=== PATIENT | male | born 1940 | race Caucasian/White ===

== ENCOUNTER 2019-09-03 09:42 | Inpatient (IN) | payer OTHER ==
[2019-09-03] MEDS ORDERED: VANCOMYCIN 1,500 MG in DEXTROSE 5%-WATER - 250 ML IVPB ONE (10:48)
[2019-09-03] MEDS ORDERED: PIPERACILLIN/TAZOB 4.5 GM 4.5 GM in DEXTROSE 5%-WATER 100 ML IVPB ONE (10:48)
[2019-09-03] MEDS ORDERED: PIPERACILLIN/TAZOB 4.5 GM 4.5 GM/100 ML BAG IVPB ONE (11:40)
[2019-09-03 11:42] LABS: BASO % 0.4 % (0-2.0); EOS % 3.7 % (0-4.5); HEMATOCRIT 22.4 % (35.4-49); HEMOGLOBIN 7.6 GM/dL (11.7-16.9); LYMPH % 12.2 % (8-40); MEAN CELL VOLUME 88.1 fl (80-96); MEAN PLT VOLUME 7.4 fl (7.5-11.1); MONO % 9.9 % (3.8-10.2); NEUT % 73.8 % (42.8-82.8); PLATELET COUNT 231 K/MM3 (134-434); RBC 2.54 M/mm3 (4.00-5.60); RDW 15.7 % (11.9-15.9); WHITE BLOOD COUNT 6.3 K/mm3 (4.0-10.0)
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
[2019-09-03 11:57] LABS: INR 1.18 (0.83-1.09); PROTHROMBIN TIME (PATIENT) 13.9 SEC (9.7-13.0)
[2019-09-03 12:06] LABS: ALBUMIN 2.8 g/dl (3.4-5.0); BILIRUBIN,TOTAL 0.4 mg/dL (0.2-1); BLOOD UREA NITROGEN 103.8 mg/dL (7-18); CALCIUM 7.9 mg/dL (8.5-10.1); CREATININE 3.3 mg/dL (0.55-1.3); POTASSIUM 4.4 mmol/L (3.5-5.1); TOT PROT 6.1 g/dl (6.4-8.2)
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
[2019-09-03] MEDS ORDERED: PIPERACILLIN/TAZOB 2.25 GM 2.25 GM/50 ML BAG IVPB ONE (18:43)
[2019-09-03] MEDS: PIPERACILLIN/TAZOB 2.25 GM 2.25 GM in DEXTROSE 5%-WATER - 50 ML IVPB SCH (18:50)
[2019-09-04 00:59] VITALS: BMI 34.2
[2019-09-04] MEDS ORDERED: DEXTROSE 5%-WATER - 50 ML IVPB ONE ×3 (01:13→17:00)
[2019-09-04] MEDS ORDERED: PIPERACILLIN/TAZOBACTAM 2.25 GM VIAL IVPB ONE ×3 (01:13→17:00)
[2019-09-04] MEDS: PIPERACILLIN/TAZOB 2.25 GM 2.25 GM in DEXTROSE 5%-WATER - 50 ML IVPB SCH ×3 (01:33→17:12)
[2019-09-04] MEDS ORDERED: SODIUM CHLORIDE 0.45% 1,000 ML IV SCH (04:45)
[2019-09-04] MEDS: INSULIN SLIDING SCALE (NOVOLOG) 1 VIAL SQ SCH ×4 (06:25→21:37)
[2019-09-04] MEDS ORDERED: INSULIN (NOVOLOG) ASPART 100 UNITS/ML 10ML VIAL ONE ×2 (07:58→14:47)
[2019-09-04 09:14] LABS: EOS % 3.9 % (0-4.5); HEMATOCRIT 26.2 % (35.4-49); HEMOGLOBIN 8.9 GM/dL (11.7-16.9); LYMPH % 7.9 % (8-40); MCH 29.9 pg (25.7-33.7); MCHC 34.1 g/dl (32.0-35.9); MEAN CELL VOLUME 87.8 fl (80-96); MEAN PLT VOLUME 7.3 fl (7.5-11.1); MONO % 10.2 % (3.8-10.2); PLATELET COUNT 231 K/MM3 (134-434); RBC 2.98 M/mm3 (4.00-5.60); RDW 15.6 % (11.9-15.9)
[2019-09-04] MEDS ORDERED: amLODIPine BESYLATE 10 MG TABLET (FP) PO SCH (10:00)
[2019-09-04] MEDS ORDERED: LIRAGLUTIDE 0.6 MG/0.1 ML PEN.INJCTR SQ SCH ×2 (10:00→13:56)
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
[2019-09-04] MEDS: TORSEMIDE 20 MG TABLET (FP) PO SCH (10:23)
[2019-09-04] MEDS: LOSARTAN POTASSIUM 50 MG TABLET (FP) PO SCH (10:23)
[2019-09-04] MEDS: ISOSORBIDE MONONITRATE 30 MG TAB.SR.24H (FP) PO SCH (10:23)
[2019-09-04] MEDS: ASPIRIN 81 MG CHEWABLE TABLETS PO SCH (10:23)
[2019-09-04] MEDS: CLOPIDOGREL BISULFATE 75 MG TABLET (FP) PO SCH (10:23)
[2019-09-04] MEDS: HEPARIN NA (PORCINE) 5,000 UNITS/ML 1ML VIAL SQ SCH ×2 (10:24→21:38)
[2019-09-04] MEDS: CARVEDILOL 25 MG TABLET (FP) PO SCH ×2 (10:24→21:38)
[2019-09-04] MEDS ORDERED: PT OWN MED DRAWER 7, Y5N ONE (10:27)
[2019-09-04 11:15] LABS: ALBUMIN 2.8 g/dl (3.4-5.0); BILIRUBIN,TOTAL 0.8 mg/dL (0.2-1); BLOOD UREA NITROGEN 94.6 mg/dL (7-18); CALCIUM 8.2 mg/dL (8.5-10.1); CREATININE 3.2 mg/dL (0.55-1.3); POTASSIUM 4.3 mmol/L (3.5-5.1); TOT PROT 6.2 g/dl (6.4-8.2)
--- NOTE | 2019-09-04 11:18 | HP ---
Admitting History and Physical - Advance Directives Advance Directives: Yes: Health Care Proxy - Smoking History Smoking history: Former smoker Have you smoked in the past 12 months: No - Alcohol/Substance Use Hx Alcohol Use: No Home Medications - Allergies Allergies/Adverse Reactions: Allergies Allergy/AdvReac Type Severity Reaction Status Date / Time No Known Allergies Allergy Verified 09/03/19 09:51 - Home Medications Home Medications: Ambulatory Orders Amlodipine Besylate [Norvasc -] 1 tab PO DAILY 08/26/19 Aspirin [ASA -] 1 tab PO DAILY 08/26/19 Carvedilol 1 tab PO BID 08/26/19 Cholecalciferol (Vitamin D3) [Vitamin D3] 1 cap PO DAILY 08/26/19 Clopidogrel Bisulfate [Plavix] 1 tab PO DAILY 08/26/19 Insulin Glargine,Hum.rec.anlog [Lantus] 25 units SQ DAILY 08/26/19 Insulin Lispro [Humalog] 5 units SQ HS 08/26/19 Isosorbide Mononitrate [Isosorbide Mononitrate ER] 90 mg PO DAILY 08/26/19 Liraglutide [Victoza -] 1.2 mg SQ DAILY 08/26/19 Losartan Potassium [Cozaar] 50 mg PO DAILY 08/26/19 Rosuvastatin [Crestor -] 1 tab PO HS 08/26/19 Torsemide 2 tab PO DAILY 08/26/19 Physical Examination Vital Signs: Vital Signs Temperature 98.1 F 09/04/19 05:55 Pulse Rate 65 09/04/19 05:55 Respiratory Rate 20 09/04/19 05:55 Blood Pressure 154/72 09/04/19 05:55 O2 Sat by Pulse Oximetry (%) 99 09/04/19 00:45 Labs: CBC, BMP 09/04/19 08:45 09/04/19 08:45
--- NOTE | 2019-09-04 12:20 | EKG ---
Test Reason : Blood Pressure : / mmHG Vent. Rate : 074 BPM Atrial Rate : 074 BPM P-R Int : 224 ms QRS Dur : 160 ms QT Int : 450 ms P-R-T Axes : 000 -67 104 degrees QTc Int : 499 ms AV dual-paced rhythm with prolonged AV conduction ABNORMAL ECG NO PREVIOUS ECGS AVAILABLE Confirmed by SHERMAN GRAFF, SONA ([id number]) on 09/04/2019 12:20:27 PM Referred By: Confirmed By:SONA WHITAKER MD
--- NOTE | 2019-09-04 14:05 | PN ---
Progress Note, Physician History of Present Illness: stable no new issues for bone scan today - Current Medication List Current Medications: Active Medications Amlodipine Besylate (Norvasc -) 10 mg PO DAILY [facility] Last Admin: 09/04/19 10:24 Dose: 10 mg Aspirin (Asa -) 81 mg PO DAILY [facility] Last Admin: 09/04/19 10:23 Dose: 81 mg Carvedilol (Coreg -) 25 mg PO BID [facility] Last Admin: 09/04/19 10:24 Dose: 25 mg Clopidogrel Bisulfate (Plavix -) 75 mg PO DAILY [facility] Last Admin: 09/04/19 10:23 Dose: 75 mg Heparin Sodium (Porcine) (Heparin -) 5,000 unit SQ BID [facility] Last Admin: 09/04/19 10:24 Dose: 5,000 unit Piperacillin Sod/Tazobactam (Sod 2.25 gm/ Dextrose) 50 mls @ 100 mls/hr IVPB Q8H-IV [facility]; Protocol Last Admin: 09/04/19 10:30 Dose: 100 mls/hr Sodium Chloride (1/2 Normal Saline) 1,000 mls @ 75 mls/hr IV ASDIR [facility] Last Admin: 09/04/19 06:40 Dose: 75 mls/hr Insulin Aspart (Novolog Vial Sliding Scale -) 1 vial SQ ACHS [facility]; Protocol Last Admin: 09/04/19 06:25 Dose: Not Given Insulin Aspart (Novolog Vial) 5 units SQ DAILY@1730 [facility] Isosorbide Mononitrate (Imdur -) 90 mg PO DAILY [facility] Last Admin: 09/04/19 10:23 Dose: 90 mg Liraglutide (Victoza -) 1.2 mg SQ DAILY@0600 [facility] Losartan Potassium (Cozaar -) 50 mg PO DAILY [facility] Last Admin: 09/04/19 10:23 Dose: 50 mg Torsemide (Demadex -) 40 mg PO DAILY [facility] Last Admin: 09/04/19 10:23 Dose: 40 mg - Objective Vital Signs: Vital Signs Temperature 98.1 F 09/04/19 05:55 Pulse Rate 65 09/04/19 05:55 Respiratory Rate 20 09/04/19 05:55 Blood Pressure 154/72 09/04/19 05:55 O2 Sat by Pulse Oximetry (%) 99 09/04/19 00:45 Constitutional: Yes: No Distress, Calm Cardiovascular: Yes: S1, S2 Respiratory: Yes: Regular, CTA Bilaterally Gastrointestinal: Yes: Normal Bowel Sounds, Soft Musculoskeletal: Yes: WNL Extremities: Yes: Other Integumentary: Yes: Other Wound/Incision: Yes: Clean/Dry Neurological: Yes: Alert, Oriented Psychiatric: Yes: Alert, Oriented Labs: CBC, BMP 09/04/19 08:45 09/04/19 08:45 INR, PTT INR 1.18 (0.83-1.09) H 09/03/19 11:20 Assessment/Plan continue current mgmt await for bone scan abx wound care final decision will be taken after all results
[2019-09-04] MEDS: INSULIN (NOVOLOG) ASPART 100 UNITS/ML 10ML VIAL SQ SCH (17:13)
--- NOTE | 2019-09-04 18:24 | CONSULT ---
Consult Consult Specialty:: Nephrology Reason for Consultation:: CKD - History of Present Illness Chief Complaint: sent in for admisson for non healing left lower ext wound History of Present Illness: Pt is an 79 year old male with pmhx of CHF, PPM, HTN, DM, CKD, CAD, and DFU who was sent in to the hospital for a non healing left lower ext ulcer. I was called to evaluate him for elevated creatinine. He was diagnoses with CKD at the time he was diagnoses with CHF. He says that his creatinine has been in the mid 2 range. The rise in jogger operator was attributed to diuretics. He denies shortness of breath at rest. He compains of lower ext edema. He denies fevers or chills. He denies nsaid use. - History Source History Provided By: Patient, Medical Record - Past Medical History Cardio/Vascular: Yes: CHF, HTN Renal/: Yes: Renal Inusuff - Past Surgical History Past Surgical History: Yes: Permanent Pacemaker - Alcohol/Substance Use Hx Alcohol Use: No - Smoking History Smoking history: Former smoker Have you smoked in the past 12 months: No Home Medications - Allergies Allergies/Adverse Reactions: Allergies Allergy/AdvReac Type Severity Reaction Status Date / Time No Known Allergies Allergy Verified 09/03/19 09:51 - Home Medications Home Medications: Ambulatory Orders Amlodipine Besylate [Norvasc -] 1 tab PO DAILY 08/26/19 Aspirin [ASA -] 1 tab PO DAILY 08/26/19 Carvedilol 1 tab PO BID 08/26/19 Cholecalciferol (Vitamin D3) [Vitamin D3] 1 cap PO DAILY 08/26/19 Clopidogrel Bisulfate [Plavix] 1 tab PO DAILY 08/26/19 Insulin Glargine,Hum.rec.anlog [Lantus] 25 units SQ DAILY 08/26/19 Insulin Lispro [Humalog] 5 units SQ HS 08/26/19 Isosorbide Mononitrate [Isosorbide Mononitrate ER] 90 mg PO DAILY 08/26/19 Liraglutide [Victoza -] 1.2 mg SQ DAILY 08/26/19 Losartan Potassium [Cozaar] 50 mg PO DAILY 08/26/19 Rosuvastatin [Crestor -] 1 tab PO HS 08/26/19 Torsemide 2 tab PO DAILY 08/26/19 Family Medical History Family History: Denies Review of Systems - Review of Systems Constitutional: reports: No Symptoms Eyes: reports: No Symptoms HENT: reports: No Symptoms Neck: reports: No Symptoms Cardiovascular: reports: Edema Respiratory: reports: SOB on Exertion Gastrointestinal: reports: No Symptoms Genitourinary: reports: No Symptoms Musculoskeletal: reports: No Symptoms Integumentary: reports: Wound Neurological: reports: No Symptoms Endocrine: reports: No Symptoms Psychiatric: reports: No Symptoms Physical Exam Vital Signs: Vital Signs Temperature 98.1 F 09/04/19 05:55 Pulse Rate 65 09/04/19 05:55 Respiratory Rate 20 09/04/19 09:00 Blood Pressure 154/72 09/04/19 05:55 O2 Sat by Pulse Oximetry (%) 99 09/04/19 09:00 Constitutional: Yes: Calm Eyes: Yes: Conjunctiva Clear HENT: Yes: Atraumatic Neck: Yes: Supple Cardiovascular: Yes: S1, S2 Respiratory: Yes: CTA Bilaterally Gastrointestinal: Yes: Soft Renal/: Yes: WNL Musculoskeletal: Yes: WNL Edema: Yes Edema: LLE: 2+, RLE: 2+ Integumentary: Yes: Venous Stasis Changes Neurological: Yes: Oriented Psychiatric: Yes: Oriented Labs: CBC, BMP 09/04/19 08:45 09/04/19 08:45 Imaging - Results Chest X-ray: Report Reviewed Problem List - Problems (1) CKD (chronic kidney disease) Code(s): N18.9 - CHRONIC KIDNEY DISEASE, UNSPECIFIED (2) CHF (congestive heart failure) Code(s): I50.9 - HEART FAILURE, UNSPECIFIED (3) Anemia Code(s): D64.9 - ANEMIA, UNSPECIFIED Qualifiers: Anemia type: unspecified type Qualified Code(s): D64.9 - Anemia, unspecified (4) Diabetic foot ulcers Code(s): E11.621 - TYPE 2 DIABETES MELLITUS WITH FOOT ULCER; L97.509 - NON- PRESSURE CHRONIC ULCER OTH PRT UNSP FOOT W UNSP SEVERITY Qualifiers: Diabetic foot ulcer location: midfoot Diabetes mellitus type: type 2 Laterality: left Non-pressure ulcer stage: with fat layer exposed Qualified Code(s): E11.621 - Type 2 diabetes mellitus with foot ulcer; L97.422 - Non- pressure chronic ulcer of left heel and midfoot with fat layer exposed Assessment/Plan Current Medications Generic Name Dose Route Start Last Admin Trade Name José Miguel PRN Reason Stop Dose Admin Amlodipine Besylate 10 mg 09/04/19 10:00 09/04/19 10:24 Norvasc - PO 10 mg DAILY [facility] Administration Aspirin 81 mg 09/04/19 10:00 09/04/19 10:23 Asa - PO 81 mg DAILY [facility] Administration Carvedilol 25 mg 09/04/19 10:00 09/04/19 10:24 Coreg - PO 25 mg BID [facility]Y Administration Clopidogrel Bisulfate 75 mg 09/04/19 10:00 09/04/19 10:23 Plavix - PO 75 mg DAILY [facility] Administration Heparin Sodium (Porcine) 5,000 unit 09/04/19 10:00 09/04/19 10:24 Heparin - SQ 5,000 unit BID [facility] Administration Piperacillin Sod/Tazobactam 50 mls @ 100 mls/hr 09/03/19 18:00 09/04/19 17:12 Sod 2.25 gm/ Dextrose IVPB 100 mls/hr Q8H-IV [facility] Administration Protocol Sodium Chloride 1,000 mls @ 75 mls/hr 09/04/19 04:45 09/04/19 06:40 1/2 Normal Saline IV 75 mls/hr ASDIR [facility]Y Administration Insulin Aspart 1 vial 09/04/19 07:00 09/04/19 17:13 Novolog Vial Sliding Scale - SQ Not Given ACHS [facility] Protocol Insulin Aspart 5 units 09/04/19 17:30 09/04/19 17:13 Novolog Vial SQ 5 units DAILY@1730 [facility] Administration Isosorbide Mononitrate 90 mg 09/04/19 10:00 09/04/19 10:23 Imdur - PO 90 mg DAILY [facility] Administration Liraglutide 1.2 mg 09/05/19 06:00 Victoza - SQ DAILY@0600 [facility] Losartan Potassium 50 mg 09/04/19 10:00 09/04/19 10:23 Cozaar - PO 50 mg DAILY [facility] Administration Torsemide 40 mg 09/04/19 10:00 09/04/19 10:23 Demadex - PO 40 mg DAILY [facility] Administration Impression 1. CKD 2. YENI 3. CHF 4. DM 5. DFU 6. HTN Plan - d/c fluids - cont torsemide - decrease amlodipine to 5 mg and titrate off if possible - repeat labs in am - check ua - check renal ultrasound - will place orders and follow Thank you
[2019-09-04] MEDS ORDERED: amLODIPine BESYLATE 5 MG TABLET (FP) PO SCH (18:26)
[2019-09-04] MEDS ORDERED: INSULIN LISPRO 5 UNIT SQ SCH (22:00)
[2019-09-04] MEDS ORDERED: ROSUVASTATIN CA 40 MG TABLET PO SCH (22:00)
[2019-09-04] MEDS ORDERED: INSULIN (NOVOLOG) ASPART 100 UNITS/ML 10ML VIAL SQ SCH (22:00)
--- NOTE | 2019-09-04 23:52 | PN ---
Progress Note, Physician - Current Medication List Current Medications: Active Medications Amlodipine Besylate (Norvasc -) 5 mg PO DAILY [facility] Aspirin (Asa -) 81 mg PO DAILY [facility] Last Admin: 09/04/19 10:23 Dose: 81 mg Carvedilol (Coreg -) 25 mg PO BID [facility] Last Admin: 09/04/19 21:38 Dose: 25 mg Clopidogrel Bisulfate (Plavix -) 75 mg PO DAILY [facility] Last Admin: 09/04/19 10:23 Dose: 75 mg Heparin Sodium (Porcine) (Heparin -) 5,000 unit SQ BID [facility] Last Admin: 09/04/19 21:38 Dose: 5,000 unit Piperacillin Sod/Tazobactam (Sod 2.25 gm/ Dextrose) 50 mls @ 100 mls/hr IVPB Q8H-IV [facility]; Protocol Last Admin: 09/04/19 17:12 Dose: 100 mls/hr Insulin Aspart (Novolog Vial Sliding Scale -) 1 vial SQ ACHS [facility]; Protocol Last Admin: 09/04/19 21:37 Dose: Not Given Insulin Aspart (Novolog Vial) 5 units SQ DAILY@1730 [facility] Last Admin: 09/04/19 17:13 Dose: 5 units Isosorbide Mononitrate (Imdur -) 90 mg PO DAILY [facility] Last Admin: 09/04/19 10:23 Dose: 90 mg Liraglutide (Victoza -) 1.2 mg SQ DAILY@0600 [facility] Losartan Potassium (Cozaar -) 50 mg PO DAILY [facility] Last Admin: 09/04/19 10:23 Dose: 50 mg Torsemide (Demadex -) 40 mg PO DAILY [facility] Last Admin: 09/04/19 10:23 Dose: 40 mg - Objective Vital Signs: Vital Signs Temperature 98.1 F 09/04/19 18:27 Pulse Rate 60 09/04/19 18:27 Respiratory Rate 20 09/04/19 21:00 Blood Pressure 124/55 L 09/04/19 18:27 O2 Sat by Pulse Oximetry (%) 100 09/04/19 21:00 Labs: CBC, BMP 09/04/19 08:45 09/04/19 08:45 INR, PTT INR 1.18 (0.83-1.09) H 09/03/19 11:20
[2019-09-05] MEDS ORDERED: PIPERACILLIN/TAZOBACTAM 2.25 GM VIAL IVPB ONE ×3 (00:45→17:30)
[2019-09-05] MEDS ORDERED: DEXTROSE 5%-WATER - 50 ML IVPB ONE ×3 (00:46→17:31)
[2019-09-05] MEDS: PIPERACILLIN/TAZOB 2.25 GM 2.25 GM in DEXTROSE 5%-WATER - 50 ML IVPB SCH ×3 (01:22→17:35)
[2019-09-05] MEDS ORDERED: LIRAGLUTIDE 0.6 MG/0.1 ML PEN.INJCTR SQ SCH (06:00)
[2019-09-05] MEDS ORDERED: PT OWN MED DRAWER 7, Y5N ONE (06:22)
[2019-09-05] MEDS: INSULIN SLIDING SCALE (NOVOLOG) 1 VIAL SQ SCH ×2 (06:33→21:54)
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
[2019-09-05] MEDS: ISOSORBIDE MONONITRATE 30 MG TAB.SR.24H (FP) PO SCH (10:03)
[2019-09-05] MEDS: TORSEMIDE 20 MG TABLET (FP) PO SCH (10:03)
[2019-09-05] MEDS: LOSARTAN POTASSIUM 50 MG TABLET (FP) PO SCH (10:04)
[2019-09-05] MEDS: CARVEDILOL 25 MG TABLET (FP) PO SCH ×2 (10:04→21:53)
[2019-09-05] MEDS: HEPARIN NA (PORCINE) 5,000 UNITS/ML 1ML VIAL SQ SCH ×2 (10:04→21:53)
[2019-09-05] MEDS: ASPIRIN 81 MG CHEWABLE TABLETS PO SCH (10:04)
[2019-09-05] MEDS: CLOPIDOGREL BISULFATE 75 MG TABLET (FP) PO SCH (10:04)
[2019-09-05 10:15] LABS: ALBUMIN 2.6 g/dl (3.4-5.0); BILIRUBIN,TOTAL 1.4 mg/dL (0.2-1); BLOOD UREA NITROGEN 96.9 mg/dL (7-18); CALCIUM 8.1 mg/dL (8.5-10.1); CREATININE 3.4 mg/dL (0.55-1.3); POTASSIUM 4.1 mmol/L (3.5-5.1)
[2019-09-05 11:06] LABS: EPI CELLS 0.7 /HPF (0-5/HPF); HYALINE CASTS 5 /lpf (0-8); URINE APPEARANCE CLEAR; URINE BACTERIA 0.7 /hpf (NEGATIVE); URINE BILIRUBIN NEGATIVE (NEGATIVE); URINE COLOR YELLOW; URINE GLUCOSE (UA) NEGATIVE (NEGATIVE); URINE KETONE NEGATIVE (NEGATIVE); URINE LEUK ESTERASE NEGATIVE (NEGATIVE); URINE NITRITE NEGATIVE (NEGATIVE); URINE PROTEIN 1+ (NEGATIVE); URINE RBC 4 /hpf (0-4); URINE UROBILINOGEN 0.2 mg/dL (0.2-1.0); URINE WBC 1 /hpf (0-5)
--- NOTE | 2019-09-05 12:45 | PN ---
Progress Note, Physician History of Present Illness: stable no new issues awaiting reports of imaging studies - Current Medication List Current Medications: Active Medications Amlodipine Besylate (Norvasc -) 5 mg PO DAILY [facility] Last Admin: 09/05/19 10:04 Dose: 5 mg Aspirin (Asa -) 81 mg PO DAILY [facility] Last Admin: 09/05/19 10:04 Dose: 81 mg Carvedilol (Coreg -) 25 mg PO BID [facility] Last Admin: 09/05/19 10:04 Dose: 25 mg Clopidogrel Bisulfate (Plavix -) 75 mg PO DAILY [facility] Last Admin: 09/05/19 10:04 Dose: 75 mg Heparin Sodium (Porcine) (Heparin -) 5,000 unit SQ BID [facility] Last Admin: 09/05/19 10:04 Dose: 5,000 unit Piperacillin Sod/Tazobactam (Sod 2.25 gm/ Dextrose) 50 mls @ 100 mls/hr IVPB Q8H-IV [facility]; Protocol Last Admin: 09/05/19 10:04 Dose: 100 mls/hr Insulin Aspart (Novolog Vial Sliding Scale -) 1 vial SQ ACHS [facility]; Protocol Last Admin: 09/05/19 06:33 Dose: Not Given Insulin Aspart (Novolog Vial) 5 units SQ DAILY@1730 [facility] Last Admin: 09/04/19 17:13 Dose: 5 units Isosorbide Mononitrate (Imdur -) 90 mg PO DAILY [facility] Last Admin: 09/05/19 10:03 Dose: 90 mg Liraglutide (Victoza -) 1.2 mg SQ DAILY@0600 [facility] Last Admin: 09/05/19 06:26 Dose: 1.2 mg Losartan Potassium (Cozaar -) 50 mg PO DAILY [facility] Last Admin: 09/05/19 10:04 Dose: 50 mg Torsemide (Demadex -) 40 mg PO DAILY [facility] Last Admin: 09/05/19 10:03 Dose: 40 mg - Objective Vital Signs: Vital Signs Temperature 98.7 F 09/05/19 06:00 Pulse Rate 78 09/05/19 06:00 Respiratory Rate 20 09/05/19 06:00 Blood Pressure 131/66 09/05/19 06:00 O2 Sat by Pulse Oximetry (%) 100 09/04/19 21:00 Constitutional: Yes: No Distress, Calm Cardiovascular: Yes: S1, S2 Respiratory: Yes: Regular, CTA Bilaterally Gastrointestinal: Yes: Normal Bowel Sounds, Soft Musculoskeletal: Yes: WNL Extremities: Yes: Other Wound/Incision: Yes: Clean/Dry Neurological: Yes: Alert, Oriented Psychiatric: Yes: Alert, Oriented Labs: CBC, BMP 09/04/19 08:45 09/05/19 08:55 INR, PTT INR 1.18 (0.83-1.09) H 09/03/19 11:20 Assessment/Plan continue current mgmt await for bone scan results abx wound care final decision will be taken after all results
--- NOTE | 2019-09-05 16:46 | PN ---
Progress Note, Physician History of Present Illness: Pt seen and examined at bedside. He is awake and alert. He denies shortness of breath. He denies fevers or chills. - Current Medication List Current Medications: Active Medications Amlodipine Besylate (Norvasc -) 5 mg PO DAILY [facility] Last Admin: 09/05/19 10:04 Dose: 5 mg Aspirin (Asa -) 81 mg PO DAILY [facility] Last Admin: 09/05/19 10:04 Dose: 81 mg Carvedilol (Coreg -) 25 mg PO BID [facility] Last Admin: 09/05/19 10:04 Dose: 25 mg Clopidogrel Bisulfate (Plavix -) 75 mg PO DAILY [facility] Last Admin: 09/05/19 10:04 Dose: 75 mg Heparin Sodium (Porcine) (Heparin -) 5,000 unit SQ BID [facility] Last Admin: 09/05/19 10:04 Dose: 5,000 unit Piperacillin Sod/Tazobactam (Sod 2.25 gm/ Dextrose) 50 mls @ 100 mls/hr IVPB Q8H-IV [facility]; Protocol Last Admin: 09/05/19 10:04 Dose: 100 mls/hr Insulin Aspart (Novolog Vial Sliding Scale -) 1 vial SQ ACHS [facility]; Protocol Last Admin: 09/05/19 06:33 Dose: Not Given Insulin Aspart (Novolog Vial) 5 units SQ DAILY@1730 [facility] Last Admin: 09/04/19 17:13 Dose: 5 units Isosorbide Mononitrate (Imdur -) 90 mg PO DAILY [facility] Last Admin: 09/05/19 10:03 Dose: 90 mg Liraglutide (Victoza -) 1.2 mg SQ DAILY@0600 [facility] Last Admin: 09/05/19 06:26 Dose: 1.2 mg Losartan Potassium (Cozaar -) 50 mg PO DAILY [facility] Last Admin: 09/05/19 10:04 Dose: 50 mg Torsemide (Demadex -) 40 mg PO DAILY [facility] Last Admin: 09/05/19 10:03 Dose: 40 mg - Objective Vital Signs: Vital Signs Temperature 98.9 F 09/05/19 10:00 Pulse Rate 60 09/05/19 10:00 Respiratory Rate 20 09/05/19 10:00 Blood Pressure 145/65 09/05/19 10:00 O2 Sat by Pulse Oximetry (%) 96 09/05/19 09:00 Constitutional: Yes: Calm Eyes: Yes: Conjunctiva Clear HENT: Yes: Atraumatic Cardiovascular: Yes: S1, S2 Respiratory: Yes: CTA Bilaterally Gastrointestinal: Yes: Soft, Abdomen, Obese Genitourinary: Yes: WNL Musculoskeletal: Yes: WNL Edema: Yes Edema: LLE: 2+, RLE: 2+ Wound/Incision: Yes: Draining Neurological: Yes: Oriented Psychiatric: Yes: Oriented Labs: CBC, BMP 09/04/19 08:45 09/05/19 08:55 INR, PTT INR 1.18 (0.83-1.09) H 09/03/19 11:20 Problem List - Problems (1) CKD (chronic kidney disease) Code(s): N18.9 - CHRONIC KIDNEY DISEASE, UNSPECIFIED (2) CHF (congestive heart failure) Code(s): I50.9 - HEART FAILURE, UNSPECIFIED (3) Anemia Code(s): D64.9 - ANEMIA, UNSPECIFIED Qualifiers: Anemia type: unspecified type Qualified Code(s): D64.9 - Anemia, unspecified (4) Diabetic foot ulcers Code(s): E11.621 - TYPE 2 DIABETES MELLITUS WITH FOOT ULCER; L97.509 - NON- PRESSURE CHRONIC ULCER OTH PRT UNSP FOOT W UNSP SEVERITY Qualifiers: Diabetic foot ulcer location: midfoot Diabetes mellitus type: type 2 Laterality: left Non-pressure ulcer stage: with fat layer exposed Qualified Code(s): E11.621 - Type 2 diabetes mellitus with foot ulcer; L97.422 - Non- pressure chronic ulcer of left heel and midfoot with fat layer exposed Assessment/Plan Current Medications Generic Name Dose Route Start Last Admin Trade Name Juan Carlosq PRN Reason Stop Dose Admin Amlodipine Besylate 5 mg 09/04/19 18:26 09/05/19 10:04 Norvasc - PO 5 mg DAILY [facility] Administration Aspirin 81 mg 09/04/19 10:00 09/05/19 10:04 Asa - PO 81 mg DAILY [facility] Administration Carvedilol 25 mg 09/04/19 10:00 09/05/19 10:04 Coreg - PO 25 mg BID [facility] Administration Clopidogrel Bisulfate 75 mg 09/04/19 10:00 09/05/19 10:04 Plavix - PO 75 mg DAILY [facility] Administration Heparin Sodium (Porcine) 5,000 unit 09/04/19 10:00 09/05/19 10:04 Heparin - SQ 5,000 unit BID [facility] Administration Piperacillin Sod/Tazobactam 50 mls @ 100 mls/hr 09/03/19 18:00 09/05/19 10:04 Sod 2.25 gm/ Dextrose IVPB 100 mls/hr Q8H-IV [facility] Administration Protocol Insulin Aspart 1 vial 09/04/19 07:00 09/05/19 06:33 Novolog Vial Sliding Scale - SQ Not Given ACHS [facility] Protocol Insulin Aspart 5 units 09/04/19 17:30 09/04/19 17:13 Novolog Vial SQ 5 units DAILY@1730 [facility] Administration Isosorbide Mononitrate 90 mg 09/04/19 10:00 09/05/19 10:03 Imdur - PO 90 mg DAILY [facility] Administration Liraglutide 1.2 mg 09/05/19 06:00 09/05/19 06:26 Victoza - SQ 1.2 mg DAILY@0600 [facility] Administration Losartan Potassium 50 mg 09/04/19 10:00 09/05/19 10:04 Cozaar - PO 50 mg DAILY [facility] Administration Torsemide 40 mg 09/04/19 10:00 09/05/19 10:03 Demadex - PO 40 mg DAILY [facility] Administration Impression 1. CKD 2. YENI 3. CHF 4. DM 5. DFU 6. HTN Plan - renal function is worsening - will hold arb - can increase amlodipine back to 10 mg - cont torsemide as he has edema - ua reviewed - renal ultrasound reviewed - start sodium bicarb Thank you
[2019-09-05] MEDS: INSULIN (NOVOLOG) ASPART 100 UNITS/ML 10ML VIAL SQ SCH (17:39)
--- NOTE | 2019-09-05 20:19 | PN ---
Progress Note, Physician - Current Medication List Current Medications: Active Medications Amlodipine Besylate (Norvasc -) 10 mg PO DAILY [facility] Aspirin (Asa -) 81 mg PO DAILY [facility] Last Admin: 09/05/19 10:04 Dose: 81 mg Carvedilol (Coreg -) 25 mg PO BID [facility] Last Admin: 09/05/19 10:04 Dose: 25 mg Clopidogrel Bisulfate (Plavix -) 75 mg PO DAILY [facility] Last Admin: 09/05/19 10:04 Dose: 75 mg Heparin Sodium (Porcine) (Heparin -) 5,000 unit SQ BID [facility] Last Admin: 09/05/19 10:04 Dose: 5,000 unit Piperacillin Sod/Tazobactam (Sod 2.25 gm/ Dextrose) 50 mls @ 100 mls/hr IVPB Q8H-IV [facility]; Protocol Last Admin: 09/05/19 17:35 Dose: 100 mls/hr Insulin Aspart (Novolog Vial Sliding Scale -) 1 vial SQ ACHS [facility]; Protocol Last Admin: 09/05/19 06:33 Dose: Not Given Insulin Aspart (Novolog Vial) 5 units SQ DAILY@1730 [facility] Last Admin: 09/05/19 17:39 Dose: 5 units Isosorbide Mononitrate (Imdur -) 90 mg PO DAILY [facility] Last Admin: 09/05/19 10:03 Dose: 90 mg Sodium Bicarbonate (Sodium Bicarbonate -) 650 mg PO BID [facility] Torsemide (Demadex -) 40 mg PO DAILY [facility] Last Admin: 09/05/19 10:03 Dose: 40 mg - Objective Vital Signs: Vital Signs Temperature 98.9 F 09/05/19 10:00 Pulse Rate 60 09/05/19 10:00 Respiratory Rate 20 09/05/19 10:00 Blood Pressure 145/65 09/05/19 10:00 O2 Sat by Pulse Oximetry (%) 96 09/05/19 09:00 Labs: CBC, BMP 09/04/19 08:45 09/05/19 08:55 INR, PTT INR 1.18 (0.83-1.09) H 09/03/19 11:20
[2019-09-05] MEDS: SODIUM BICARBONATE 650 MG TABLET PO SCH (21:53)
[2019-09-06] MEDS ORDERED: PIPERACILLIN/TAZOBACTAM 2.25 GM VIAL IVPB ONE ×3 (02:43→16:23)
[2019-09-06] MEDS ORDERED: DEXTROSE 5%-WATER - 50 ML IVPB ONE ×3 (02:44→16:23)
[2019-09-06] MEDS: PIPERACILLIN/TAZOB 2.25 GM 2.25 GM in DEXTROSE 5%-WATER - 50 ML IVPB SCH ×3 (02:55→17:00)
[2019-09-06] MEDS: INSULIN SLIDING SCALE (NOVOLOG) 1 VIAL SQ SCH ×4 (06:35→21:33)
[2019-09-06] MEDS: SODIUM BICARBONATE 650 MG TABLET PO SCH ×2 (09:36→21:33)
[2019-09-06] MEDS: CARVEDILOL 25 MG TABLET (FP) PO SCH ×2 (09:36→21:33)
[2019-09-06] MEDS: ASPIRIN 81 MG CHEWABLE TABLETS PO SCH (09:36)
[2019-09-06] MEDS: CLOPIDOGREL BISULFATE 75 MG TABLET (FP) PO SCH (09:36)
[2019-09-06] MEDS: ISOSORBIDE MONONITRATE 30 MG TAB.SR.24H (FP) PO SCH (09:36)
[2019-09-06] MEDS: amLODIPine BESYLATE 10 MG TABLET (FP) PO SCH (09:36)
[2019-09-06] MEDS: TORSEMIDE 20 MG TABLET (FP) PO SCH (09:37)
[2019-09-06] MEDS: HEPARIN NA (PORCINE) 5,000 UNITS/ML 1ML VIAL SQ SCH ×2 (09:37→21:33)
[2019-09-06 11:37] LABS: ALBUMIN 2.5 g/dl (3.4-5.0); BILIRUBIN,TOTAL 0.7 mg/dL (0.2-1); BLOOD UREA NITROGEN 98.3 mg/dL (7-18); CALCIUM 8.1 mg/dL (8.5-10.1); CREATININE 3.5 mg/dL (0.55-1.3); POTASSIUM 4.2 mmol/L (3.5-5.1)
[2019-09-06 13:18] LABS: BASO % 1.1 % (0-2.0); EOS % 4.6 % (0-4.5); HEMATOCRIT 25.8 % (35.4-49); HEMOGLOBIN 8.4 GM/dL (11.7-16.9); LYMPH % 11.5 % (8-40); MCH 29.5 pg (25.7-33.7); MCHC 32.8 g/dl (32.0-35.9); MEAN PLT VOLUME 7.6 fl (7.5-11.1); MONO % 9.2 % (3.8-10.2); NEUT % 73.6 % (42.8-82.8); PLATELET COUNT 210 K/MM3 (134-434); RBC 2.86 M/mm3 (4.00-5.60); RDW 15.7 % (11.9-15.9); WHITE BLOOD COUNT 6.6 K/mm3 (4.0-10.0)
--- NOTE | 2019-09-06 14:02 | PN ---
Progress Note, Physician Chief Complaint: 79 y/o male unpleasant in bed due to weight bearing status. Seen with left foot charcot ulceration and is s/p singh to the 1st and 2nd digit. Denies any acute events. Denies f/c/n/v/sob. - Current Medication List Current Medications: Active Medications Amlodipine Besylate (Norvasc -) 10 mg PO DAILY [facility] Last Admin: 09/06/19 09:36 Dose: 10 mg Aspirin (Asa -) 81 mg PO DAILY [facility] Last Admin: 09/06/19 09:36 Dose: 81 mg Carvedilol (Coreg -) 25 mg PO BID [facility] Last Admin: 09/06/19 09:36 Dose: 25 mg Clopidogrel Bisulfate (Plavix -) 75 mg PO DAILY [facility] Last Admin: 09/06/19 09:36 Dose: 75 mg Heparin Sodium (Porcine) (Heparin -) 5,000 unit SQ BID [facility] Last Admin: 09/06/19 09:37 Dose: 5,000 unit Piperacillin Sod/Tazobactam (Sod 2.25 gm/ Dextrose) 50 mls @ 100 mls/hr IVPB Q8H-IV [facility]; Protocol Last Admin: 09/06/19 09:37 Dose: 100 mls/hr Insulin Aspart (Novolog Vial Sliding Scale -) 1 vial SQ ACHS [facility]; Protocol Last Admin: 09/06/19 11:35 Dose: 2 units Insulin Aspart (Novolog Vial) 5 units SQ DAILY@1730 [facility] Last Admin: 09/05/19 17:39 Dose: 5 units Isosorbide Mononitrate (Imdur -) 90 mg PO DAILY [facility] Last Admin: 09/06/19 09:36 Dose: 90 mg Sodium Bicarbonate (Sodium Bicarbonate -) 650 mg PO BID [facility] Last Admin: 09/06/19 09:36 Dose: 650 mg Torsemide (Demadex -) 40 mg PO DAILY [facility] Last Admin: 09/06/19 09:37 Dose: 40 mg - Objective Vital Signs: Vital Signs Temperature 98.6 F 09/06/19 09:00 Pulse Rate 61 09/06/19 09:00 Respiratory Rate 18 09/06/19 09:00 Blood Pressure 137/58 L 09/06/19 09:00 O2 Sat by Pulse Oximetry (%) 98 09/06/19 09:40 Musculoskeletal: Yes: Other (Left foot plantar ulceration underlying roughly cuboid bone, no bone exposed, gross charcto deformity, 1st and 2nd digit with overlying macerated tissue, no bone exposed, no erythema noted, serous drainage. ) Labs: CBC, BMP 09/06/19 12:56 09/06/19 10:05 INR, PTT INR 1.18 (0.83-1.09) H 09/03/19 11:20 Assessment/Plan 79 y/o male with charcot possible osteo of the left foot and is s/p singh to left 1st and 2nd digit. Evaluated and reviewed with the patient Bone scan reviewed; possible osteo of the left foot Can plan on doing bone biopsy sunday on the bone As well as gives time for digits to finish demarcation and will be able to know if toes will survive or if will need amputated Will f/u sunday for pre op discussion with patient Daily dressing with betadine DSD to digits and to charcot ulceration.
[2019-09-06] MEDS: INSULIN (NOVOLOG) ASPART 100 UNITS/ML 10ML VIAL SQ SCH (16:58)
--- NOTE | 2019-09-06 20:44 | PN ---
Progress Note (short form) - Note Progress Note: chf stacy arb on hold Current Medications Amlodipine Besylate (Norvasc -) 10 mg PO DAILY [facility] Last Admin: 09/06/19 09:36 Dose: 10 mg Aspirin (Asa -) 81 mg PO DAILY [facility] Last Admin: 09/06/19 09:36 Dose: 81 mg Carvedilol (Coreg -) 25 mg PO BID [facility] Last Admin: 09/06/19 09:36 Dose: 25 mg Clopidogrel Bisulfate (Plavix -) 75 mg PO DAILY [facility] Last Admin: 09/06/19 09:36 Dose: 75 mg Heparin Sodium (Porcine) (Heparin -) 5,000 unit SQ BID [facility] Last Admin: 09/06/19 09:37 Dose: 5,000 unit Piperacillin Sod/Tazobactam (Sod 2.25 gm/ Dextrose) 50 mls @ 100 mls/hr IVPB Q8H-IV [facility]; Protocol Last Admin: 09/06/19 17:00 Dose: 100 mls/hr Insulin Aspart (Novolog Vial Sliding Scale -) 1 vial SQ ACHS [facility]; Protocol Last Admin: 09/06/19 16:58 Dose: 2 units Insulin Aspart (Novolog Vial) 5 units SQ DAILY@1730 [facility] Last Admin: 09/06/19 16:58 Dose: 5 units Isosorbide Mononitrate (Imdur -) 90 mg PO DAILY [facility] Last Admin: 09/06/19 09:36 Dose: 90 mg Sodium Bicarbonate (Sodium Bicarbonate -) 650 mg PO BID [facility] Last Admin: 09/06/19 09:36 Dose: 650 mg Torsemide (Demadex -) 40 mg PO DAILY [facility] Last Admin: 09/06/19 09:37 Dose: 40 mg Last Vital Signs Temp Pulse Resp BP Pulse Ox 98.6 F 61 18 137/58 L 98 09/06/19 09:00 09/06/19 09:00 09/06/19 09:00 09/06/19 09:00 09/06/19 09:40 CBC, BMP 09/06/19 12:56 09/06/19 10:05
--- NOTE | 2019-09-06 20:59 | PN ---
Progress Note, Physician History of Present Illness: Pt is alert, without distress. LLE erythema/edema persists. Afebrile, tolerating antibiotics. - Current Medication List Current Medications: Active Medications Amlodipine Besylate (Norvasc -) 10 mg PO DAILY [facility] Last Admin: 09/06/19 09:36 Dose: 10 mg Aspirin (Asa -) 81 mg PO DAILY [facility] Last Admin: 09/06/19 09:36 Dose: 81 mg Carvedilol (Coreg -) 25 mg PO BID [facility] Last Admin: 09/06/19 09:36 Dose: 25 mg Clopidogrel Bisulfate (Plavix -) 75 mg PO DAILY [facility] Last Admin: 09/06/19 09:36 Dose: 75 mg Heparin Sodium (Porcine) (Heparin -) 5,000 unit SQ BID [facility] Last Admin: 09/06/19 09:37 Dose: 5,000 unit Piperacillin Sod/Tazobactam (Sod 2.25 gm/ Dextrose) 50 mls @ 100 mls/hr IVPB Q8H-IV [facility]; Protocol Last Admin: 09/06/19 17:00 Dose: 100 mls/hr Insulin Aspart (Novolog Vial Sliding Scale -) 1 vial SQ ACHS [facility]; Protocol Last Admin: 09/06/19 16:58 Dose: 2 units Insulin Aspart (Novolog Vial) 5 units SQ DAILY@1730 [facility] Last Admin: 09/06/19 16:58 Dose: 5 units Isosorbide Mononitrate (Imdur -) 90 mg PO DAILY [facility] Last Admin: 09/06/19 09:36 Dose: 90 mg Sodium Bicarbonate (Sodium Bicarbonate -) 650 mg PO BID [facility] Last Admin: 09/06/19 09:36 Dose: 650 mg Torsemide (Demadex -) 40 mg PO DAILY [facility] Last Admin: 09/06/19 09:37 Dose: 40 mg - Objective Vital Signs: Vital Signs Temperature 98.6 F 09/06/19 09:00 Pulse Rate 61 09/06/19 09:00 Respiratory Rate 18 09/06/19 09:00 Blood Pressure 137/58 L 09/06/19 09:00 O2 Sat by Pulse Oximetry (%) 98 09/06/19 09:40 Constitutional: Yes: No Distress, Calm Eyes: Yes: Conjunctiva Clear Cardiovascular: Yes: Regular Rate and Rhythm Respiratory: Yes: Regular Gastrointestinal: Yes: Normal Bowel Sounds, Soft Extremities: Yes: Erythema (LLE edema, Lt foot dressing intact) Neurological: Yes: Alert, Oriented Labs: CBC, BMP 09/06/19 12:56 09/06/19 10:05 INR, PTT INR 1.18 (0.83-1.09) H 09/03/19 11:20 Microbiology 09/03/19 11:35 Wound Gram Stain - Final 09/03/19 11:35 Wound Wound Culture - Final Pseudomonas Aeruginosa Enterococcus Faecalis Diphtheroid/Corynebacterium 09/03/19 11:00 Blood - Peripheral Venous Blood Culture - Preliminary NO GROWTH OBTAINED AFTER 72 HOURS, INCUBATION TO CONTINUE FOR 2 DAYS. 09/03/19 10:30 Blood - Peripheral Venous Blood Culture - Preliminary NO GROWTH OBTAINED AFTER 72 HOURS, INCUBATION TO CONTINUE FOR 2 DAYS. Problem List - Problems (1) Anemia Code(s): D64.9 - ANEMIA, UNSPECIFIED Qualifiers: Anemia type: unspecified type Qualified Code(s): D64.9 - Anemia, unspecified (2) CHF (congestive heart failure) Code(s): I50.9 - HEART FAILURE, UNSPECIFIED (3) CKD (chronic kidney disease) Code(s): N18.9 - CHRONIC KIDNEY DISEASE, UNSPECIFIED (4) Diabetic foot ulcers Code(s): E11.621 - TYPE 2 DIABETES MELLITUS WITH FOOT ULCER; L97.509 - NON- PRESSURE CHRONIC ULCER OTH PRT UNSP FOOT W UNSP SEVERITY Qualifiers: Diabetic foot ulcer location: midfoot Diabetes mellitus type: type 2 Laterality: left Non-pressure ulcer stage: with fat layer exposed Qualified Code(s): E11.621 - Type 2 diabetes mellitus with foot ulcer; L97.422 - 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
--- NOTE | 2019-09-06 23:04 | PN ---
Progress Note, Physician History of Present Illness: No new complaints - Current Medication List Current Medications: Active Medications Amlodipine Besylate (Norvasc -) 10 mg PO DAILY [facility] Last Admin: 09/06/19 09:36 Dose: 10 mg Aspirin (Asa -) 81 mg PO DAILY [facility] Last Admin: 09/06/19 09:36 Dose: 81 mg Carvedilol (Coreg -) 25 mg PO BID [facility] Last Admin: 09/06/19 21:33 Dose: 25 mg Clopidogrel Bisulfate (Plavix -) 75 mg PO DAILY [facility] Last Admin: 09/06/19 09:36 Dose: 75 mg Heparin Sodium (Porcine) (Heparin -) 5,000 unit SQ BID [facility] Last Admin: 09/06/19 21:33 Dose: 5,000 unit Piperacillin Sod/Tazobactam (Sod 2.25 gm/ Dextrose) 50 mls @ 100 mls/hr IVPB Q8H-IV [facility]; Protocol Last Admin: 09/06/19 17:00 Dose: 100 mls/hr Insulin Aspart (Novolog Vial Sliding Scale -) 1 vial SQ ACHS [facility]; Protocol Last Admin: 09/06/19 21:33 Dose: Not Given Insulin Aspart (Novolog Vial) 5 units SQ DAILY@1730 [facility] Last Admin: 09/06/19 16:58 Dose: 5 units Isosorbide Mononitrate (Imdur -) 90 mg PO DAILY [facility] Last Admin: 09/06/19 09:36 Dose: 90 mg Sodium Bicarbonate (Sodium Bicarbonate -) 650 mg PO BID [facility] Last Admin: 09/06/19 21:33 Dose: 650 mg Torsemide (Demadex -) 40 mg PO DAILY [facility] Last Admin: 09/06/19 09:37 Dose: 40 mg - Objective Vital Signs: Vital Signs Temperature 97.8 F 09/06/19 21:36 Pulse Rate 61 09/06/19 21:36 Respiratory Rate 18 09/06/19 21:36 Blood Pressure 139/59 L 09/06/19 21:36 O2 Sat by Pulse Oximetry (%) 98 09/06/19 09:40 Neck: Yes: WNL, Supple Cardiovascular: Yes: WNL, Regular Rate and Rhythm Respiratory: Yes: WNL, Regular, CTA Bilaterally Gastrointestinal: Yes: WNL, Normal Bowel Sounds, Soft, Abdomen, Obese Extremities: Yes: Other ((+) chronic venous stasis Lt foot in dressing w/ some drainage) Edema: LLE: 1+, RLE: 1+ Labs: CBC, BMP 09/06/19 12:56 09/06/19 10:05 INR, PTT INR 1.18 (0.83-1.09) H 09/03/19 11:20 Problem List - Problems (1) Diabetic foot ulcers Assessment/Plan: Cont IV antibxs Wound culture (+) for pseudomonas/enterococcus/diph/corneynebacterium Possible osteo on bone scan Pt for bone bx on 09/09/19 As per ID/Podiatry Code(s): E11.621 - TYPE 2 DIABETES MELLITUS WITH FOOT ULCER; L97.509 - NON- PRESSURE CHRONIC ULCER OTH PRT UNSP FOOT W UNSP SEVERITY Qualifiers: Diabetic foot ulcer location: midfoot Diabetes mellitus type: type 2 Laterality: left Non-pressure ulcer stage: with fat layer exposed Qualified Code(s): E11.621 - Type 2 diabetes mellitus with foot ulcer; L97.422 - Non- pressure chronic ulcer of left heel and midfoot with fat layer exposed (2) Diabetes Assessment/Plan: Cont sliding scale Code(s): E11.9 - TYPE 2 DIABETES MELLITUS WITHOUT COMPLICATIONS (3) CHF (congestive heart failure) Assessment/Plan: Cont demadex Code(s): I50.9 - HEART FAILURE, UNSPECIFIED (4) CKD (chronic kidney disease) Assessment/Plan: As per renal Monitor bun/creatinine Code(s): N18.9 - CHRONIC KIDNEY DISEASE, UNSPECIFIED (5) Anemia Assessment/Plan: Due to chronic renal dz Monitor H/H Code(s): D64.9 - ANEMIA, UNSPECIFIED Qualifiers: Anemia type: unspecified type Qualified Code(s): D64.9 - Anemia, unspecified (6) HTN (hypertension) Assessment/Plan: Cont Coreg/asa Code(s): I10 - ESSENTIAL (PRIMARY) HYPERTENSION (7) CAD (coronary artery disease) Assessment/Plan: Cont plavix Code(s): I25.10 - ATHSCL HEART DISEASE OF [place] CORONARY ARTERY W/O ANG PCTRS (8) 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
[2019-09-07] MEDS ORDERED: PIPERACILLIN/TAZOBACTAM 2.25 GM VIAL IVPB ONE ×3 (01:32→16:56)
[2019-09-07] MEDS ORDERED: DEXTROSE 5%-WATER - 50 ML IVPB ONE ×3 (01:32→16:56)
[2019-09-07] MEDS: PIPERACILLIN/TAZOB 2.25 GM 2.25 GM in DEXTROSE 5%-WATER - 50 ML IVPB SCH ×3 (01:45→17:32)
[2019-09-07] MEDS: SODIUM BICARBONATE 650 MG TABLET PO SCH ×2 (10:15→21:46)
[2019-09-07] MEDS: TORSEMIDE 20 MG TABLET (FP) PO SCH (10:15)
[2019-09-07] MEDS: ISOSORBIDE MONONITRATE 30 MG TAB.SR.24H (FP) PO SCH (10:15)
[2019-09-07] MEDS: amLODIPine BESYLATE 10 MG TABLET (FP) PO SCH (10:16)
[2019-09-07] MEDS: CARVEDILOL 25 MG TABLET (FP) PO SCH ×2 (10:16→21:46)
[2019-09-07] MEDS: CLOPIDOGREL BISULFATE 75 MG TABLET (FP) PO SCH (10:16)
[2019-09-07] MEDS: ASPIRIN 81 MG CHEWABLE TABLETS PO SCH (10:16)
[2019-09-07] MEDS: HEPARIN NA (PORCINE) 5,000 UNITS/ML 1ML VIAL SQ SCH ×2 (10:16→21:46)
[2019-09-07] MEDS: INSULIN SLIDING SCALE (NOVOLOG) 1 VIAL SQ SCH ×3 (11:27→21:48)
--- NOTE | 2019-09-07 15:52 | PN ---
Progress Note, Physician History of Present Illness: No new events. Pt remains afebrile, alert, without distress. Has some LE pain. - Current Medication List Current Medications: Active Medications Amlodipine Besylate (Norvasc -) 10 mg PO DAILY [facility] Last Admin: 09/07/19 10:16 Dose: 10 mg Aspirin (Asa -) 81 mg PO DAILY [facility] Last Admin: 09/07/19 10:16 Dose: 81 mg Carvedilol (Coreg -) 25 mg PO BID [facility] Last Admin: 09/07/19 10:16 Dose: 25 mg Clopidogrel Bisulfate (Plavix -) 75 mg PO DAILY [facility] Last Admin: 09/07/19 10:16 Dose: 75 mg Heparin Sodium (Porcine) (Heparin -) 5,000 unit SQ BID [facility] Last Admin: 09/07/19 10:16 Dose: 5,000 unit Piperacillin Sod/Tazobactam (Sod 2.25 gm/ Dextrose) 50 mls @ 100 mls/hr IVPB Q8H-IV [facility]; Protocol Last Admin: 09/07/19 10:16 Dose: 100 mls/hr Insulin Aspart (Novolog Vial Sliding Scale -) 1 vial SQ ACHS [facility]; Protocol Last Admin: 09/07/19 11:27 Dose: Not Given Insulin Aspart (Novolog Vial) 5 units SQ DAILY@1730 [facility] Last Admin: 09/06/19 16:58 Dose: 5 units Isosorbide Mononitrate (Imdur -) 90 mg PO DAILY [facility] Last Admin: 09/07/19 10:15 Dose: 90 mg Sodium Bicarbonate (Sodium Bicarbonate -) 650 mg PO BID [facility] Last Admin: 09/07/19 10:15 Dose: 650 mg Torsemide (Demadex -) 40 mg PO DAILY [facility] Last Admin: 09/07/19 10:15 Dose: 40 mg - Objective Vital Signs: Vital Signs Temperature 97.8 F 09/07/19 14:49 Pulse Rate 61 09/07/19 14:49 Respiratory Rate 18 09/07/19 10:00 Blood Pressure 120/56 L 09/07/19 14:49 O2 Sat by Pulse Oximetry (%) 98 09/07/19 09:00 Constitutional: Yes: No Distress, Calm Cardiovascular: Yes: Regular Rate and Rhythm Respiratory: Yes: Regular Gastrointestinal: Yes: Normal Bowel Sounds, Soft Wound/Incision: Yes: Other (LLE mild edema/ dressing intact) Neurological: Yes: Alert, Oriented Labs: CBC, BMP 09/06/19 12:56 09/06/19 10:05 INR, PTT INR 1.18 (0.83-1.09) H 09/03/19 11:20 Microbiology 09/03/19 11:00 Blood - Peripheral Venous Blood Culture - Preliminary NO GROWTH OBTAINED AFTER 96 HOURS, INCUBATION TO CONTINUE FOR 1 DAYS. 09/03/19 10:30 Blood - Peripheral Venous Blood Culture - Preliminary NO GROWTH OBTAINED AFTER 96 HOURS, INCUBATION TO CONTINUE FOR 1 DAYS. 09/03/19 11:35 Wound Gram Stain - Final 09/03/19 11:35 Wound Wound Culture - Final Pseudomonas Aeruginosa Enterococcus Faecalis Diphtheroid/Corynebacterium Problem List - Problems (1) Anemia Code(s): D64.9 - ANEMIA, UNSPECIFIED Qualifiers: Anemia type: unspecified type Qualified Code(s): D64.9 - Anemia, unspecified (2) CHF (congestive heart failure) Code(s): I50.9 - HEART FAILURE, UNSPECIFIED (3) CKD (chronic kidney disease) Code(s): N18.9 - CHRONIC KIDNEY DISEASE, UNSPECIFIED (4) Diabetic foot ulcers Code(s): E11.621 - TYPE 2 DIABETES MELLITUS WITH FOOT ULCER; L97.509 - NON- PRESSURE CHRONIC ULCER OTH PRT UNSP FOOT W UNSP SEVERITY Qualifiers: Diabetic foot ulcer location: midfoot Diabetes mellitus type: type 2 Laterality: left Non-pressure ulcer stage: with fat layer exposed Qualified Code(s): E11.621 - Type 2 diabetes mellitus with foot ulcer; L97.422 - Non- pressure chronic ulcer of left heel and midfoot with fat layer exposed Assessment/Plan Nonhealing Lt foot ulcer/wound infection r/o OM s/p excisional debridement / outpt antibiotics CKD CHF CAD s/p PPM DM Charcot foot -- Bone scan inconclusive for OM -- wound culture results reviewed -- continue Zosyn IV -- continue wound care
[2019-09-07] MEDS: INSULIN (NOVOLOG) ASPART 100 UNITS/ML 10ML VIAL SQ SCH (17:30)
--- NOTE | 2019-09-07 17:40 | PN ---
Progress Note (short form) - Note Progress Note: chf yeni arb on hold Current Medications Amlodipine Besylate (Norvasc -) 10 mg PO DAILY [facility] Last Admin: 09/07/19 10:16 Dose: 10 mg Aspirin (Asa -) 81 mg PO DAILY [facility] Last Admin: 09/07/19 10:16 Dose: 81 mg Carvedilol (Coreg -) 25 mg PO BID [facility] Last Admin: 09/07/19 10:16 Dose: 25 mg Clopidogrel Bisulfate (Plavix -) 75 mg PO DAILY [facility] Last Admin: 09/07/19 10:16 Dose: 75 mg Heparin Sodium (Porcine) (Heparin -) 5,000 unit SQ BID [facility] Last Admin: 09/07/19 10:16 Dose: 5,000 unit Piperacillin Sod/Tazobactam (Sod 2.25 gm/ Dextrose) 50 mls @ 100 mls/hr IVPB Q8H-IV [facility]; Protocol Last Admin: 09/07/19 17:32 Dose: 100 mls/hr Insulin Aspart (Novolog Vial Sliding Scale -) 1 vial SQ ACHS [facility]; Protocol Last Admin: 09/07/19 17:31 Dose: 2 units Insulin Aspart (Novolog Vial) 5 units SQ DAILY@1730 [facility] Last Admin: 09/07/19 17:30 Dose: 5 units Isosorbide Mononitrate (Imdur -) 90 mg PO DAILY [facility] Last Admin: 09/07/19 10:15 Dose: 90 mg Sodium Bicarbonate (Sodium Bicarbonate -) 650 mg PO BID [facility] Last Admin: 09/07/19 10:15 Dose: 650 mg Torsemide (Demadex -) 40 mg PO DAILY [facility] Last Admin: 09/07/19 10:15 Dose: 40 mg Last Vital Signs Temp Pulse Resp BP Pulse Ox 97.8 F 61 18 120/56 L 98 09/07/19 14:49 09/07/19 14:49 09/07/19 10:00 09/07/19 14:49 09/07/19 09:00 alert in nad Lugs clear Heart reg Abd soft CBC, BMP 09/06/19 12:56 09/06/19 10:05 IMP Nonhealing Lt foot ulcer/wound infection r/o OM s/p excisional debridement / outpt antibiotics CKD s/p YENI CHF CAD s/p PPM DM Charcot foot fluctuatig azotemia may be related to fluid status CO2 remains low- denies diarrhea, hydro on son Plan- f/u labs in am
--- NOTE | 2019-09-07 23:11 | PN ---
Progress Note, Physician History of Present Illness: No new complaints - Current Medication List Current Medications: Active Medications Amlodipine Besylate (Norvasc -) 10 mg PO DAILY [facility] Last Admin: 09/07/19 10:16 Dose: 10 mg Aspirin (Asa -) 81 mg PO DAILY [facility] Last Admin: 09/07/19 10:16 Dose: 81 mg Carvedilol (Coreg -) 25 mg PO BID [facility] Last Admin: 09/07/19 21:46 Dose: 25 mg Clopidogrel Bisulfate (Plavix -) 75 mg PO DAILY [facility] Last Admin: 09/07/19 10:16 Dose: 75 mg Heparin Sodium (Porcine) (Heparin -) 5,000 unit SQ BID [facility] Last Admin: 09/07/19 21:46 Dose: 5,000 unit Piperacillin Sod/Tazobactam (Sod 2.25 gm/ Dextrose) 50 mls @ 100 mls/hr IVPB Q8H-IV [facility]; Protocol Last Admin: 09/07/19 17:32 Dose: 100 mls/hr Insulin Aspart (Novolog Vial Sliding Scale -) 1 vial SQ ACHS [facility]; Protocol Last Admin: 09/07/19 21:48 Dose: 2 units Insulin Aspart (Novolog Vial) 5 units SQ DAILY@1730 [facility] Last Admin: 09/07/19 17:30 Dose: 5 units Isosorbide Mononitrate (Imdur -) 90 mg PO DAILY [facility] Last Admin: 09/07/19 10:15 Dose: 90 mg Sodium Bicarbonate (Sodium Bicarbonate -) 650 mg PO BID [facility] Last Admin: 09/07/19 21:46 Dose: 650 mg Torsemide (Demadex -) 40 mg PO DAILY [facility] Last Admin: 09/07/19 10:15 Dose: 40 mg - Objective Vital Signs: Vital Signs Temperature 98.9 F 09/07/19 20:54 Pulse Rate 60 09/07/19 20:54 Respiratory Rate 18 09/07/19 20:54 Blood Pressure 142/60 09/07/19 20:54 O2 Sat by Pulse Oximetry (%) 98 09/07/19 09:00 Neck: Yes: WNL, Supple Cardiovascular: Yes: WNL, Regular Rate and Rhythm Respiratory: Yes: WNL, Regular, CTA Bilaterally Gastrointestinal: Yes: WNL, Normal Bowel Sounds, Soft, Abdomen, Obese Extremities: Yes: Other (Lt foot in dressing wc is drainage) Edema: LLE: 1+, RLE: 1+ Labs: CBC, BMP 09/06/19 12:56 09/06/19 10:05 INR, PTT INR 1.18 (0.83-1.09) H 09/03/19 11:20 Problem List - Problems (1) Diabetic foot ulcers Assessment/Plan: Cont IV antibxs Wound culture (+) for pseudomonas/enterococcus/diph/corneynebacterium Possible osteo on bone scan Pt for bone bx on 09/09/19 As per ID/Podiatry Code(s): E11.621 - TYPE 2 DIABETES MELLITUS WITH FOOT ULCER; L97.509 - NON- PRESSURE CHRONIC ULCER OTH PRT UNSP FOOT W UNSP SEVERITY Qualifiers: Diabetic foot ulcer location: midfoot Diabetes mellitus type: type 2 Laterality: left Non-pressure ulcer stage: with fat layer exposed Qualified Code(s): E11.621 - Type 2 diabetes mellitus with foot ulcer; L97.422 - Non- pressure chronic ulcer of left heel and midfoot with fat layer exposed (2) Diabetes Assessment/Plan: Cont sliding scale Code(s): E11.9 - TYPE 2 DIABETES MELLITUS WITHOUT COMPLICATIONS (3) CHF (congestive heart failure) Assessment/Plan: Cont demadex Code(s): I50.9 - HEART FAILURE, UNSPECIFIED (4) CKD (chronic kidney disease) Assessment/Plan: As per renal Monitor bun/creatinine Code(s): N18.9 - CHRONIC KIDNEY DISEASE, UNSPECIFIED (5) Anemia Assessment/Plan: Due to chronic renal dz Monitor H/H Code(s): D64.9 - ANEMIA, UNSPECIFIED Qualifiers: Anemia type: unspecified type Qualified Code(s): D64.9 - Anemia, unspecified (6) HTN (hypertension) Assessment/Plan: Cont Coreg/asa Code(s): I10 - ESSENTIAL (PRIMARY) HYPERTENSION (7) CAD (coronary artery disease) Assessment/Plan: Cont plavix Code(s): I25.10 - ATHSCL HEART DISEASE OF [place] CORONARY ARTERY W/O ANG PCTRS (8) 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
[2019-09-08] MEDS ORDERED: PIPERACILLIN/TAZOBACTAM 2.25 GM VIAL IVPB ONE ×2 (00:41→10:44)
[2019-09-08] MEDS ORDERED: DEXTROSE 5%-WATER - 50 ML IVPB ONE ×2 (00:41→10:44)
[2019-09-08] MEDS: PIPERACILLIN/TAZOB 2.25 GM 2.25 GM in DEXTROSE 5%-WATER - 50 ML IVPB SCH ×2 (01:02→10:54)
[2019-09-08] MEDS: INSULIN SLIDING SCALE (NOVOLOG) 1 VIAL SQ SCH ×5 (06:18→21:15)
[2019-09-08 08:56] LABS: ALBUMIN 2.6 g/dl (3.4-5.0); BILIRUBIN,TOTAL 0.6 mg/dL (0.2-1); BLOOD UREA NITROGEN 85.6 mg/dL (7-18); CALCIUM 8.1 mg/dL (8.5-10.1); CREATININE 3.2 mg/dL (0.55-1.3); POTASSIUM 3.9 mmol/L (3.5-5.1)
[2019-09-08] MEDS: TORSEMIDE 20 MG TABLET (FP) PO SCH (09:56)
[2019-09-08] MEDS: amLODIPine BESYLATE 10 MG TABLET (FP) PO SCH (09:56)
[2019-09-08] MEDS: ISOSORBIDE MONONITRATE 30 MG TAB.SR.24H (FP) PO SCH (09:56)
[2019-09-08] MEDS: CARVEDILOL 25 MG TABLET (FP) PO SCH ×2 (09:56→21:13)
[2019-09-08] MEDS: HEPARIN NA (PORCINE) 5,000 UNITS/ML 1ML VIAL SQ SCH ×2 (09:56→21:13)
[2019-09-08] MEDS: ASPIRIN 81 MG CHEWABLE TABLETS PO SCH (09:56)
[2019-09-08] MEDS: CLOPIDOGREL BISULFATE 75 MG TABLET (FP) PO SCH (09:56)
[2019-09-08] MEDS: SODIUM BICARBONATE 650 MG TABLET PO SCH ×2 (09:56→21:13)
--- NOTE | 2019-09-08 11:11 | PN ---
Progress Note, Physician History of Present Illness: stable no new issues imaging studies inconclusive - Current Medication List Current Medications: Active Medications Amlodipine Besylate (Norvasc -) 10 mg PO DAILY [facility] Last Admin: 09/08/19 09:56 Dose: 10 mg Aspirin (Asa -) 81 mg PO DAILY [facility] Last Admin: 09/08/19 09:56 Dose: 81 mg Carvedilol (Coreg -) 25 mg PO BID [facility] Last Admin: 09/08/19 09:56 Dose: 25 mg Clopidogrel Bisulfate (Plavix -) 75 mg PO DAILY [facility] Last Admin: 09/08/19 09:56 Dose: 75 mg Heparin Sodium (Porcine) (Heparin -) 5,000 unit SQ BID [facility] Last Admin: 09/08/19 09:56 Dose: 5,000 unit Piperacillin Sod/Tazobactam (Sod 2.25 gm/ Dextrose) 50 mls @ 100 mls/hr IVPB Q8H-IV [facility]; Protocol Last Admin: 09/08/19 10:54 Dose: 100 mls/hr Insulin Aspart (Novolog Vial Sliding Scale -) 1 vial SQ ACHS [facility]; Protocol Last Admin: 09/08/19 06:18 Dose: Not Given Insulin Aspart (Novolog Vial) 5 units SQ DAILY@1730 [facility] Last Admin: 09/07/19 17:30 Dose: 5 units Isosorbide Mononitrate (Imdur -) 90 mg PO DAILY [facility] Last Admin: 09/08/19 09:56 Dose: 90 mg Sodium Bicarbonate (Sodium Bicarbonate -) 650 mg PO BID [facility] Last Admin: 09/08/19 09:56 Dose: 650 mg Torsemide (Demadex -) 40 mg PO DAILY [facility] Last Admin: 09/08/19 09:56 Dose: 40 mg - Objective Vital Signs: Vital Signs Temperature 98.9 F 09/08/19 08:44 Pulse Rate 64 09/08/19 08:44 Respiratory Rate 18 09/08/19 08:44 Blood Pressure 144/68 09/08/19 08:44 O2 Sat by Pulse Oximetry (%) 98 09/07/19 21:00 Constitutional: Yes: No Distress, Calm Cardiovascular: Yes: S1, S2 Respiratory: Yes: Regular, CTA Bilaterally Gastrointestinal: Yes: Normal Bowel Sounds, Soft Musculoskeletal: Yes: WNL Extremities: Yes: Other Wound/Incision: Yes: Dressing Dry and Intact Neurological: Yes: Alert, Oriented Psychiatric: Yes: Alert, Oriented Labs: CBC, BMP 09/06/19 12:56 09/08/19 07:50 INR, PTT INR 1.18 (0.83-1.09) H 09/03/19 11:20 Assessment/Plan Problem List - Problems (1) Anemia Code(s): D64.9 - ANEMIA, UNSPECIFIED Qualifiers: Anemia type: unspecified type Qualified Code(s): D64.9 - Anemia, unspecified (2) CHF (congestive heart failure) Code(s): I50.9 - HEART FAILURE, UNSPECIFIED (3) CKD (chronic kidney disease) Code(s): N18.9 - CHRONIC KIDNEY DISEASE, UNSPECIFIED (4) Diabetic foot ulcers Code(s): E11.621 - TYPE 2 DIABETES MELLITUS WITH FOOT ULCER; L97.509 - NON- PRESSURE CHRONIC ULCER OTH PRT UNSP FOOT W UNSP SEVERITY Qualifiers: Diabetic foot ulcer location: midfoot Diabetes mellitus type: type 2 Laterality: left Non-pressure ulcer stage: with fat layer exposed Qualified Code(s): E11.621 - Type 2 diabetes mellitus with foot ulcer; L97.422 - Non- pressure chronic ulcer of left heel and midfoot with fat layer exposed Assessment/Plan Nonhealing Lt foot ulcer/wound infection r/o OM s/p excisional debridement / outpt antibiotics CKD CHF CAD s/p PPM DM Charcot foot plan will stop abx for now patient needs bone biopsy d/w podiatry
[2019-09-08] MEDS ORDERED: amLODIPine BESYLATE 5 MG TABLET (FP) PO SCH (15:16)
--- NOTE | 2019-09-08 15:16 | PN ---
Progress Note, Physician History of Present Illness: Pt seen and examined at bedside. He is awake and alert. He is awake and alert. He denies shortness of breath. - Current Medication List Current Medications: Active Medications Amlodipine Besylate (Norvasc -) 10 mg PO DAILY [facility] Last Admin: 09/08/19 09:56 Dose: 10 mg Aspirin (Asa -) 81 mg PO DAILY [facility] Last Admin: 09/08/19 09:56 Dose: 81 mg Carvedilol (Coreg -) 25 mg PO BID [facility] Last Admin: 09/08/19 09:56 Dose: 25 mg Clopidogrel Bisulfate (Plavix -) 75 mg PO DAILY [facility] Last Admin: 09/08/19 09:56 Dose: 75 mg Heparin Sodium (Porcine) (Heparin -) 5,000 unit SQ BID [facility] Last Admin: 09/08/19 09:56 Dose: 5,000 unit Insulin Aspart (Novolog Vial Sliding Scale -) 1 vial SQ [facility]; Protocol Last Admin: 09/08/19 11:00 Dose: Not Given Insulin Aspart (Novolog Vial) 5 units SQ DAILY@1730 [facility] Last Admin: 09/07/19 17:30 Dose: 5 units Isosorbide Mononitrate (Imdur -) 90 mg PO DAILY [facility] Last Admin: 09/08/19 09:56 Dose: 90 mg Sodium Bicarbonate (Sodium Bicarbonate -) 650 mg PO BID [facility] Last Admin: 09/08/19 09:56 Dose: 650 mg Torsemide (Demadex -) 40 mg PO DAILY [facility] Last Admin: 09/08/19 09:56 Dose: 40 mg - Objective Vital Signs: Vital Signs Temperature 97.9 F 09/08/19 14:34 Pulse Rate 60 09/08/19 14:34 Respiratory Rate 18 09/08/19 14:34 Blood Pressure 132/59 L 09/08/19 14:34 O2 Sat by Pulse Oximetry (%) 98 09/08/19 09:00 Constitutional: Yes: Calm Eyes: Yes: Conjunctiva Clear HENT: Yes: Atraumatic Neck: Yes: Supple Cardiovascular: Yes: S1, S2 Respiratory: Yes: CTA Bilaterally Gastrointestinal: Yes: Soft, Abdomen, Obese Genitourinary: Yes: WNL Edema: Yes Edema: LLE: 2+, RLE: 2+ Neurological: Yes: Oriented Psychiatric: Yes: Oriented Labs: CBC, BMP 09/06/19 12:56 10/14/19 07:50 INR, PTT INR 1.18 (0.83-1.09) H 09/03/19 11:20 Problem List - Problems (1) CKD (chronic kidney disease) Code(s): N18.9 - CHRONIC KIDNEY DISEASE, UNSPECIFIED (2) CHF (congestive heart failure) Code(s): I50.9 - HEART FAILURE, UNSPECIFIED (3) Anemia Code(s): D64.9 - ANEMIA, UNSPECIFIED Qualifiers: Anemia type: unspecified type Qualified Code(s): D64.9 - Anemia, unspecified (4) Diabetic foot ulcers Code(s): E11.621 - TYPE 2 DIABETES MELLITUS WITH FOOT ULCER; L97.509 - NON- PRESSURE CHRONIC ULCER OTH PRT UNSP FOOT W UNSP SEVERITY Qualifiers: Diabetic foot ulcer location: midfoot Diabetes mellitus type: type 2 Laterality: left Non-pressure ulcer stage: with fat layer exposed Qualified Code(s): E11.621 - Type 2 diabetes mellitus with foot ulcer; L97.422 - Non- pressure chronic ulcer of left heel and midfoot with fat layer exposed Assessment/Plan Current Medications Generic Name Dose Route Start Last Admin Trade Name Freq PRN Reason Stop Dose Admin Amlodipine Besylate 10 mg 09/06/19 10:00 09/08/19 09:56 Norvasc - PO 10 mg DAILY [facility] Administration Aspirin 81 mg 09/04/19 10:00 09/08/19 09:56 Asa - PO 81 mg DAILY [facility] Administration Carvedilol 25 mg 09/04/19 10:00 09/08/19 09:56 Coreg - PO 25 mg BID [facility] Administration Clopidogrel Bisulfate 75 mg 09/04/19 10:00 09/08/19 09:56 Plavix - PO 75 mg DAILY [facility] Administration Heparin Sodium (Porcine) 5,000 unit 09/04/19 10:00 09/08/19 09:56 Heparin - SQ 5,000 unit BID [facility] Administration Insulin Aspart 1 vial 09/04/19 07:00 09/08/19 11:00 Novolog Vial Sliding Scale - SQ Not Given ACHS [facility] Protocol Insulin Aspart 5 units 09/04/19 17:30 09/07/19 17:30 Novolog Vial SQ 5 units DAILY@1730 [facility] Administration Isosorbide Mononitrate 90 mg 09/04/19 10:00 09/08/19 09:56 Imdur - PO 90 mg DAILY [facility] Administration Sodium Bicarbonate 650 mg 09/05/19 22:00 09/08/19 09:56 Sodium Bicarbonate - PO 650 mg BID [facility] Administration Torsemide 40 mg 09/04/19 10:00 09/08/19 09:56 Demadex - PO 40 mg DAILY [facility] Administration Impression 1. CKD 2. YENI 3. CHF 4. DM 5. DFU 6. 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
--- NOTE | 2019-09-08 15:21 | PN ---
Progress Note (short form) - Note Progress Note: Podiatry F/U: Seen/evaluated at bedside NAD. Pain controlled, denies F/V/N/C/SOB/CP. Afebrile. SPEC bone scan performed. DOUGIE: L foot: pedal pulses palpable, TG wnl. There is a plantar midfoot diabetic Charcot ulcer mixed fibrogranular base, hyperkeratotic borders, no bone exposed , no purulence, no fluctuance, no streaking cellulitis, no signs of acute infection. Chronic lymphedema with stasis changes LLE. NO ischemic changes. There are burn diabetic ulcers hallux and second digit with underlying granular base, skin slough present, no gangrenous changes. ESR: 77 Wound Cx: mixed orgs TP Bone scan: cannot rule out osteomyelitis of cuboid and fifth metatarsal base Imp: 79 year old diabetic male with left foot diabetic Charcot ulcer 1. Continue local care 2. Minimal WB L foot 3. Discussed treatment options at length with patient. Plan for OR debridement with bone biopsy left foot to evaluate for osteomyelitis. He understands he will likely need IV abx skilled nursing. Will f/u OR Cultures/path postoperatively 4. NPO midnight 5. Will follow David Astudillo DPM
[2019-09-08] MEDS ORDERED: INSULIN (NOVOLOG) ASPART 100 UNITS/ML 10ML VIAL ONE (16:56)
[2019-09-08] MEDS: INSULIN (NOVOLOG) ASPART 100 UNITS/ML 10ML VIAL SQ SCH (16:57)
--- NOTE | 2019-09-08 23:06 | PN ---
Progress Note, Physician History of Present Illness: No new complaints - Current Medication List Current Medications: Active Medications Amlodipine Besylate (Norvasc -) 5 mg PO DAILY [facility] Aspirin (Asa -) 81 mg PO DAILY [facility] Last Admin: 09/08/19 09:56 Dose: 81 mg Carvedilol (Coreg -) 25 mg PO BID [facility] Last Admin: 09/08/19 21:13 Dose: 25 mg Clopidogrel Bisulfate (Plavix -) 75 mg PO DAILY [facility] Last Admin: 09/08/19 09:56 Dose: 75 mg Heparin Sodium (Porcine) (Heparin -) 5,000 unit SQ BID [facility] Last Admin: 09/08/19 21:13 Dose: 5,000 unit Insulin Aspart (Novolog Vial Sliding Scale -) 1 vial SQ ACHS [facility]; Protocol Last Admin: 09/08/19 21:15 Dose: Not Given Insulin Aspart (Novolog Vial) 5 units SQ DAILY@1730 [facility] Last Admin: 09/08/19 16:57 Dose: 5 units Isosorbide Mononitrate (Imdur -) 90 mg PO DAILY [facility] Last Admin: 09/08/19 09:56 Dose: 90 mg Sodium Bicarbonate (Sodium Bicarbonate -) 650 mg PO BID [facility] Last Admin: 09/08/19 21:13 Dose: 650 mg Torsemide (Demadex -) 40 mg PO DAILY [facility] Last Admin: 09/08/19 09:56 Dose: 40 mg - Objective Vital Signs: Vital Signs Temperature 97.9 F 09/08/19 14:34 Pulse Rate 60 09/08/19 14:34 Respiratory Rate 18 09/08/19 14:34 Blood Pressure 132/59 L 09/08/19 14:34 O2 Sat by Pulse Oximetry (%) 98 09/08/19 09:00 Neck: Yes: WNL, Supple Cardiovascular: Yes: WNL, Regular Rate and Rhythm Respiratory: Yes: WNL, Regular, CTA Bilaterally Gastrointestinal: Yes: WNL, Normal Bowel Sounds, Soft Extremities: Yes: Other (LT foot in dressing) Labs: CBC, BMP 09/06/19 12:56 09/08/19 07:50 INR, PTT INR 1.18 (0.83-1.09) H 09/03/19 11:20 Problem List - Problems (1) Diabetic foot ulcers Assessment/Plan: Cont IV antibxs Wound culture (+) for pseudomonas/enterococcus/diph/corneynebacterium Possible osteo on bone scan Pt for bone bx/debridement on 09/09/19 to r/o osteo May need [facility] IV antibxs As per ID/Podiatry Code(s): E11.621 - TYPE 2 DIABETES MELLITUS WITH FOOT ULCER; L97.509 - NON- PRESSURE CHRONIC ULCER OTH PRT UNSP FOOT W UNSP SEVERITY Qualifiers: Diabetic foot ulcer location: midfoot Diabetes mellitus type: type 2 Laterality: left Non-pressure ulcer stage: with fat layer exposed Qualified Code(s): E11.621 - Type 2 diabetes mellitus with foot ulcer; L97.422 - Non- pressure chronic ulcer of left heel and midfoot with fat layer exposed (2) Diabetes Assessment/Plan: Cont sliding scale Code(s): E11.9 - TYPE 2 DIABETES MELLITUS WITHOUT COMPLICATIONS (3) CHF (congestive heart failure) Assessment/Plan: Cont demadex Code(s): I50.9 - HEART FAILURE, UNSPECIFIED (4) CKD (chronic kidney disease) Assessment/Plan: As per renal Monitor bun/creatinine Code(s): N18.9 - CHRONIC KIDNEY DISEASE, UNSPECIFIED (5) Anemia Assessment/Plan: Due to chronic renal dz Monitor H/H Code(s): D64.9 - ANEMIA, UNSPECIFIED Qualifiers: Anemia type: unspecified type Qualified Code(s): D64.9 - Anemia, unspecified (6) HTN (hypertension) Assessment/Plan: Cont Coreg/asa Code(s): I10 - ESSENTIAL (PRIMARY) HYPERTENSION (7) CAD (coronary artery disease) Assessment/Plan: Cont plavix Code(s): I25.10 - ATHSCL HEART DISEASE OF [place] CORONARY ARTERY W/O ANG PCTRS (8) 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
[2019-09-09 07:58] LABS: BASO % 1.4 % (0-2.0); EOS % 4.5 % (0-4.5); HEMATOCRIT 25.6 % (35.4-49); HEMOGLOBIN 8.5 GM/dL (11.7-16.9); MCH 29.7 pg (25.7-33.7); MCHC 33.2 g/dl (32.0-35.9); MEAN CELL VOLUME 89.6 fl (80-96); MEAN PLT VOLUME 7.6 fl (7.5-11.1); MONO % 9.8 % (3.8-10.2); NEUT % 69.3 % (42.8-82.8); PLATELET COUNT 190 K/MM3 (134-434); RBC 2.85 M/mm3 (4.00-5.60); RDW 15.5 % (11.9-15.9); WHITE BLOOD COUNT 5.5 K/mm3 (4.0-10.0)
[2019-09-09 08:22] LABS: ALBUMIN 2.6 g/dl (3.4-5.0); BILIRUBIN,TOTAL 0.7 mg/dL (0.2-1); BLOOD UREA NITROGEN 83.5 mg/dL (7-18); CALCIUM 8.2 mg/dL (8.5-10.1); CREATININE 2.9 mg/dL (0.55-1.3); POTASSIUM 3.7 mmol/L (3.5-5.1)
[2019-09-09] MEDS: TORSEMIDE 20 MG TABLET (FP) PO SCH (10:42)
[2019-09-09] MEDS: ASPIRIN 81 MG CHEWABLE TABLETS PO SCH (10:42)
[2019-09-09] MEDS: ISOSORBIDE MONONITRATE 30 MG TAB.SR.24H (FP) PO SCH (10:43)
[2019-09-09] MEDS: CLOPIDOGREL BISULFATE 75 MG TABLET (FP) PO SCH (10:43)
[2019-09-09] MEDS: SODIUM BICARBONATE 650 MG TABLET PO SCH ×2 (10:43→22:40)
[2019-09-09] MEDS: CARVEDILOL 25 MG TABLET (FP) PO SCH ×2 (10:43→22:39)
[2019-09-09] MEDS: HEPARIN NA (PORCINE) 5,000 UNITS/ML 1ML VIAL SQ SCH ×2 (10:43→22:39)
--- NOTE | 2019-09-09 12:04 | PN ---
Progress Note, Physician History of Present Illness: stable no new issues plan for bone biopsy - Current Medication List Current Medications: Active Medications Aspirin (Asa -) 81 mg PO DAILY [facility] Last Admin: 09/09/19 10:42 Dose: 81 mg Carvedilol (Coreg -) 25 mg PO BID [facility] Last Admin: 09/09/19 10:43 Dose: 25 mg Clopidogrel Bisulfate (Plavix -) 75 mg PO DAILY [facility] Last Admin: 09/09/19 10:43 Dose: 75 mg Heparin Sodium (Porcine) (Heparin -) 5,000 unit SQ BID [facility] Last Admin: 09/09/19 10:43 Dose: 5,000 unit Insulin Aspart (Novolog Vial Sliding Scale -) 1 vial SQ [facility]; Protocol Last Admin: 09/08/19 21:15 Dose: Not Given Insulin Aspart (Novolog Vial) 5 units SQ DAILY@1730 [facility] Last Admin: 09/08/19 16:57 Dose: 5 units Isosorbide Mononitrate (Imdur -) 90 mg PO DAILY [facility] Last Admin: 09/09/19 10:43 Dose: 90 mg Sodium Bicarbonate (Sodium Bicarbonate -) 650 mg PO BID [facility] Last Admin: 09/09/19 10:43 Dose: 650 mg Torsemide (Demadex -) 40 mg PO DAILY [facility] Last Admin: 09/09/19 10:42 Dose: 40 mg - Objective Vital Signs: Vital Signs Temperature 97.7 F 09/09/19 10:04 Pulse Rate 60 09/09/19 10:04 Respiratory Rate 16 09/09/19 10:04 Blood Pressure 146/75 09/09/19 10:04 O2 Sat by Pulse Oximetry (%) 98 09/08/19 21:00 Constitutional: Yes: No Distress, Calm Cardiovascular: Yes: S1, S2 Respiratory: Yes: Regular, CTA Bilaterally Gastrointestinal: Yes: Normal Bowel Sounds, Soft Musculoskeletal: Yes: WNL Extremities: Yes: Other Wound/Incision: Yes: Dressing Dry and Intact Neurological: Yes: Alert, Oriented Psychiatric: Yes: Alert, Oriented Labs: CBC, BMP 09/09/19 07:20 09/09/19 07:20 INR, PTT INR 1.18 (0.83-1.09) H 09/03/19 11:20 Assessment/Plan Problem List - Problems (1) Anemia Code(s): D64.9 - ANEMIA, UNSPECIFIED Qualifiers: Anemia type: unspecified type Qualified Code(s): D64.9 - Anemia, unspecified (2) CHF (congestive heart failure) Code(s): I50.9 - HEART FAILURE, UNSPECIFIED (3) CKD (chronic kidney disease) Code(s): N18.9 - CHRONIC KIDNEY DISEASE, UNSPECIFIED (4) Diabetic foot ulcers Code(s): E11.621 - TYPE 2 DIABETES MELLITUS WITH FOOT ULCER; L97.509 - NON- PRESSURE CHRONIC ULCER OTH PRT UNSP FOOT W UNSP SEVERITY Qualifiers: Diabetic foot ulcer location: midfoot Diabetes mellitus type: type 2 Laterality: left Non-pressure ulcer stage: with fat layer exposed Qualified Code(s): E11.621 - Type 2 diabetes mellitus with foot ulcer; L97.422 - Non- pressure chronic ulcer of left heel and midfoot with fat layer exposed Assessment/Plan Nonhealing Lt foot ulcer/wound infection r/o OM s/p excisional debridement / outpt antibiotics CKD CHF CAD s/p PPM DM Charcot foot plan bone biopsy rest as per the team
[2019-09-09] MEDS ORDERED: MIDAZOLAM HCL 2 MG/2 ML SINGLE DOSE VIAL ONE (12:36)
[2019-09-09] MEDS ORDERED: LIDOCAINE HCL 1%, 10 MG/ML (20ML VIAL) ONE (12:37)
[2019-09-09] MEDS ORDERED: LIDOCAINE HCL 1%, 10 MG/ML (20ML VIAL) NR ONE ×2 (12:42)
--- NOTE | 2019-09-09 13:32 | OP ---
Operative Note - Note: Operative Date: 09/09/19 Pre-Operative Diagnosis: left foot diabetic Charcot ulcer Operation: left foot debridement of diabetic ulcer with bone biopsy Findings: see operative note Post-Operative Diagnosis: Same as Pre-op Surgeon: Elia Astudillo Anesthesiologist/WET PRIMER POWDER BLENDER: Juanita Chaney MD Anesthesia: Local, MAC Specimens Removed: bone left foot Estimated Blood Loss (mls): 20 Instrument used (Debridements only): #15 blade scalpel and forceps Operative Report Dictated: Yes
[2019-09-09] MEDS ORDERED: oxyCODONE HCL 5 MG TABLET PO PRN (13:39)
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
--- NOTE | 2019-09-09 15:27 | PN ---
Progress Note, Physician History of Present Illness: Pt seen and examined at bedside. He is awake and alert. He denies shortness of breath. He had the bone biopsy today. - Current Medication List Current Medications: Active Medications Aspirin (Asa -) 81 mg PO DAILY [facility] Carvedilol (Coreg -) 25 mg PO BID [facility] Clopidogrel Bisulfate (Plavix -) 75 mg PO DAILY [facility] Heparin Sodium (Porcine) (Heparin -) 5,000 unit SQ BID [facility] Insulin Aspart (Novolog Vial) 5 units SQ DAILY@1730 [facility] Insulin Aspart (Novolog Vial Sliding Scale -) 1 vial SQ ACHS [facility]; Protocol Isosorbide Mononitrate 30 mg/ (Isosorbide Mononitrate 60 mg) 90 mg PO 1000 [facility] Oxycodone HCl (Roxicodone -) 5 mg PO Q4H PRN PRN Reason: PAIN LEVEL 1-5 Sodium Bicarbonate (Sodium Bicarbonate -) 650 mg PO BID [facility] Torsemide (Demadex -) 40 mg PO DAILY [facility] - Objective Vital Signs: Vital Signs Temperature 98 F 09/09/19 14:49 Pulse Rate 63 09/09/19 14:49 Respiratory Rate 18 09/09/19 14:49 Blood Pressure 129/56 L 09/09/19 14:49 O2 Sat by Pulse Oximetry (%) 97 09/09/19 14:49 Constitutional: Yes: Calm Eyes: Yes: Conjunctiva Clear HENT: Yes: Atraumatic Neck: Yes: Supple Cardiovascular: Yes: S1, S2 Respiratory: Yes: CTA Bilaterally Gastrointestinal: Yes: Soft, Abdomen, Obese Genitourinary: Yes: WNL Extremities: Yes: WNL Edema: Yes (improving) Edema: LLE: 1+, RLE: 1+ Neurological: Yes: Oriented Psychiatric: Yes: Oriented Labs: CBC, BMP 09/09/19 07:20 09/09/19 07:20 INR, PTT INR 1.18 (0.83-1.09) H 09/03/19 11:20 Problem List - Problems (1) CKD (chronic kidney disease) Code(s): N18.9 - CHRONIC KIDNEY DISEASE, UNSPECIFIED (2) CHF (congestive heart failure) Code(s): I50.9 - HEART FAILURE, UNSPECIFIED (3) Anemia Code(s): D64.9 - ANEMIA, UNSPECIFIED Qualifiers: Anemia type: unspecified type Qualified Code(s): D64.9 - Anemia, unspecified (4) Diabetic foot ulcers Code(s): E11.621 - TYPE 2 DIABETES MELLITUS WITH FOOT ULCER; L97.509 - NON- PRESSURE CHRONIC ULCER OTH PRT UNSP FOOT W UNSP SEVERITY Qualifiers: Diabetic foot ulcer location: midfoot Diabetes mellitus type: type 2 Laterality: left Non-pressure ulcer stage: with fat layer exposed Qualified Code(s): E11.621 - Type 2 diabetes mellitus with foot ulcer; L97.422 - Non- pressure chronic ulcer of left heel and midfoot with fat layer exposed Assessment/Plan Current Medications Generic Name Dose Route Start Last Admin Trade Name Freq PRN Reason Stop Dose Admin Aspirin 81 mg 09/10/19 10:00 Asa - PO DAILY [facility] Carvedilol 25 mg 09/09/19 22:00 Coreg - PO BID [facility] Clopidogrel Bisulfate 75 mg 09/10/19 10:00 Plavix - PO DAILY [facility] Heparin Sodium (Porcine) 5,000 unit 09/09/19 22:00 Heparin - SQ BID [facility] Insulin Aspart 5 units 09/09/19 17:30 Novolog Vial SQ DAILY@1730 [facility] Insulin Aspart 1 vial 09/09/19 16:30 Novolog Vial Sliding Scale - SQ ACHS [facility] Protocol Isosorbide Mononitrate 30 mg/ 90 mg 09/10/19 10:00 Isosorbide Mononitrate 60 mg PO 1000 [facility] Oxycodone HCl 5 mg 09/09/19 13:39 Roxicodone - PO Q4H PRN PAIN LEVEL 1-5 Sodium Bicarbonate 650 mg 09/09/19 22:00 Sodium Bicarbonate - PO BID [facility] Torsemide 40 mg 09/10/19 10:00 Demadex - PO DAILY [facility] Impression 1. CKD 2. YENI 3. CHF 4. DM 5. DFU 6. HTN Plan - renal function is improving - arb on hold - cont po bicarb - monitor off of norvasc - d/c fluids Thank you
[2019-09-09] MEDS: INSULIN SLIDING SCALE (NOVOLOG) 1 VIAL SQ SCH ×2 (17:01→22:37)
[2019-09-09] MEDS: INSULIN (NOVOLOG) ASPART 100 UNITS/ML 10ML VIAL SQ SCH (17:05)
--- NOTE | 2019-09-09 20:31 | PN ---
Progress Note, Physician - Current Medication List Current Medications: Active Medications Aspirin (Asa -) 81 mg PO DAILY [facility] Carvedilol (Coreg -) 25 mg PO BID [facility] Clopidogrel Bisulfate (Plavix -) 75 mg PO DAILY [facility] Heparin Sodium (Porcine) (Heparin -) 5,000 unit SQ BID [facility] Insulin Aspart (Novolog Vial) 5 units SQ DAILY@1730 [facility] Last Admin: 09/09/19 17:05 Dose: 5 units Insulin Aspart (Novolog Vial Sliding Scale -) 1 vial SQ ACHS [facility]; Protocol Last Admin: 09/09/19 17:01 Dose: Not Given Isosorbide Mononitrate 30 mg/ (Isosorbide Mononitrate 60 mg) 90 mg PO 1000 [facility] Oxycodone HCl (Roxicodone -) 5 mg PO Q4H PRN PRN Reason: PAIN LEVEL 1-5 Sodium Bicarbonate (Sodium Bicarbonate -) 650 mg PO BID [facility] Torsemide (Demadex -) 40 mg PO DAILY [facility] - Objective Vital Signs: Vital Signs Temperature 97.7 F 09/09/19 20:01 Pulse Rate 65 09/09/19 20:01 Respiratory Rate 16 09/09/19 20:01 Blood Pressure 142/61 09/09/19 20:01 O2 Sat by Pulse Oximetry (%) 97 09/09/19 14:49 Labs: CBC, BMP 09/09/19 07:20 09/09/19 07:20 INR, PTT INR 1.18 (0.83-1.09) H 09/03/19 11:20 Problem List - Problems (1) Diabetic foot ulcers Code(s): E11.621 - TYPE 2 DIABETES MELLITUS WITH FOOT ULCER; L97.509 - NON- PRESSURE CHRONIC ULCER OTH PRT UNSP FOOT W UNSP SEVERITY Qualifiers: Diabetic foot ulcer location: midfoot Diabetes mellitus type: type 2 Laterality: left Non-pressure ulcer stage: with fat layer exposed Qualified Code(s): E11.621 - Type 2 diabetes mellitus with foot ulcer; L97.422 - Non- pressure chronic ulcer of left heel and midfoot with fat layer exposed (2) Diabetes Code(s): E11.9 - TYPE 2 DIABETES MELLITUS WITHOUT COMPLICATIONS (3) CHF (congestive heart failure) Code(s): I50.9 - HEART FAILURE, UNSPECIFIED (4) CKD (chronic kidney disease) Code(s): N18.9 - CHRONIC KIDNEY DISEASE, UNSPECIFIED (5) Anemia Code(s): D64.9 - ANEMIA, UNSPECIFIED Qualifiers: Anemia type: unspecified type Qualified Code(s): D64.9 - Anemia, unspecified (6) HTN (hypertension) Code(s): I10 - ESSENTIAL (PRIMARY) HYPERTENSION (7) CAD (coronary artery disease) Code(s): I25.10 - ATHSCL HEART DISEASE OF [place] CORONARY ARTERY W/O ANG PCTRS (8) 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
[2019-09-09] MEDS ORDERED: INSULIN (NOVOLOG) ASPART 100 UNITS/ML 10ML VIAL ONE (22:34)
[2019-09-10] MEDS: INSULIN SLIDING SCALE (NOVOLOG) 1 VIAL SQ SCH ×4 (07:21→21:50)
[2019-09-10 07:57] LABS: BASO % 0.8 % (0-2.0); EOS % 4.8 % (0-4.5); HEMOGLOBIN 8.5 GM/dL (11.7-16.9); LYMPH % 13.9 % (8-40); MCHC 33.9 g/dl (32.0-35.9); MEAN CELL VOLUME 88.6 fl (80-96); MEAN PLT VOLUME 7.7 fl (7.5-11.1); MONO % 10.2 % (3.8-10.2); NEUT % 70.3 % (42.8-82.8); PLATELET COUNT 196 K/MM3 (134-434); RBC 2.83 M/mm3 (4.00-5.60); RDW 15.1 % (11.9-15.9); WHITE BLOOD COUNT 5.3 K/mm3 (4.0-10.0)
[2019-09-10 08:18] LABS: ALBUMIN 2.6 g/dl (3.4-5.0); BILIRUBIN,TOTAL 0.6 mg/dL (0.2-1); BLOOD UREA NITROGEN 71.5 mg/dL (7-18); CALCIUM 8.4 mg/dL (8.5-10.1); CREATININE 2.5 mg/dL (0.55-1.3); POTASSIUM 3.8 mmol/L (3.5-5.1); TOT PROT 6.1 g/dl (6.4-8.2)
[2019-09-10] MEDS ORDERED: ISOSORBIDE MONONITRATE 60 MG TAB.SR.24H (FP) PO ONE (09:40)
[2019-09-10] MEDS ORDERED: ISOSORBIDE MONONITRATE 30 MG TAB.SR.24H (FP) PO ONE (09:40)
[2019-09-10] MEDS: TORSEMIDE 20 MG TABLET (FP) PO SCH (09:45)
[2019-09-10] MEDS: CARVEDILOL 25 MG TABLET (FP) PO SCH ×2 (09:45→21:54)
[2019-09-10] MEDS: ISOSORBIDE MONONITRATE 30 MG, ISOSORBIDE MONONITRATE 60 MG PO SCH (09:46)
[2019-09-10] MEDS: CLOPIDOGREL BISULFATE 75 MG TABLET (FP) PO SCH (09:46)
[2019-09-10] MEDS: ASPIRIN 81 MG CHEWABLE TABLETS PO SCH (09:46)
[2019-09-10] MEDS: HEPARIN NA (PORCINE) 5,000 UNITS/ML 1ML VIAL SQ SCH ×2 (09:46→21:55)
[2019-09-10] MEDS: SODIUM BICARBONATE 650 MG TABLET PO SCH ×2 (09:46→21:51)
[2019-09-10] MEDS ORDERED: ISOSORBIDE MONONITRATE 30 MG TAB.SR.24H (FP) PO SCH (10:00)
[2019-09-10] MEDS ORDERED: PT OWN MED DRAWER 7, Y5N ONE (10:23)
--- NOTE | 2019-09-10 12:33 | PN ---
Progress Note, Physician History of Present Illness: stable no new issues - Current Medication List Current Medications: Active Medications Aspirin (Asa -) 81 mg PO DAILY [facility] Last Admin: 09/10/19 09:46 Dose: 81 mg Carvedilol (Coreg -) 25 mg PO BID [facility] Last Admin: 09/10/19 09:45 Dose: 25 mg Clopidogrel Bisulfate (Plavix -) 75 mg PO DAILY [facility] Last Admin: 09/10/19 09:46 Dose: 75 mg Heparin Sodium (Porcine) (Heparin -) 5,000 unit SQ BID [facility] Last Admin: 09/10/19 09:46 Dose: 5,000 unit Insulin Aspart (Novolog Vial) 5 units SQ DAILY@1730 [facility] Last Admin: 09/09/19 17:05 Dose: 5 units Insulin Aspart (Novolog Vial Sliding Scale -) 1 vial SQ ACHS [facility]; Protocol Last Admin: 09/10/19 07:21 Dose: Not Given Isosorbide Mononitrate 30 mg/ (Isosorbide Mononitrate 60 mg) 90 mg PO 1000 [facility] Last Admin: 09/10/19 09:46 Dose: 90 mg Oxycodone HCl (Roxicodone -) 5 mg PO Q4H PRN PRN Reason: PAIN LEVEL 1-5 Sodium Bicarbonate (Sodium Bicarbonate -) 650 mg PO BID [facility] Last Admin: 09/10/19 09:46 Dose: 650 mg Torsemide (Demadex -) 40 mg PO DAILY [facility] Last Admin: 09/10/19 09:45 Dose: 40 mg - Objective Vital Signs: Vital Signs Temperature 97.8 F 09/10/19 08:15 Pulse Rate 60 09/10/19 08:15 Respiratory Rate 20 09/10/19 08:15 Blood Pressure 147/65 09/10/19 08:15 O2 Sat by Pulse Oximetry (%) 97 09/09/19 14:49 Constitutional: Yes: No Distress, Calm Cardiovascular: Yes: S1, S2 Respiratory: Yes: Regular, CTA Bilaterally Gastrointestinal: Yes: Normal Bowel Sounds, Soft Musculoskeletal: Yes: WNL Extremities: Yes: Other Wound/Incision: Yes: Dressing Dry and Intact Neurological: Yes: Alert, Oriented Psychiatric: Yes: Alert, Oriented Labs: CBC, BMP 09/10/19 06:50 09/10/19 06:50 INR, PTT INR 1.18 (0.83-1.09) H 09/03/19 11:20 Assessment/Plan Problem List - Problems (1) Anemia Code(s): D64.9 - ANEMIA, UNSPECIFIED Qualifiers: Anemia type: unspecified type Qualified Code(s): D64.9 - Anemia, unspecified (2) CHF (congestive heart failure) Code(s): I50.9 - HEART FAILURE, UNSPECIFIED (3) CKD (chronic kidney disease) Code(s): N18.9 - CHRONIC KIDNEY DISEASE, UNSPECIFIED (4) Diabetic foot ulcers Code(s): E11.621 - TYPE 2 DIABETES MELLITUS WITH FOOT ULCER; L97.509 - NON- PRESSURE CHRONIC ULCER OTH PRT UNSP FOOT W UNSP SEVERITY Qualifiers: Diabetic foot ulcer location: midfoot Diabetes mellitus type: type 2 Laterality: left Non-pressure ulcer stage: with fat layer exposed Qualified Code(s): E11.621 - Type 2 diabetes mellitus with foot ulcer; L97.422 - Non- pressure chronic ulcer of left heel and midfoot with fat layer exposed Assessment/Plan Nonhealing Lt foot ulcer/wound infection r/o OM s/p excisional debridement / outpt antibiotics CKD CHF CAD s/p PPM DM Charcot foot plan bone biopsy done rest as per the team will start patient on abx await for all results
--- NOTE | 2019-09-10 13:24 | PN ---
Progress Note, Physician History of Present Illness: Pt seen and examined at bedside. He is awake and alert. He denies shortness of breath. - Current Medication List Current Medications: Active Medications Aspirin (Asa -) 81 mg PO DAILY [facility] Last Admin: 09/10/19 09:46 Dose: 81 mg Carvedilol (Coreg -) 25 mg PO BID [facility] Last Admin: 09/10/19 09:45 Dose: 25 mg Clopidogrel Bisulfate (Plavix -) 75 mg PO DAILY [facility] Last Admin: 09/10/19 09:46 Dose: 75 mg Heparin Sodium (Porcine) (Heparin -) 5,000 unit SQ BID [facility] Last Admin: 09/10/19 09:46 Dose: 5,000 unit Piperacillin Sod/Tazobactam (Sod 2.25 gm/ Dextrose) 50 mls @ 100 mls/hr IVPB Q8H-IV [facility]; Protocol Insulin Aspart (Novolog Vial) 5 units SQ DAILY@1730 [facility] Last Admin: 09/09/19 17:05 Dose: 5 units Insulin Aspart (Novolog Vial Sliding Scale -) 1 vial SQ ACHS [facility]; Protocol Last Admin: 09/10/19 12:36 Dose: Not Given Isosorbide Mononitrate 30 mg/ (Isosorbide Mononitrate 60 mg) 90 mg PO 1000 [facility] Last Admin: 09/10/19 09:46 Dose: 90 mg Oxycodone HCl (Roxicodone -) 5 mg PO Q4H PRN PRN Reason: PAIN LEVEL 1-5 Sodium Bicarbonate (Sodium Bicarbonate -) 650 mg PO BID [facility] Last Admin: 09/10/19 09:46 Dose: 650 mg Torsemide (Demadex -) 40 mg PO DAILY [facility] Last Admin: 09/10/19 09:45 Dose: 40 mg - Objective Vital Signs: Vital Signs Temperature 97.8 F 09/10/19 08:15 Pulse Rate 60 09/10/19 08:15 Respiratory Rate 20 09/10/19 09:00 Blood Pressure 147/65 09/10/19 08:15 O2 Sat by Pulse Oximetry (%) 98 09/10/19 09:00 Constitutional: Yes: Calm Eyes: Yes: Conjunctiva Clear HENT: Yes: Atraumatic Cardiovascular: Yes: S1, S2 Respiratory: Yes: CTA Bilaterally Gastrointestinal: Yes: Soft, Abdomen, Obese Genitourinary: Yes: WNL Musculoskeletal: Yes: WNL Edema: Yes Edema: LLE: 1+, RLE: 1+ Integumentary: Yes: Venous Stasis Changes Neurological: Yes: Oriented Psychiatric: Yes: Oriented Labs: CBC, BMP 09/10/19 06:50 09/10/19 06:50 INR, PTT INR 1.18 (0.83-1.09) H 09/03/19 11:20 Problem List - Problems (1) CKD (chronic kidney disease) Code(s): N18.9 - CHRONIC KIDNEY DISEASE, UNSPECIFIED (2) CHF (congestive heart failure) Code(s): I50.9 - HEART FAILURE, UNSPECIFIED (3) Anemia Code(s): D64.9 - ANEMIA, UNSPECIFIED Qualifiers: Anemia type: unspecified type Qualified Code(s): D64.9 - Anemia, unspecified (4) Diabetic foot ulcers Code(s): E11.621 - TYPE 2 DIABETES MELLITUS WITH FOOT ULCER; L97.509 - NON- PRESSURE CHRONIC ULCER OTH PRT UNSP FOOT W UNSP SEVERITY Qualifiers: Diabetic foot ulcer location: midfoot Diabetes mellitus type: type 2 Laterality: left Non-pressure ulcer stage: with fat layer exposed Qualified Code(s): E11.621 - Type 2 diabetes mellitus with foot ulcer; L97.422 - Non- pressure chronic ulcer of left heel and midfoot with fat layer exposed Assessment/Plan Current Medications Generic Name Dose Route Start Last Admin Trade Name Freq PRN Reason Stop Dose Admin Aspirin 81 mg 09/10/19 10:00 09/10/19 09:46 Asa - PO 81 mg DAILY [facility] Administration Carvedilol 25 mg 09/09/19 22:00 09/10/19 09:45 Coreg - PO 25 mg BID [facility] Administration Clopidogrel Bisulfate 75 mg 09/10/19 10:00 09/10/19 09:46 Plavix - PO 75 mg DAILY [facility] Administration Heparin Sodium (Porcine) 5,000 unit 09/09/19 22:00 09/10/19 09:46 Heparin - SQ 5,000 unit BID [facility] Administration Piperacillin Sod/Tazobactam 50 mls @ 100 mls/hr 09/10/19 12:45 Sod 2.25 gm/ Dextrose IVPB Q8H-IV [facility] Protocol Insulin Aspart 5 units 09/09/19 17:30 09/09/19 17:05 Novolog Vial SQ 5 units DAILY@1730 [facility] Administration Insulin Aspart 1 vial 09/09/19 16:30 09/10/19 12:36 Novolog Vial Sliding Scale - SQ Not Given ACHS [facility] Protocol Isosorbide Mononitrate 30 mg/ 90 mg 09/10/19 10:00 09/10/19 09:46 Isosorbide Mononitrate 60 mg PO 90 mg 1000 [facility] Administration Oxycodone HCl 5 mg 09/09/19 13:39 Roxicodone - PO Q4H PRN PAIN LEVEL 1-5 Sodium Bicarbonate 650 mg 09/09/19 22:00 09/10/19 09:46 Sodium Bicarbonate - PO 650 mg BID [facility] Administration Torsemide 40 mg 09/10/19 10:00 09/10/19 09:45 Demadex - PO 40 mg DAILY [facility] Administration Impression 1. CKD 2. YENI 3. CHF 4. DM 5. DFU 6. HTN Plan - restart losartan at 25 mg and monitor renal function - cont torsemide - pt stable off of norvasc - would not restart victoza - cont po bicarb Thank you
[2019-09-10] MEDS ORDERED: PIPERACILLIN/TAZOBACTAM 2.25 GM VIAL IVPB ONE ×2 (13:48→16:49)
[2019-09-10] MEDS ORDERED: DEXTROSE 5%-WATER - 50 ML IVPB ONE ×2 (13:48→16:49)
[2019-09-10] MEDS: PIPERACILLIN/TAZOB 2.25 GM 2.25 GM in DEXTROSE 5%-WATER - 50 ML IVPB SCH ×2 (14:28→17:11)
[2019-09-10] MEDS: LOSARTAN POTASSIUM 25 MG TABLET PO SCH (14:34)
--- NOTE | 2019-09-10 16:07 | PN ---
Progress Note (short form) - Note Progress Note: Podiatry F/U: Seen/evaluated at bedside NAD s/p left bone biopsy. Denies any complaints. Feeling well. DOUGIE: L foot: pedal pulses palpable, TG wnl. There is a plantar midfoot diabetic Charcot ulcer mixed fibrogranular base, hyperkeratotic borders,incision site medial to that with sutures intact and no dehiscence, no erythema, gross edema, digits looking much healthier with superficial necrosis noted to be starting. bone culture: pending Imp: 79 year old diabetic male with left foot diabetic Charcot ulcer Evaluated and reviewed doing well, surgically stable from pod standpoint will just need follow up next week in wound care pending cultures for possible PICC if needed. will follow Can change dressing with wet to dry while admitted daily.
[2019-09-10] MEDS: INSULIN (NOVOLOG) ASPART 100 UNITS/ML 10ML VIAL SQ SCH (16:33)
--- NOTE | 2019-09-10 17:36 | PATH ---
Surgical Pathology Report Patient Name: [place] [facility]. Rec. #: [id number] /Age/Gender: 1940 (Age: 79) / M Account: [id number] Location: [address] [place] [address]/[facility] Taken: 09/09/2019 Received: 09/10/2019 Reported: 09/10/2019 Physicians: TATIANA Bagley DPM Specimen(s) Received LEFT FOOT BONE BIOPSY Clinical History Left diabetic foot ulcer Final Diagnosis BONE, FOOT, LEFT, BIOPSY: BONE WITH FATTY MARROW. NO ACUTE OSTEOMYELITIS IDENTIFIED. Electronically Signed Claudette Goodwin M.D. Gross Description Received in formalin labeled "left foot bone biopsy" are 2 fragments of bony soft tissue measuring 0.7 x 0.3 and 0.8 x 0.3 cm. Entire specimen is submitted after decalcification in one cassette. MLSZ/09/09/2019 sanml/09/09/2019
--- NOTE | 2019-09-11 00:27 | PN ---
Progress Note, Physician History of Present Illness: Pt seen and examined 09/10/19 however note is being entered now - Current Medication List Current Medications: Active Medications Aspirin (Asa -) 81 mg PO DAILY [facility] Last Admin: 09/10/19 09:46 Dose: 81 mg Carvedilol (Coreg -) 25 mg PO BID [facility] Last Admin: 09/10/19 21:54 Dose: 25 mg Clopidogrel Bisulfate (Plavix -) 75 mg PO DAILY [facility] Last Admin: 09/10/19 09:46 Dose: 75 mg Heparin Sodium (Porcine) (Heparin -) 5,000 unit SQ BID [facility] Last Admin: 09/10/19 21:55 Dose: 5,000 unit Piperacillin Sod/Tazobactam (Sod 2.25 gm/ Dextrose) 50 mls @ 100 mls/hr IVPB Q8H-IV [facility]; Protocol Last Admin: 09/10/19 17:11 Dose: 100 mls/hr Insulin Aspart (Novolog Vial) 5 units SQ DAILY@1730 [facility] Last Admin: 09/10/19 16:33 Dose: 5 units Insulin Aspart (Novolog Vial Sliding Scale -) 1 vial SQ ACHS [facility]; Protocol Last Admin: 09/10/19 21:50 Dose: Not Given Isosorbide Mononitrate 30 mg/ (Isosorbide Mononitrate 60 mg) 90 mg PO 1000 [facility] Last Admin: 09/10/19 09:46 Dose: 90 mg Losartan Potassium (Cozaar -) 25 mg PO DAILY [facility] Last Admin: 09/10/19 14:34 Dose: 25 mg Sodium Bicarbonate (Sodium Bicarbonate -) 650 mg PO BID [facility] Last Admin: 09/10/19 21:51 Dose: 650 mg Torsemide (Demadex -) 40 mg PO DAILY [facility] Last Admin: 09/10/19 09:45 Dose: 40 mg - Objective Vital Signs: Vital Signs Temperature 98.6 F 09/10/19 23:50 Pulse Rate 61 09/10/19 23:50 Respiratory Rate 20 09/10/19 23:50 Blood Pressure 122/62 09/10/19 23:50 O2 Sat by Pulse Oximetry (%) 98 09/10/19 09:00 Neck: Yes: WNL, Supple Cardiovascular: Yes: WNL, Regular Rate and Rhythm Respiratory: Yes: WNL, Regular, CTA Bilaterally Gastrointestinal: Yes: WNL, Normal Bowel Sounds, Soft Extremities: Yes: Other (Lt foot in dressing) Labs: CBC, BMP 09/10/19 06:50 09/10/19 06:50 INR, PTT INR 1.18 (0.83-1.09) H 09/03/19 11:20 Problem List - Problems (1) Diabetic foot ulcers Assessment/Plan: Cont IV antibxs Wound culture (+) for pseudomonas/enterococcus/diph/corneynebacterium Possible osteo on bone scan S/P debridement and bine bx 09/09/19 to r/o osteo May need buttermaker IV antibxs Await culture results Code(s): E11.621 - TYPE 2 DIABETES MELLITUS WITH FOOT ULCER; L97.509 - NON- PRESSURE CHRONIC ULCER OTH PRT UNSP FOOT W UNSP SEVERITY Qualifiers: Diabetic foot ulcer location: midfoot Diabetes mellitus type: type 2 Laterality: left Non-pressure ulcer stage: with fat layer exposed Qualified Code(s): E11.621 - Type 2 diabetes mellitus with foot ulcer; L97.422 - Non- pressure chronic ulcer of left heel and midfoot with fat layer exposed (2) Diabetes Assessment/Plan: Cont sliding scale Code(s): E11.9 - TYPE 2 DIABETES MELLITUS WITHOUT COMPLICATIONS (3) CHF (congestive heart failure) Assessment/Plan: Cont demadex Code(s): I50.9 - HEART FAILURE, UNSPECIFIED (4) CKD (chronic kidney disease) Assessment/Plan: As per renal Monitor bun/creatinine Code(s): N18.9 - CHRONIC KIDNEY DISEASE, UNSPECIFIED (5) Anemia Assessment/Plan: Due to chronic renal dz Monitor H/H Code(s): D64.9 - ANEMIA, UNSPECIFIED Qualifiers: Anemia type: unspecified type Qualified Code(s): D64.9 - Anemia, unspecified (6) HTN (hypertension) Assessment/Plan: Cont Coreg/asa Code(s): I10 - ESSENTIAL (PRIMARY) HYPERTENSION (7) CAD (coronary artery disease) Assessment/Plan: Cont plavix Code(s): I25.10 - ATHSCL HEART DISEASE OF LIME CORONARY ARTERY W/O ANG PCTRS (8) 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
[2019-09-11] MEDS ORDERED: PIPERACILLIN/TAZOBACTAM 2.25 GM VIAL IVPB ONE ×3 (03:04→17:21)
[2019-09-11] MEDS ORDERED: DEXTROSE 5%-WATER - 50 ML IVPB ONE ×3 (03:05→17:21)
[2019-09-11] MEDS: PIPERACILLIN/TAZOB 2.25 GM 2.25 GM in DEXTROSE 5%-WATER - 50 ML IVPB SCH ×3 (03:12→17:24)
[2019-09-11] MEDS: INSULIN SLIDING SCALE (NOVOLOG) 1 VIAL SQ SCH ×4 (06:31→21:53)
[2019-09-11 08:34] LABS: BASO % 1.2 % (0-2.0); EOS % 4.8 % (0-4.5); HEMATOCRIT 24.9 % (35.4-49); HEMOGLOBIN 8.4 GM/dL (11.7-16.9); MCH 30.4 pg (25.7-33.7); MCHC 33.9 g/dl (32.0-35.9); MEAN CELL VOLUME 89.6 fl (80-96); MEAN PLT VOLUME 7.8 fl (7.5-11.1); MONO % 11.4 % (3.8-10.2); NEUT % 65.6 % (42.8-82.8); PLATELET COUNT 196 K/MM3 (134-434); RBC 2.78 M/mm3 (4.00-5.60); RDW 14.8 % (11.9-15.9); WHITE BLOOD COUNT 5.8 K/mm3 (4.0-10.0)
[2019-09-11 09:01] LABS: ALBUMIN 2.6 g/dl (3.4-5.0); BILIRUBIN,TOTAL 0.6 mg/dL (0.2-1); BLOOD UREA NITROGEN 69.5 mg/dL (7-18); CREATININE 2.5 mg/dL (0.55-1.3); POTASSIUM 3.9 mmol/L (3.5-5.1); TOT PROT 5.9 g/dl (6.4-8.2)
[2019-09-11] MEDS ORDERED: ISOSORBIDE MONONITRATE 60 MG TAB.SR.24H (FP) PO ONE (09:45)
[2019-09-11] MEDS ORDERED: ISOSORBIDE MONONITRATE 30 MG TAB.SR.24H (FP) PO ONE (09:45)
[2019-09-11] MEDS: TORSEMIDE 20 MG TABLET (FP) PO SCH (09:56)
[2019-09-11] MEDS: SODIUM BICARBONATE 650 MG TABLET PO SCH ×2 (09:56→21:54)
[2019-09-11] MEDS: ISOSORBIDE MONONITRATE 30 MG, ISOSORBIDE MONONITRATE 60 MG PO SCH (09:56)
[2019-09-11] MEDS: CLOPIDOGREL BISULFATE 75 MG TABLET (FP) PO SCH (09:56)
[2019-09-11] MEDS: ASPIRIN 81 MG CHEWABLE TABLETS PO SCH (09:56)
[2019-09-11] MEDS: CARVEDILOL 25 MG TABLET (FP) PO SCH ×2 (09:56→21:54)
[2019-09-11] MEDS: LOSARTAN POTASSIUM 25 MG TABLET PO SCH (09:57)
[2019-09-11] MEDS: HEPARIN NA (PORCINE) 5,000 UNITS/ML 1ML VIAL SQ SCH ×2 (09:57→21:54)
--- NOTE | 2019-09-11 13:05 | PN ---
Progress Note, Physician History of Present Illness: stable no new issues - Current Medication List Current Medications: Active Medications Aspirin (Asa -) 81 mg PO DAILY [facility] Last Admin: 09/11/19 09:56 Dose: 81 mg Carvedilol (Coreg -) 25 mg PO BID [facility] Last Admin: 09/11/19 09:56 Dose: 25 mg Clopidogrel Bisulfate (Plavix -) 75 mg PO DAILY [facility] Last Admin: 09/11/19 09:56 Dose: 75 mg Heparin Sodium (Porcine) (Heparin -) 5,000 unit SQ BID [facility] Last Admin: 09/11/19 09:57 Dose: 5,000 unit Piperacillin Sod/Tazobactam (Sod 2.25 gm/ Dextrose) 50 mls @ 100 mls/hr IVPB Q8H-IV [facility]; Protocol Last Admin: 09/11/19 09:57 Dose: 100 mls/hr Insulin Aspart (Novolog Vial) 5 units SQ DAILY@1730 [facility] Last Admin: 09/10/19 16:33 Dose: 5 units Insulin Aspart (Novolog Vial Sliding Scale -) 1 vial SQ ACHS [facility]; Protocol Last Admin: 09/11/19 12:34 Dose: Not Given Isosorbide Mononitrate 30 mg/ (Isosorbide Mononitrate 60 mg) 90 mg PO 1000 [facility] Last Admin: 09/11/19 09:56 Dose: 90 mg Losartan Potassium (Cozaar -) 25 mg PO DAILY [facility] Last Admin: 09/11/19 09:57 Dose: 25 mg Sodium Bicarbonate (Sodium Bicarbonate -) 650 mg PO BID [facility] Last Admin: 09/11/19 09:56 Dose: 650 mg Torsemide (Demadex -) 40 mg PO DAILY [facility] Last Admin: 09/11/19 09:56 Dose: 40 mg - Objective Vital Signs: Vital Signs Temperature 98.7 F 09/11/19 09:52 Pulse Rate 61 09/11/19 09:52 Respiratory Rate 20 09/11/19 09:52 Blood Pressure 153/68 09/11/19 09:52 O2 Sat by Pulse Oximetry (%) 100 09/11/19 09:00 Constitutional: Yes: No Distress, Calm Cardiovascular: Yes: S1, S2 Respiratory: Yes: Regular, CTA Bilaterally Gastrointestinal: Yes: Normal Bowel Sounds, Soft Musculoskeletal: Yes: WNL Extremities: Yes: WNL Neurological: Yes: Alert, Oriented Psychiatric: Yes: Alert, Oriented Labs: CBC, BMP 09/11/19 07:38 09/11/19 07:38 INR, PTT INR 1.18 (0.83-1.09) H 09/03/19 11:20 Assessment/Plan Problem List - Problems (1) Anemia Code(s): D64.9 - ANEMIA, UNSPECIFIED Qualifiers: Anemia type: unspecified type Qualified Code(s): D64.9 - Anemia, unspecified (2) CHF (congestive heart failure) Code(s): I50.9 - HEART FAILURE, UNSPECIFIED (3) CKD (chronic kidney disease) Code(s): N18.9 - CHRONIC KIDNEY DISEASE, UNSPECIFIED (4) Diabetic foot ulcers Code(s): E11.621 - TYPE 2 DIABETES MELLITUS WITH FOOT ULCER; L97.509 - NON- PRESSURE CHRONIC ULCER OTH PRT UNSP FOOT W UNSP SEVERITY Qualifiers: Diabetic foot ulcer location: midfoot Diabetes mellitus type: type 2 Laterality: left Non-pressure ulcer stage: with fat layer exposed Qualified Code(s): E11.621 - Type 2 diabetes mellitus with foot ulcer; L97.422 - Non- pressure chronic ulcer of left heel and midfoot with fat layer exposed Assessment/Plan Nonhealing Lt foot ulcer/wound infection r/o OM s/p excisional debridement / outpt antibiotics CKD CHF CAD s/p PPM DM Charcot foot plan continue abx await for finalization rest as per the team wound care
--- NOTE | 2019-09-11 14:15 | PN ---
Progress Note, Physician History of Present Illness: Pt seen and examined at bedside. He is awake and alert. He denies shortness of breath. - Current Medication List Current Medications: Active Medications Aspirin (Asa -) 81 mg PO DAILY [facility] Last Admin: 09/11/19 09:56 Dose: 81 mg Carvedilol (Coreg -) 25 mg PO BID [facility] Last Admin: 09/11/19 09:56 Dose: 25 mg Clopidogrel Bisulfate (Plavix -) 75 mg PO DAILY [facility] Last Admin: 09/11/19 09:56 Dose: 75 mg Heparin Sodium (Porcine) (Heparin -) 5,000 unit SQ BID [facility] Last Admin: 09/11/19 09:57 Dose: 5,000 unit Piperacillin Sod/Tazobactam (Sod 2.25 gm/ Dextrose) 50 mls @ 100 mls/hr IVPB Q8H-IV [facility]; Protocol Last Admin: 09/11/19 09:57 Dose: 100 mls/hr Insulin Aspart (Novolog Vial) 5 units SQ DAILY@1730 [facility] Last Admin: 09/10/19 16:33 Dose: 5 units Insulin Aspart (Novolog Vial Sliding Scale -) 1 vial SQ ACHS [facility]; Protocol Last Admin: 09/11/19 12:34 Dose: Not Given Isosorbide Mononitrate 30 mg/ (Isosorbide Mononitrate 60 mg) 90 mg PO 1000 [facility] Last Admin: 09/11/19 09:56 Dose: 90 mg Losartan Potassium (Cozaar -) 25 mg PO DAILY [facility] Last Admin: 09/11/19 09:57 Dose: 25 mg Sodium Bicarbonate (Sodium Bicarbonate -) 650 mg PO BID [facility] Last Admin: 09/11/19 09:56 Dose: 650 mg Torsemide (Demadex -) 40 mg PO DAILY [facility] Last Admin: 09/11/19 09:56 Dose: 40 mg - Objective Vital Signs: Vital Signs Temperature 98.7 F 09/11/19 09:52 Pulse Rate 61 09/11/19 09:52 Respiratory Rate 20 09/11/19 09:52 Blood Pressure 153/68 09/11/19 09:52 O2 Sat by Pulse Oximetry (%) 100 09/11/19 09:00 Constitutional: Yes: Calm Eyes: Yes: Conjunctiva Clear HENT: Yes: Atraumatic Neck: Yes: Supple Cardiovascular: Yes: S1, S2 Respiratory: Yes: CTA Bilaterally Gastrointestinal: Yes: Soft, Abdomen, Obese Genitourinary: Yes: WNL Edema: Yes Edema: LLE: 1+, RLE: 1+ Integumentary: Yes: Venous Stasis Changes Neurological: Yes: Oriented Psychiatric: Yes: Oriented Labs: CBC, BMP 09/11/19 07:38 09/11/19 07:38 INR, PTT INR 1.18 (0.83-1.09) H 09/03/19 11:20 Problem List - Problems (1) CKD (chronic kidney disease) Code(s): N18.9 - CHRONIC KIDNEY DISEASE, UNSPECIFIED (2) CHF (congestive heart failure) Code(s): I50.9 - HEART FAILURE, UNSPECIFIED (3) Anemia Code(s): D64.9 - ANEMIA, UNSPECIFIED Qualifiers: Anemia type: unspecified type Qualified Code(s): D64.9 - Anemia, unspecified (4) Diabetic foot ulcers Code(s): E11.621 - TYPE 2 DIABETES MELLITUS WITH FOOT ULCER; L97.509 - NON- PRESSURE CHRONIC ULCER OTH PRT UNSP FOOT W UNSP SEVERITY Qualifiers: Diabetic foot ulcer location: midfoot Diabetes mellitus type: type 2 Laterality: left Non-pressure ulcer stage: with fat layer exposed Qualified Code(s): E11.621 - Type 2 diabetes mellitus with foot ulcer; L97.422 - Non- pressure chronic ulcer of left heel and midfoot with fat layer exposed Assessment/Plan Current Medications Generic Name Dose Route Start Last Admin Trade Name Freq PRN Reason Stop Dose Admin Aspirin 81 mg 09/10/19 10:00 09/11/19 09:56 Asa - PO 81 mg DAILY [facility] Administration Carvedilol 25 mg 09/09/19 22:00 09/11/19 09:56 Coreg - PO 25 mg BID [facility] Administration Clopidogrel Bisulfate 75 mg 09/10/19 10:00 09/11/19 09:56 Plavix - PO 75 mg DAILY [facility] Administration Heparin Sodium (Porcine) 5,000 unit 09/09/19 22:00 09/11/19 09:57 Heparin - SQ 5,000 unit BID [facility] Administration Piperacillin Sod/Tazobactam 50 mls @ 100 mls/hr 09/10/19 12:45 09/11/19 09:57 Sod 2.25 gm/ Dextrose IVPB 100 mls/hr Q8H-IV [facility] Administration Protocol Insulin Aspart 5 units 09/09/19 17:30 09/10/19 16:33 Novolog Vial SQ 5 units DAILY@1730 [facility] Administration Insulin Aspart 1 vial 09/09/19 16:30 09/11/19 12:34 Novolog Vial Sliding Scale - SQ Not Given ACHS [facility] Protocol Isosorbide Mononitrate 30 mg/ 90 mg 09/10/19 10:00 09/11/19 09:56 Isosorbide Mononitrate 60 mg PO 90 mg 1000 [facility] Administration Losartan Potassium 25 mg 09/10/19 13:45 09/11/19 09:57 Cozaar - PO 25 mg DAILY [facility] Administration Sodium Bicarbonate 650 mg 09/09/19 22:00 09/11/19 09:56 Sodium Bicarbonate - PO 650 mg BID [facility] Administration Torsemide 40 mg 09/10/19 10:00 09/11/19 09:56 Demadex - PO 40 mg DAILY [facility] Administration Impression 1. CKD 2. YENI 3. CHF 4. DM 5. DFU 6. HTN Plan - can increase losartan to 50 mg - monitor renal function - cont torsemide - would not restart victoza - cont po bicarb Thank you
[2019-09-11] MEDS: LOSARTAN POTASSIUM 50 MG TABLET (FP) PO SCH (15:45)
[2019-09-11] MEDS: INSULIN (NOVOLOG) ASPART 100 UNITS/ML 10ML VIAL SQ SCH (17:17)
--- NOTE | 2019-09-11 22:07 | PN ---
Progress Note, Physician History of Present Illness: No new complaints - Current Medication List Current Medications: Active Medications Aspirin (Asa -) 81 mg PO DAILY [facility] Last Admin: 09/11/19 09:56 Dose: 81 mg Carvedilol (Coreg -) 25 mg PO BID [facility] Last Admin: 09/11/19 21:54 Dose: 25 mg Clopidogrel Bisulfate (Plavix -) 75 mg PO DAILY [facility] Last Admin: 09/11/19 09:56 Dose: 75 mg Heparin Sodium (Porcine) (Heparin -) 5,000 unit SQ BID [facility] Last Admin: 09/11/19 21:54 Dose: 5,000 unit Piperacillin Sod/Tazobactam (Sod 2.25 gm/ Dextrose) 50 mls @ 100 mls/hr IVPB Q8H-IV [facility]; Protocol Last Admin: 09/11/19 17:24 Dose: 100 mls/hr Insulin Aspart (Novolog Vial) 5 units SQ DAILY@1730 [facility] Last Admin: 09/11/19 17:17 Dose: 5 units Insulin Aspart (Novolog Vial Sliding Scale -) 1 vial SQ ACHS [facility]; Protocol Last Admin: 09/11/19 21:53 Dose: Not Given Isosorbide Mononitrate 30 mg/ (Isosorbide Mononitrate 60 mg) 90 mg PO 1000 [facility] Last Admin: 09/11/19 09:56 Dose: 90 mg Losartan Potassium (Cozaar -) 50 mg PO DAILY [facility] Last Admin: 09/11/19 15:45 Dose: 50 mg Sodium Bicarbonate (Sodium Bicarbonate -) 650 mg PO BID [facility] Last Admin: 09/11/19 21:54 Dose: 650 mg Torsemide (Demadex -) 40 mg PO DAILY [facility] Last Admin: 09/11/19 09:56 Dose: 40 mg - Objective Vital Signs: Vital Signs Temperature 98.3 F 09/11/19 19:53 Pulse Rate 60 09/11/19 19:53 Respiratory Rate 20 09/11/19 19:53 Blood Pressure 136/58 L 09/11/19 19:53 O2 Sat by Pulse Oximetry (%) 100 09/11/19 09:00 Neck: Yes: WNL, Supple Cardiovascular: Yes: WNL, Regular Rate and Rhythm Respiratory: Yes: WNL, Regular, CTA Bilaterally Gastrointestinal: Yes: WNL, Normal Bowel Sounds, Soft Extremities: Yes: Other (Lt foot w/ dressing) Labs: CBC, BMP 09/11/19 07:38 09/11/19 07:38 INR, PTT INR 1.18 (0.83-1.09) H 09/03/19 11:20 Problem List - Problems (1) Diabetic foot ulcers Assessment/Plan: Cont IV antibxs Wound culture (+) for pseudomonas/enterococcus/diph/corneynebacterium Possible osteo on bone scan S/P debridement and bone bx 09/09/19 to r/o osteo May need medical terminologist IV antibxs Await fine culture results Code(s): E11.621 - TYPE 2 DIABETES MELLITUS WITH FOOT ULCER; L97.509 - NON- PRESSURE CHRONIC ULCER OTH PRT UNSP FOOT W UNSP SEVERITY Qualifiers: Diabetic foot ulcer location: midfoot Diabetes mellitus type: type 2 Laterality: left Non-pressure ulcer stage: with fat layer exposed Qualified Code(s): E11.621 - Type 2 diabetes mellitus with foot ulcer; L97.422 - Non- pressure chronic ulcer of left heel and midfoot with fat layer exposed (2) Diabetes Assessment/Plan: Cont sliding scale Code(s): E11.9 - TYPE 2 DIABETES MELLITUS WITHOUT COMPLICATIONS (3) CHF (congestive heart failure) Assessment/Plan: Cont demadex Code(s): I50.9 - HEART FAILURE, UNSPECIFIED (4) CKD (chronic kidney disease) Assessment/Plan: As per renal Monitor bun/creatinine Code(s): N18.9 - CHRONIC KIDNEY DISEASE, UNSPECIFIED (5) Anemia Assessment/Plan: Due to chronic renal dz Monitor H/H Code(s): D64.9 - ANEMIA, UNSPECIFIED Qualifiers: Anemia type: unspecified type Qualified Code(s): D64.9 - Anemia, unspecified (6) HTN (hypertension) Assessment/Plan: Cont Coreg/asa Code(s): I10 - ESSENTIAL (PRIMARY) HYPERTENSION (7) CAD (coronary artery disease) Assessment/Plan: Cont plavix Code(s): I25.10 - ATHSCL HEART DISEASE OF [place] CORONARY ARTERY W/O ANG PCTRS (8) 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
[2019-09-12] MEDS ORDERED: PIPERACILLIN/TAZOBACTAM 2.25 GM VIAL IVPB ONE ×3 (01:46→17:17)
[2019-09-12] MEDS ORDERED: DEXTROSE 5%-WATER - 50 ML IVPB ONE ×3 (01:47→17:17)
[2019-09-12] MEDS: PIPERACILLIN/TAZOB 2.25 GM 2.25 GM in DEXTROSE 5%-WATER - 50 ML IVPB SCH ×3 (01:50→17:27)
[2019-09-12] MEDS: INSULIN SLIDING SCALE (NOVOLOG) 1 VIAL SQ SCH ×4 (06:13→22:41)
[2019-09-12 09:19] LABS: ALBUMIN 2.6 g/dl (3.4-5.0); BILIRUBIN,TOTAL 0.6 mg/dL (0.2-1); BLOOD UREA NITROGEN 68.3 mg/dL (7-18); CALCIUM 8.3 mg/dL (8.5-10.1); CREATININE 2.7 mg/dL (0.55-1.3); POTASSIUM 3.8 mmol/L (3.5-5.1)
[2019-09-12] MEDS ORDERED: ISOSORBIDE MONONITRATE 60 MG TAB.SR.24H (FP) PO ONE (09:26)
[2019-09-12] MEDS ORDERED: ISOSORBIDE MONONITRATE 30 MG TAB.SR.24H (FP) PO ONE (09:27)
[2019-09-12] MEDS: ASPIRIN 81 MG CHEWABLE TABLETS PO SCH (09:32)
[2019-09-12] MEDS: CARVEDILOL 25 MG TABLET (FP) PO SCH ×2 (09:32→22:40)
[2019-09-12] MEDS: ISOSORBIDE MONONITRATE 30 MG, ISOSORBIDE MONONITRATE 60 MG PO SCH (09:32)
[2019-09-12] MEDS: LOSARTAN POTASSIUM 50 MG TABLET (FP) PO SCH (09:32)
[2019-09-12] MEDS: SODIUM BICARBONATE 650 MG TABLET PO SCH ×2 (09:32→22:41)
[2019-09-12] MEDS: CLOPIDOGREL BISULFATE 75 MG TABLET (FP) PO SCH (09:32)
[2019-09-12] MEDS: HEPARIN NA (PORCINE) 5,000 UNITS/ML 1ML VIAL SQ SCH ×2 (09:33→22:40)
[2019-09-12] MEDS: TORSEMIDE 20 MG TABLET (FP) PO SCH (09:33)
--- NOTE | 2019-09-12 12:01 | PN ---
Progress Note (short form) - Note Progress Note: Podiatry F/U: Seen/evaluated at bedside NAD s/p left bone biopsy. Denies any complaints. Feeling well. DOUGIE: L foot: pedal pulses palpable, TG wnl. There is a plantar midfoot diabetic Charcot ulcer mixed fibrogranular base, hyperkeratotic borders,incision site medial to that with sutures intact and no dehiscence,no acute changes bone culture: no growth in bone Imp: 79 year old diabetic male with left foot diabetic Charcot ulcer Evaluated and reviewed doing well, surgically stable from pod standpoint for d/c can continue dressing changes at home; has home care and nurses where he livse minimal wb to the foot f/u with Dr. Astudillo in wound care next sunday Abx Per ID.
--- NOTE | 2019-09-12 13:00 | PN ---
Progress Note, Physician History of Present Illness: patient doing well no new issues - Current Medication List Current Medications: Active Medications Aspirin (Asa -) 81 mg PO DAILY [facility] Last Admin: 09/12/19 09:32 Dose: 81 mg Carvedilol (Coreg -) 25 mg PO BID [facility] Last Admin: 09/12/19 09:32 Dose: 25 mg Clopidogrel Bisulfate (Plavix -) 75 mg PO DAILY [facility] Last Admin: 09/12/19 09:32 Dose: 75 mg Heparin Sodium (Porcine) (Heparin -) 5,000 unit SQ BID [facility] Last Admin: 09/12/19 09:33 Dose: 5,000 unit Piperacillin Sod/Tazobactam (Sod 2.25 gm/ Dextrose) 50 mls @ 100 mls/hr IVPB Q8H-IV [facility]; Protocol Last Admin: 09/12/19 09:32 Dose: 100 mls/hr Insulin Aspart (Novolog Vial) 5 units SQ DAILY@1730 [facility] Last Admin: 09/11/19 17:17 Dose: 5 units Insulin Aspart (Novolog Vial Sliding Scale -) 1 vial SQ ACHS [facility]; Protocol Last Admin: 09/12/19 11:41 Dose: 2 units Isosorbide Mononitrate 30 mg/ (Isosorbide Mononitrate 60 mg) 90 mg PO 1000 [facility] Last Admin: 09/12/19 09:32 Dose: 90 mg Losartan Potassium (Cozaar -) 50 mg PO DAILY [facility] Last Admin: 09/12/19 09:32 Dose: 50 mg Sodium Bicarbonate (Sodium Bicarbonate -) 650 mg PO BID [facility] Last Admin: 09/12/19 09:32 Dose: 650 mg Torsemide (Demadex -) 40 mg PO DAILY [facility] Last Admin: 09/12/19 09:33 Dose: 40 mg - Objective Vital Signs: Vital Signs Temperature 98.1 F 09/12/19 09:45 Pulse Rate 61 09/12/19 09:45 Respiratory Rate 20 09/12/19 09:45 Blood Pressure 148/67 09/12/19 09:45 O2 Sat by Pulse Oximetry (%) 99 09/12/19 09:00 Constitutional: Yes: No Distress, Calm Respiratory: Yes: Regular, CTA Bilaterally Gastrointestinal: Yes: Normal Bowel Sounds, Soft Musculoskeletal: Yes: WNL Extremities: Yes: Other Wound/Incision: Yes: Dressing Dry and Intact Neurological: Yes: Alert, Oriented Psychiatric: Yes: Alert, Oriented Labs: CBC, BMP 09/11/19 07:38 09/12/19 07:10 INR, PTT INR 1.18 (0.83-1.09) H 09/03/19 11:20 Assessment/Plan Problem List - Problems (1) Anemia Code(s): D64.9 - ANEMIA, UNSPECIFIED Qualifiers: Anemia type: unspecified type Qualified Code(s): D64.9 - Anemia, unspecified (2) CHF (congestive heart failure) Code(s): I50.9 - HEART FAILURE, UNSPECIFIED (3) CKD (chronic kidney disease) Code(s): N18.9 - CHRONIC KIDNEY DISEASE, UNSPECIFIED (4) Diabetic foot ulcers Code(s): E11.621 - TYPE 2 DIABETES MELLITUS WITH FOOT ULCER; L97.509 - NON- PRESSURE CHRONIC ULCER OTH PRT UNSP FOOT W UNSP SEVERITY Qualifiers: Diabetic foot ulcer location: midfoot Diabetes mellitus type: type 2 Laterality: left Non-pressure ulcer stage: with fat layer exposed Qualified Code(s): E11.621 - Type 2 diabetes mellitus with foot ulcer; L97.422 - Non- pressure chronic ulcer of left heel and midfoot with fat layer exposed Assessment/Plan Nonhealing Lt foot ulcer/wound infection r/o OM s/p excisional debridement / outpt antibiotics CKD CHF CAD s/p PPM DM Charcot foot plan continue abx patient will need a total of another week of iv abx rest as per the team
--- NOTE | 2019-09-12 16:03 | PN ---
Progress Note, Physician History of Present Illness: Pt seen and examined at bedside. He is awake and alert. He denies shortness of breath. - Current Medication List Current Medications: Active Medications Aspirin (Asa -) 81 mg PO DAILY [facility] Last Admin: 09/12/19 09:32 Dose: 81 mg Carvedilol (Coreg -) 25 mg PO BID [facility] Last Admin: 09/12/19 09:32 Dose: 25 mg Clopidogrel Bisulfate (Plavix -) 75 mg PO DAILY [facility] Last Admin: 09/12/19 09:32 Dose: 75 mg Heparin Sodium (Porcine) (Heparin -) 5,000 unit SQ BID [facility] Last Admin: 09/12/19 09:33 Dose: 5,000 unit Piperacillin Sod/Tazobactam (Sod 2.25 gm/ Dextrose) 50 mls @ 100 mls/hr IVPB Q8H-IV [facility]; Protocol Last Admin: 09/12/19 09:32 Dose: 100 mls/hr Insulin Aspart (Novolog Vial) 5 units SQ DAILY@1730 [facility] Last Admin: 09/11/19 17:17 Dose: 5 units Insulin Aspart (Novolog Vial Sliding Scale -) 1 vial SQ ACHS [facility]; Protocol Last Admin: 09/12/19 11:41 Dose: 2 units Isosorbide Mononitrate 30 mg/ (Isosorbide Mononitrate 60 mg) 90 mg PO 1000 [facility] Last Admin: 09/12/19 09:32 Dose: 90 mg Losartan Potassium (Cozaar -) 50 mg PO DAILY [facility] Last Admin: 09/12/19 09:32 Dose: 50 mg Sodium Bicarbonate (Sodium Bicarbonate -) 650 mg PO BID [facility] Last Admin: 09/12/19 09:32 Dose: 650 mg Torsemide (Demadex -) 40 mg PO DAILY [facility] Last Admin: 09/12/19 09:33 Dose: 40 mg - Objective Vital Signs: Vital Signs Temperature 98.1 F 09/12/19 09:45 Pulse Rate 61 09/12/19 09:45 Respiratory Rate 20 09/12/19 09:45 Blood Pressure 148/67 09/12/19 09:45 O2 Sat by Pulse Oximetry (%) 99 09/12/19 09:00 Constitutional: Yes: Calm Eyes: Yes: Conjunctiva Clear HENT: Yes: Atraumatic Neck: Yes: Supple Cardiovascular: Yes: S1, S2 Respiratory: Yes: CTA Bilaterally Gastrointestinal: Yes: Soft, Abdomen, Obese Musculoskeletal: Yes: WNL Extremities: Yes: WNL Edema: Yes Edema: LLE: Trace, RLE: Trace Integumentary: Yes: Venous Stasis Changes Neurological: Yes: Oriented Psychiatric: Yes: Oriented Labs: CBC, BMP 09/11/19 07:38 09/12/19 07:10 INR, PTT INR 1.18 (0.83-1.09) H 09/03/19 11:20 Problem List - Problems (1) CKD (chronic kidney disease) Code(s): N18.9 - CHRONIC KIDNEY DISEASE, UNSPECIFIED (2) CHF (congestive heart failure) Code(s): I50.9 - HEART FAILURE, UNSPECIFIED (3) Anemia Code(s): D64.9 - ANEMIA, UNSPECIFIED Qualifiers: Anemia type: unspecified type Qualified Code(s): D64.9 - Anemia, unspecified (4) Diabetic foot ulcers Code(s): E11.621 - TYPE 2 DIABETES MELLITUS WITH FOOT ULCER; L97.509 - NON- PRESSURE CHRONIC ULCER OTH PRT UNSP FOOT W UNSP SEVERITY Qualifiers: Diabetic foot ulcer location: midfoot Diabetes mellitus type: type 2 Laterality: left Non-pressure ulcer stage: with fat layer exposed Qualified Code(s): E11.621 - Type 2 diabetes mellitus with foot ulcer; L97.422 - Non- pressure chronic ulcer of left heel and midfoot with fat layer exposed Assessment/Plan Current Medications Generic Name Dose Route Start Last Admin Trade Name Freq PRN Reason Stop Dose Admin Aspirin 81 mg 09/10/19 10:00 09/12/19 09:32 Asa - PO 81 mg DAILY [facility] Administration Carvedilol 25 mg 09/09/19 22:00 09/12/19 09:32 Coreg - PO 25 mg BID [facility] Administration Clopidogrel Bisulfate 75 mg 09/10/19 10:00 09/12/19 09:32 Plavix - PO 75 mg DAILY [facility] Administration Heparin Sodium (Porcine) 5,000 unit 09/09/19 22:00 09/12/19 09:33 Heparin - SQ 5,000 unit BID [facility] Administration Piperacillin Sod/Tazobactam 50 mls @ 100 mls/hr 09/10/19 12:45 09/12/19 09:32 Sod 2.25 gm/ Dextrose IVPB 100 mls/hr Q8H-IV [facility] Administration Protocol Insulin Aspart 5 units 09/09/19 17:30 09/11/19 17:17 Novolog Vial SQ 5 units DAILY@1730 [facility] Administration Insulin Aspart 1 vial 09/09/19 16:30 09/12/19 11:41 Novolog Vial Sliding Scale - SQ 2 units ACHS [facility] Administration Protocol Isosorbide Mononitrate 30 mg/ 90 mg 09/10/19 10:00 09/12/19 09:32 Isosorbide Mononitrate 60 mg PO 90 mg 1000 [facility] Administration Losartan Potassium 50 mg 09/11/19 14:45 09/12/19 09:32 Cozaar - PO 50 mg DAILY [facility] Administration Sodium Bicarbonate 650 mg 09/09/19 22:00 09/12/19 09:32 Sodium Bicarbonate - PO 650 mg BID [facility] Administration Torsemide 40 mg 09/10/19 10:00 09/12/19 09:33 Demadex - PO 40 mg DAILY [facility] Administration Impression 1. CKD 2. YENI 3. CHF 4. DM 5. DFU 6. HTN Plan - cont losartan - cont torsemide - cont po bicarb - will see pt in office - wound not restart amlodipine or victoza Thank you
[2019-09-12] MEDS: INSULIN (NOVOLOG) ASPART 100 UNITS/ML 10ML VIAL SQ SCH (16:39)
[2019-09-12] MEDS ORDERED: PT OWN MED DRAWER 7, Y5N ONE (17:20)
--- NOTE | 2019-09-12 23:11 | PN ---
Progress Note, Physician History of Present Illness: No new complaints - Current Medication List Current Medications: Active Medications Aspirin (Asa -) 81 mg PO DAILY [facility] Last Admin: 09/12/19 09:32 Dose: 81 mg Carvedilol (Coreg -) 25 mg PO BID [facility] Last Admin: 09/12/19 22:40 Dose: 25 mg Clopidogrel Bisulfate (Plavix -) 75 mg PO DAILY [facility] Last Admin: 09/12/19 09:32 Dose: 75 mg Heparin Sodium (Porcine) (Heparin -) 5,000 unit SQ BID [facility] Last Admin: 09/12/19 22:40 Dose: 5,000 unit Piperacillin Sod/Tazobactam (Sod 2.25 gm/ Dextrose) 50 mls @ 100 mls/hr IVPB Q8H-IV [facility]; Protocol Last Admin: 09/12/19 17:27 Dose: 100 mls/hr Insulin Aspart (Novolog Vial) 5 units SQ DAILY@1730 [facility] Last Admin: 09/12/19 16:39 Dose: 5 units Insulin Aspart (Novolog Vial Sliding Scale -) 1 vial SQ ACHS [facility]; Protocol Last Admin: 09/12/19 22:41 Dose: Not Given Isosorbide Mononitrate 30 mg/ (Isosorbide Mononitrate 60 mg) 90 mg PO 1000 [facility] Last Admin: 09/12/19 09:32 Dose: 90 mg Losartan Potassium (Cozaar -) 50 mg PO DAILY [facility] Last Admin: 09/12/19 09:32 Dose: 50 mg Sodium Bicarbonate (Sodium Bicarbonate -) 650 mg PO BID [facility] Last Admin: 09/12/19 22:41 Dose: 650 mg Torsemide (Demadex -) 40 mg PO DAILY [facility] Last Admin: 09/12/19 09:33 Dose: 40 mg - Objective Vital Signs: Vital Signs Temperature 98.2 F 09/12/19 21:05 Pulse Rate 61 09/12/19 21:05 Respiratory Rate 20 09/12/19 21:05 Blood Pressure 136/56 L 09/12/19 21:05 O2 Sat by Pulse Oximetry (%) 99 09/12/19 09:00 Neck: Yes: WNL, Supple Cardiovascular: Yes: WNL, Regular Rate and Rhythm Respiratory: Yes: WNL, Regular, CTA Bilaterally Gastrointestinal: Yes: WNL, Normal Bowel Sounds, Soft Extremities: Yes: Other (Lt foot in dressing wc is dry) Labs: CBC, BMP 09/11/19 07:38 09/12/19 07:10 INR, PTT INR 1.18 (0.83-1.09) H 09/03/19 11:20 Problem List - Problems (1) Diabetic foot ulcers Assessment/Plan: Cont IV antibxs Wound culture (+) for pseudomonas/enterococcus/diph/corneynebacterium Possible osteo on bone scan S/P debridement and bone bx 09/09/19 to r/o osteo May need chcf IV antibxs Await final culture results Code(s): E11.621 - TYPE 2 DIABETES MELLITUS WITH FOOT ULCER; L97.509 - NON- PRESSURE CHRONIC ULCER OTH PRT UNSP FOOT W UNSP SEVERITY Qualifiers: Diabetic foot ulcer location: midfoot Diabetes mellitus type: type 2 Laterality: left Non-pressure ulcer stage: with fat layer exposed Qualified Code(s): E11.621 - Type 2 diabetes mellitus with foot ulcer; L97.422 - Non- pressure chronic ulcer of left heel and midfoot with fat layer exposed (2) Diabetes Assessment/Plan: Cont sliding scale Code(s): E11.9 - TYPE 2 DIABETES MELLITUS WITHOUT COMPLICATIONS (3) CHF (congestive heart failure) Assessment/Plan: Cont demadex Code(s): I50.9 - HEART FAILURE, UNSPECIFIED (4) CKD (chronic kidney disease) Assessment/Plan: As per renal Monitor bun/creatinine Code(s): N18.9 - CHRONIC KIDNEY DISEASE, UNSPECIFIED (5) Anemia Assessment/Plan: Due to chronic renal dz Monitor H/H Code(s): D64.9 - ANEMIA, UNSPECIFIED Qualifiers: Anemia type: unspecified type Qualified Code(s): D64.9 - Anemia, unspecified (6) HTN (hypertension) Assessment/Plan: Cont Coreg/asa Code(s): I10 - ESSENTIAL (PRIMARY) HYPERTENSION (7) CAD (coronary artery disease) Assessment/Plan: Cont plavix Code(s): I25.10 - ATHSCL HEART DISEASE OF [place] CORONARY ARTERY W/O ANG PCTRS (8) 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
[2019-09-13] MEDS ORDERED: DEXTROSE 5%-WATER - 50 ML IVPB ONE ×3 (01:34→15:55)
[2019-09-13] MEDS ORDERED: PIPERACILLIN/TAZOBACTAM 2.25 GM VIAL IVPB ONE ×3 (01:34→15:55)
[2019-09-13] MEDS: PIPERACILLIN/TAZOB 2.25 GM 2.25 GM in DEXTROSE 5%-WATER - 50 ML IVPB SCH ×3 (01:41→17:02)
[2019-09-13] MEDS: INSULIN SLIDING SCALE (NOVOLOG) 1 VIAL SQ SCH ×4 (06:13→22:19)
[2019-09-13] MEDS ORDERED: ISOSORBIDE MONONITRATE 30 MG TAB.SR.24H (FP) PO ONE (10:05)
[2019-09-13] MEDS ORDERED: ISOSORBIDE MONONITRATE 60 MG TAB.SR.24H (FP) PO ONE (10:05)
[2019-09-13] MEDS: CARVEDILOL 25 MG TABLET (FP) PO SCH ×2 (10:08→22:17)
[2019-09-13] MEDS: SODIUM BICARBONATE 650 MG TABLET PO SCH ×2 (10:08→22:19)
[2019-09-13] MEDS: ISOSORBIDE MONONITRATE 30 MG, ISOSORBIDE MONONITRATE 60 MG PO SCH (10:08)
[2019-09-13] MEDS: TORSEMIDE 20 MG TABLET (FP) PO SCH (10:08)
[2019-09-13] MEDS: CLOPIDOGREL BISULFATE 75 MG TABLET (FP) PO SCH (10:08)
[2019-09-13] MEDS: LOSARTAN POTASSIUM 50 MG TABLET (FP) PO SCH (10:09)
[2019-09-13] MEDS: HEPARIN NA (PORCINE) 5,000 UNITS/ML 1ML VIAL SQ SCH ×2 (10:09→22:17)
[2019-09-13] MEDS: ASPIRIN 81 MG CHEWABLE TABLETS PO SCH (10:09)
--- NOTE | 2019-09-13 10:37 | PN ---
Progress Note, Physician History of Present Illness: patient doing well no new issues - Current Medication List Current Medications: Active Medications Aspirin (Asa -) 81 mg PO DAILY [facility] Last Admin: 09/13/19 10:09 Dose: 81 mg Carvedilol (Coreg -) 25 mg PO BID [facility] Last Admin: 09/13/19 10:08 Dose: 25 mg Clopidogrel Bisulfate (Plavix -) 75 mg PO DAILY [facility] Last Admin: 09/13/19 10:08 Dose: 75 mg Heparin Sodium (Porcine) (Heparin -) 5,000 unit SQ BID [facility] Last Admin: 09/13/19 10:09 Dose: 5,000 unit Piperacillin Sod/Tazobactam (Sod 2.25 gm/ Dextrose) 50 mls @ 100 mls/hr IVPB Q8H-IV [facility]; Protocol Last Admin: 09/13/19 10:09 Dose: 100 mls/hr Insulin Aspart (Novolog Vial) 5 units SQ DAILY@1730 [facility] Last Admin: 09/12/19 16:39 Dose: 5 units Insulin Aspart (Novolog Vial Sliding Scale -) 1 vial SQ ACHS [facility]; Protocol Last Admin: 09/13/19 06:13 Dose: Not Given Isosorbide Mononitrate 30 mg/ (Isosorbide Mononitrate 60 mg) 90 mg PO 1000 [facility] Last Admin: 09/13/19 10:08 Dose: 90 mg Losartan Potassium (Cozaar -) 50 mg PO DAILY [facility] Last Admin: 09/13/19 10:09 Dose: 50 mg Sodium Bicarbonate (Sodium Bicarbonate -) 650 mg PO BID [facility] Last Admin: 09/13/19 10:08 Dose: 650 mg Torsemide (Demadex -) 40 mg PO DAILY [facility] Last Admin: 09/13/19 10:08 Dose: 40 mg - Objective Vital Signs: Vital Signs Temperature 97.7 F 09/13/19 07:56 Pulse Rate 61 09/13/19 07:56 Respiratory Rate 15 09/13/19 07:56 Blood Pressure 153/69 09/13/19 07:56 O2 Sat by Pulse Oximetry (%) 98 09/13/19 08:00 Constitutional: Yes: No Distress, Calm Cardiovascular: Yes: S1, S2 Respiratory: Yes: Regular, CTA Bilaterally Gastrointestinal: Yes: Normal Bowel Sounds, Soft Musculoskeletal: Yes: WNL Extremities: Yes: Other Neurological: Yes: Alert, Oriented Psychiatric: Yes: Alert, Oriented Labs: CBC, BMP 09/11/19 07:38 09/12/19 07:10 INR, PTT INR 1.18 (0.83-1.09) H 09/03/19 11:20 Assessment/Plan Problem List - Problems (1) Anemia Code(s): D64.9 - ANEMIA, UNSPECIFIED Qualifiers: Anemia type: unspecified type Qualified Code(s): D64.9 - Anemia, unspecified (2) CHF (congestive heart failure) Code(s): I50.9 - HEART FAILURE, UNSPECIFIED (3) CKD (chronic kidney disease) Code(s): N18.9 - CHRONIC KIDNEY DISEASE, UNSPECIFIED (4) Diabetic foot ulcers Code(s): E11.621 - TYPE 2 DIABETES MELLITUS WITH FOOT ULCER; L97.509 - NON- PRESSURE CHRONIC ULCER OTH PRT UNSP FOOT W UNSP SEVERITY Qualifiers: Diabetic foot ulcer location: midfoot Diabetes mellitus type: type 2 Laterality: left Non-pressure ulcer stage: with fat layer exposed Qualified Code(s): E11.621 - Type 2 diabetes mellitus with foot ulcer; L97.422 - Non- pressure chronic ulcer of left heel and midfoot with fat layer exposed Assessment/Plan Nonhealing Lt foot ulcer/wound infection r/o OM s/p excisional debridement / outpt antibiotics CKD CHF CAD s/p PPM DM Charcot foot plan continue abx patient will need a total of another week of iv abx rest as per the team
[2019-09-13] MEDS ORDERED: INSULIN (NOVOLOG) ASPART 100 UNITS/ML 10ML VIAL ONE ×2 (11:29→21:50)
[2019-09-13] MEDS: INSULIN (NOVOLOG) ASPART 100 UNITS/ML 10ML VIAL SQ SCH (17:00)
--- NOTE | 2019-09-13 22:25 | PN ---
Progress Note, Physician History of Present Illness: No new complaints - Current Medication List Current Medications: Active Medications Aspirin (Asa -) 81 mg PO DAILY [facility] Last Admin: 09/13/19 10:09 Dose: 81 mg Carvedilol (Coreg -) 25 mg PO BID [facility] Last Admin: 09/13/19 22:17 Dose: 25 mg Clopidogrel Bisulfate (Plavix -) 75 mg PO DAILY [facility] Last Admin: 09/13/19 10:08 Dose: 75 mg Heparin Sodium (Porcine) (Heparin -) 5,000 unit SQ BID [facility] Last Admin: 09/13/19 22:17 Dose: 5,000 unit Piperacillin Sod/Tazobactam (Sod 2.25 gm/ Dextrose) 50 mls @ 100 mls/hr IVPB Q8H-IV [facility]; Protocol Last Admin: 09/13/19 17:02 Dose: 100 mls/hr Insulin Aspart (Novolog Vial) 5 units SQ DAILY@1730 [facility] Last Admin: 09/13/19 17:00 Dose: 5 units Insulin Aspart (Novolog Vial Sliding Scale -) 1 vial SQ ACHS [facility]; Protocol Last Admin: 09/13/19 22:19 Dose: 2 units Isosorbide Mononitrate 30 mg/ (Isosorbide Mononitrate 60 mg) 90 mg PO 1000 [facility] Last Admin: 09/13/19 10:08 Dose: 90 mg Losartan Potassium (Cozaar -) 50 mg PO DAILY [facility] Last Admin: 09/13/19 10:09 Dose: 50 mg Sodium Bicarbonate (Sodium Bicarbonate -) 650 mg PO BID [facility] Last Admin: 09/13/19 22:19 Dose: 650 mg Torsemide (Demadex -) 40 mg PO DAILY [facility] Last Admin: 09/13/19 10:08 Dose: 40 mg - Objective Vital Signs: Vital Signs Temperature 97.3 F L 09/13/19 15:22 Pulse Rate 62 09/13/19 15:22 Respiratory Rate 18 09/13/19 15:22 Blood Pressure 138/73 09/13/19 15:22 O2 Sat by Pulse Oximetry (%) 98 09/13/19 08:00 Neck: Yes: WNL, Supple Cardiovascular: Yes: WNL, Regular Rate and Rhythm Respiratory: Yes: WNL, Regular, CTA Bilaterally Gastrointestinal: Yes: WNL, Normal Bowel Sounds, Soft Extremities: Yes: Other (Lt foot in dressing) Labs: CBC, BMP 09/11/19 07:38 09/12/19 07:10 INR, PTT INR 1.18 (0.83-1.09) H 09/03/19 11:20 Problem List - Problems (1) Diabetic foot ulcers Assessment/Plan: Cont IV antibxs Wound culture (+) for pseudomonas/enterococcus/diph/corneynebacterium Possible osteo on bone scan S/P debridement and bone bx 09/09/19 to r/o osteo May need tank terminal gauger IV antibxs Await final culture results Code(s): E11.621 - TYPE 2 DIABETES MELLITUS WITH FOOT ULCER; L97.509 - NON- PRESSURE CHRONIC ULCER OTH PRT UNSP FOOT W UNSP SEVERITY Qualifiers: Diabetic foot ulcer location: midfoot Diabetes mellitus type: type 2 Laterality: left Non-pressure ulcer stage: with fat layer exposed Qualified Code(s): E11.621 - Type 2 diabetes mellitus with foot ulcer; L97.422 - Non- pressure chronic ulcer of left heel and midfoot with fat layer exposed (2) Diabetes Assessment/Plan: Cont sliding scale Code(s): E11.9 - TYPE 2 DIABETES MELLITUS WITHOUT COMPLICATIONS (3) CHF (congestive heart failure) Assessment/Plan: Cont demadex Code(s): I50.9 - HEART FAILURE, UNSPECIFIED (4) CKD (chronic kidney disease) Assessment/Plan: As per renal Monitor bun/creatinine Code(s): N18.9 - CHRONIC KIDNEY DISEASE, UNSPECIFIED (5) Anemia Assessment/Plan: Due to chronic renal dz Monitor H/H Code(s): D64.9 - ANEMIA, UNSPECIFIED Qualifiers: Anemia type: unspecified type Qualified Code(s): D64.9 - Anemia, unspecified (6) HTN (hypertension) Assessment/Plan: Cont Coreg/asa Code(s): I10 - ESSENTIAL (PRIMARY) HYPERTENSION (7) CAD (coronary artery disease) Assessment/Plan: Cont plavix Code(s): I25.10 - ATHSCL HEART DISEASE OF [place] CORONARY ARTERY W/O ANG PCTRS (8) 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
[2019-09-14] MEDS ORDERED: PIPERACILLIN/TAZOBACTAM 2.25 GM VIAL IVPB ONE ×3 (02:05→17:02)
[2019-09-14] MEDS ORDERED: DEXTROSE 5%-WATER - 50 ML IVPB ONE ×3 (02:05→17:02)
[2019-09-14] MEDS: PIPERACILLIN/TAZOB 2.25 GM 2.25 GM in DEXTROSE 5%-WATER - 50 ML IVPB SCH ×3 (02:10→17:03)
[2019-09-14] MEDS: INSULIN SLIDING SCALE (NOVOLOG) 1 VIAL SQ SCH ×4 (06:29→22:20)
[2019-09-14] MEDS ORDERED: ISOSORBIDE MONONITRATE 60 MG TAB.SR.24H (FP) PO ONE (09:24)
[2019-09-14] MEDS ORDERED: ISOSORBIDE MONONITRATE 30 MG TAB.SR.24H (FP) PO ONE (09:25)
[2019-09-14] MEDS: ISOSORBIDE MONONITRATE 30 MG, ISOSORBIDE MONONITRATE 60 MG PO SCH (09:31)
[2019-09-14] MEDS: SODIUM BICARBONATE 650 MG TABLET PO SCH ×2 (09:32→22:11)
[2019-09-14] MEDS: CARVEDILOL 25 MG TABLET (FP) PO SCH ×2 (09:32→22:11)
[2019-09-14] MEDS: TORSEMIDE 20 MG TABLET (FP) PO SCH (09:32)
[2019-09-14] MEDS: HEPARIN NA (PORCINE) 5,000 UNITS/ML 1ML VIAL SQ SCH ×2 (09:32→22:11)
[2019-09-14] MEDS: LOSARTAN POTASSIUM 50 MG TABLET (FP) PO SCH (09:32)
[2019-09-14] MEDS: CLOPIDOGREL BISULFATE 75 MG TABLET (FP) PO SCH (09:32)
[2019-09-14] MEDS: ASPIRIN 81 MG CHEWABLE TABLETS PO SCH (09:32)
--- NOTE | 2019-09-14 10:39 | PN ---
Progress Note, Physician History of Present Illness: patient stable no new issues - Current Medication List Current Medications: Active Medications Aspirin (Asa -) 81 mg PO DAILY [facility] Last Admin: 09/14/19 09:32 Dose: 81 mg Carvedilol (Coreg -) 25 mg PO BID [facility] Last Admin: 09/14/19 09:32 Dose: 25 mg Clopidogrel Bisulfate (Plavix -) 75 mg PO DAILY [facility] Last Admin: 09/14/19 09:32 Dose: 75 mg Heparin Sodium (Porcine) (Heparin -) 5,000 unit SQ BID [facility] Last Admin: 09/14/19 09:32 Dose: 5,000 unit Piperacillin Sod/Tazobactam (Sod 2.25 gm/ Dextrose) 50 mls @ 100 mls/hr IVPB Q8H-IV [facility]; Protocol Last Admin: 09/14/19 09:31 Dose: 100 mls/hr Insulin Aspart (Novolog Vial) 5 units SQ DAILY@1730 [facility] Last Admin: 09/13/19 17:00 Dose: 5 units Insulin Aspart (Novolog Vial Sliding Scale -) 1 vial SQ ACHS [facility]; Protocol Last Admin: 09/14/19 06:29 Dose: Not Given Isosorbide Mononitrate 30 mg/ (Isosorbide Mononitrate 60 mg) 90 mg PO 1000 [facility] Last Admin: 09/14/19 09:31 Dose: 90 mg Losartan Potassium (Cozaar -) 50 mg PO DAILY [facility] Last Admin: 09/14/19 09:32 Dose: 50 mg Sodium Bicarbonate (Sodium Bicarbonate -) 650 mg PO BID [facility] Last Admin: 09/14/19 09:32 Dose: 650 mg Torsemide (Demadex -) 40 mg PO DAILY [facility] Last Admin: 09/14/19 09:32 Dose: 40 mg - Objective Vital Signs: Vital Signs Temperature 97.4 F L 09/14/19 08:17 Pulse Rate 62 09/14/19 08:17 Respiratory Rate 18 09/14/19 08:17 Blood Pressure 150/74 09/14/19 08:17 O2 Sat by Pulse Oximetry (%) 97 09/13/19 21:00 Constitutional: Yes: No Distress, Calm Cardiovascular: Yes: S1, S2 Respiratory: Yes: Regular, CTA Bilaterally Gastrointestinal: Yes: Normal Bowel Sounds, Soft Musculoskeletal: Yes: WNL Extremities: Yes: Other Neurological: Yes: Alert, Oriented Psychiatric: Yes: Alert, Oriented Labs: CBC, BMP 09/11/19 07:38 09/12/19 07:10 INR, PTT INR 1.18 (0.83-1.09) H 09/03/19 11:20 Assessment/Plan Problem List - Problems (1) Anemia Code(s): D64.9 - ANEMIA, UNSPECIFIED Qualifiers: Anemia type: unspecified type Qualified Code(s): D64.9 - Anemia, unspecified (2) CHF (congestive heart failure) Code(s): I50.9 - HEART FAILURE, UNSPECIFIED (3) CKD (chronic kidney disease) Code(s): N18.9 - CHRONIC KIDNEY DISEASE, UNSPECIFIED (4) Diabetic foot ulcers Code(s): E11.621 - TYPE 2 DIABETES MELLITUS WITH FOOT ULCER; L97.509 - NON- PRESSURE CHRONIC ULCER OTH PRT UNSP FOOT W UNSP SEVERITY Qualifiers: Diabetic foot ulcer location: midfoot Diabetes mellitus type: type 2 Laterality: left Non-pressure ulcer stage: with fat layer exposed Qualified Code(s): E11.621 - Type 2 diabetes mellitus with foot ulcer; L97.422 - Non- pressure chronic ulcer of left heel and midfoot with fat layer exposed Assessment/Plan Nonhealing Lt foot ulcer/wound infection r/o OM s/p excisional debridement / outpt antibiotics CKD CHF CAD s/p PPM DM Charcot foot plan continue abx wound care
[2019-09-14] MEDS ORDERED: INSULIN (NOVOLOG) ASPART 100 UNITS/ML 10ML VIAL ONE ×2 (11:44→21:55)
[2019-09-14] MEDS: INSULIN (NOVOLOG) ASPART 100 UNITS/ML 10ML VIAL SQ SCH (17:00)
--- NOTE | 2019-09-14 21:47 | PN ---
Progress Note, Physician History of Present Illness: No new complaints - Current Medication List Current Medications: Active Medications Aspirin (Asa -) 81 mg PO DAILY [facility] Last Admin: 09/14/19 09:32 Dose: 81 mg Carvedilol (Coreg -) 25 mg PO BID [facility] Last Admin: 09/14/19 09:32 Dose: 25 mg Clopidogrel Bisulfate (Plavix -) 75 mg PO DAILY [facility] Last Admin: 09/14/19 09:32 Dose: 75 mg Heparin Sodium (Porcine) (Heparin -) 5,000 unit SQ BID [facility] Last Admin: 09/14/19 09:32 Dose: 5,000 unit Piperacillin Sod/Tazobactam (Sod 2.25 gm/ Dextrose) 50 mls @ 100 mls/hr IVPB Q8H-IV [facility]; Protocol Last Admin: 09/14/19 17:03 Dose: 100 mls/hr Insulin Aspart (Novolog Vial) 5 units SQ DAILY@1730 [facility] Last Admin: 09/14/19 17:00 Dose: 5 units Insulin Aspart (Novolog Vial Sliding Scale -) 1 vial SQ ACHS [facility]; Protocol Last Admin: 09/14/19 17:00 Dose: 2 units Isosorbide Mononitrate 30 mg/ (Isosorbide Mononitrate 60 mg) 90 mg PO 1000 [facility] Last Admin: 09/14/19 09:31 Dose: 90 mg Losartan Potassium (Cozaar -) 50 mg PO DAILY [facility] Last Admin: 09/14/19 09:32 Dose: 50 mg Sodium Bicarbonate (Sodium Bicarbonate -) 650 mg PO BID [facility] Last Admin: 09/14/19 09:32 Dose: 650 mg Torsemide (Demadex -) 40 mg PO DAILY [facility] Last Admin: 09/14/19 09:32 Dose: 40 mg - Objective Vital Signs: Vital Signs Temperature 98.2 F 09/14/19 15:09 Pulse Rate 60 09/14/19 15:09 Respiratory Rate 18 09/14/19 15:09 Blood Pressure 141/58 L 09/14/19 15:09 O2 Sat by Pulse Oximetry (%) 97 09/14/19 09:00 Neck: Yes: WNL, Supple Cardiovascular: Yes: WNL, Regular Rate and Rhythm Respiratory: Yes: WNL, Regular, CTA Bilaterally Gastrointestinal: Yes: WNL, Normal Bowel Sounds, Soft Extremities: Yes: Other (Lt foot in dressing) Labs: CBC, BMP 09/11/19 07:38 09/12/19 07:10 INR, PTT INR 1.18 (0.83-1.09) H 09/03/19 11:20 Problem List - Problems (1) Diabetic foot ulcers Assessment/Plan: Cont IV antibxs Wound culture (+) for pseudomonas/enterococcus/diph/corneynebacterium Possible osteo on bone scan S/P debridement and bone bx 09/09/19 to r/o osteo Will speak to ID bc pt may only need another 2-3 days of IV antibxs Code(s): E11.621 - TYPE 2 DIABETES MELLITUS WITH FOOT ULCER; L97.509 - NON- PRESSURE CHRONIC ULCER OTH PRT UNSP FOOT W UNSP SEVERITY Qualifiers: Diabetic foot ulcer location: midfoot Diabetes mellitus type: type 2 Laterality: left Non-pressure ulcer stage: with fat layer exposed Qualified Code(s): E11.621 - Type 2 diabetes mellitus with foot ulcer; L97.422 - Non- pressure chronic ulcer of left heel and midfoot with fat layer exposed (2) Diabetes Assessment/Plan: Cont sliding scale Code(s): E11.9 - TYPE 2 DIABETES MELLITUS WITHOUT COMPLICATIONS (3) CHF (congestive heart failure) Assessment/Plan: Cont demadex Code(s): I50.9 - HEART FAILURE, UNSPECIFIED (4) CKD (chronic kidney disease) Assessment/Plan: As per renal Monitor bun/creatinine Code(s): N18.9 - CHRONIC KIDNEY DISEASE, UNSPECIFIED (5) Anemia Assessment/Plan: Due to chronic renal dz Monitor H/H Code(s): D64.9 - ANEMIA, UNSPECIFIED Qualifiers: Anemia type: unspecified type Qualified Code(s): D64.9 - Anemia, unspecified (6) HTN (hypertension) Assessment/Plan: Cont Coreg/asa Code(s): I10 - ESSENTIAL (PRIMARY) HYPERTENSION (7) CAD (coronary artery disease) Assessment/Plan: Cont plavix Code(s): I25.10 - ATHSCL HEART DISEASE OF [place] CORONARY ARTERY W/O ANG PCTRS (8) 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
[2019-09-15] MEDS ORDERED: PIPERACILLIN/TAZOBACTAM 2.25 GM VIAL IVPB ONE ×3 (02:00→18:06)
[2019-09-15] MEDS ORDERED: DEXTROSE 5%-WATER - 50 ML IVPB ONE ×3 (02:01→18:06)
[2019-09-15] MEDS: PIPERACILLIN/TAZOB 2.25 GM 2.25 GM in DEXTROSE 5%-WATER - 50 ML IVPB SCH ×3 (02:02→18:36)
[2019-09-15] MEDS: INSULIN SLIDING SCALE (NOVOLOG) 1 VIAL SQ SCH ×4 (07:04→21:02)
[2019-09-15 08:47] LABS: BASO % 1.3 % (0-2.0); EOS % 6.1 % (0-4.5); HEMATOCRIT 25.4 % (35.4-49); HEMOGLOBIN 8.7 GM/dL (11.7-16.9); LYMPH % 18.1 % (8-40); MCH 30.4 pg (25.7-33.7); MCHC 34.1 g/dl (32.0-35.9); MEAN CELL VOLUME 89.1 fl (80-96); MONO % 10.8 % (3.8-10.2); NEUT % 63.7 % (42.8-82.8); PLATELET COUNT 212 K/MM3 (134-434); RBC 2.85 M/mm3 (4.00-5.60); RDW 15.2 % (11.9-15.9); WHITE BLOOD COUNT 5.2 K/mm3 (4.0-10.0)
[2019-09-15 08:49] LABS: ALBUMIN 2.6 g/dl (3.4-5.0); BILIRUBIN,TOTAL 0.5 mg/dL (0.2-1); BLOOD UREA NITROGEN 62.9 mg/dL (7-18); CREATININE 2.8 mg/dL (0.55-1.3); POTASSIUM 4.2 mmol/L (3.5-5.1)
--- NOTE | 2019-09-15 09:57 | PN ---
Progress Note, Physician History of Present Illness: stable no new issues - Current Medication List Current Medications: Active Medications Aspirin (Asa -) 81 mg PO DAILY [facility] Last Admin: 09/14/19 09:32 Dose: 81 mg Carvedilol (Coreg -) 25 mg PO BID [facility] Last Admin: 09/14/19 22:11 Dose: 25 mg Clopidogrel Bisulfate (Plavix -) 75 mg PO DAILY [facility] Last Admin: 09/14/19 09:32 Dose: 75 mg Heparin Sodium (Porcine) (Heparin -) 5,000 unit SQ BID [facility] Last Admin: 09/14/19 22:11 Dose: 5,000 unit Piperacillin Sod/Tazobactam (Sod 2.25 gm/ Dextrose) 50 mls @ 100 mls/hr IVPB Q8H-IV [facility]; Protocol Last Admin: 09/15/19 02:02 Dose: 100 mls/hr Insulin Aspart (Novolog Vial) 5 units SQ DAILY@1730 [facility] Last Admin: 09/14/19 17:00 Dose: 5 units Insulin Aspart (Novolog Vial Sliding Scale -) 1 vial SQ ACHS [facility]; Protocol Last Admin: 09/15/19 07:04 Dose: Not Given Isosorbide Mononitrate 30 mg/ (Isosorbide Mononitrate 60 mg) 90 mg PO 1000 [facility] Last Admin: 09/14/19 09:31 Dose: 90 mg Losartan Potassium (Cozaar -) 50 mg PO DAILY [facility] Last Admin: 09/14/19 09:32 Dose: 50 mg Sodium Bicarbonate (Sodium Bicarbonate -) 650 mg PO BID [facility] Last Admin: 09/14/19 22:11 Dose: 650 mg Torsemide (Demadex -) 40 mg PO DAILY [facility] Last Admin: 09/14/19 09:32 Dose: 40 mg - Objective Vital Signs: Vital Signs Temperature 98.9 F 09/14/19 22:00 Pulse Rate 60 09/14/19 22:00 Respiratory Rate 17 09/14/19 22:00 Blood Pressure 134/59 L 09/14/19 22:00 O2 Sat by Pulse Oximetry (%) 99 09/14/19 21:00 Constitutional: Yes: No Distress, Calm Cardiovascular: Yes: S1, S2 Respiratory: Yes: Regular, CTA Bilaterally Gastrointestinal: Yes: Normal Bowel Sounds, Soft Musculoskeletal: Yes: WNL Extremities: Yes: WNL Neurological: Yes: Alert, Oriented Psychiatric: Yes: Alert, Oriented Labs: CBC, BMP 09/15/19 07:20 09/15/19 07:20 INR, PTT INR 1.18 (0.83-1.09) H 09/03/19 11:20 Assessment/Plan Problem List - Problems (1) Anemia Code(s): D64.9 - ANEMIA, UNSPECIFIED Qualifiers: Anemia type: unspecified type Qualified Code(s): D64.9 - Anemia, unspecified (2) CHF (congestive heart failure) Code(s): I50.9 - HEART FAILURE, UNSPECIFIED (3) CKD (chronic kidney disease) Code(s): N18.9 - CHRONIC KIDNEY DISEASE, UNSPECIFIED (4) Diabetic foot ulcers Code(s): E11.621 - TYPE 2 DIABETES MELLITUS WITH FOOT ULCER; L97.509 - NON- PRESSURE CHRONIC ULCER OTH PRT UNSP FOOT W UNSP SEVERITY Qualifiers: Diabetic foot ulcer location: midfoot Diabetes mellitus type: type 2 Laterality: left Non-pressure ulcer stage: with fat layer exposed Qualified Code(s): E11.621 - Type 2 diabetes mellitus with foot ulcer; L97.422 - Non- pressure chronic ulcer of left heel and midfoot with fat layer exposed Assessment/Plan Nonhealing Lt foot ulcer/wound infection r/o OM s/p excisional debridement / outpt antibiotics CKD CHF CAD s/p PPM DM Charcot foot plan continue abx wound care last day of abx is sunday
--- NOTE | 2019-09-15 10:17 | PN ---
Progress Note (short form) - Note Progress Note: Podiatry F/U: Seen/evaluated at bedside NAD. Denies F/V/N/C/SOB/CP. AFebrile. S/p L foot debridement of ulcer with bone biopsy. DOUGIE: L foot: pedal pulses palpable, TG wnl, CFT brisk to toes. Healing burn diabetic ulcers hallux and second digit, fibrogranular bases, no probing, no purulence, no fluctuance, no streaking cellulitis, no signs of infection. Plantarly, plantar midfoot diabetic Charcot ulcer mixed fibrogranular base, hyperkeratotic edges, decrease in depth, no probing to bone, no purulence, no fluctuance, no streaking cellulitis, no signs of active infection. No ischemic changes. Sutures well coapted, no dehiscence noted. OR Cx: no growth OR path: negative for acute osteomyelitis Imp: 79 year old diabetic male s/p L foot debridement of ulcer with bone biopsy 1. IV abx per iD 2. Will not require terminal clerk IV abx 3. Continue local care 4. NonWB L foot 5. Patient will f/u with me 09/23/19 in wound healing center upon discharge. David Astudillo DPM
[2019-09-15] MEDS ORDERED: ISOSORBIDE MONONITRATE 60 MG TAB.SR.24H (FP) PO ONE (10:24)
[2019-09-15] MEDS ORDERED: ISOSORBIDE MONONITRATE 30 MG TAB.SR.24H (FP) PO ONE (10:24)
[2019-09-15] MEDS: ISOSORBIDE MONONITRATE 30 MG, ISOSORBIDE MONONITRATE 60 MG PO SCH (10:41)
[2019-09-15] MEDS: LOSARTAN POTASSIUM 50 MG TABLET (FP) PO SCH (10:41)
[2019-09-15] MEDS: TORSEMIDE 20 MG TABLET (FP) PO SCH (10:42)
[2019-09-15] MEDS: CARVEDILOL 25 MG TABLET (FP) PO SCH ×2 (10:42→21:03)
[2019-09-15] MEDS: SODIUM BICARBONATE 650 MG TABLET PO SCH ×2 (10:42→21:03)
[2019-09-15] MEDS: HEPARIN NA (PORCINE) 5,000 UNITS/ML 1ML VIAL SQ SCH ×2 (10:42→21:03)
[2019-09-15] MEDS: ASPIRIN 81 MG CHEWABLE TABLETS PO SCH (10:42)
[2019-09-15] MEDS: CLOPIDOGREL BISULFATE 75 MG TABLET (FP) PO SCH (10:42)
[2019-09-15] MEDS ORDERED: INSULIN (NOVOLOG) ASPART 100 UNITS/ML 10ML VIAL ONE (10:58)
--- NOTE | 2019-09-15 11:29 | PN ---
Progress Note, Physician History of Present Illness: Pt seen and examined at bedside. He is awake and alert. He denies shortness of breath. - Current Medication List Current Medications: Active Medications Aspirin (Asa -) 81 mg PO DAILY [facility] Last Admin: 09/15/19 10:42 Dose: 81 mg Carvedilol (Coreg -) 25 mg PO BID [facility] Last Admin: 09/15/19 10:42 Dose: 25 mg Clopidogrel Bisulfate (Plavix -) 75 mg PO DAILY [facility] Last Admin: 09/15/19 10:42 Dose: 75 mg Heparin Sodium (Porcine) (Heparin -) 5,000 unit SQ BID [facility] Last Admin: 09/15/19 10:42 Dose: 5,000 unit Piperacillin Sod/Tazobactam (Sod 2.25 gm/ Dextrose) 50 mls @ 100 mls/hr IVPB Q8H-IV [facility]; Protocol Last Admin: 09/15/19 10:42 Dose: 100 mls/hr Insulin Aspart (Novolog Vial) 5 units SQ DAILY@1730 [facility] Last Admin: 09/14/19 17:00 Dose: 5 units Insulin Aspart (Novolog Vial Sliding Scale -) 1 vial SQ ACHS [facility]; Protocol Last Admin: 09/15/19 07:04 Dose: Not Given Isosorbide Mononitrate 30 mg/ (Isosorbide Mononitrate 60 mg) 90 mg PO 1000 [facility] Last Admin: 09/15/19 10:41 Dose: 90 mg Losartan Potassium (Cozaar -) 50 mg PO DAILY [facility] Last Admin: 09/15/19 10:41 Dose: 50 mg Sodium Bicarbonate (Sodium Bicarbonate -) 650 mg PO BID [facility] Last Admin: 09/15/19 10:42 Dose: 650 mg Torsemide (Demadex -) 40 mg PO DAILY [facility] Last Admin: 09/15/19 10:42 Dose: 40 mg - Objective Vital Signs: Vital Signs Temperature 98.9 F 09/14/19 22:00 Pulse Rate 60 09/14/19 22:00 Respiratory Rate 17 09/14/19 22:00 Blood Pressure 134/59 L 09/14/19 22:00 O2 Sat by Pulse Oximetry (%) 99 09/14/19 21:00 Constitutional: Yes: Calm Eyes: Yes: Conjunctiva Clear HENT: Yes: Atraumatic Neck: Yes: Supple Cardiovascular: Yes: S1, S2 Respiratory: Yes: CTA Bilaterally Gastrointestinal: Yes: Soft, Abdomen, Obese Genitourinary: Yes: WNL Edema: Yes (much improved) Edema: LLE: Trace, RLE: Trace Neurological: Yes: Oriented Psychiatric: Yes: Oriented Labs: CBC, BMP 09/15/19 07:20 09/15/19 07:20 INR, PTT INR 1.18 (0.83-1.09) H 09/03/19 11:20 Problem List - Problems (1) CKD (chronic kidney disease) Code(s): N18.9 - CHRONIC KIDNEY DISEASE, UNSPECIFIED (2) CHF (congestive heart failure) Code(s): I50.9 - HEART FAILURE, UNSPECIFIED (3) Anemia Code(s): D64.9 - ANEMIA, UNSPECIFIED Qualifiers: Anemia type: unspecified type Qualified Code(s): D64.9 - Anemia, unspecified (4) Diabetic foot ulcers Code(s): E11.621 - TYPE 2 DIABETES MELLITUS WITH FOOT ULCER; L97.509 - NON- PRESSURE CHRONIC ULCER OTH PRT UNSP FOOT W UNSP SEVERITY Qualifiers: Diabetic foot ulcer location: midfoot Diabetes mellitus type: type 2 Laterality: left Non-pressure ulcer stage: with fat layer exposed Qualified Code(s): E11.621 - Type 2 diabetes mellitus with foot ulcer; L97.422 - Non- pressure chronic ulcer of left heel and midfoot with fat layer exposed Assessment/Plan Current Medications Generic Name Dose Route Start Last Admin Trade Name Freq PRN Reason Stop Dose Admin Aspirin 81 mg 09/10/19 10:00 09/15/19 10:42 Asa - PO 81 mg DAILY [facility] Administration Carvedilol 25 mg 09/09/19 22:00 09/15/19 10:42 Coreg - PO 25 mg BID [facility] Administration Clopidogrel Bisulfate 75 mg 09/10/19 10:00 09/15/19 10:42 Plavix - PO 75 mg DAILY [facility] Administration Heparin Sodium (Porcine) 5,000 unit 09/09/19 22:00 09/15/19 10:42 Heparin - SQ 5,000 unit BID [facility] Administration Piperacillin Sod/Tazobactam 50 mls @ 100 mls/hr 09/10/19 12:45 09/15/19 10:42 Sod 2.25 gm/ Dextrose IVPB 100 mls/hr Q8H-IV [facility] Administration Protocol Insulin Aspart 5 units 10/15/19 17:30 09/14/19 17:00 Novolog Vial SQ 5 units DAILY@1730 [facility] Administration Insulin Aspart 1 vial 09/09/19 16:30 09/15/19 07:04 Novolog Vial Sliding Scale - SQ Not Given ACHS [facility] Protocol Isosorbide Mononitrate 30 mg/ 90 mg 09/10/19 10:00 09/15/19 10:41 Isosorbide Mononitrate 60 mg PO 90 mg 1000 [facility] Administration Losartan Potassium 50 mg 09/11/19 14:45 09/15/19 10:41 Cozaar - PO 50 mg DAILY [facility] Administration Sodium Bicarbonate 650 mg 09/09/19 22:00 09/15/19 10:42 Sodium Bicarbonate - PO 650 mg BID [facility] Administration Torsemide 40 mg 09/10/19 10:00 09/15/19 10:42 Demadex - PO 40 mg DAILY [facility] Administration Impression 1. CKD 2. YENI 3. CHF 4. DM 5. DFU 6. HTN Plan - renal function is stable - volume status is stable - cont losartan and torsemide - cont po bicarb - will see pt in office - wound not restart amlodipine or victoza Thank you
[2019-09-15] MEDS: INSULIN (NOVOLOG) ASPART 100 UNITS/ML 10ML VIAL SQ SCH (17:04)
[2019-09-15] MEDS ORDERED: PT OWN MED DRAWER 7, Y5N ONE (17:45)
--- NOTE | 2019-09-15 22:15 | PN ---
Progress Note, Physician History of Present Illness: No new complaints - Current Medication List Current Medications: Active Medications Aspirin (Asa -) 81 mg PO DAILY [facility] Last Admin: 09/15/19 10:42 Dose: 81 mg Carvedilol (Coreg -) 25 mg PO BID [facility] Last Admin: 09/15/19 21:03 Dose: 25 mg Clopidogrel Bisulfate (Plavix -) 75 mg PO DAILY [facility] Last Admin: 09/15/19 10:42 Dose: 75 mg Heparin Sodium (Porcine) (Heparin -) 5,000 unit SQ BID [facility] Last Admin: 09/15/19 21:03 Dose: 5,000 unit Piperacillin Sod/Tazobactam (Sod 2.25 gm/ Dextrose) 50 mls @ 100 mls/hr IVPB Q8H-IV [facility]; Protocol Last Admin: 09/15/19 18:36 Dose: 100 mls/hr Insulin Aspart (Novolog Vial) 5 units SQ DAILY@1730 [facility] Last Admin: 09/15/19 17:04 Dose: 5 units Insulin Aspart (Novolog Vial Sliding Scale -) 1 vial SQ ACHS [facility]; Protocol Last Admin: 09/15/19 21:02 Dose: Not Given Isosorbide Mononitrate 30 mg/ (Isosorbide Mononitrate 60 mg) 90 mg PO 1000 [facility] Last Admin: 09/15/19 10:41 Dose: 90 mg Losartan Potassium (Cozaar -) 50 mg PO DAILY [facility] Last Admin: 09/15/19 10:41 Dose: 50 mg Sodium Bicarbonate (Sodium Bicarbonate -) 650 mg PO BID [facility] Last Admin: 09/15/19 21:03 Dose: 650 mg Torsemide (Demadex -) 40 mg PO DAILY [facility] Last Admin: 09/15/19 10:42 Dose: 40 mg - Objective Vital Signs: Vital Signs Temperature 98.1 F 09/15/19 13:45 Pulse Rate 63 09/15/19 13:45 Respiratory Rate 18 09/15/19 13:45 Blood Pressure 141/63 09/15/19 13:45 O2 Sat by Pulse Oximetry (%) 100 09/15/19 09:00 Neck: Yes: WNL, Supple Cardiovascular: Yes: WNL, Regular Rate and Rhythm Respiratory: Yes: WNL, Regular, CTA Bilaterally Gastrointestinal: Yes: WNL, Normal Bowel Sounds, Soft Extremities: Yes: Other (Lt foot w/ dressing) Labs: CBC, BMP 09/15/19 07:20 09/15/19 07:20 INR, PTT INR 1.18 (0.83-1.09) H 09/03/19 11:20 Problem List - Problems (1) Diabetic foot ulcers Assessment/Plan: Cont IV antibxs Wound culture (+) for pseudomonas/enterococcus/diph/corneynebacterium Possible osteo on bone scan S/P debridement and bone bx 09/09/19 to r/o osteo Pt to finish another 24 hrs of IV antibxs Code(s): E11.621 - TYPE 2 DIABETES MELLITUS WITH FOOT ULCER; L97.509 - NON- PRESSURE CHRONIC ULCER OTH PRT UNSP FOOT W UNSP SEVERITY Qualifiers: Diabetic foot ulcer location: midfoot Diabetes mellitus type: type 2 Laterality: left Non-pressure ulcer stage: with fat layer exposed Qualified Code(s): E11.621 - Type 2 diabetes mellitus with foot ulcer; L97.422 - Non- pressure chronic ulcer of left heel and midfoot with fat layer exposed (2) Diabetes Assessment/Plan: Cont sliding scale Code(s): E11.9 - TYPE 2 DIABETES MELLITUS WITHOUT COMPLICATIONS (3) CHF (congestive heart failure) Assessment/Plan: Cont demadex Code(s): I50.9 - HEART FAILURE, UNSPECIFIED (4) CKD (chronic kidney disease) Assessment/Plan: As per renal Monitor bun/creatinine Code(s): N18.9 - CHRONIC KIDNEY DISEASE, UNSPECIFIED (5) Anemia Assessment/Plan: Due to chronic renal dz Monitor H/H Code(s): D64.9 - ANEMIA, UNSPECIFIED Qualifiers: Anemia type: unspecified type Qualified Code(s): D64.9 - Anemia, unspecified (6) HTN (hypertension) Assessment/Plan: Cont Coreg/asa Code(s): I10 - ESSENTIAL (PRIMARY) HYPERTENSION (7) CAD (coronary artery disease) Assessment/Plan: Cont plavix Code(s): I25.10 - ATHSCL HEART DISEASE OF [place] CORONARY ARTERY W/O ANG PCTRS (8) 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
[2019-09-16] MEDS ORDERED: PIPERACILLIN/TAZOBACTAM 2.25 GM VIAL IVPB ONE ×3 (00:50→18:16)
[2019-09-16] MEDS ORDERED: DEXTROSE 5%-WATER - 50 ML IVPB ONE ×3 (00:50→18:16)
[2019-09-16] MEDS: PIPERACILLIN/TAZOB 2.25 GM 2.25 GM in DEXTROSE 5%-WATER - 50 ML IVPB SCH ×3 (01:19→18:41)
[2019-09-16] MEDS: INSULIN SLIDING SCALE (NOVOLOG) 1 VIAL SQ SCH ×4 (06:07→21:11)
[2019-09-16] MEDS ORDERED: ISOSORBIDE MONONITRATE 30 MG TAB.SR.24H (FP) PO ONE (09:25)
[2019-09-16] MEDS ORDERED: ISOSORBIDE MONONITRATE 60 MG TAB.SR.24H (FP) PO ONE (09:25)
[2019-09-16] MEDS: TORSEMIDE 20 MG TABLET (FP) PO SCH (09:43)
[2019-09-16] MEDS: LOSARTAN POTASSIUM 50 MG TABLET (FP) PO SCH (09:43)
[2019-09-16] MEDS: SODIUM BICARBONATE 650 MG TABLET PO SCH ×2 (09:43→21:11)
[2019-09-16] MEDS: ISOSORBIDE MONONITRATE 30 MG, ISOSORBIDE MONONITRATE 60 MG PO SCH (09:43)
[2019-09-16] MEDS: CARVEDILOL 25 MG TABLET (FP) PO SCH ×2 (09:44→21:11)
[2019-09-16] MEDS: ASPIRIN 81 MG CHEWABLE TABLETS PO SCH (09:44)
[2019-09-16] MEDS: HEPARIN NA (PORCINE) 5,000 UNITS/ML 1ML VIAL SQ SCH (09:44)
[2019-09-16] MEDS: CLOPIDOGREL BISULFATE 75 MG TABLET (FP) PO SCH (09:45)
[2019-09-16] MEDS ORDERED: INSULIN (NOVOLOG) ASPART 100 UNITS/ML 10ML VIAL ONE (11:14)
--- NOTE | 2019-09-16 12:28 | PN ---
Progress Note, Physician History of Present Illness: stable no new issues - Current Medication List Current Medications: Active Medications Aspirin (Asa -) 81 mg PO DAILY [facility] Last Admin: 09/16/19 09:44 Dose: 81 mg Carvedilol (Coreg -) 25 mg PO BID [facility] Last Admin: 09/16/19 09:44 Dose: 25 mg Clopidogrel Bisulfate (Plavix -) 75 mg PO DAILY [facility] Last Admin: 09/16/19 09:45 Dose: 75 mg Heparin Sodium (Porcine) (Heparin -) 5,000 unit SQ BID [facility] Last Admin: 09/16/19 09:44 Dose: 5,000 unit Piperacillin Sod/Tazobactam (Sod 2.25 gm/ Dextrose) 50 mls @ 100 mls/hr IVPB Q8H-IV [facility]; Protocol Last Admin: 09/16/19 09:45 Dose: 100 mls/hr Insulin Aspart (Novolog Vial) 5 units SQ DAILY@1730 [facility] Last Admin: 09/15/19 17:04 Dose: 5 units Insulin Aspart (Novolog Vial Sliding Scale -) 1 vial SQ ACHS [facility]; Protocol Last Admin: 09/16/19 11:27 Dose: 4 units Isosorbide Mononitrate 30 mg/ (Isosorbide Mononitrate 60 mg) 90 mg PO 1000 [facility] Last Admin: 09/16/19 09:43 Dose: 90 mg Losartan Potassium (Cozaar -) 50 mg PO DAILY [facility] Last Admin: 09/16/19 09:43 Dose: 50 mg Sodium Bicarbonate (Sodium Bicarbonate -) 650 mg PO BID [facility] Last Admin: 09/16/19 09:43 Dose: 650 mg Torsemide (Demadex -) 40 mg PO DAILY [facility] Last Admin: 09/16/19 09:43 Dose: 40 mg - Objective Vital Signs: Vital Signs Temperature 98.0 F 09/16/19 06:44 Pulse Rate 62 09/16/19 06:44 Respiratory Rate 20 09/16/19 06:44 Blood Pressure 151/69 09/16/19 06:44 O2 Sat by Pulse Oximetry (%) 100 09/15/19 21:00 Constitutional: Yes: No Distress, Calm Cardiovascular: Yes: S1, S2 Respiratory: Yes: Regular, CTA Bilaterally Gastrointestinal: Yes: Normal Bowel Sounds, Soft Musculoskeletal: Yes: WNL Extremities: Yes: Other Wound/Incision: Yes: Dressing Dry and Intact Neurological: Yes: Alert, Oriented Psychiatric: Yes: Alert, Oriented Labs: CBC, BMP 09/15/19 07:20 09/15/19 07:20 INR, PTT INR 1.18 (0.83-1.09) H 09/03/19 11:20 Assessment/Plan Problem List - Problems (1) Anemia Code(s): D64.9 - ANEMIA, UNSPECIFIED Qualifiers: Anemia type: unspecified type Qualified Code(s): D64.9 - Anemia, unspecified (2) CHF (congestive heart failure) Code(s): I50.9 - HEART FAILURE, UNSPECIFIED (3) CKD (chronic kidney disease) Code(s): N18.9 - CHRONIC KIDNEY DISEASE, UNSPECIFIED (4) Diabetic foot ulcers Code(s): E11.621 - TYPE 2 DIABETES MELLITUS WITH FOOT ULCER; L97.509 - NON- PRESSURE CHRONIC ULCER OTH PRT UNSP FOOT W UNSP SEVERITY Qualifiers: Diabetic foot ulcer location: midfoot Diabetes mellitus type: type 2 Laterality: left Non-pressure ulcer stage: with fat layer exposed Qualified Code(s): E11.621 - Type 2 diabetes mellitus with foot ulcer; L97.422 - Non- pressure chronic ulcer of left heel and midfoot with fat layer exposed Assessment/Plan Nonhealing Lt foot ulcer/wound infection r/o OM s/p excisional debridement / outpt antibiotics CKD CHF CAD s/p PPM DM Charcot foot plan continue abx wound care patient needs to complete todays course of abx then can be stopped from tomorrow
--- NOTE | 2019-09-16 13:04 | PN ---
Progress Note (short form) - Note Progress Note: Podiatry F/U: Seen/evaluated at bedside NAD. Pain controlled, denies F/V/N/C/SOB/CP. Afebrile. S/p L foot debridement of ulcers with bone biopsy. DOUGIE: L foot: pedal pulses palpable, TG wnl, CFT brisk to toes. There is a plantar midfoot diabetic Charcot ulcer mixed fibrogranular base, hyperkeratotic edges, no probing to bone, no purulence, no fluctuance, no streaking cellulitis, no signs of infection. No ischemic changes to the foot. Sutures well coapted laterally, no dehiscence noted. There is a second digit diabetic ulcer with fibrogranular base, regular borders, no probing to bone, no purulence, no fluctuance, no streaking cellulitis, no signs of infection OR Cx: negative OR Path: negative for acute osteomyelitis Imp: 79 year old diabetic male s/p L foot debridement of ulcer with bone biopsy 1. Per infectious disease, completion of IV abx after this evening's dose 2. DSD L foot. Will resume local wound care with collagen Ag 3x/week at home 3. Nonweightbearing L foot 4. Will f/u next week 09/23/19 in wound healing center. Podiatry stable for discharge. David Astudillo DPM
--- NOTE | 2019-09-16 13:16 | PN ---
Progress Note, Physician History of Present Illness: Pt seen and examined at bedside. He is awake and alert. He denies shortness of breath. - Current Medication List Current Medications: Active Medications Aspirin (Asa -) 81 mg PO DAILY [facility] Last Admin: 09/16/19 09:44 Dose: 81 mg Carvedilol (Coreg -) 25 mg PO BID [facility] Last Admin: 09/16/19 09:44 Dose: 25 mg Clopidogrel Bisulfate (Plavix -) 75 mg PO DAILY [facility] Last Admin: 09/16/19 09:45 Dose: 75 mg Heparin Sodium (Porcine) (Heparin -) 5,000 unit SQ BID [facility] Last Admin: 09/16/19 09:44 Dose: 5,000 unit Piperacillin Sod/Tazobactam (Sod 2.25 gm/ Dextrose) 50 mls @ 100 mls/hr IVPB Q8H-IV [facility]; Protocol Last Admin: 09/16/19 09:45 Dose: 100 mls/hr Insulin Aspart (Novolog Vial) 5 units SQ DAILY@1730 [facility] Last Admin: 09/15/19 17:04 Dose: 5 units Insulin Aspart (Novolog Vial Sliding Scale -) 1 vial SQ ACHS [facility]; Protocol Last Admin: 09/16/19 11:27 Dose: 4 units Isosorbide Mononitrate 30 mg/ (Isosorbide Mononitrate 60 mg) 90 mg PO 1000 [facility] Last Admin: 09/16/19 09:43 Dose: 90 mg Losartan Potassium (Cozaar -) 50 mg PO DAILY [facility] Last Admin: 09/16/19 09:43 Dose: 50 mg Sodium Bicarbonate (Sodium Bicarbonate -) 650 mg PO BID [facility] Last Admin: 09/16/19 09:43 Dose: 650 mg Torsemide (Demadex -) 40 mg PO DAILY [facility] Last Admin: 09/16/19 09:43 Dose: 40 mg - Objective Vital Signs: Vital Signs Temperature 98 F 09/16/19 10:00 Pulse Rate 60 09/16/19 10:00 Respiratory Rate 18 09/16/19 10:00 Blood Pressure 152/70 09/16/19 10:00 O2 Sat by Pulse Oximetry (%) 100 09/16/19 09:00 Constitutional: Yes: Anxious Eyes: Yes: Conjunctiva Clear HENT: Yes: Atraumatic Neck: Yes: Supple Cardiovascular: Yes: S1, S2 Respiratory: Yes: CTA Bilaterally Gastrointestinal: Yes: Soft, Abdomen, Obese Genitourinary: Yes: WNL Edema: Yes Edema: LLE: Trace, RLE: Trace Neurological: Yes: Oriented Psychiatric: Yes: Oriented Labs: CBC, BMP 09/15/19 07:20 09/15/19 07:20 INR, PTT INR 1.18 (0.83-1.09) H 09/03/19 11:20 Problem List - Problems (1) CKD (chronic kidney disease) Code(s): N18.9 - CHRONIC KIDNEY DISEASE, UNSPECIFIED (2) CHF (congestive heart failure) Code(s): I50.9 - HEART FAILURE, UNSPECIFIED (3) Anemia Code(s): D64.9 - ANEMIA, UNSPECIFIED Qualifiers: Anemia type: unspecified type Qualified Code(s): D64.9 - Anemia, unspecified (4) Diabetic foot ulcers Code(s): E11.621 - TYPE 2 DIABETES MELLITUS WITH FOOT ULCER; L97.509 - NON- PRESSURE CHRONIC ULCER OTH PRT UNSP FOOT W UNSP SEVERITY Qualifiers: Diabetic foot ulcer location: midfoot Diabetes mellitus type: type 2 Laterality: left Non-pressure ulcer stage: with fat layer exposed Qualified Code(s): E11.621 - Type 2 diabetes mellitus with foot ulcer; L97.422 - Non- pressure chronic ulcer of left heel and midfoot with fat layer exposed Assessment/Plan Current Medications Generic Name Dose Route Start Last Admin Trade Name Freq PRN Reason Stop Dose Admin Aspirin 81 mg 09/10/19 10:00 09/16/19 09:44 Asa - PO 81 mg DAILY ELY Administration Carvedilol 25 mg 09/09/19 22:00 09/16/19 09:44 Coreg - PO 25 mg BID ELY Administration Clopidogrel Bisulfate 75 mg 09/10/19 10:00 09/16/19 09:45 Plavix - PO 75 mg DAILY ELY Administration Heparin Sodium (Porcine) 5,000 unit 09/09/19 22:00 09/16/19 09:44 Heparin - SQ 5,000 unit BID ELY Administration Piperacillin Sod/Tazobactam 50 mls @ 100 mls/hr 09/10/19 12:45 09/16/19 09:45 Sod 2.25 gm/ Dextrose IVPB 100 mls/hr Q8H-IV ELY Administration Protocol Insulin Aspart 5 units 09/09/19 17:30 09/15/19 17:04 Novolog Vial SQ 5 units DAILY@1730 ELY Administration Insulin Aspart 1 vial 09/09/19 16:30 09/16/19 11:27 Novolog Vial Sliding Scale - SQ 4 units ACHS ELY Administration Protocol Isosorbide Mononitrate 30 mg/ 90 mg 09/10/19 10:00 09/16/19 09:43 Isosorbide Mononitrate 60 mg PO 90 mg 1000 ELY Administration Losartan Potassium 50 mg 09/11/19 14:45 09/16/19 09:43 Cozaar - PO 50 mg DAILY ELY Administration Sodium Bicarbonate 650 mg 09/09/19 22:00 09/16/19 09:43 Sodium Bicarbonate - PO 650 mg BID ELY Administration Torsemide 40 mg 09/10/19 10:00 09/16/19 09:43 Demadex - PO 40 mg DAILY ELY Administration Impression 1. CKD 2. YENI 3. CHF 4. DM 5. DFU 6. HTN Plan - will need outpt follow up - cont losartan - cont sodium bicarb - discussed with ID and he will be discharged tomorrow - wound not restart amlodipine or victoza on discharge, can go home on current meds Thank you
[2019-09-16] MEDS: INSULIN (NOVOLOG) ASPART 100 UNITS/ML 10ML VIAL SQ SCH (16:47)
--- NOTE | 2019-09-16 20:28 | PN ---
Progress Note, Physician History of Present Illness: No new complaints - Current Medication List Current Medications: Active Medications Aspirin (Asa -) 81 mg PO DAILY [facility] Last Admin: 09/16/19 09:44 Dose: 81 mg Carvedilol (Coreg -) 25 mg PO BID [facility] Last Admin: 09/16/19 09:44 Dose: 25 mg Clopidogrel Bisulfate (Plavix -) 75 mg PO DAILY [facility] Last Admin: 09/16/19 09:45 Dose: 75 mg Heparin Sodium (Porcine) (Heparin -) 5,000 unit SQ BID [facility] Last Admin: 09/16/19 09:44 Dose: 5,000 unit Piperacillin Sod/Tazobactam (Sod 2.25 gm/ Dextrose) 50 mls @ 100 mls/hr IVPB Q8H-IV [facility]; Protocol Last Admin: 09/16/19 18:41 Dose: 100 mls/hr Insulin Aspart (Novolog Vial) 5 units SQ DAILY@1730 [facility] Last Admin: 09/16/19 16:47 Dose: 5 units Insulin Aspart (Novolog Vial Sliding Scale -) 1 vial SQ ACHS [facility]; Protocol Last Admin: 09/16/19 16:44 Dose: 4 units Isosorbide Mononitrate 30 mg/ (Isosorbide Mononitrate 60 mg) 90 mg PO 1000 [facility] Last Admin: 09/16/19 09:43 Dose: 90 mg Losartan Potassium (Cozaar -) 50 mg PO DAILY [facility] Last Admin: 09/16/19 09:43 Dose: 50 mg Sodium Bicarbonate (Sodium Bicarbonate -) 650 mg PO BID [facility] Last Admin: 09/16/19 09:43 Dose: 650 mg Torsemide (Demadex -) 40 mg PO DAILY [facility] Last Admin: 09/16/19 09:43 Dose: 40 mg - Objective Vital Signs: Vital Signs Temperature 98.3 F 09/16/19 13:34 Pulse Rate 61 09/16/19 13:34 Respiratory Rate 18 09/16/19 13:34 Blood Pressure 138/61 09/16/19 13:34 O2 Sat by Pulse Oximetry (%) 100 09/16/19 09:00 Cardiovascular: Yes: WNL, Regular Rate and Rhythm Respiratory: Yes: WNL, Regular, CTA Bilaterally Gastrointestinal: Yes: WNL, Normal Bowel Sounds, Soft Edema: No Labs: CBC, BMP 09/15/19 07:20 09/15/19 07:20 INR, PTT INR 1.18 (0.83-1.09) H 09/03/19 11:20 Problem List - Problems (1) Diabetic foot ulcers Assessment/Plan: Pt to get IV antibxs today DC planning for am Wound culture (+) for pseudomonas/enterococcus/diph/corneynebacterium Possible osteo on bone scan S/P debridement and bone bx 09/09/19 to r/o osteo Code(s): E11.621 - TYPE 2 DIABETES MELLITUS WITH FOOT ULCER; L97.509 - NON- PRESSURE CHRONIC ULCER OTH PRT UNSP FOOT W UNSP SEVERITY Qualifiers: Diabetic foot ulcer location: midfoot Diabetes mellitus type: type 2 Laterality: left Non-pressure ulcer stage: with fat layer exposed Qualified Code(s): E11.621 - Type 2 diabetes mellitus with foot ulcer; L97.422 - Non- pressure chronic ulcer of left heel and midfoot with fat layer exposed (2) Diabetes Assessment/Plan: Cont sliding scale Code(s): E11.9 - TYPE 2 DIABETES MELLITUS WITHOUT COMPLICATIONS (3) CHF (congestive heart failure) Assessment/Plan: Cont demadex Code(s): I50.9 - HEART FAILURE, UNSPECIFIED (4) CKD (chronic kidney disease) Assessment/Plan: As per renal Monitor bun/creatinine Code(s): N18.9 - CHRONIC KIDNEY DISEASE, UNSPECIFIED (5) Anemia Assessment/Plan: Due to chronic renal dz Monitor H/H Code(s): D64.9 - ANEMIA, UNSPECIFIED Qualifiers: Anemia type: unspecified type Qualified Code(s): D64.9 - Anemia, unspecified (6) HTN (hypertension) Assessment/Plan: Cont Coreg/asa Code(s): I10 - ESSENTIAL (PRIMARY) HYPERTENSION (7) CAD (coronary artery disease) Assessment/Plan: Cont plavix Code(s): I25.10 - ATHSCL HEART DISEASE OF [place] CORONARY ARTERY W/O ANG PCTRS (8) 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
[2019-09-17] MEDS: INSULIN SLIDING SCALE (NOVOLOG) 1 VIAL SQ SCH (06:18)
[2019-09-17] MEDS ORDERED: ISOSORBIDE MONONITRATE 60 MG TAB.SR.24H (FP) PO ONE (09:09)
[2019-09-17] MEDS ORDERED: ISOSORBIDE MONONITRATE 30 MG TAB.SR.24H (FP) PO ONE (09:09)
[2019-09-17] MEDS: LOSARTAN POTASSIUM 50 MG TABLET (FP) PO SCH (10:12)
[2019-09-17] MEDS: CARVEDILOL 25 MG TABLET (FP) PO SCH (10:12)
[2019-09-17] MEDS: SODIUM BICARBONATE 650 MG TABLET PO SCH (10:12)
[2019-09-17] MEDS: CLOPIDOGREL BISULFATE 75 MG TABLET (FP) PO SCH (10:12)
[2019-09-17] MEDS: ISOSORBIDE MONONITRATE 30 MG, ISOSORBIDE MONONITRATE 60 MG PO SCH (10:12)
[2019-09-17] MEDS: ASPIRIN 81 MG CHEWABLE TABLETS PO SCH (10:12)
[2019-09-17] MEDS: TORSEMIDE 20 MG TABLET (FP) PO SCH (10:13)
[2019-09-17 10:52] VITALS: BP 152/72; PULSE 75; TEMP 98.3
== END 2019-09-17 12:05 | disposition home health service (06) | DRG 623 ==
LOC: JER 09:42 → JERBED 12:15 → J6S 23:21
PROVIDERS: ADMIT Internal Medicine; ATTEND Internal Medicine
PROC: 30233N1 Transfusion of Nonautologous Red Blood Cells into Peripheral Vein, Percutaneous Approach (ICD-10-PCS; 2019-09-03)
PROC: 0QBM0ZZ Excision of Left Tarsal, Open Approach (ICD-10-PCS; 2019-09-09)
PROC: 0JBR0ZZ Excision of Left Foot Subcutaneous Tissue and Fascia, Open Approach (ICD-10-PCS; principal; 2019-09-09 12:00)
DX: E11.621 Type 2 diabetes mellitus with foot ulcer (principal); L97.422 Non-pressure chronic ulcer of left heel and midfoot with fat layer exposed; I13.0 Hypertensive heart and chronic kidney disease with heart failure and stage 1 through stage 4 chronic kidney disease, or unspecified chronic kidney disease; L03.116 Cellulitis of left lower limb; E11.610 Type 2 diabetes mellitus with diabetic neuropathic arthropathy; D64.9 Anemia, unspecified; N18.9 Chronic kidney disease, unspecified; N17.9 Acute kidney failure, unspecified; I25.10 Atherosclerotic heart disease of native coronary artery without angina pectoris; Z95.0 Presence of cardiac pacemaker; E66.9 Obesity, unspecified; Z68.31 Body mass index [BMI] 31.0-31.9, adult; I50.9 Heart failure, unspecified
CPT/HCPCS: 11042; 36415; 36430; 36511; 71046-TC-FY; 73630-TC-LT; 76705-TC; 76775-TC; 78315-TC; 80048; 80053; 81003; 82962; 85025; 85610; 85651; 86140; 86850; 86900; 86901; 86922; 87040; 87070; 87075; 87077; 87186; 87205; 88305-TC; 88311-TC; 93005; 93010; 94760; 99285-25; A9503; J1644; P9038; P9058

== ENCOUNTER 2020-06-21 13:44 | Inpatient (IN) | payer OTHER ==
--- NOTE | 2020-06-21 13:57 | PDOC ---
Rapid Medical Evaluation Chief Complaint: Congestive Heart Failure Time Seen by Provider: 06/21/20 13:49 Medical Evaluation: Allergies Allergy/AdvReac Type Severity Reaction Status Date / Time No Known Allergies Allergy Verified 09/03/19 09:51 06/21/20 13:49 The patient is an 79 y/o M with PMH of CHF with pacemaker, IDDM, CAD with stenting, presents to the ER for shortness of breath and L sided abdominal pain. States he had a three lb weight gain since yesterday and increased swelling in his legs. Exam: crackles at the bases, 4+ weeping pitting Edema. 94% ORA Orders: Labs, EKG, IV Pt to proceed to the ER for further evaluation Discharge Disposition - Diagnosis CHF (congestive heart failure) Qualifiers: Heart failure type: unspecified Heart failure chronicity: acute on chronic Qualified Code(s): I50.9 - Heart failure, unspecified - Referrals - Patient Instructions - Post Discharge Activity
--- NOTE | 2020-06-21 14:16 | PDOC ---
History of Present Illness - General Chief Complaint: Congestive Heart Failure Stated Complaint: SHORTNESS OF BREATH Time Seen by Provider: 06/21/20 13:49 - History of Present Illness Initial Comments: 06/21/20 14:16 79 y/o M with PMH of CHF with pacemaker, IDDM, CAD with stenting,Charcot foot, presenting with shortness of breath x 2 days. SOB began at rest yesterday evening, few hours patient had eaten a salty meal. SOB occurs both at rest and with exertion and is worse than his baseline. Pt endorses muscle soreness in lef t chest but no chest pain. He denies nausea, vomiting , diaphoresis, fevers, chills or recent sick contacts. Pt endorses 3lb weight gain since yesterday and increased swelling in both legs. PMHx: as noted above ROS: as noted Allergies: NKDA ROS: GENERAL/CONSTITUTIONAL: No fever or chills. No weakness. HEAD, EYES, EARS, NOSE AND THROAT: No change in vision. No ear pain or discharge. No sore throat. CARDIOVASCULAR: shortness of breath RESPIRATORY: No cough, wheezing, or hemoptysis. GASTROINTESTINAL: No nausea, vomiting, diarrhea or constipation. GENITOURINARY: No dysuria, frequency, or change in urination. MUSCULOSKELETAL: No joint or muscle swelling or pain. No neck or back pain. SKIN: No rash NEUROLOGIC: No headache, vertigo, loss of consciousness, or change in strength/sensation. ENDOCRINE: No increased thirst. No abnormal weight change HEMATOLOGIC/LYMPHATIC: No anemia, easy bleeding, or history of blood clots. ALLERGIC/IMMUNOLOGIC: No hives or skin allergy. PE: GENERAL: Awake, alert, and fully oriented, in no acute distress HEAD: No signs of trauma, normocephalic, atraumatic EYES: PERRLA, EOMI, sclera anicteric, conjunctiva clear ENT: Auricles normal inspection, hearing grossly normal, nares patent, oropharynx clear without exudates. Moist mucosa NECK: Normal ROM, supple, no lymphadenopathy, JVD, or masses LUNGS: No distress, speaks full sentences, clear to auscultation bilaterally HEART: systolic murmur. no gallops. RRR ABDOMEN: Soft, nontender, normoactive bowel sounds. No guarding, no rebound. No masses EXTREMITIES : charcot foot (left), 2+pitting edema to the knees bilaterally. NEUROLOGICAL: Cranial nerves II through XII grossly intact. Normal speech, normal gait, no focal sensorimotor deficits SKIN: Warm, Dry, normal turgor, no rashes or lesions noted. pt with charcot foot ( left) 06/21/20 16:31 Past History - Medical History Allergies/Adverse Reactions: Allergies Allergy/AdvReac Type Severity Reaction Status Date / Time No Known Allergies Allergy Verified 09/03/19 09:51 Home Medications: Ambulatory Orders Aspirin 81 mg PO DAILY 06/21/20 Carvedilol 25 mg PO BID 06/21/20 Clopidogrel Bisulfate [Plavix] 75 mg PO DAILY 06/21/20 Isosorbide Mononitrate [Isosorbide Mononitrate ER] 60 mg PO DAILY 06/21/20 Lantus 25 units DAILY 06/21/20 Rosuvastatin Calcium [Crestor] 40 mg PO DAILY 06/21/20 Sodium Bicarbonate - 650 mg BID 06/21/20 Torsemide 60 mg PO DAILY 06/21/20 COPD: No CHF: Yes Diabetes: Yes HTN: Yes Hypercholesterolemia: Yes - Surgical History Cardiac Surgery: Yes (PACEMAKER, STENT) Orthopedic Surgery: Yes (ankle fracture repairs) - Psycho-Social/Smoking History Smoking History: Never smoked Have you smoked in the past 12 months: No - Substance Abuse Hx (Audit-C & DAST Scrn) How often the patient has a drink containing alcohol: Never Score: In Men: 4 or > Positive; In Women: 3 or > Positive: 0 Screen Result (Pos requires Nsg. Audit-10AR): Negative In the last yr the pt used illegal drug/Rx for NonMed reason: No Score: Yes response is considered Positive: 0 Screen Result (Positive result requires Nsg. DAST-10): Negative *Physical Exam - Vital Signs Last Vital Signs Temp Pulse Resp BP Pulse Ox 97.8 F 67 17 119/65 94 L 06/21/20 13:48 06/21/20 13:48 06/21/20 13:48 06/21/20 13:48 06/21/20 13:48 ED Treatment Course - LABORATORY CBC & Chemistry Diagram: 06/27/20 06:30 06/27/20 06:30 Medical Decision Making - Medical Decision Making 06/21/20 16:36 79 y/o M with PMH of CHF with pacemaker, IDDM, CAD with stenting,Charcot foot, presenting with shortness of breath x 2 days. SOB began at rest yesterday evening, ddx: chf exacerbation vs acs vs p.e findings concerning for chg exacerbation EKG: AV dual paced rhythm no St elevations . T wave inversion lead I Pt admitted for further mangement 06/21/20 19:09 Pt admitted troponin elevated x 2 BNP elevated admitting MD made aware and physically present in ED Pt has received Aspirin 324 Discharge - Discharge Information Problems reviewed: Yes Clinical Impression/Diagnosis: CHF (congestive heart failure) Qualifiers: Heart failure type: unspecified Heart failure chronicity: acute on chronic Qualified Code(s): I50.9 - Heart failure, unspecified Disposition: TRANSFER ACUTE CARE/OTHER HOSP - Follow up/Referral - Patient Discharge Instructions - Post Discharge Activity
[2020-06-21 15:51] LABS: BASO % 0.4 % (0-2.0); EOS % 0.4 % (0-4.5); HEMATOCRIT 24.2 % (35.4-49); HEMOGLOBIN 7.8 GM/dL (11.7-16.9); LYMPH % 6.8 % (8-40); MCH 29.7 pg (25.7-33.7); MCHC 32.4 g/dl (32.0-35.9); MEAN CELL VOLUME 91.9 fl (80-96); MEAN PLT VOLUME 10.1 fl (7.5-11.1); MONO % 9.5 % (3.8-10.2); NEUT % 82.9 % (42.8-82.8); PLATELET COUNT 167 K/MM3 (134-434); RBC 2.63 M/mm3 (4.00-5.60); RDW 15.3 % (11.9-15.9); WHITE BLOOD COUNT 8.9 K/mm3 (4.0-10.0)
[2020-06-21 15:52] LABS: INR 1.23 (0.83-1.09); PROTHROMBIN TIME (PATIENT) 14.5 SEC (9.7-13.0)
[2020-06-21 16:22] LABS: ALBUMIN 1.7 g/dl (3.4-5.0); BILIRUBIN,TOTAL 0.4 mg/dL (0.2-1); BLOOD UREA NITROGEN 63.5 mg/dL (7-18); CREATININE 3.1 mg/dL (0.55-1.3); POTASSIUM 3.4 mmol/L (3.5-5.1); TOT PROT 4.8 g/dl (6.4-8.2)
[2020-06-21] MEDS ORDERED: FUROSEMIDE 40 MG/4 ML INJECTABLE VIAL IVPUSH ONE (16:30)
[2020-06-21] MEDS ORDERED: FUROSEMIDE 40 MG/4 ML INJECTABLE VIAL ONE ×2 (16:53→17:00)
[2020-06-21 16:57] LABS: N-TERMINAL BNP 37661.6 pg/ml (5-450)
[2020-06-21] MEDS ORDERED: ASPIRIN 81 MG CHEWABLE TABLETS PO ONE (18:00)
--- NOTE | 2020-06-21 18:41 | HP ---
Admitting History and Physical - Admission Chief Complaint: Acute shortness of breath and left sided abdominal pain History of Present Illness: This 79 yr old w/m with PMH of CHF, s/p pacemaker, IDDM, CAD, s/p stent admitted via ER with an acute shortness of breath and left sided abdominal pain, anemia, elevation of troponin level and cpk, CKD, tranasaminasemia, hypokalemia. History Source: Patient, Medical Record Limitations to Obtaining History: No Limitations - Past Medical History [employer]: No: Alzheimer's, CVA, Dementia, Migraine, Multiple Sclerosis, Peripheral Neuropathy, Parkinson's, Seizure, Syncope, TIA, Vertigo, Other Cardiovascular: Yes: CHF, HTN Pulmonary: No: Asthma, Bronchitis, Cancer, COPD, O2 Dependent, Pneumonia, Previously Intubated, Pulmonary Embolus, Pulmonary Fibrosis, Sleep Apnea, Other Gastrointestinal: No: Ascites, Cancer, Constipation, Crohn's Disease, Diverticulitis, Diverticulosis, Esophageal Varices, Gastritis, GERD, GI Bleed, Hemorrhoids, Hiatal Hernia, Inflamatory Bowel Disease, Irritable Bowel Disease, Pancreatitis, Peptic Ulcer Disease, Ulcerative Colitis, Other Hepatobiliary: No: Cirrhosis, Cholelithiasis, Cholecystitis, Choledocholithiasis, Hepatitis A, Hepatitis B, Hepatitis C, Other Renal/: Yes: Renal Inusuff Heme/Onc: No: Anemia, B12 Deficiency, Bleeding Disorder, Cancer, Current Chemotherapy, Current Radiation Therapy, Hemochromatosis, Hypercoaguable State, Myeloproliferative Synd, Sickle Cell Disease, Sickle Cell Trait, Thrombocytopenia, Other Infectious Disease: No: AIDS, C-Diff, Herpes Zoster, HIV, MRSA, STD's, Tuberculosis, VREF, Other Psych: No: Addictions, Anxiety, Bipolar, Depression, Panic, Psychosis, Schizophrenia, Other Musculoskeletal: No: Bursitis, Chronic low back pain, Hemiparesis, Hemiplegia, Osteoarthritis, Paraplegia, Other Rheumatology: No: Fibromyalgia, Gout, Lupus, Rheumatoid Arthritis, Sarcoidosis, Vasculitis, Other ENT: No: Allergic Rhinitis, Sinusitis, Other Endocrine: Yes: Diabetes Mellitus Dermatology: No: Basal Cell, Cellulitis, Eczema, Melanoma, Psoriasis, Squamous Cell, Other - Past Surgical History Past Surgical History: Yes: Permanent Pacemaker - Smoking History Smoking history: Never smoked Have you smoked in the past 12 months: No - Alcohol/Substance Use Hx Alcohol Use: No - Social History Usual Living Arrangement: Yes: Other (at [address]) Home Medications - Allergies Allergies/Adverse Reactions: Allergies Allergy/AdvReac Type Severity Reaction Status Date / Time No Known Allergies Allergy Verified 09/03/19 09:51 - Home Medications Home Medications: Ambulatory Orders Aspirin 81 mg PO 06/21/20 Carvedilol 25 mg PO BID 06/21/20 Clopidogrel Bisulfate [Plavix] 75 mg PO 06/21/20 Isosorbide Mononitrate [Isosorbide Mononitrate ER] 60 mg PO 06/21/20 Lantus 25 units DAILY 06/21/20 Rosuvastatin Calcium [Crestor] 40 mg PO 06/21/20 Sodium Bicarbonate - 650 mg BID 06/21/20 Torsemide 20 mg PO 06/21/20 Review of Systems - Review of Systems Constitutional: reports: No Symptoms Eyes: reports: No Symptoms HENT: reports: No Symptoms Neck: reports: No Symptoms Cardiovascular: reports: No Symptoms Respiratory: reports: SOB, SOB on Exertion Gastrointestinal: reports: Abdominal Pain (left sided abdominal pain) Genitourinary: reports: No Symptoms Breasts: reports: No Symptoms Reported Musculoskeletal: reports: No Symptoms Integumentary: reports: No Symptoms Neurological: reports: No Symptoms Endocrine: reports: No Symptoms Hematology/Lymphatic: reports: No Symptoms Psychiatric: reports: No Symptoms Physical Examination Vital Signs: Vital Signs Temperature 97.8 F 06/21/20 13:48 Pulse Rate 70 06/21/20 17:15 Respiratory Rate 24 H 06/21/20 17:15 Blood Pressure 108/54 L 06/21/20 17:15 O2 Sat by Pulse Oximetry (%) 98 06/21/20 17:15 Constitutional: Yes: Well Nourished, Calm, Mild Distress Eyes: Yes: Conjunctiva Clear, EOM Intact HENT: Yes: Atraumatic, Normocephalic Neck: Yes: Supple, Trachea Midline Cardiovascular: Yes: Regular Rate and Rhythm Respiratory: Yes: Regular, Diminished, Rales, SOB, SOB on Exertion Gastrointestinal: Yes: Normal Bowel Sounds, Soft ...Rectal Exam: Yes: Deferred Renal/: Yes: WNL Breast(s): Yes: WNL Musculoskeletal: Yes: WNL Extremities: Yes: Other (Charcot feet) Edema: Yes Edema: LLE: 3+, RLE: 3+ Peripheral Pulses WNL: Yes Integumentary: Yes: WNL Neurological: Yes: Numbness, Paresthesia, Unsteady Gait, Other (peripheral neuropathy of feet) ...Motor Strength: LLE (muscle weakness), RLE (muscle weakness) Psychiatric: Yes: WNL Labs: CBC, BMP 06/21/20 15:07 06/21/20 15:07 Imaging - Results Chest X-ray: Report Reviewed Other: Report Reviewed (lab data reviewed) Problem List - Problems (1) CHF (congestive heart failure) Code(s): I50.9 - HEART FAILURE, UNSPECIFIED Qualifiers: Heart failure type: unspecified Heart failure chronicity: acute on chronic Qualified Code(s): I50.9 - Heart failure, unspecified (2) Anemia Code(s): D64.9 - ANEMIA, UNSPECIFIED Qualifiers: Anemia type: unspecified type Qualified Code(s): D64.9 - Anemia, unspecified (3) CAD (coronary artery disease) Code(s): I25.10 - ATHSCL HEART DISEASE OF [place] CORONARY ARTERY W/O ANG PCTRS (4) CKD (chronic kidney disease) Code(s): N18.9 - CHRONIC KIDNEY DISEASE, UNSPECIFIED (5) 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 Code(s): E11.610 - TYPE 2 DIABETES MELLITUS W DIABETIC NEUROPATHIC ARTHROPATHY (6) Diabetes Code(s): E11.9 - TYPE 2 DIABETES MELLITUS WITHOUT COMPLICATIONS (7) Diabetic foot ulcers Code(s): E11.621 - TYPE 2 DIABETES MELLITUS WITH FOOT ULCER; L97.509 - NON- PRESSURE CHRONIC ULCER OTH PRT UNSP FOOT W UNSP SEVERITY Qualifiers: Diabetic foot ulcer location: midfoot Diabetes mellitus type: type 2 Laterality: left Non-pressure ulcer stage: with fat layer exposed Qualified Code(s): E11.621 - Type 2 diabetes mellitus with foot ulcer; L97.422 - Non- pressure chronic ulcer of left heel and midfoot with fat layer exposed (8) HTN (hypertension) Code(s): I10 - ESSENTIAL (PRIMARY) HYPERTENSION (9) Pacemaker Code(s): Z95.0 - PRESENCE OF CARDIAC PACEMAKER Assessment/Plan Assessment/plan: acute shortness of breath, acute CHF, acute elevation of troponin and cpk, s/p pacemaker, IDDM, Charcot foot, bilateral peripheral diabetic neuropathy, transaminasemia, cxr: congestive chantes with bibasilar pleural effusion and bibasilar atelectatic/infiltrative changes; IV Furosemide for CHF, isosorbide monontitrate and coreg for CAD, Novolog 70/30 mix, sliding scale regular insulin coverage, oxygen 3L/min via nasal cannula, consult to Cardiology.
[2020-06-21] MEDS ORDERED: ASPIRIN 81 MG CHEWABLE TABLETS ONE ×2 (19:04→19:06)
[2020-06-21 19:21] LABS: EPI CELLS 16 /uL (0-25.1); HYALINE CASTS 0 /uL (0-3.1); URINE APPEARANCE TURBID; URINE BACTERIA 2297 /uL (0-1359); URINE BILIRUBIN NEGATIVE (NEGATIVE); URINE COLOR YELLOW; URINE GLUCOSE (UA) TRACE (NEGATIVE); URINE KETONE NEGATIVE (NEGATIVE); URINE LEUK ESTERASE 3+ (NEGATIVE); URINE NITRITE NEGATIVE (NEGATIVE); URINE PROTEIN 2+ (NEGATIVE); URINE RBC 151 /uL (0-23.9); URINE UROBILINOGEN 0.2 mg/dL (0.2-1.0); URINE WBC 6616 /uL (0-25.8)
[2020-06-21] MEDS ORDERED: ENOXAPARIN NA (PORCINE) 30 MG/0.3 ML DISP.SYRIN SQ ONE (20:14)
[2020-06-21] MEDS: ENOXAPARIN NA (PORCINE) 30 MG/0.3 ML DISP.SYRIN SQ SCH (20:22)
[2020-06-21] MEDS: INSULIN SLIDING SCALE (NOVOLOG) 1 VIAL SQ SCH (20:22)
[2020-06-21] MEDS ORDERED: ROSUVASTATIN CA 40 MG TABLET PO SCH (22:00)
[2020-06-21] MEDS ORDERED: ROSUVASTATIN CA 10 MG TABLET (FP) PO SCH (22:00)
[2020-06-21] MEDS: CARVEDILOL 25 MG TABLET (FP) PO SCH (23:10)
[2020-06-22] MEDS ORDERED: INSULIN (NOVOLOG MIX 70/30) 100 UNITS/ML MDV SQ ONE (05:26)
[2020-06-22] MEDS: INSULIN SLIDING SCALE (NOVOLOG) 1 VIAL SQ SCH ×3 (06:29→17:43)
[2020-06-22] MEDS: INSULIN (NOVOLOG MIX 70/30) 100 UNITS/ML MDV SQ SCH ×2 (06:29→17:42)
[2020-06-22 08:15] LABS: BASO % 0.6 % (0-2.0); EOS % 0.2 % (0-4.5); HEMATOCRIT 23.5 % (35.4-49); HEMOGLOBIN 7.6 GM/dL (11.7-16.9); LYMPH % 9.6 % (8-40); MCH 29.5 pg (25.7-33.7); MCHC 32.4 g/dl (32.0-35.9); MEAN PLT VOLUME 9.6 fl (7.5-11.1); MONO % 11.9 % (3.8-10.2); NEUT % 77.7 % (42.8-82.8); PLATELET COUNT 133 K/MM3 (134-434); RBC 2.59 M/mm3 (4.00-5.60); RDW 15.9 % (11.9-15.9); WHITE BLOOD COUNT 7.8 K/mm3 (4.0-10.0)
[2020-06-22 08:33] LABS: ALBUMIN 2.2 g/dl (3.4-5.0); BLOOD UREA NITROGEN 85.5 mg/dL (7-18); CALCIUM 7.9 mg/dL (8.5-10.1); POTASSIUM 3.4 mmol/L (3.5-5.1)
[2020-06-22 08:39] LABS: BILIRUBIN,TOTAL 0.6 mg/dL (0.2-1); CREATININE 4.3 mg/dL (0.55-1.3); TOT PROT 6.1 g/dl (6.4-8.2)
--- NOTE | 2020-06-22 09:14 | PN ---
Progress Note, Physician Chief Complaint: Patient seen and examined at the bedside, no acute events from last night, afebrile. History of Present Illness: This 79 yr old w/m with PMH of systolic CHF, IDDM, CAD with stent, s/p pacemaker, diabetic peripheral neuopathy, CKD, Charcot foot admitted via ER with an acute shortness of breath, muscle soreness in left chest, left sided abdominal pain, iron deficiency anemia, elevated troponin and cpk, transaminasemia, hypokalemia. - Current Medication List Current Medications: Active Medications Aspirin (Ecotrin -) 81 mg PO DAILY [facility] Carvedilol (Coreg -) 25 mg PO BID [facility] Last Admin: 06/21/20 23:10 Dose: 25 mg Documented by: Enoxaparin Sodium (Lovenox -) 30 mg SQ DAILY [facility] Last Admin: 06/21/20 20:22 Dose: 30 mg Documented by: Insulin Aspart (Novolog Mix 70/30 Vial) 10 units SQ BIDAC [facility] Last Admin: 06/22/20 06:29 Dose: 10 units Documented by: Insulin Aspart (Novolog Vial Sliding Scale -) 1 vial SQ TIDAC [facility]; Protocol Last Admin: 06/22/20 06:29 Dose: Not Given Documented by: Isosorbide Mononitrate (Imdur -) 60 mg PO DAILY [facility] Rosuvastatin Calcium (Crestor -) 10 mg PO HS [facility] Last Admin: 06/21/20 23:10 Dose: 10 mg Documented by: - Objective Vital Signs: Vital Signs Temperature 97.9 F 06/22/20 05:19 Pulse Rate 60 06/22/20 05:19 Respiratory Rate 18 06/22/20 05:19 Blood Pressure 101/55 L 06/22/20 05:19 O2 Sat by Pulse Oximetry (%) 99 06/22/20 05:19 Constitutional: Yes: Well Nourished, No Distress, Calm Eyes: Yes: Conjunctiva Clear, EOM Intact HENT: Yes: Atraumatic, Normocephalic Neck: Yes: Supple, Trachea Midline Cardiovascular: Yes: Regular Rate and Rhythm Respiratory: Yes: Regular, CTA Bilaterally, Diminished, Dullness (bibasilar), On Nasal O2, SOB, SOB on Exertion Gastrointestinal: Yes: Normal Bowel Sounds, Soft ...Rectal Exam: Yes: Deferred Genitourinary: Yes: WNL Breast(s): Yes: WNL Musculoskeletal: Yes: WNL Extremities: Yes: WNL Edema: Yes Edema: LLE: 3+, RLE: 3+ Peripheral Pulses WNL: Yes Integumentary: Yes: Pressure Ulcer (right buttock) Neurological: Yes: Alert, Oriented, Numbness, Paresthesia, Unsteady Gait, Other (diabetic peripheral neuropathy, Charcot foot) ...Motor Strength: WNL Psychiatric: Yes: WNL Labs: CBC, BMP 06/22/20 07:00 06/22/20 07:00 INR, PTT INR 1.23 (0.83-1.09) H 06/21/20 15:07 - ....Imaging Other: Report Reviewed (lab data reviewed) Problem List - Problems (1) CHF (congestive heart failure) Code(s): I50.9 - HEART FAILURE, UNSPECIFIED Qualifiers: Qualified Code(s): I50.9 - Heart failure, unspecified (2) Anemia Code(s): D64.9 - ANEMIA, UNSPECIFIED Qualifiers: Qualified Code(s): D64.9 - Anemia, unspecified (3) CAD (coronary artery disease) Code(s): I25.10 - ATHSCL HEART DISEASE OF [place] CORONARY ARTERY W/O ANG PCTRS (4) CKD (chronic kidney disease) Code(s): N18.9 - CHRONIC KIDNEY DISEASE, UNSPECIFIED (5) 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 Code(s): E11.610 - TYPE 2 DIABETES MELLITUS W DIABETIC NEUROPATHIC ARTHROPATHY (6) Diabetes Code(s): E11.9 - TYPE 2 DIABETES MELLITUS WITHOUT COMPLICATIONS (7) Diabetic foot ulcers Code(s): E11.621 - TYPE 2 DIABETES MELLITUS WITH FOOT ULCER; L97.509 - NON- PRESSURE CHRONIC ULCER OTH PRT UNSP FOOT W UNSP SEVERITY Qualifiers: Qualified Code(s): E11.621 - Type 2 diabetes mellitus with foot ulcer; L97.422 - Non-pressure chronic ulcer of left heel and midfoot with fat layer exposed (8) HTN (hypertension) Code(s): I10 - ESSENTIAL (PRIMARY) HYPERTENSION (9) Pacemaker Code(s): Z95.0 - PRESENCE OF CARDIAC PACEMAKER Assessment/Plan Assessment/plan: acute shortness of breath, acute on chronic systolic CHF, acute UTI, demand ischemia, soreness of the left side of chest, hypokalemia, CKD, hypocalcemia, iron deficiency anemia, thrombocytopenia, transaminasemia, elevated troponin trending down, elevation of creating kinase, elevated cpk-mb trending down, IDDM, CAD with stent, diabetic peripheral neuropathy, Charcot foot, s/p pacemaker; IV Furosemide, consult to Cardiology and Renal pending, wound care, Novolog 70/30 mix and sliding scale regular insulin coverage for IDDM, DVT/GI prophylaxis, coreg and isosorbide for CAD, crestor for HLD, IV Venofer infusion for iron deficiency anemia, out of bed in chair as tolerated, oxygen 3L/min via nasal cannula with spo2 98%, consult to ID.
[2020-06-22] MEDS ORDERED: IRON SUCROSE INJECTION 200 MG in SODIUM CHLORIDE 90 ML IVPB ONE (09:30)
--- NOTE | 2020-06-22 09:37 | CON.CARD ---
Consult Consult Specialty:: cardiology Reason for Consultation:: CHF; CAD - History of Present Illness Chief Complaint: shortness of breath at rest History of Present Illness: Father Junior is an 79 y/o white man with PMH of systolic CHF; pacemaker, DM, CA D with stenting, Charcot foot-->left foot surgery, CKD, anemia, obesity, ?sleep apnea, sedentary, chronic bilateral leg edema/induration, now presenting with shortness of breath x 2 days. SOB began at rest yesterday evening, a few hours after patient had eaten a salty meal. SOB occurs both at rest and with exertion, and is worse than his baseline. Pt endorses muscle soreness in left chest but no chest pain. He denies nausea, vomiting , diaphoresis, fevers, chills or recent sick contacts. Pt endorses 3lb weight gain since yesterday, and increased swelling in both legs. 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: Alzheimer's, CVA, Dementia, Migraine, Multiple Sclerosis, Peripheral Neuropathy, Parkinson's, Seizure, Syncope, TIA, Vertigo, Other Cardio/Vascular: Yes: CHF, HTN Pulmonary: No: Asthma, Bronchitis, Cancer, COPD, O2 Dependent, Pneumonia, Previously Intubated, Pulmonary Embolus, Pulmonary Fibrosis, Sleep Apnea, Other Gastrointestinal: No: Ascites, Cancer, Constipation, Crohn's Disease, Diverticulitis, Diverticulosis, Esophageal Varices, Gastritis, GERD, GI Bleed, Hemorrhoids, Hiatal Hernia, Inflamatory Bowel Disease, Irritable Bowel Disease, Pancreatitis, Peptic Ulcer Disease, Ulcerative Colitis, Other Hepatobiliary: No: Cirrhosis, Cholelithiasis, Cholecystitis, Choledocholithiasis, Hepatitis A, Hepatitis B, Hepatitis C, Other Renal/: Yes: Renal Inusuff Heme/Onc: Yes: Anemia Infectious Disease: No: AIDS, C-Diff, Herpes Zoster, HIV, MRSA, STD's, Tu berculosis, VREF, Other Psych: No: Addictions, Anxiety, Bipolar, Depression, Panic, Psychosis, Schizophrenia, Other Musculoskeletal: Yes: Other (s/p left foot surgery for ?Charcot). No: Bursitis, Chronic low back pain, Hemiparesis, Hemiplegia, Osteoarthritis, Paraplegia Rheumatology: No: Fibromyalgia, Gout, Lupus, Rheumatoid Arthritis, Sarcoidosis, Vasculitis, Other ENT: No: Allergic Rhinitis, Sinusitis, Other Endocrine: Yes: Diabetes Mellitus Dermatology: No: Basal Cell, Cellulitis, Eczema, Melanoma, Psoriasis, Squamous Cell, Other - Past Surgical History Past Surgical History: Yes: Permanent Pacemaker, Stent (coronary) Additional Surgical History: left foot (CHarcot) - Alcohol/Substance Use Hx Alcohol Use: No - Smoking History Smoking history: Never smoked Have you smoked in the past 12 months: No Home Medications - Allergies Allergies/Adverse Reactions: Allergies Allergy/AdvReac Type Severity Reaction Status Date / Time No Known Allergies Allergy Verified 09/03/19 09:51 - Home Medications Home Medications: Ambulatory Orders Aspirin 81 mg PO DAILY 06/21/20 Carvedilol 25 mg PO BID 06/21/20 Clopidogrel Bisulfate [Plavix] 75 mg PO DAILY 06/21/20 Isosorbide Mononitrate [Isosorbide Mononitrate ER] 60 mg PO DAILY 06/21/20 Lantus 25 units DAILY 06/21/20 Rosuvastatin Calcium [Crestor] 40 mg PO DAILY 06/21/20 Sodium Bicarbonate - 650 mg BID 06/21/20 Torsemide 60 mg PO DAILY 06/21/20 Family Medical History Family History: Denies Review of Systems - Review of Systems Constitutional: reports: Weakness Eyes: reports: No Symptoms HENT: reports: No Symptoms Neck: reports: No Symptoms Cardiovascular: reports: Shortness of Breath Respiratory: reports: SOB Gastrointestinal: reports: No Symptoms Genitourinary: reports: No Symptoms Breasts: reports: No Symptoms Reported Musculoskeletal: reports: Muscle Weakness Integumentary: reports: Change in Color, Other Neurological: reports: No Symptoms Endocrine: reports: No Symptoms Hematology/Lymphatic: reports: No Symptoms Psychiatric: reports: Anxiety - Risk Factors Known Risk Factors: Yes: Age, Diabetes Mellitus, Gender, Hypercholesterolemia, Hypertension, Physical Inactivity, Other (systolic CHF; CAD) Vital Signs: Vital Signs Temperature 97.9 F 06/22/20 05:19 Pulse Rate 60 06/22/20 05:19 Respiratory Rate 18 06/22/20 05:19 Blood Pressure 101/55 L 06/22/20 05:19 O2 Sat by Pulse Oximetry (%) 99 06/22/20 05:19 Abnormal Lab Results 06/21/20 06/21/20 06/21/20 15:07 15:07 15:07 RBC 2.63 L Hgb 7.8 L Hct 24.2 L Plt Count Neutrophils % 82.9 H D Lymphocytes % 6.8 L D Monocytes % PT with INR 14.50 H INR 1.23 H Potassium 3.4 L Chloride 118 H Carbon Dioxide 13 L BUN 63.5 H Creatinine 3.1 H Random Glucose 173 H Calcium 6.0 L* Iron TIBC Iron Saturation AST 79 H ALT 99 H Alkaline Phosphatase 210 H Creatine Kinase 343 H Creatine Kinase Index 6.8 H CK-MB (CK-2) 23.6 H Troponin I 23.20 H* B-Natriuretic Peptide 57196.6 H Total Protein 4.8 L Albumin 1.7 L Urine Protein Urine Blood Ur Leukocyte Esterase 06/21/20 06/21/20 06/22/20 18:11 19:00 07:00 RBC 2.59 L Hgb 7.6 L Hct 23.5 L Plt Count 133 L D Neutrophils % Lymphocytes % Monocytes % 11.9 H PT with INR INR Potassium Chloride Carbon Dioxide BUN Creatinine Random Glucose Calcium Iron TIBC Iron Saturation AST ALT Alkaline Phosphatase Creatine Kinase Creatine Kinase Index CK-MB (CK-2) Troponin I 24.00 H* B-Natriuretic Peptide Total Protein Albumin Urine Protein 2+ H Urine Blood 3+ H Ur Leukocyte Esterase 3+ H 06/22/20 06/22/20 07:00 07:00 RBC Hgb Hct Plt Count Neutrophils % Lymphocytes % Monocytes % PT with INR INR Potassium 3.4 L Chloride 110 H Carbon Dioxide 18 L BUN 85.5 H Creatinine 4.3 H Random Glucose 121 H Calcium 7.9 L Iron 14 L TIBC 221 L Iron Saturation 6 L AST 59 H ALT 99 H Alkaline Phosphatase 242 H Creatine Kinase 663 H Creatine Kinase Index CK-MB (CK-2) 14.7 H Troponin I 17.10 H* B-Natriuretic Peptide Total Protein 6.1 L Albumin 2.2 L Urine Protein Urine Blood Ur Leukocyte Esterase Constitutional: Yes: Anxious, Obese Eyes: Yes: WNL HENT: Yes: WNL Neck: Yes: Supple Respiratory: Yes: Cough, Diminished Gastrointestinal: Yes: Soft, Abdomen, Obese Renal/: Yes: Gibson Present. No: Anuria Cardiovascular: Yes: Gallop JVD: Yes Carotid Bruit: No PMI: Displaced Heart Sounds: Yes: S1, Split S2 Murmur: Yes: Systolic Murmur, Grade 2 Musculoskeletal: Yes: Joint Stiffness, Joint Swelling, Muscle Weakness Edema: Yes Edema: LLE: 3+, RLE: 3+ Peripheral Pulses WNL: No Peripheral Pulses: 1+ Left Doralis Pedis, 1+ Right Dorsalis Pedis Integumentary: Yes: Venous Stasis Changes Neurological: Yes: WNL Psychiatric: Yes: WNL - Other Data Labs, Other Data: CBC, BMP 06/22/20 07:00 06/22/20 07:00 INR, PTT INR 1.23 (0.83-1.09) H 06/21/20 15:07 Troponin, BNP 06/21/20 06/21/20 06/22/20 15:07 18:11 07:00 Troponin I 23.20 H* 24.00 H* 17.10 H* B-Natriuretic Peptide 44818.6 H Troponin, BNP 06/21/20 06/21/20 06/22/20 15:07 18:11 07:00 Troponin I 23.20 H* 24.00 H* 17.10 H* B-Natriuretic Peptide 94966.6 H Abnormal Lab Results 06/21/20 06/21/20 06/21/20 15:07 15:07 15:07 RBC 2.63 L Hgb 7.8 L Hct 24.2 L Plt Count Neutrophils % 82.9 H D Lymphocytes % 6.8 L D Monocytes % PT with INR 14.50 H INR 1.23 H Potassium 3.4 L Chloride 118 H Carbon Dioxide 13 L BUN 63.5 H Creatinine 3.1 H Random Glucose 173 H Calcium 6.0 L* Iron TIBC Iron Saturation AST 79 H ALT 99 H Alkaline Phosphatase 210 H Creatine Kinase 343 H Creatine Kinase Index 6.8 H CK-MB (CK-2) 23.6 H Troponin I 23.20 H* B-Natriuretic Peptide 50283.6 H Total Protein 4.8 L Albumin 1.7 L Urine Protein Urine Blood Ur Leukocyte Esterase 06/21/20 06/21/20 06/22/20 18:11 19:00 07:00 RBC 2.59 L Hgb 7.6 L Hct 23.5 L Plt Count 133 L D Neutrophils % Lymphocytes % Monocytes % 11.9 H PT with INR INR Potassium Chloride Carbon Dioxide BUN Creatinine Random Glucose Calcium Iron TIBC Iron Saturation AST ALT Alkaline Phosphatase Creatine Kinase Creatine Kinase Index CK-MB (CK-2) Troponin I 24.00 H* B-Natriuretic Peptide Total Protein Albumin Urine Protein 2+ H Urine Blood 3+ H Ur Leukocyte Esterase 3+ H 06/22/20 06/22/20 07:00 07:00 RBC Hgb Hct Plt Count Neutrophils % Lymphocytes % Monocytes % PT with INR INR Potassium 3.4 L Chloride 110 H Carbon Dioxide 18 L BUN 85.5 H Creatinine 4.3 H Random Glucose 121 H Calcium 7.9 L Iron 14 L TIBC 221 L Iron Saturation 6 L AST 59 H ALT 99 H Alkaline Phosphatase 242 H Creatine Kinase 663 H Creatine Kinase Index CK-MB (CK-2) 14.7 H Troponin I 17.10 H* B-Natriuretic Peptide Total Protein 6.1 L Albumin 2.2 L Urine Protein Urine Blood Ur Leukocyte Esterase Echo: Pending Assessment/Plan Acute/chronic CHF with fluid overload NSTEMI: TNI 23-->24-->17; elevated CK, with CKMB relative index > 6. severe anemia acute/chronic renal dysfunction CAD; s/p coronary stent 2014; negative stress MIBI 10/2019 s/p PPM ([facility]) obesity sedentary chronic bilateral LE edema; s/p left foot surgery (Charcot foot) HTN DM HLD Plan: On ASA; pt has been on clopidogrel as outpatient. (Problemetic starting IV heparin given significant anemia and ?need for PRBCs). Continue carvedilol F/u serial TNI, EKG. Discontinue ACEI or ARB, spironolactone (renal failure). ECHO for LVEF, wall motion, valve status (r/o ): add hydralazine if LVEF is significantly reduced. 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 BUN/Cr, electrolytes, Is and Os, daily weight. f/u lipid profile (was on Crestor 40; reduced now to 10 mg due to renal dysfunction). TSH. Plan for coronary artery workup when CHF, renal, hematology stable.
[2020-06-22] MEDS ORDERED: ASPIRIN COATED 81 MG TABLET.EC PO SCH (10:00)
[2020-06-22] MEDS: ASPIRIN 81 MG CHEWABLE TABLETS PO SCH (10:44)
[2020-06-22] MEDS: ISOSORBIDE MONONITRATE 60 MG TAB.SR.24H (FP) PO SCH (10:44)
[2020-06-22] MEDS: PANTOPRAZOLE 40 MG TABLET PO SCH (10:44)
[2020-06-22] MEDS: ENOXAPARIN NA (PORCINE) 30 MG/0.3 ML DISP.SYRIN SQ SCH (10:45)
[2020-06-22] MEDS: CARVEDILOL 25 MG TABLET (FP) PO SCH ×2 (10:45→21:51)
[2020-06-22] MEDS ORDERED: POTASSIUM CHLORIDE ORAL LIQUID 20 MEQ/15 ML PO ONE ×2 (12:36→15:19)
[2020-06-22 13:08] LABS: MAGNESIUM 2.1 mg/dL (1.8-2.4)
--- NOTE | 2020-06-22 13:21 | PN ---
Progress Note (short form) - Note Progress Note: ID CONSULT DICTATED UTI DECOMPENSATED CHF IDDM THROMBOCYTOPENIA RENAL FAILURE AWAIT C/S EMPIRIC CEFTRIAXONE
[2020-06-22] MEDS ORDERED: DEXTROSE 5%-WATER - 50 ML IVPB ONE (15:09)
[2020-06-22] MEDS ORDERED: cefTRIAXone SODIUM 1 GM VIAL ONE (15:09)
--- NOTE | 2020-06-22 15:18 | CONSULT ---
Consult Consult Specialty:: Nephrology Reason for Consultation:: YENI - History of Present Illness Chief Complaint: shortness of breath History of Present Illness: Pt is an 79 year old male with pmhx of ckd, chf, dm, cad who had worsening of his shortness of breath. He called me and I recommended that he goes to the ER for evaluation. He was found to have elevated troponins. He was also found to have worsening of his renal function. He denies chest pain at home. He was on torsemide. I last saw him a few weeks ago in the office. His lower ext edema is worse and he complains of shortness of breath. He denies fevers or chills. He is awake and alert. He denies dysuria or hematuria. - History Source History Provided By: Patient - Past Medical History Cardio/Vascular: Yes: CHF, HTN Renal/: Yes: Renal Inusuff Musculoskeletal: Yes: Other (s/p left foot surgery for ?Charcot) Endocrine: Yes: Diabetes Mellitus - Past Surgical History Past Surgical History: Yes: Permanent Pacemaker, Stent (coronary) - Alcohol/Substance Use Hx Alcohol Use: No - Smoking History Smoking history: Never smoked Have you smoked in the past 12 months: No Home Medications - Allergies Allergies/Adverse Reactions: Allergies Allergy/AdvReac Type Severity Reaction Status Date / Time No Known Allergies Allergy Verified 09/03/19 09:51 - Home Medications Home Medications: Ambulatory Orders Aspirin 81 mg PO DAILY 06/21/20 Carvedilol 25 mg PO BID 06/21/20 Clopidogrel Bisulfate [Plavix] 75 mg PO DAILY 06/21/20 Isosorbide Mononitrate [Isosorbide Mononitrate ER] 60 mg PO DAILY 06/21/20 Lantus 25 units DAILY 06/21/20 Rosuvastatin Calcium [Crestor] 40 mg PO DAILY 06/21/20 Sodium Bicarbonate - 650 mg BID 06/21/20 Torsemide 60 mg PO DAILY 06/21/20 Family Medical History Family History: Denies Review of Systems - Review of Systems Constitutional: reports: Malaise, Weakness Eyes: reports: No Symptoms HENT: reports: No Symptoms Neck: reports: No Symptoms Cardiovascular: reports: Edema, Shortness of Breath Respiratory: reports: SOB, SOB on Exertion Gastrointestinal: reports: No Symptoms Genitourinary: reports: No Symptoms Musculoskeletal: reports: No Symptoms Integumentary: reports: No Symptoms Neurological: reports: No Symptoms Endocrine: reports: No Symptoms Hematology/Lymphatic: reports: No Symptoms Psychiatric: reports: No Symptoms Physical Exam Vital Signs: Vital Signs Temperature 98.1 F 06/22/20 09:00 Pulse Rate 66 06/22/20 09:00 Respiratory Rate 18 06/22/20 09:00 Blood Pressure 110/58 L 06/22/20 09:00 O2 Sat by Pulse Oximetry (%) 97 06/22/20 09:00 Constitutional: Yes: Calm Eyes: Yes: Conjunctiva Clear HENT: Yes: Atraumatic Neck: Yes: Supple Cardiovascular: Yes: S1, S2 Respiratory: Yes: CTA Bilaterally Gastrointestinal: Yes: Soft Renal/: Yes: WNL Musculoskeletal: Yes: WNL Edema: Yes Edema: LLE: 3+, RLE: 3+ Neurological: Yes: Oriented Psychiatric: Yes: Oriented Labs: CBC, BMP 06/22/20 07:00 06/22/20 07:00 Imaging - Results Chest X-ray: Report Reviewed Problem List - Problems (1) CHF (congestive heart failure) Code(s): I50.9 - HEART FAILURE, UNSPECIFIED Qualifiers: Heart failure type: unspecified Heart failure chronicity: acute on chronic Qualified Code(s): I50.9 - Heart failure, unspecified (2) CAD (coronary artery disease) Code(s): I25.10 - ATHSCL HEART DISEASE OF [place] CORONARY ARTERY W/O ANG PCTRS (3) CKD (chronic kidney disease) Code(s): N18.9 - CHRONIC KIDNEY DISEASE, UNSPECIFIED Assessment/Plan Current Medications Generic Name Dose Route Start Last Admin Trade Name José Miguel PRN Reason Stop Dose Admin Aspirin 81 mg 06/22/20 10:30 06/22/20 10:44 Asa - PO 81 mg DAILY ELY Administration Carvedilol 25 mg 06/21/20 22:00 06/22/20 10:45 Coreg - PO 25 mg BID ELY Administration Enoxaparin Sodium 30 mg 06/21/20 19:45 06/22/20 10:45 Lovenox - SQ Not Given DAILY [facility] Ceftriaxone Sodium 1 gm/ 50 mls @ 200 mls/hr 06/22/20 13:30 Dextrose IVPB DAILY [facility] Protocol Insulin Aspart 10 units 06/22/20 07:00 06/22/20 06:29 Novolog Mix 70/30 Vial SQ 10 units BIDAC ELY Administration Insulin Aspart 1 vial 06/21/20 19:45 06/22/20 12:12 Novolog Vial Sliding Scale - SQ Not Given TIDAC [facility] Protocol Isosorbide Mononitrate 60 mg 06/22/20 10:00 06/22/20 10:44 Imdur - PO 60 mg DAILY ELY Administration Pantoprazole Sodium 40 mg 06/22/20 10:30 06/22/20 10:44 Protonix - PO 40 mg DAILY ELY Administration Rosuvastatin Calcium 10 mg 06/22/20 22:00 Crestor - PO HS [facility] Laboratory Tests 09/03/19 09/03/19 09/04/19 11:20 11:20 08:45 WBC 8.0 Hgb 7.6 L 8.9 L Plt Count 231 PT with INR INR Sodium 140 Potassium Chloride Carbon Dioxide 17 L Anion Gap BUN Creatinine 3.3 H Est GFR (CKD-EPI)AfAm 19.37 Urine Protein Urine Blood Urine WBC (Auto) Urine RBC (Auto) COVID-19 ([facility]) 09/04/19 09/05/19 06/21/20 08:45 10:00 15:07 WBC Hgb 7.8 L Plt Count PT with INR INR Sodium 139 Potassium Chloride Carbon Dioxide 16 L Anion Gap BUN Creatinine 3.2 H Est GFR (CKD-EPI)AfAm 20.10 Urine Protein 1+ H Urine Blood Urine WBC (Auto) 1 Urine RBC (Auto) 4 COVID-19 ([facility]) 06/21/20 06/21/20 06/22/20 15:07 19:00 07:00 WBC Hgb 7.6 L Plt Count PT with INR 14.50 H INR 1.23 H Sodium Potassium Chloride Carbon Dioxide Anion Gap BUN Creatinine Est GFR (CKD-EPI)AfAm Urine Protein 2+ H Urine Blood 3+ H Urine WBC (Auto) Urine RBC (Auto) COVID-19 ([facility]) 06/22/20 06/22/20 07:00 10:30 WBC Hgb Plt Count PT with INR INR Sodium 141 Potassium 3.4 L Chloride 110 H Carbon Dioxide 18 L Anion Gap 12 BUN 85.5 H Creatinine 4.3 H Est GFR (CKD-EPI)AfAm Urine Protein Urine Blood Urine WBC (Auto) Urine RBC (Auto) COVID-19 ([facility]) Pending Impression 1. CKD 2. YENI 3. CHF 4. DM 5. DFU 6. HTN 7. nstemi 8. hypokalemai Plan - IV lasix for fluid overload - check bladder scan, place durand if retaining - replace potassium - repeat labs in am - discussed with cardio - trend trop - follow echo - monitor on tele - will follow - no acute indication for hd at the moment
--- NOTE | 2020-06-22 15:50 | CONS ---
INFECTIOUS DISEASE CONSULTATION DATE OF CONSULTATION: DATE OF DICTATION: 06/22/2020 HISTORY: The patient is an 79-year-old male with a history of congestive heart failure, evaluated for urinary tract infection. He was admitted to the hospital on June 21, 2020, with a 2- to 3-day history of worsening lower extremity swelling, shortness of breath and abdominal discomfort. He was diagnosed with decompensated congestive heart failure. As part of the initial workup, he was noted to have many white cells in the urine. Patient reports having slight burning on urination. He denies prior history of urinary tract infections. No history of resistant urinary tract pathogens. PAST MEDICAL HISTORY: Positive for congestive heart failure, insulin-dependent diabetes mellitus, coronary artery disease, a history of Charcot joint with nonhealing foot wound now healed. PAST SURGICAL HISTORY: Status post coronary artery stent and permanent pacemaker. ALLERGIES: No known allergies. MEDICATIONS: Ceftriaxone, Lovenox, Coreg, isosorbide, Crestor, aspirin, Lasix, Protonix, insulin. SOCIAL HISTORY: He resides in the community. He is a nonsmoker, nondrinker. SYSTEMS REVIEW: Neurologic: No loss of consciousness, seizure activity, focal weakness. Cardiac: Negative chest pain or palpitations. Respiratory: As per HPI. Gastrointestinal: Negative vomiting or diarrhea. Genitourinary: As per HPI. LABORATORY DATA: White count 7.8, hematocrit 23.5, platelet count 133. Creatinine 4.3. COVID-19 PCR pending. Urine analysis 6616 white cells. Urine culture is pending. Previous wound cultures have been positive for pseudomonas. PHYSICAL EXAMINATION: General: He is seated in bed. He is slightly short of breath at rest. However, he is in no acute respiratory distress and is able to speak in complete sentences. Vital Signs: Temperature 98.1, blood pressure 1110/58, pulse 86 regular, respirations 18 per minute. HEENT: Sclerae are anicteric. Heart: Sounds S1, S2. Lungs: Rales at the bases bilaterally. Abdomen: Soft, obese, nontender. Extremities: Lower extremity edema 3+ bilaterally with chronic venous stasis dermatitis of the lower extremities. Positive Charcot joint. IMPRESSION: 1. Urinary tract infection. 2. Decompensated congestive heart failure. 3. Insulin-dependent diabetes mellitus. 4. Thrombocytopenia. 5. Renal failure. Await cultures. Empiric antibiotic coverage with ceftriaxone. Further recommendations pending cultures. Thank you for the kind referral. MACKENZIE STEINBERG M.D. JACKIE/[id number]
--- NOTE | 2020-06-22 16:52 | ECHO ---
Name: [place] YOUSSEF Exam:Adult Echocardiogram Study Date: 06/22/2020 04:16 PM Age: 79 yrs Reason For Study: NSTEMI; acute CHF w/ fluid overload Height: 70 in Weight: 223 lb BSA: 2.2 m2 MMode/2D Measurements & Calculations RVDd: 3.6 cm Ao root diam: 3.3 cm IVSd: 1.2 cm LA dimension: 4.3 cm LVIDd: 5.7 cm ACS: 1.7 cm LVIDs: 4.3 cm LVPWd: 1.2 cm EDV(Andrew): 159.3 ml EPSS: 1.3 cm ESV(Andrew): 85.3 ml LVOT diam: 2.0 cm LVLd ap4: 9.4 cm EDV(MOD-sp4): 200.0 ml LVLs ap4: 8.8 cm ESV(MOD-sp4): 133.0 ml SV(MOD-sp4): 67.0 ml LAV (MOD-bp): 95.0 ml TAPSE: 2.0 cm RV S Marvin: 12.6 cm/sec Doppler Measurements & Calculations Ao V2 max: 133.7 cm/sec AI max marvin: 270.6 cm/sec Ao max P.1 mmHg AI max P.3 mmHg Ao V2 mean: 99.5 cm/sec AI dec slope: 140.9 cm/sec2 Ao mean P.3 mmHg Ao V2 VTI: 29.1 cm MELVA(I,D): 1.4 cm2 AI P1/2t: 562.6 msec MELVA(V,D): 1.4 cm2 LV V1 max P.4 mmHg MR max marvin: 384.3 cm/sec LV V1 mean P.83 mmHg MR max P.1 mmHg LV V1 max: 58.2 cm/sec LV V1 mean: 43.6 cm/sec LV V1 VTI: 12.6 cm SV(LVOT): 41.5 ml TR max marvin: 295.0 cm/sec TR max P.3 mmHg PA V2 max: 89.6 cm/sec PI end-d marvin: 119.4 cm/sec PA max P.2 mmHg PA acc slope: 708.3 cm/sec2 PA acc time: 0.07 sec Med Peak E' Marvin: 2.8 cm/sec PA pr(Accel): 48.9 mmHg Lat Peak E' Marvin: 8.6 cm/sec Tech Comments TDS due to body habitus. Patient scanned sitting up. Left Ventricle Mildly dilated and hypertrophied left ventricle with mid to distal anterior wall and large apical stacy nesis. Left ventricular systolic function is moderate to severely reduced. Ejection Fraction = 30-35%. The transmitral spectral Doppler flow pattern is suggestive of impaired LV relaxation. Right Ventricle The right ventricle is normal in size and function. There is a pacemaker lead in the right ventricle. Atria The left atrium is mildly dilated. Right atrial size is normal. Mitral Valve There is moderate mitral annular calcification. There is moderate mitral regurgitation. Tricuspid Valve The septal leaflet is thickened. There is mild to moderate tricuspid regurgitation. There is moderate pulmonary hypertension. Right ventricular systolic pressure is elevated at 51 mmhg. Assuming the RA p ressure is 10 mmHg. Aortic Valve There is moderate to severe aortic sclerosis.;. Mild to moderate valvular aortic stenosis. The calcul ated aortic valve area using the continuity equation is 1.4 cm2. Mild aortic regurgitation. Pulmonic Valve The pulmonic valve is not well visualized. Great Vessels The aortic root is normal size. Pericardium/Pleura There is no pericardial effusion. Interpretation Summary Mildly dilated and hypertrophied left ventricle with mid to distal anterior wall and large apical stacy nesis. Left ventricular systolic function is moderate to severely reduced. Ejection Fraction = 30-35%. The right ventricle is normal in size and function. There is a pacemaker lead in the right ventricle. The left atrium is mildly dilated. Right atrial size is normal. There is moderate to severe aortic sclerosis.; Mild aortic regurgitation. Mild to moderate valvular aortic stenosis. The calculated aortic valve area using the continuity equa tion is 1.4 cm2. There is moderate mitral annular calcification. There is moderate mitral regurgitation. The septal leaflet is thickened. There is mild to moderate tricuspid regurgitation. There is moderate pulmonary hypertension. Right ventricular systolic pressure is elevated at 51 mmhg. MD Zayda Valerio 06/22/2020 04:52 PM
[2020-06-22] MEDS ORDERED: INSULIN (NOVOLOG) ASPART 100 UNITS/ML 10ML VIAL ONE (17:20)
[2020-06-22] MEDS: FUROSEMIDE 100 MG/10 ML INJECTABLE VIAL IVPB SCH (17:42)
[2020-06-22] MEDS: CEFTRIAXONE 1 GM in DEXTROSE 5%-WATER - 50 ML IVPB SCH (17:42)
[2020-06-22] MEDS: ROSUVASTATIN CA 10 MG TABLET (FP) PO SCH (21:51)
[2020-06-23] MEDS: INSULIN (NOVOLOG MIX 70/30) 100 UNITS/ML MDV SQ SCH ×2 (06:07→16:47)
[2020-06-23] MEDS: INSULIN SLIDING SCALE (NOVOLOG) 1 VIAL SQ SCH ×3 (06:08→16:47)
[2020-06-23] MEDS: FUROSEMIDE 100 MG/10 ML INJECTABLE VIAL IVPB SCH ×2 (06:16→14:07)
[2020-06-23 08:11] LABS: BASO % 0.2 % (0-2.0); HEMOGLOBIN 7.9 GM/dL (11.7-16.9); LYMPH % 7.8 % (8-40); MCH 30.3 pg (25.7-33.7); MCHC 32.9 g/dl (32.0-35.9); MEAN CELL VOLUME 92.1 fl (80-96); MONO % 7.4 % (3.8-10.2); NEUT % 84.6 % (42.8-82.8); PLATELET COUNT 137 K/MM3 (134-434); RDW 15.7 % (11.9-15.9); WHITE BLOOD COUNT 9.6 K/mm3 (4.0-10.0)
--- NOTE | 2020-06-23 08:22 | PN ---
Progress Note, Physician Chief Complaint: Patient seen and examined at the bedside, no acute events from last night, no chest pain. History of Present Illness: This 79 yr old w/m with PMH of IDDM, CHF, CAD with stent, s/p pacemaker, diabetic peripheral neuropathy, Charcot foot, admitted with an acute shortness of breath, acute on chronic systolic CHF, acute UTI, elevated troponin and creatine kinase, and iron deficiency anemia, hypokalemia, and transaminasemia. - Current Medication List Current Medications: Active Medications Aspirin (Asa -) 81 mg PO DAILY [facility] Last Admin: 06/22/20 10:44 Dose: 81 mg Documented by: Carvedilol (Coreg -) 25 mg PO BID [facility] Last Admin: 06/22/20 21:51 Dose: 25 mg Documented by: Enoxaparin Sodium (Lovenox -) 30 mg SQ DAILY [facility] Last Admin: 06/22/20 10:45 Dose: Not Given Documented by: Furosemide (Lasix Injection -) 80 mg IVPB BID@0600,1400 [facility] Last Admin: 06/23/20 06:16 Dose: 80 mg Documented by: Ceftriaxone Sodium 1 gm/ (Dextrose) 50 mls @ 200 mls/hr IVPB DAILY [facility]; Protocol Last Admin: 06/22/20 17:42 Dose: 200 mls/hr Documented by: Insulin Aspart (Novolog Mix 70/30 Vial) 10 units SQ BIDAC [facility] Last Admin: 06/23/20 06:07 Dose: Not Given Documented by: Insulin Aspart (Novolog Vial Sliding Scale -) 1 vial SQ TIDAC [facility]; Protocol Last Admin: 06/23/20 06:08 Dose: Not Given Documented by: Isosorbide Mononitrate (Imdur -) 60 mg PO DAILY [facility] Last Admin: 06/22/20 10:44 Dose: 60 mg Documented by: Pantoprazole Sodium (Protonix -) 40 mg PO DAILY [facility] Last Admin: 06/22/20 10:44 Dose: 40 mg Documented by: Rosuvastatin Calcium (Crestor -) 10 mg PO HS [facility] Last Admin: 06/22/20 21:51 Dose: 10 mg Documented by: - Objective Vital Signs: Vital Signs Temperature 97.8 F 06/23/20 05:00 Pulse Rate 64 06/23/20 05:00 Respiratory Rate 19 06/23/20 05:00 Blood Pressure 109/62 06/23/20 05:00 O2 Sat by Pulse Oximetry (%) 99 06/23/20 05:00 Constitutional: Yes: Well Nourished, No Distress, Calm Eyes: Yes: Conjunctiva Clear, EOM Intact HENT: Yes: Atraumatic, Normocephalic Neck: Yes: Supple, Trachea Midline Cardiovascular: Yes: Regular Rate and Rhythm Respiratory: Yes: Regular, CTA Bilaterally, On Nasal O2, SOB, SOB on Exertion Gastrointestinal: Yes: Normal Bowel Sounds, Soft ...Rectal Exam: Yes: Deferred Genitourinary: Yes: WNL Breast(s): Yes: WNL Musculoskeletal: Yes: Muscle Weakness Extremities: Yes: Other (left Charcot foot, s/p left foot surgery) Edema: Yes Edema: LLE: 2+, RLE: 2+ Peripheral Pulses WNL: Yes Integumentary: Yes: Pressure Ulcer (right buttock) Neurological: Yes: Alert, Oriented, Numbness, Paresthesia, Unsteady Gait, Weakness ...Motor Strength: LUE (generalized muscle weakness of all extremities) Psychiatric: Yes: Alert, Oriented Labs: CBC, BMP 06/23/20 06:15 INR, PTT INR 1.23 (0.83-1.09) H 06/21/20 15:07 - ....Imaging Other: Report Reviewed (lab data reviewed) Problem List - Problems (1) CHF (congestive heart failure) Code(s): I50.9 - HEART FAILURE, UNSPECIFIED Qualifiers: Heart failure type: unspecified Heart failure chronicity: acute on chronic Qualified Code(s): I50.9 - Heart failure, unspecified (2) Anemia Code(s): D64.9 - ANEMIA, UNSPECIFIED Qualifiers: Anemia type: unspecified type Qualified Code(s): D64.9 - Anemia, u nspecified (3) CAD (coronary artery disease) Code(s): I25.10 - ATHSCL HEART DISEASE OF [place] CORONARY ARTERY W/O ANG PCTRS (4) CKD (chronic kidney disease) Code(s): N18.9 - CHRONIC KIDNEY DISEASE, UNSPECIFIED (5) 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 Code(s): E11.610 - TYPE 2 DIABETES MELLITUS W DIABETIC NEUROPATHIC ARTHROPATHY (6) Diabetes Code(s): E11.9 - TYPE 2 DIABETES MELLITUS WITHOUT COMPLICATIONS (7) Diabetic foot ulcers Code(s): E11.621 - TYPE 2 DIABETES MELLITUS WITH FOOT ULCER; L97.509 - NON- PRESSURE CHRONIC ULCER OTH PRT UNSP FOOT W UNSP SEVERITY Qualifiers: Diabetic foot ulcer location: midfoot Diabetes mellitus type: type 2 Laterality: left Non-pressure ulcer stage: with fat layer exposed Qualified Code(s): E11.621 - Type 2 diabetes mellitus with foot ulcer; L97.422 - Non- pressure chronic ulcer of left heel and midfoot with fat layer exposed (8) HTN (hypertension) Code(s): I10 - ESSENTIAL (PRIMARY) HYPERTENSION (9) Pacemaker Code(s): Z95.0 - PRESENCE OF CARDIAC PACEMAKER (10) Moderate aortic stenosis Code(s): I35.0 - NONRHEUMATIC AORTIC (VALVE) STENOSIS (11) Moderate pulmonary arterial systolic hypertension Code(s): I27.21 - SECONDARY PULMONARY ARTERIAL HYPERTENSION (12) Systolic CHF Code(s): I50.20 - UNSPECIFIED SYSTOLIC (CONGESTIVE) HEART FAILURE (13) Moderate mitral regurgitation Code(s): I34.0 - NONRHEUMATIC MITRAL (VALVE) INSUFFICIENCY (14) Moderate tricuspid regurgitation Code(s): I07.1 - RHEUMATIC TRICUSPID INSUFFICIENCY (15) Left ventricular systolic dysfunction Code(s): I51.9 - HEART DISEASE, UNSPECIFIED (16) Mild aortic regurgitation Code(s): I35.1 - NONRHEUMATIC AORTIC (VALVE) INSUFFICIENCY Assessment/Plan Assessment/plan: acute shortness of breath, acute on chronic systolic CHF, acute UTI, iron deficiency anemia, elevated troponin and creatine kinase level rising, transaminasemia, hypocalcemia, hypokalemia, rising BUN and creatinine, IDDM, diabetic peripheral neuropathy, left Charcot foot, CKD, s/p pacemaker, CAD with stent, moderate , mild AR, moderate pulmonary hypertension, EF 30-35%, severe reduction in LV systolic function, moderate MR, moderate TR; IV Furosemide for acute on chronic systolic CHF, IV Ceftriaxone as per ID for UTI, DVT/GI prophylaxis, out of bed in chair as tolerated, coreg and isosorbide for CAD, crestor for HLD, potassium chloride for hypkalemia, oxygen 2L/min via nasal cannula with spo2 98%, venofer infusion for iron deficiency anemia.
[2020-06-23 08:27] LABS: ALBUMIN 2.1 g/dl (3.4-5.0); BILIRUBIN,TOTAL 0.5 mg/dL (0.2-1); BLOOD UREA NITROGEN 95.1 mg/dL (7-18); CALCIUM 7.9 mg/dL (8.5-10.1); CREATININE 4.7 mg/dL (0.55-1.3); POTASSIUM 4.4 mmol/L (3.5-5.1)
[2020-06-23] MEDS ORDERED: cefTRIAXone SODIUM 1 GM VIAL ONE (08:58)
[2020-06-23] MEDS ORDERED: DEXTROSE 5%-WATER - 50 ML IVPB ONE (08:58)
[2020-06-23] MEDS: CEFTRIAXONE 1 GM in DEXTROSE 5%-WATER - 50 ML IVPB SCH (09:10)
[2020-06-23] MEDS: ASPIRIN 81 MG CHEWABLE TABLETS PO SCH (09:11)
[2020-06-23] MEDS: ENOXAPARIN NA (PORCINE) 30 MG/0.3 ML DISP.SYRIN SQ SCH (09:11)
[2020-06-23] MEDS: PANTOPRAZOLE 40 MG TABLET PO SCH (09:11)
[2020-06-23] MEDS: CARVEDILOL 25 MG TABLET (FP) PO SCH ×2 (09:14→21:41)
[2020-06-23] MEDS: ISOSORBIDE MONONITRATE 60 MG TAB.SR.24H (FP) PO SCH (09:22)
--- NOTE | 2020-06-23 09:23 | EKG ---
Test Reason : Blood Pressure : / mmHG Vent. Rate : 062 BPM Atrial Rate : 062 BPM P-R Int : 222 ms QRS Dur : 162 ms QT Int : 484 ms P-R-T Axes : 054 -54 123 degrees QTc Int : 491 ms POOR DATA QUALITY, INTERPRETATION MAY BE ADVERSELY AFFECTED AV dual-paced rhythm with prolonged AV conduction ABNORMAL ECG Confirmed by MD ALEXANDER, DARRON ([id number]) on 06/23/2020 9:22:50 AM Referred By: Confirmed By:DARRON MUNOZ MD
[2020-06-23] MEDS ORDERED: POTASSIUM CHLORIDE TABS 20 MEQ TABLET.ER (FP) PO SCH (10:00)
--- NOTE | 2020-06-23 10:20 | PN ---
Progress Note, Physician History of Present Illness: Father Junior is an 79 y/o white man with PMH of systolic CHF; pacemaker, DM, CAD with stenting, Charcot foot-->left foot surgery, CKD, anemia, obesity, ?sleep apnea, sedentary, chronic bilateral leg edema/induration, now presenting with shortness of breath x 2 days. SOB began at rest yesterday evening, a few hours after patient had eaten a salty meal. SOB occurs both at rest and with exe rtion, and is worse than his baseline. Pt endorses muscle soreness in left chest but no chest pain. He denies nausea, vomiting , diaphoresis, fevers, chills or recent sick contacts. Pt endorses 3lb weight gain since yesterday, and increased swelling in both legs. PMH Left foot ulcer debridement June 2019 Pacemaker implanted 2014 ([employer]) DDD Bilateral cataract removal 2015 Cardiac cath PCI placed before 2014 [place] Ongoing medical problems CAD Systolic CHF > 10 years, last hospitalization with CHF exacerbation April 2019 Diabetes Mellitus Type 1 Charot foot (left foot) Hyperlipidemia Hypertension Chronic Renal Insufficiency. (baseline Creatine 2.5-3 mg/dL) ECHO today (10/03/19) showed anterio-apical, apical and apical septal severe hypokinease with EF of 40%. Possible aortic bicuspid valve. Lexiscan MIBI stress test 2018 was negative for inducible ischemia, old inferio apical mi was present, EF 35%. - Current Medication List Current Medications: Active Medications Aspirin (Asa -) 81 mg PO DAILY [facility] Last Admin: 06/23/20 09:11 Dose: 81 mg Documented by: Carvedilol (Coreg -) 25 mg PO BID [facility] Last Admin: 06/23/20 09:14 Dose: 25 mg Documented by: Enoxaparin Sodium (Lovenox -) 30 mg SQ DAILY [facility] Last Admin: 06/23/20 09:11 Dose: 30 mg Documented by: Furosemide (Lasix Injection -) 80 mg IVPB BID@0600,1400 [facility] Last Admin: 06/23/20 06:16 Dose: 80 mg Documented by: Ceftriaxone Sodium 1 gm/ (Dextrose) 50 mls @ 200 mls/hr IVPB DAILY [facility]; Protocol Last Admin: 06/23/20 09:10 Dose: 200 mls/hr Documented by: Insulin Aspart (Novolog Mix 70/30 Vial) 10 units SQ BIDAC [facility] Last Admin: 06/23/20 06:07 Dose: Not Given Documented by: Insulin Aspart (Novolog Vial Sliding Scale -) 1 vial SQ TIDAC [facility]; Protocol Last Admin: 06/23/20 06:08 Dose: Not Given Documented by: Isosorbide Mononitrate (Imdur -) 60 mg PO DAILY [facility] Last Admin: 06/23/20 09:22 Dose: Not Given Documented by: Pantoprazole Sodium (Protonix -) 40 mg PO DAILY [facility] Last Admin: 06/23/20 09:11 Dose: 40 mg Documented by: Potassium Chloride (K-Dur -) 20 meq PO DAILY [facility] Rosuvastatin Calcium (Crestor -) 10 mg PO HS [facility] Last Admin: 06/22/20 21:51 Dose: 10 mg Documented by: - Objective Vital Signs: Vital Signs Temperature 98 F 06/23/20 09:00 Pulse Rate 64 06/23/20 09:00 Respiratory Rate 18 06/23/20 09:00 Blood Pressure 95/51 L 06/23/20 09:00 O2 Sat by Pulse Oximetry (%) 98 06/23/20 09:00 Eyes: Yes: WNL, Conjunctiva Clear, EOM Intact HENT: Yes: WNL, Atraumatic, Normocephalic Neck: Yes: WNL, Supple, Trachea Midline Cardiovascular: Yes: WNL, Regular Rate and Rhythm Respiratory: Yes: WNL, Regular, CTA Bilaterally Gastrointestinal: Yes: WNL, Normal Bowel Sounds Genitourinary: Yes: WNL Musculoskeletal: Yes: WNL Edema: Yes Edema: LLE: 2+, RLE: 2+ Integumentary: Yes: WNL Neurological: Yes: WNL, Alert, Oriented ...Motor Strength: WNL Psychiatric: Yes: WNL Labs: CBC, BMP 06/23/20 06:15 06/23/20 06:15 INR, PTT INR 1.23 (0.83-1.09) H 06/21/20 15:07 Laboratory Tests 06/21/20 06/21/20 06/21/20 15:07 15:07 15:07 WBC 8.9 RBC 2.63 L Hgb 7.8 L Hct 24.2 L MCV 91.9 MCH 29.7 MCHC 32.4 RDW 15.3 Plt Count 167 D MPV 10.1 D Absolute Neuts (auto) 7.4 Neutrophils % 82.9 H D Lymphocytes % 6.8 L D Monocytes % 9.5 Eosinophils % 0.4 D Basophils % 0.4 Nucleated RBC % 0 PT with INR 14.50 H INR 1.23 H Sodium 144 Potassium 3.4 L Chloride 118 H Carbon Dioxide 13 L Anion Gap 12 BUN 63.5 H Creatinine 3.1 H Est GFR (CKD-EPI)AfAm 20.89 Est GFR (CKD-EPI)NonAf 18.02 POC Glucometer Random Glucose 173 H Calcium 6.0 L* Magnesium Iron TIBC Iron Saturation Unsaturated IBC Ferritin Total Bilirubin 0.4 AST 79 H ALT 99 H Alkaline Phosphatase 210 H Creatine Kinase 343 H Creatine Kinase Index 6.8 H CK-MB (CK-2) 23.6 H Troponin I 23.20 H* B-Natriuretic Peptide 55032.6 H Total Protein 4.8 L Albumin 1.7 L Triglycerides Cholesterol Total LDL Cholesterol HDL Cholesterol TSH Urine Color Urine Appearance Urine pH Ur Specific [place] Urine Protein Urine Glucose (UA) Urine Ketones Urine Blood Urine Nitrite Urine Bilirubin Urine Urobilinogen Ur Leukocyte Esterase Urine WBC (Auto) Urine RBC (Auto) Urine Casts (Auto) U Epithel Cells (Auto) Urine Bacteria (Auto) Stool Occult Blood COVID-19 ([facility]) 06/21/20 06/21/20 06/21/20 18:11 19:00 20:06 WBC RBC Hgb Hct MCV MCH MCHC RDW Plt Count MPV Absolute Neuts (auto) Neutrophils % Lymphocytes % Monocytes % Eosinophils % Basophils % Nucleated RBC % PT with INR INR Sodium Potassium Chloride Carbon Dioxide Anion Gap BUN Creatinine Est GFR (CKD-EPI)AfAm Est GFR (CKD-EPI)NonAf POC Glucometer 154 Random Glucose Calcium Magnesium Iron TIBC Iron Saturation Unsaturated IBC Ferritin Total Bilirubin AST ALT Alkaline Phosphatase Creatine Kinase Creatine Kinase Index CK-MB (CK-2) Troponin I 24.00 H* B-Natriuretic Peptide Total Protein Albumin Triglycerides Cholesterol Total LDL Cholesterol HDL Cholesterol TSH Urine Color Yellow Urine Appearance Turbid Urine pH 5.0 Ur Specific [place] 1.010 Urine Protein 2+ H Urine Glucose (UA) Trace Urine Ketones Negative Urine Blood 3+ H Urine Nitrite Negative Urine Bilirubin Negative Urine Urobilinogen 0.2 Ur Leukocyte Esterase 3+ H Urine WBC (Auto) 6616 Urine RBC (Auto) 151 Urine Casts (Auto) 0 U Epithel Cells (Auto) 16 Urine Bacteria (Auto) 2297 Stool Occult Blood COVID-19 ([facility]) 06/22/20 06/22/20 06/22/20 06:26 07:00 07:00 WBC 7.8 RBC 2.59 L Hgb 7.6 L Hct 23.5 L MCV 91.0 MCH 29.5 MCHC 32.4 RDW 15.9 Plt Count 133 L D MPV 9.6 Absolute Neuts (auto) 6.1 Neutrophils % 77.7 Lymphocytes % 9.6 D Monocytes % 11.9 H Eosinophils % 0.2 Basophils % 0.6 Nucleated RBC % 0 PT with INR INR Sodium 141 Potassium 3.4 L Chloride 110 H Carbon Dioxide 18 L Anion Gap 12 BUN 85.5 H Creatinine 4.3 H Est GFR (CKD-EPI)AfAm 14.06 Est GFR (CKD-EPI)NonAf 12.13 POC Glucometer 117 Random Glucose 121 H Calcium 7.9 L Magnesium Iron TIBC Iron Saturation Unsaturated IBC Ferritin Total Bilirubin 0.6 AST 59 H ALT 99 H Alkaline Phosphatase 242 H Creatine Kinase 663 H Creatine Kinase Index 2.2 CK-MB (CK-2) 14.7 H Troponin I 17.10 H* B-Natriuretic Peptide Total Protein 6.1 L Albumin 2.2 L Triglycerides Cholesterol Total LDL Cholesterol HDL Cholesterol TSH Urine Color Urine Appearance Urine pH Ur Specific [place] Urine Protein Urine Glucose (UA) Urine Ketones Urine Blood Urine Nitrite Urine Bilirubin Urine Urobilinogen Ur Leukocyte Esterase Urine WBC (Auto) Urine RBC (Auto) Urine Casts (Auto) U Epithel Cells (Auto) Urine Bacteria (Auto) Stool Occult Blood COVID-19 ([facility]) 06/22/20 06/22/20 06/22/20 07:00 10:30 11:48 WBC RBC Hgb Hct MCV MCH MCHC RDW Plt Count MPV Absolute Neuts (auto) Neutrophils % Lymphocytes % Monocytes % Eosinophils % Basophils % Nucleated RBC % PT with INR INR Sodium Potassium Chloride Carbon Dioxide Anion Gap BUN Creatinine Est GFR (CKD-EPI)AfAm Est GFR (CKD-EPI)NonAf POC Glucometer 103 Random Glucose Calcium Magnesium 2.1 Iron 14 L TIBC 221 L Iron Saturation 6 L Unsaturated IBC 207 Ferritin 127.7 Total Bilirubin AST ALT Alkaline Phosphatase Creatine Kinase Creatine Kinase Index CK-MB (CK-2) Troponin I B-Natriuretic Peptide Total Protein Albumin Triglycerides 58 Cholesterol 62 Total LDL Cholesterol 20 HDL Cholesterol 34 L TSH 2.51 Urine Color Urine Appearance Urine pH Ur Specific [place] Urine Protein Urine Glucose (UA) Urine Ketones Urine Blood Urine Nitrite Urine Bilirubin Urine Urobilinogen Ur Leukocyte Esterase Urine WBC (Auto) Urine RBC (Auto) Urine Casts (Auto) U Epithel Cells (Auto) Urine Bacteria (Auto) Stool Occult Blood COVID-19 ([facility]) Not detected 06/22/20 06/22/20 06/22/20 16:00 17:35 21:45 WBC RBC Hgb Hct MCV MCH MCHC RDW Plt Count MPV Absolute Neuts (auto) Neutrophils % Lymphocytes % Monocytes % Eosinophils % Basophils % Nucleated RBC % PT with INR INR Sodium Potassium Chloride Carbon Dioxide Anion Gap BUN Creatinine Est GFR (CKD-EPI)AfAm Est GFR (CKD-EPI)NonAf POC Glucometer 105 98 Random Glucose Calcium Magnesium Iron TIBC Iron Saturation Unsaturated IBC Ferritin Total Bilirubin AST ALT Alkaline Phosphatase Creatine Kinase Creatine Kinase Index CK-MB (CK-2) Troponin I B-Natriuretic Peptide Total Protein Albumin Triglycerides Cholesterol Total LDL Cholesterol HDL Cholesterol TSH Urine Color Urine Appearance Urine pH Ur Specific [place] Urine Protein Urine Glucose (UA) Urine Ketones Urine Blood Urine Nitrite Urine Bilirubin Urine Urobilinogen Ur Leukocyte Esterase Urine WBC (Auto) Urine RBC (Auto) Urine Casts (Auto) U Epithel Cells (Auto) Urine Bacteria (Auto) Stool Occult Blood Positive COVID-19 ([facility]) 06/23/20 06/23/20 06/23/20 05:53 06:15 06:15 WBC 9.6 RBC 2.60 L Hgb 7.9 L Hct 24.0 L MCV 92.1 MCH 30.3 MCHC 32.9 RDW 15.7 Plt Count 137 MPV 10.0 Absolute Neuts (auto) 8.1 H Neutrophils % 84.6 H Lymphocytes % 7.8 L Monocytes % 7.4 Eosinophils % 0.0 D Basophils % 0.2 Nucleated RBC % 0 PT with INR INR Sodium 139 Potassium 4.4 Chloride 110 H Carbon Dioxide 17 L Anion Gap 13 BUN 95.1 H Creatinine 4.7 H Est GFR (CKD-EPI)AfAm 12.63 Est GFR (CKD-EPI)NonAf 10.90 POC Glucometer 64 Random Glucose 108 H Calcium 7.9 L Magnesium Iron TIBC Iron Saturation Unsaturated IBC Ferritin Total Bilirubin 0.5 AST 121 H ALT 86 H Alkaline Phosphatase 230 H Creatine Kinase 1374 H Creatine Kinase Index 4.3 CK-MB (CK-2) 60.2 H Troponin I 38.50 H* B-Natriuretic Peptide Total Protein 6.0 L Albumin 2.1 L Triglycerides Cholesterol Total LDL Cholesterol HDL Cholesterol TSH Urine Color Urine Appearance Urine pH Ur Specific [place] Urine Protein Urine Glucose (UA) Urine Ketones Urine Blood Urine Nitrite Urine Bilirubin Urine Urobilinogen Ur Leukocyte Esterase Urine WBC (Auto) Urine RBC (Auto) Urine Casts (Auto) U Epithel Cells (Auto) Urine Bacteria (Auto) Stool Occult Blood COVID-19 ([facility]) 06/23/20 06:50 WBC RBC Hgb Hct MCV MCH MCHC RDW Plt Count MPV Absolute Neuts (auto) Neutrophils % Lymphocytes % Monocytes % Eosinophils % Basophils % Nucleated RBC % PT with INR INR Sodium Potassium Chloride Carbon Dioxide Anion Gap BUN Creatinine Est GFR (CKD-EPI)AfAm Est GFR (CKD-EPI)NonAf POC Glucometer 118 Random Glucose Calcium Magnesium Iron TIBC Iron Saturation Unsaturated IBC Ferritin Total Bilirubin AST ALT Alkaline Phosphatase Creatine Kinase Creatine Kinase Index CK-MB (CK-2) Troponin I B-Natriuretic Peptide Total Protein Albumin Triglycerides Cholesterol Total LDL Cholesterol HDL Cholesterol TSH Urine Color Urine Appearance Urine pH Ur Specific [place] Urine Protein Urine Glucose (UA) Urine Ketones Urine Blood Urine Nitrite Urine Bilirubin Urine Urobilinogen Ur Leukocyte Esterase Urine WBC (Auto) Urine RBC (Auto) Urine Casts (Auto) U Epithel Cells (Auto) Urine Bacteria (Auto) Stool Occult Blood COVID-19 ([facility]) Problem List - Problems (1) CHF (congestive heart failure) Code(s): I50.9 - HEART FAILURE, UNSPECIFIED Qualifiers: Heart failure type: unspecified Heart failure chronicity: acute on chronic Qualified Code(s): I50.9 - Heart failure, unspecified (2) Left ventricular systolic dysfunction Code(s): I51.9 - HEART DISEASE, UNSPECIFIED (3) Mild aortic regurgitation Code(s): I35.1 - NONRHEUMATIC AORTIC (VALVE) INSUFFICIENCY (4) Moderate aortic stenosis Code(s): I35.0 - NONRHEUMATIC AORTIC (VALVE) STENOSIS (5) Moderate mitral regurgitation Code(s): I34.0 - NONRHEUMATIC MITRAL (VALVE) INSUFFICIENCY (6) Moderate pulmonary arterial systolic hypertension Code(s): I27.21 - SECONDARY PULMONARY ARTERIAL HYPERTENSION (7) Moderate tricuspid regurgitation Code(s): I07.1 - RHEUMATIC TRICUSPID INSUFFICIENCY (8) Systolic CHF Code(s): I50.20 - UNSPECIFIED SYSTOLIC (CONGESTIVE) HEART FAILURE (9) Anemia Code(s): D64.9 - ANEMIA, UNSPECIFIED Qualifiers: Anemia type: unspecified type Qualified Code(s): D64.9 - Anemia, unspecified (10) CAD (coronary artery disease) Code(s): I25.10 - ATHSCL HEART DISEASE OF [place] CORONARY ARTERY W/O ANG PCTRS (11) CKD (chronic kidney disease) Code(s): N18.9 - CHRONIC KIDNEY DISEASE, UNSPECIFIED (12) 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 Code(s): E11.610 - TYPE 2 DIABETES MELLITUS W DIABETIC NEUROPATHIC ARTHROPATHY (13) Diabetes Code(s): E11.9 - TYPE 2 DIABETES MELLITUS WITHOUT COMPLICATIONS (14) Diabetic foot ulcers Code(s): E11.621 - TYPE 2 DIABETES MELLITUS WITH FOOT ULCER; L97.509 - NON- PRESSURE CHRONIC ULCER OTH PRT UNSP FOOT W UNSP SEVERITY Qualifiers: Diabetic foot ulcer location: midfoot Diabetes mellitus type: type 2 Laterality: left Non-pressure ulcer stage: with fat layer exposed Qualified Code(s): E11.621 - Type 2 diabetes mellitus with foot ulcer; L97.422 - Non- pressure chronic ulcer of left heel and midfoot with fat layer exposed (15) HTN (hypertension) Code(s): I10 - ESSENTIAL (PRIMARY) HYPERTENSION (16) Pacemaker Code(s): Z95.0 - PRESENCE OF CARDIAC PACEMAKER Assessment/Plan Acute/chronic CHF with fluid overload NSTEMI vs STEMI Unable to interpret EKG due to a paced rhythm: TNI 23-->24-->17 - 38; elevated CK, with CKMB relative index > 6. Apical Akinesis, Unable to interpret EKG due to a paced rhythm severe anemia acute/chronic renal dysfunction CAD; s/p coronary stent 2014; negative stress MIBI 10/2019 s/p PPM ([employer]) obesity sedentary chronic bilateral LE edema; s/p left foot surgery (Charcot foot) HTN DM HLD Plan: On ASA; will add Plavix Transfuse PRBC to increase HCT to 30% Start heparine IV - apical [place] high risk for thrombus/CVA Continue carvedilol F/u serial TNI, EKG. Discontinue ACEI or ARB, spironolactone (renal failure). ECHO severely reduced EF apical akinesis - ? Acute [place] On IV furosemidef/u with dredge master. BUN/Cr, electrolytes, Is and Os, daily weight. f/u lipid profile (was on Crestor 40; reduced now to 10 mg due to renal dysfunction). TSH. Discussed with the patient possibility of c. cath , however taking Cr of 4.7 and high likelihood of worsening renal failure and need for HD patient is reluctant to do c. cath. Patient states he does not want to end up on HD. If patient is started on HD due to worsening renal insuficiency and inability to diures will proceed with c. cath. Prognosis is guarded
[2020-06-23] MEDS ORDERED: CLOPIDOGREL BISULFATE 300 MG TABLET PO ONE (10:35)
[2020-06-23] MEDS ORDERED: HEPARIN NA (PORCINE) 5,000 UNITS/ML 1ML VIAL IVPUSH PRN (10:36)
[2020-06-23] MEDS ORDERED: PT OWN MED DRAWER 7, Y5N ONE (11:10)
[2020-06-23] MEDS: POTASSIUM CHLORIDE TABS 20 MEQ TABLET.ER (FP) PO SCH (11:16)
--- NOTE | 2020-06-23 11:40 | PN ---
Progress Note, Physician History of Present Illness: Pt seen and examined at bedside. He says that his breathing is improved today. He denies chest pain. - Current Medication List Current Medications: Active Medications Aspirin (Asa -) 81 mg PO DAILY [facility] Last Admin: 06/23/20 09:11 Dose: 81 mg Documented by: Carvedilol (Coreg -) 25 mg PO BID [facility] Last Admin: 06/23/20 09:14 Dose: 25 mg Documented by: Furosemide (Lasix Injection -) 80 mg IVPB BID@0600,1400 [facility] Last Admin: 06/23/20 06:16 Dose: 80 mg Documented by: Ceftriaxone Sodium 1 gm/ (Dextrose) 50 mls @ 200 mls/hr IVPB DAILY [facility]; Protocol Last Admin: 06/23/20 09:10 Dose: 200 mls/hr Documented by: Insulin Aspart (Novolog Mix 70/30 Vial) 10 units SQ BIDAC [facility] Last Admin: 06/23/20 06:07 Dose: Not Given Documented by: Insulin Aspart (Novolog Vial Sliding Scale -) 1 vial SQ TIDAC [facility]; Protocol Last Admin: 06/23/20 06:08 Dose: Not Given Documented by: Isosorbide Mononitrate (Imdur -) 60 mg PO DAILY [facility] Last Admin: 06/23/20 09:22 Dose: Not Given Documented by: Pantoprazole Sodium (Protonix -) 40 mg PO DAILY [facility] Last Admin: 06/23/20 09:11 Dose: 40 mg Documented by: Potassium Chloride (K-Dur -) 20 meq PO DAILY [facility] Last Admin: 06/23/20 11:16 Dose: 20 meq Documented by: Rosuvastatin Calcium (Crestor -) 10 mg PO HS [facility] Last Admin: 06/22/20 21:51 Dose: 10 mg Documented by: - Objective Vital Signs: Vital Signs Temperature 98 F 06/23/20 09:00 Pulse Rate 64 06/23/20 09:00 Respiratory Rate 18 06/23/20 09:00 Blood Pressure 95/51 L 06/23/20 09:00 O2 Sat by Pulse Oximetry (%) 98 06/23/20 09:00 Constitutional: Yes: Anxious Eyes: Yes: Conjunctiva Clear HENT: Yes: Atraumatic Cardiovascular: Yes: S1, S2 Respiratory: Yes: On Nasal O2 Gastrointestinal: Yes: Soft Genitourinary: Yes: WNL Musculoskeletal: Yes: WNL Edema: Yes Edema: LLE: 2+, RLE: 2+ Neurological: Yes: Oriented Psychiatric: Yes: Oriented Labs: CBC, BMP 06/23/20 06:15 06/23/20 06:15 INR, PTT INR 1.23 (0.83-1.09) H 06/21/20 15:07 Problem List - Problems (1) CHF (congestive heart failure) Code(s): I50.9 - HEART FAILURE, UNSPECIFIED Qualifiers: Heart failure type: unspecified Heart failure chronicity: acute on chronic Qualified Code(s): I50.9 - Heart failure, unspecified (2) CAD (coronary artery disease) Code(s): I25.10 - ATHSCL HEART DISEASE OF [place] CORONARY ARTERY W/O ANG PCTRS (3) CKD (chronic kidney disease) Code(s): N18.9 - CHRONIC KIDNEY DISEASE, UNSPECIFIED Assessment/Plan Current Medications Generic Name Dose Route Start Last Admin Trade Name Freq PRN Reason Stop Dose Admin Aspirin 81 mg 06/22/20 10:30 06/23/20 09:11 Asa - PO 81 mg DAILY [facility] Administration Carvedilol 25 mg 06/21/20 22:00 06/23/20 09:14 Coreg - PO 25 mg BID [facility] Administration Furosemide 80 mg 06/22/20 15:19 06/23/20 06:16 Lasix Injection - IVPB 80 mg BID@0600,1400 [facility] Administration Ceftriaxone Sodium 1 gm/ 50 mls @ 200 mls/hr 06/22/20 13:30 06/23/20 09:10 Dextrose IVPB 200 mls/hr DAILY [facility] Administration Protocol Insulin Aspart 10 units 06/22/20 07:00 06/23/20 06:07 Novolog Mix 70/30 Vial SQ Not Given BIDAC [facility] Insulin Aspart 1 vial 06/21/20 19:45 06/23/20 06:08 Novolog Vial Sliding Scale - SQ Not Given TIDAC [facility] Protocol Isosorbide Mononitrate 60 mg 06/22/20 10:00 06/23/20 09:22 Imdur - PO Not Given DAILY [facility] Pantoprazole Sodium 40 mg 06/22/20 10:30 06/23/20 09:11 Protonix - PO 40 mg DAILY [facility] Administration Potassium Chloride 20 meq 06/23/20 10:00 06/23/20 11:16 K-Dur - PO 20 meq DAILY [facility] Administration Rosuvastatin Calcium 10 mg 06/22/20 22:00 06/22/20 21:51 Crestor - PO 10 mg HS [facility] Administration Impression 1. CKD 2. YENI 3. CHF 4. DM 5. DFU 6. HTN 7. nstemi 8. hypokalemai Plan - cont lasix - renal function is worsening - discussed risk of bibiana from contrast with pt - cont to monitor renal function - monitor bladder scans - cardio input appreicated - cont medical management - trop rising - follow echo - monitor on tele - will follow - no acute indication for hd at the moment
--- NOTE | 2020-06-23 14:04 | PN ---
Progress Note, Physician History of Present Illness: OOB IN CHAIR DEPRESSED REPORTS LESS DYSURIA AFEBRILE WBC WNL AZOTEMIA WORSENED URINE C/S ? ENTEROCOCCUS - Current Medication List Current Medications: Active Medications Aspirin (Asa -) 81 mg PO DAILY [facility] Last Admin: 06/23/20 09:11 Dose: 81 mg Documented by: Carvedilol (Coreg -) 25 mg PO BID [facility] Last Admin: 06/23/20 09:14 Dose: 25 mg Documented by: Furosemide (Lasix Injection -) 80 mg IVPB BID@0600,1400 [facility] Last Admin: 06/23/20 06:16 Dose: 80 mg Documented by: Ceftriaxone Sodium 1 gm/ (Dextrose) 50 mls @ 200 mls/hr IVPB DAILY [facility]; Protocol Last Admin: 06/23/20 09:10 Dose: 200 mls/hr Documented by: Insulin Aspart (Novolog Mix 70/30 Vial) 10 units SQ BIDAC [facility] Last Admin: 06/23/20 06:07 Dose: Not Given Documented by: Insulin Aspart (Novolog Vial Sliding Scale -) 1 vial SQ TIDAC [facility]; Protocol Last Admin: 06/23/20 11:49 Dose: 2 units Documented by: Isosorbide Mononitrate (Imdur -) 60 mg PO DAILY [facility] Last Admin: 06/23/20 09:22 Dose: Not Given Documented by: Pantoprazole Sodium (Protonix -) 40 mg PO DAILY [facility] Last Admin: 06/23/20 09:11 Dose: 40 mg Documented by: Potassium Chloride (K-Dur -) 20 meq PO DAILY [facility] Last Admin: 06/23/20 11:16 Dose: 20 meq Documented by: Rosuvastatin Calcium (Crestor -) 10 mg PO HS [facility] Last Admin: 06/22/20 21:51 Dose: 10 mg Documented by: - Objective Vital Signs: Vital Signs Temperature 97.8 F 06/23/20 14:01 Pulse Rate 62 06/23/20 14:01 Respiratory Rate 18 06/23/20 14:01 Blood Pressure 96/54 L 06/23/20 14:01 O2 Sat by Pulse Oximetry (%) 96 06/23/20 14:01 Constitutional: Yes: No Distress Cardiovascular: Yes: Regular Rate and Rhythm, S1, S2 Respiratory: Yes: Other (FEW CREPITATIONS AT BASES) Gastrointestinal: Yes: Normal Bowel Sounds, Soft. No: Tenderness Edema: Yes Labs: CBC, BMP 06/23/20 06:15 06/23/20 06:15 INR, PTT INR 1.23 (0.83-1.09) H 06/21/20 15:07 Assessment/Plan UTI ? ENTEROCOCCUS DECOMPENSATED CHF DM RENAL FAILURE D/C CEFTRIAXONE VANCOMYCIN X 1 DOSE PENDING C/S
[2020-06-23] MEDS ORDERED: VANCOMYCIN 1 GRAM (PRE-DOCKED) 1,000 MG/250 ML BAG IVPB ONE (14:07)
[2020-06-23 15:44] VITALS: BMI 31.7
[2020-06-23] MEDS: ROSUVASTATIN CA 10 MG TABLET (FP) PO SCH (21:41)
[2020-06-24] MEDS: INSULIN (NOVOLOG MIX 70/30) 100 UNITS/ML MDV SQ SCH ×2 (06:21→17:05)
[2020-06-24] MEDS: INSULIN SLIDING SCALE (NOVOLOG) 1 VIAL SQ SCH ×3 (06:21→17:05)
[2020-06-24] MEDS: FUROSEMIDE 100 MG/10 ML INJECTABLE VIAL IVPB SCH ×2 (06:21→14:18)
[2020-06-24 08:12] LABS: ALBUMIN 2.1 g/dl (3.4-5.0); BASO % 0.2 % (0-2.0); CALCIUM 7.8 mg/dL (8.5-10.1); EOS % 0.1 % (0-4.5); HEMATOCRIT 28.7 % (35.4-49); HEMOGLOBIN 9.3 GM/dL (11.7-16.9); LYMPH % 9.5 % (8-40); MCH 29.2 pg (25.7-33.7); MCHC 32.5 g/dl (32.0-35.9); MEAN CELL VOLUME 89.9 fl (80-96); MEAN PLT VOLUME 9.8 fl (7.5-11.1); MONO % 7.8 % (3.8-10.2); NEUT % 82.4 % (42.8-82.8); PLATELET COUNT 160 K/MM3 (134-434); POTASSIUM 3.9 mmol/L (3.5-5.1); RBC 3.19 M/mm3 (4.00-5.60); WHITE BLOOD COUNT 8.3 K/mm3 (4.0-10.0)
[2020-06-24 08:15] LABS: BILIRUBIN,TOTAL 0.6 mg/dL (0.2-1); TOT PROT 6.1 g/dl (6.4-8.2)
--- NOTE | 2020-06-24 09:19 | PN ---
Progress Note, Physician Chief Complaint: Patient seen and examined at the bedside, no acute events from last night, afebrile, no chest pain, oxygen 3L/min via nasal cannula with spo2 94%. History of Present Illness: This 79 yr old w/m with PMH of IDDM, CHF, CAD with stent, CKD, s/p pacemaker, diabetic peripheral neuropathy, s/p surgery of left foot (Charcot foot) admitted via ER with an acute shortness of breath, iron deficiency anemia, elevated troponin and creatine kinase, acute exacerbation of systolic CHF, hypokalemia, transaminasemia, moderate pulmonary hypertension, mild to moderate aortic stenosis, severe reduction of LV systolic function, moderate mitral regurgitation, moderate tricuspid regurgitation, apical akinesis, EF 30-35%, mild aortic regurgitation. - Current Medication List Current Medications: Active Medications Aspirin (Asa -) 81 mg PO DAILY [facility] Last Admin: 06/23/20 09:11 Dose: 81 mg Documented by: Carvedilol (Coreg -) 25 mg PO BID [facility] Last Admin: 06/23/20 21:41 Dose: 25 mg Documented by: Furosemide (Lasix Injection -) 80 mg IVPB BID@0600,1400 [facility] Last Admin: 06/24/20 06:21 Dose: 80 mg Documented by: Hydralazine HCl (Apresoline -) 10 mg PO BID [facility] Insulin Aspart (Novolog Mix 70/30 Vial) 10 units SQ BIDAC [facility] Last Admin: 06/24/20 06:21 Dose: Not Given Documented by: Insulin Aspart (Novolog Vial Sliding Scale -) 1 vial SQ TIDAC [facility]; Protocol Last Admin: 06/24/20 06:21 Dose: Not Given Documented by: Isosorbide Mononitrate (Imdur -) 60 mg PO DAILY [facility] Last Admin: 06/23/20 09:22 Dose: Not Given Documented by: Pantoprazole Sodium (Protonix -) 40 mg PO DAILY [facility] Last Admin: 06/23/20 09:11 Dose: 40 mg Documented by: Potassium Chloride (K-Dur -) 20 meq PO DAILY [facility] Last Admin: 06/23/20 11:16 Dose: 20 meq Documented by: Rosuvastatin Calcium (Crestor -) 10 mg PO HS [facility] Last Admin: 06/23/20 21:41 Dose: 10 mg Documented by: - Objective Vital Signs: Vital Signs Temperature 97.4 F L 06/24/20 06:00 Pulse Rate 62 06/24/20 06:00 Respiratory Rate 19 06/24/20 06:00 Blood Pressure 108/64 06/24/20 06:00 O2 Sat by Pulse Oximetry (%) 94 L 06/24/20 06:00 Constitutional: Yes: Well Nourished, No Distress, Calm Eyes: Yes: Conjunctiva Clear, EOM Intact HENT: Yes: Atraumatic, Normocephalic Neck: Yes: Supple, Trachea Midline Cardiovascular: Yes: Regular Rate and Rhythm Respiratory: Yes: Regular, CTA Bilaterally Gastrointestinal: Yes: Normal Bowel Sounds, Soft ...Rectal Exam: Yes: Deferred Genitourinary: Yes: WNL Breast(s): Yes: WNL Musculoskeletal: Yes: Muscle Weakness Extremities: Yes: WNL Edema: Yes Edema: LLE: 2+, RLE: 2+ Peripheral Pulses WNL: Yes Integumentary: Yes: Pressure Ulcer (right buttock) Neurological: Yes: Alert, Oriented, Weakness ...Motor Strength: LUE (generalized muscle weakness of all extremities) Psychiatric: Yes: Alert, Oriented Labs: CBC, BMP 06/24/20 06:22 06/24/20 06:22 INR, PTT INR 1.23 (0.83-1.09) H 06/21/20 15:07 - ....Imaging Other: Report Reviewed (lab data reviewed) Problem List - Problems (1) CHF (congestive heart failure) Code(s): I50.9 - HEART FAILURE, UNSPECIFIED Qualifiers: Heart failure type: unspecified Heart failure chronicity: acute on chronic Qualified Code(s): I50.9 - Heart failure, unspecified (2) Anemia Code(s): D64.9 - ANEMIA, UNSPECIFIED Qualifiers: Anemia type: unspecified type Qualified Code(s): D64.9 - Anemia, unspecified (3) CAD (coronary artery disease) Code(s): I25.10 - ATHSCL HEART DISEASE OF [place] CORONARY ARTERY W/O ANG PCTRS (4) CKD (chronic kidney disease) Code(s): N18.9 - CHRONIC KIDNEY DISEASE, UNSPECIFIED (5) 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 Code(s): E11.610 - TYPE 2 DIABETES MELLITUS W DIABETIC NEUROPATHIC ARTHROPATHY (6) Diabetes Code(s): E11.9 - TYPE 2 DIABETES MELLITUS WITHOUT COMPLICATIONS (7) Diabetic foot ulcers Code(s): E11.621 - TYPE 2 DIABETES MELLITUS WITH FOOT ULCER; L97.509 - NON- PRESSURE CHRONIC ULCER OTH PRT UNSP FOOT W UNSP SEVERITY Qualifiers: Diabetic foot ulcer location: midfoot Diabetes mellitus type: type 2 Laterality: left Non-pressure ulcer stage: with fat layer exposed Qualified Code(s): E11.621 - Type 2 diabetes mellitus with foot ulcer; L97.422 - Non-pressure chronic ulcer of left heel and midfoot with fat layer exposed (8) HTN (hypertension) Code(s): I10 - ESSENTIAL (PRIMARY) HYPERTENSION (9) Pacemaker Code(s): Z95.0 - PRESENCE OF CARDIAC PACEMAKER (10) Moderate aortic stenosis Code(s): I35.0 - NONRHEUMATIC AORTIC (VALVE) STENOSIS (11) Moderate pulmonary arterial systolic hypertension Code(s): I27.21 - SECONDARY PULMONARY ARTERIAL HYPERTENSION (12) Systolic CHF Code(s): I50.20 - UNSPECIFIED SYSTOLIC (CONGESTIVE) HEART FAILURE (13) Moderate mitral regurgitation Code(s): I34.0 - NONRHEUMATIC MITRAL (VALVE) INSUFFICIENCY (14) Moderate tricuspid regurgitation Code(s): I07.1 - RHEUMATIC TRICUSPID INSUFFICIENCY (15) Left ventricular systolic dysfunction Code(s): I51.9 - HEART DISEASE, UNSPECIFIED (16) Mild aortic regurgitation Code(s): I35.1 - NONRHEUMATIC AORTIC (VALVE) INSUFFICIENCY Assessment/Plan Assessment/plan: acute shortness of breath, acute exacerbation of systolic CHF, acute myocardial damage, apical akinesis, acute enterococall UTI, iron deficiency anemia, elevated troponin and creatine kinase trending down, hypokalemia, hypocalcemia, hypoalbuminemia, hypoproteinemia, IDDM, CAD with stent, CKD, s/p pacemaker, peripheral diabetic neuropathy, left Charcot foot, mild to moderate , mild AR, moderate MR, moderate TR, severe reduction of LV systolic function, moderate pulmonary hypertension; DVT/GI prophylaxis, IV Furos emide for systolic CHF, Vancomycin for UTI, coreg and isosorbide for CAD, crestor for HLD, IV calcium gluconate for hypocalcemia, potassium chloride for hypokalemia, sliding scale regular insulin coverage, out of bed in chair as tolerated, oxygen 3L/min via nasal cannula with spo2 94%, abnormal EKG, unable to interpret ekg due to paced rhythm with prolonged AV conduction.
[2020-06-24] MEDS: hydrALAZINE HCL 10 MG TABLET PO SCH ×2 (09:42→21:46)
[2020-06-24] MEDS: PANTOPRAZOLE 40 MG TABLET PO SCH (09:42)
[2020-06-24] MEDS: ASPIRIN 81 MG CHEWABLE TABLETS PO SCH (09:42)
[2020-06-24] MEDS: POTASSIUM CHLORIDE TABS 20 MEQ TABLET.ER (FP) PO SCH (09:42)
[2020-06-24] MEDS: ISOSORBIDE MONONITRATE 60 MG TAB.SR.24H (FP) PO SCH (09:42)
[2020-06-24] MEDS: CARVEDILOL 25 MG TABLET (FP) PO SCH ×2 (09:42→21:46)
[2020-06-24] MEDS ORDERED: CALCIUM GLUCONATE 10% - 1,000 MG/10 ML VIAL IVPB ONE (11:00)
[2020-06-24] MEDS ORDERED: SODIUM BICARBONATE 8.4% 50 MEQ/50 ML DISP.SYRIN IVPUSH ONE (11:00)
--- NOTE | 2020-06-24 11:26 | EKG ---
Test Reason : Blood Pressure : / mmHG Vent. Rate : 062 BPM Atrial Rate : 064 BPM P-R Int : 186 ms QRS Dur : 204 ms QT Int : 494 ms P-R-T Axes : 000 -55 122 degrees QTc Int : 501 ms AV dual-paced rhythm ABNORMAL ECG WHEN COMPARED WITH ECG OF 21-JUN-2020 13:51, NO SIGNIFICANT CHANGE WAS FOUND Confirmed by SONA WHITAKER MD ([id number]) on 06/24/2020 11:26:18 AM Referred By: Confirmed By:SONA WHITAKER MD
--- NOTE | 2020-06-24 11:41 | PN ---
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 SOB began at rest yesterday evening, a few hours after patient had eaten a salty meal. SOB occurs both at rest and with exertion, and is worse than his baseline. Pt endorses muscle soreness in left chest but no chest pain. He denies nausea, vomiting , diaphoresis, fevers, chills or recent sick contacts. Pt endorses 3lb weight gain since yesterday, and increased swelling in both legs. Geophysical Computer: Dr. Zay Walters - Current Medication List Current Medications: Active Medications Aspirin (Asa -) 81 mg PO DAILY [facility] Last Admin: 06/24/20 09:42 Dose: 81 mg Documented by: Carvedilol (Coreg -) 25 mg PO BID [facility] Last Admin: 06/24/20 09:42 Dose: 25 mg Documented by: Furosemide (Lasix Injection -) 80 mg IVPB BID@0600,1400 [facility] Last Admin: 06/24/20 06:21 Dose: 80 mg Documented by: Hydralazine HCl (Apresoline -) 10 mg PO BID [facility] Last Admin: 06/24/20 09:42 Dose: 10 mg Documented by: Insulin Aspart (Novolog Mix 70/30 Vial) 10 units SQ BIDAC [facility] Last Admin: 06/24/20 06:21 Dose: Not Given Documented by: Insulin Aspart (Novolog Vial Sliding Scale -) 1 vial SQ TIDAC [facility]; Protocol Last Admin: 06/24/20 06:21 Dose: Not Given Documented by: Isosorbide Mononitrate (Imdur -) 60 mg PO DAILY [facility] Last Admin: 06/24/20 09:42 Dose: 60 mg Documented by: Pantoprazole Sodium (Protonix -) 40 mg PO DAILY [facility] Last Admin: 06/24/20 09:42 Dose: 40 mg Documented by: Potassium Chloride (K-Dur -) 20 meq PO DAILY [facility] Last Admin: 06/24/20 09:42 Dose: 20 meq Documented by: Rosuvastatin Calcium (Crestor -) 10 mg PO HS [facility] Last Admin: 06/23/20 21:41 Dose: 10 mg Documented by: - Objective Vital Signs: Vital Signs Temperature 97.6 F 06/24/20 09:00 Pulse Rate 61 06/24/20 09:00 Respiratory Rate 18 06/24/20 09:00 Blood Pressure 107/59 L 06/24/20 09:00 O2 Sat by Pulse Oximetry (%) 98 06/24/20 09:00 Constitutional: Yes: Calm, Obese Eyes: Yes: WNL HENT: Yes: WNL Neck: Yes: WNL Cardiovascular: Yes: S1 (split), S2 (split) Respiratory: Yes: Regular ...Rectal Exam: Yes: Deferred Genitourinary: No: Anuria Breast(s): Yes: WNL Musculoskeletal: Yes: Muscle Weakness Extremities: Yes: Cool Edema: Yes Edema: LLE: Trace, RLE: Trace Peripheral Pulses WNL: Yes Neurological: Yes: Alert, Oriented, Weakness Psychiatric: Yes: WNL Labs: CBC, BMP 06/24/20 06:22 06/24/20 06:22 INR, PTT INR 1.23 (0.83-1.09) H 06/21/20 15:07 Abnormal Lab Results 06/24/20 06/24/20 06/25/20 06:22 06:22 04:55 RBC 3.19 L 3.04 L Hgb 9.3 L 8.9 L Hct 28.7 L D 27.5 L RDW 16.0 H 16.1 H PTT (Actin FS) Chloride Carbon Dioxide 13 L Anion Gap 18 H BUN 103.0 H Creatinine 5.0 H Random Glucose 54 L Calcium 7.8 L Phosphorus AST 103 H ALT 104 H Alkaline Phosphatase 270 H Creatine Kinase 767 H CK-MB (CK-2) 24.9 H Troponin I 24.20 H* Total Protein 6.1 L Albumin 2.1 L 06/25/20 06/25/20 04:55 04:55 RBC Hgb Hct RDW PTT (Actin FS) 50.4 H Chloride 109 H Carbon Dioxide 15 L Anion Gap BUN 112.2 H* Creatinine 5.4 H Random Glucose 153 H Calcium 7.4 L Phosphorus 8.5 H AST 59 H ALT 89 H Alkaline Phosphatase 269 H Creatine Kinase CK-MB (CK-2) Troponin I Total Protein 5.8 L Albumin 2.0 L Assessment/Plan Acute/chronic CHF with fluid overload NSTEMI: TNI 23-->24-->17; elevated CK, with CKMB relative index > 6. severe anemia acute/chronic renal dysfunction CAD; s/p coronary stent 2014; negative stress MIBI 10/2019 s/p PPM ([employer]) obesity sedentary chronic bilateral LE edema; s/p left foot surgery (Charcot foot) HTN DM HLD Plan: On ASA and Plavix Transfused 1 U PRBC, and give as needed to increase HCT to 30% Started heparin IV - apical TX high risk for thrombus/CVA Continue carvedilol; start hydralazine (already on Imdur) if BP allows. F/u serial TNI, EKG. ECHO severely reduced EF apical akinesis - Acute TX On IV furosemide; discussed with high school home economics teacher. BUN/Cr, electrolytes, Is and Os, daily weight. f/u lipid profile (was on Crestor 40; reduced now to 10 mg due to renal dysfunction). TSH WNL. Discussed with the patient possibility of c. cath , however taking Cr, rising acutely (now 5.0) and high likelihood of worsening renal failure and need for HD, patient is reluctant to do c. cath. Patient states he does not want to end up on HD. If patient is started on HD due to worsening renal insuficiency and inability to diurese will proceed with c. cath. This was discussed with Father Junior, and he agrees with plan. Prognosis is guarded
--- NOTE | 2020-06-24 13:43 | PN ---
Progress Note, Physician History of Present Illness: Pt seen and examined at bedside. He is awake and alert. He gets shortness of breath when he lays flat. - Current Medication List Current Medications: Active Medications Aspirin (Asa -) 81 mg PO DAILY [facility] Last Admin: 06/24/20 09:42 Dose: 81 mg Documented by: Carvedilol (Coreg -) 25 mg PO BID [facility] Last Admin: 06/24/20 09:42 Dose: 25 mg Documented by: Furosemide (Lasix Injection -) 80 mg IVPB BID@0600,1400 [facility] Last Admin: 06/24/20 06:21 Dose: 80 mg Documented by: Hydralazine HCl (Apresoline -) 10 mg PO BID [facility] Last Admin: 06/24/20 09:42 Dose: 10 mg Documented by: Insulin Aspart (Novolog Mix 70/30 Vial) 10 units SQ BIDAC [facility] Last Admin: 06/24/20 06:21 Dose: Not Given Documented by: Insulin Aspart (Novolog Vial Sliding Scale -) 1 vial SQ TIDAC [facility]; Protocol Last Admin: 06/24/20 12:25 Dose: Not Given Documented by: Isosorbide Mononitrate (Imdur -) 60 mg PO DAILY [facility] Last Admin: 06/24/20 09:42 Dose: 60 mg Documented by: Pantoprazole Sodium (Protonix -) 40 mg PO DAILY [facility] Last Admin: 06/24/20 09:42 Dose: 40 mg Documented by: Potassium Chloride (K-Dur -) 20 meq PO DAILY [facility] Last Admin: 06/24/20 09:42 Dose: 20 meq Documented by: Rosuvastatin Calcium (Crestor -) 10 mg PO HS [facility] Last Admin: 06/23/20 21:41 Dose: 10 mg Documented by: - Objective Vital Signs: Vital Signs Temperature 97.6 F 06/24/20 09:00 Pulse Rate 61 06/24/20 09:00 Respiratory Rate 18 06/24/20 09:00 Blood Pressure 107/59 L 06/24/20 09:00 O2 Sat by Pulse Oximetry (%) 98 06/24/20 09:00 Constitutional: Yes: Calm Eyes: Yes: Conjunctiva Clear HENT: Yes: Atraumatic Neck: Yes: Supple Cardiovascular: Yes: S1, S2 Respiratory: Yes: On Nasal O2 Gastrointestinal: Yes: Soft Genitourinary: Yes: WNL Edema: Yes Edema: LLE: 2+, RLE: 2+ Neurological: Yes: Oriented Psychiatric: Yes: Oriented Labs: CBC, BMP 06/24/20 06:22 06/24/20 06:22 INR, PTT INR 1.23 (0.83-1.09) H 06/21/20 15:07 Problem List - Problems (1) CHF (congestive heart failure) Code(s): I50.9 - HEART FAILURE, UNSPECIFIED Qualifiers: Heart failure type: unspecified Heart failure chronicity: acute on chronic Qualified Code(s): I50.9 - Heart failure, unspecified (2) CAD (coronary artery disease) Code(s): I25.10 - ATHSCL HEART DISEASE OF [place] CORONARY ARTERY W/O ANG PCTRS (3) CKD (chronic kidney disease) Code(s): N18.9 - CHRONIC KIDNEY DISEASE, UNSPECIFIED Assessment/Plan Current Medications Generic Name Dose Route Start Last Admin Trade Name Freq PRN Reason Stop Dose Admin Aspirin 81 mg 06/22/20 10:30 06/24/20 09:42 Asa - PO 81 mg DAILY [facility] Administration Carvedilol 25 mg 06/21/20 22:00 06/24/20 09:42 Coreg - PO 25 mg BID [facility] Administration Furosemide 80 mg 06/22/20 15:19 06/24/20 06:21 Lasix Injection - IVPB 80 mg BID@0600,1400 [facility] Administration Hydralazine HCl 10 mg 06/24/20 10:00 06/24/20 09:42 Apresoline - PO 10 mg BID [facility] Administration Insulin Aspart 10 units 06/22/20 07:00 06/24/20 06:21 Novolog Mix 70/30 Vial SQ Not Given BIDAC [facility] Insulin Aspart 1 vial 06/21/20 19:45 06/24/20 12:25 Novolog Vial Sliding Scale - SQ Not Given TIDAC [facility] Protocol Isosorbide Mononitrate 60 mg 06/22/20 10:00 06/24/20 09:42 Imdur - PO 60 mg DAILY [facility] Administration Pantoprazole Sodium 40 mg 06/22/20 10:30 06/24/20 09:42 Protonix - PO 40 mg DAILY [facility] Administration Potassium Chloride 20 meq 06/23/20 10:00 06/24/20 09:42 K-Dur - PO 20 meq DAILY [facility] Administration Rosuvastatin Calcium 10 mg 06/22/20 22:00 06/23/20 21:41 Crestor - PO 10 mg HS [facility] Administration Impression 1. CKD 2. YENI 3. CHF 4. DM 5. DFU 6. HTN 7. nstemi 8. hypokalemai Plan - cont with lasix - will give bicarb - check renal ultrasound - repeat labs in am - may need HD tomorrow - discussed fundraising manager with pt - discussed with cardio, possible cath - monitor trop
--- NOTE | 2020-06-24 15:01 | PN ---
Progress Note, Physician History of Present Illness: OOB IN CHAIR REPORTS LESS DYSURIA AFEBRILE WBC WNL AZOTEMIA WORSENED LFTS REMAIN ELEVATED URINE C/S ENTEROCOCCUS - Current Medication List Current Medications: Active Medications Aspirin (Asa -) 81 mg PO DAILY [facility] Last Admin: 06/24/20 09:42 Dose: 81 mg Documented by: Carvedilol (Coreg -) 25 mg PO BID [facility] Last Admin: 06/24/20 09:42 Dose: 25 mg Documented by: Furosemide (Lasix Injection -) 80 mg IVPB BID@0600,1400 [facility] Last Admin: 06/24/20 14:18 Dose: 80 mg Documented by: Hydralazine HCl (Apresoline -) 10 mg PO BID [facility] Last Admin: 06/24/20 09:42 Dose: 10 mg Documented by: Insulin Aspart (Novolog Mix 70/30 Vial) 10 units SQ BIDAC [facility] Last Admin: 06/24/20 06:21 Dose: Not Given Documented by: Insulin Aspart (Novolog Vial Sliding Scale -) 1 vial SQ TIDAC [facility]; Protocol Last Admin: 06/24/20 12:25 Dose: Not Given Documented by: Isosorbide Mononitrate (Imdur -) 60 mg PO DAILY [facility] Last Admin: 06/24/20 09:42 Dose: 60 mg Documented by: Pantoprazole Sodium (Protonix -) 40 mg PO DAILY [facility] Last Admin: 06/24/20 09:42 Dose: 40 mg Documented by: Potassium Chloride (K-Dur -) 20 meq PO DAILY [facility] Last Admin: 06/24/20 09:42 Dose: 20 meq Documented by: Rosuvastatin Calcium (Crestor -) 10 mg PO HS [facility] Last Admin: 06/23/20 21:41 Dose: 10 mg Documented by: - Objective Vital Signs: Vital Signs Temperature 98.1 F 06/24/20 14:16 Pulse Rate 64 06/24/20 14:16 Respiratory Rate 20 06/24/20 14:16 Blood Pressure 106/60 06/24/20 14:16 O2 Sat by Pulse Oximetry (%) 98 06/24/20 09:00 Constitutional: Yes: No Distress, Obese Cardiovascular: Yes: Regular Rate and Rhythm, S1, S2 Respiratory: Yes: Other (FEW CREPITATIONS AT BASES) Gastrointestinal: Yes: Normal Bowel Sounds, Soft. No: Tenderness Edema: Yes Labs: CBC, BMP 06/24/20 06:22 06/24/20 06:22 INR, PTT INR 1.23 (0.83-1.09) H 06/21/20 15:07 Assessment/Plan UTI ENTEROCOCCUS DECOMPENSATED CHF DM RENAL FAILURE AMOXICILLIN 250MG PO BID ADDITIONAL 7D
[2020-06-24] MEDS ORDERED: PT OWN MED DRAWER 7, Y5N ONE ×2 (17:45→21:43)
[2020-06-24] MEDS ORDERED: HEPARIN NA (PORCINE) 5,000 UNITS/ML 1ML VIAL IVPUSH PRN ×2 (21:30)
[2020-06-24] MEDS: AMOXICILLIN 250 MG CAPSULE PO SCH (21:45)
[2020-06-24] MEDS: ROSUVASTATIN CA 10 MG TABLET (FP) PO SCH (21:45)
[2020-06-24] MEDS: TEMAZEPAM 15 MG CAPSULE PO SCH (21:59)
[2020-06-24] MEDS: HEPARIN - 25,000 UNIT in SODIUM CHLORIDE 495 ML IV SCH (22:20)
[2020-06-25 05:08] LABS: BASO % 0.6 % (0-2.0); EOS % 0.7 % (0-4.5); HEMATOCRIT 27.5 % (35.4-49); HEMOGLOBIN 8.9 GM/dL (11.7-16.9); LYMPH % 10.1 % (8-40); MCH 29.3 pg (25.7-33.7); MCHC 32.4 g/dl (32.0-35.9); MEAN CELL VOLUME 90.3 fl (80-96); MEAN PLT VOLUME 9.2 fl (7.5-11.1); MONO % 8.6 % (3.8-10.2); PLATELET COUNT 160 K/MM3 (134-434); RBC 3.04 M/mm3 (4.00-5.60); RDW 16.1 % (11.9-15.9); WHITE BLOOD COUNT 6.6 K/mm3 (4.0-10.0)
[2020-06-25 05:34] LABS: BILIRUBIN,TOTAL 0.4 mg/dL (0.2-1); CALCIUM 7.4 mg/dL (8.5-10.1); CREATININE 5.4 mg/dL (0.55-1.3); MAGNESIUM 2.2 mg/dL (1.8-2.4); POTASSIUM 3.8 mmol/L (3.5-5.1); TOT PROT 5.8 g/dl (6.4-8.2)
[2020-06-25] MEDS: INSULIN SLIDING SCALE (NOVOLOG) 1 VIAL SQ SCH ×3 (06:22→19:01)
[2020-06-25] MEDS: FUROSEMIDE 100 MG/10 ML INJECTABLE VIAL IVPB SCH ×2 (06:23→15:57)
[2020-06-25] MEDS: INSULIN (NOVOLOG MIX 70/30) 100 UNITS/ML MDV SQ SCH ×2 (06:24→19:01)
[2020-06-25 06:31] LABS: PHOSPHOROUS 8.5 mg/dL (2.5-4.9)
[2020-06-25 06:32] LABS: BLOOD UREA NITROGEN 112.2 mg/dL (7-18)
--- NOTE | 2020-06-25 08:16 | PN ---
Progress Note, Physician Chief Complaint: Patient seen and examined at the bedside, no acute events from last night, no labored breathing, afebrile. History of Present Illness: This 79 yr old w/m with PMH of CHF, IDDM, CAD with stent, CKD, s/p pacemaker, diabetic peripheral neuropathy, left Charcot foot admitted via ER with an acute shortness of breath, acute exacerbation of systolic CHF, iron deficiency anemia, mild AR, moderate , elevated troponin and creatine kinase, acute myocardial infarction, moderate pulmonary hypertension, hypokalemia, severe reduction in LV systolic function, moderate MR, moderate TR. - Current Medication List Current Medications: Active Medications Amoxicillin (Amoxicillin -) 250 mg PO BID [facility] Last Admin: 06/24/20 21:45 Dose: 250 mg Documented by: Aspirin (Asa -) 81 mg PO DAILY [facility] Last Admin: 06/24/20 09:42 Dose: 81 mg Documented by: Carvedilol (Coreg -) 25 mg PO BID [facility] Last Admin: 06/24/20 21:46 Dose: 25 mg Documented by: Furosemide (Lasix Injection -) 80 mg IVPB BID@0600,1400 [facility] Last Admin: 06/25/20 06:23 Dose: 80 mg Documented by: Heparin Sodium (Porcine) (Heparin -) 5,000 unit IVPUSH PRN PRN PRN Reason: APTT (SECONDS) <40 Heparin Sodium (Porcine) (Heparin -) 1,000 unit IVPUSH PRN PRN PRN Reason: APTT (SECONDS) 40-49 Hydralazine HCl (Apresoline -) 10 mg PO BID [facility] Last Admin: 06/24/20 21:46 Dose: 10 mg Documented by: Heparin Sodium (Porcine) 25, (000 unit/ Sodium Chloride) 500 mls @ 20 mls/hr IV TITR [facility]; Protocol Last Titration: 06/25/20 05:30 Dose: 1,000 unit/hr, 20 mls/hr Documented by: Insulin Aspart (Novolog Mix 70/30 Vial) 10 units SQ BIDAC [facility] Last Admin: 06/25/20 06:24 Dose: 10 units Documented by: Insulin Aspart (Novolog Vial Sliding Scale -) 1 vial SQ TIDAC [facility]; Protocol Last Admin: 06/25/20 06:22 Dose: Not Given Documented by: Isosorbide Mononitrate (Imdur -) 60 mg PO DAILY [facility] Last Admin: 06/24/20 09:42 Dose: 60 mg Documented by: Pantoprazole Sodium (Protonix -) 40 mg PO DAILY [facility] Last Admin: 06/24/20 09:42 Dose: 40 mg Documented by: Potassium Chloride (K-Dur -) 20 meq PO DAILY [facility] Last Admin: 06/24/20 09:42 Dose: 20 meq Documented by: Rosuvastatin Calcium (Crestor -) [address] [facility] Last Admin: 06/24/20 21:45 Dose: 10 mg Documented by: Sevelamer Carbonate (Renvela -) 800 mg PO TIDCM [facility] Temazepam (Restoril -) [address] [facility] Last Admin: 06/24/20 21:59 Dose: 15 mg Documented by: - Objective Vital Signs: Vital Signs Temperature 97.5 F L 06/25/20 06:00 Pulse Rate 60 06/25/20 06:00 Respiratory Rate 20 06/25/20 06:00 Blood Pressure 113/63 06/25/20 06:00 O2 Sat by Pulse Oximetry (%) 95 06/25/20 02:00 Constitutional: Yes: Well Nourished, No Distress, Calm Eyes: Yes: Conjunctiva Clear, EOM Intact HENT: Yes: Atraumatic, Normocephalic Neck: Yes: Supple, Trachea Midline Cardiovascular: Yes: Regular Rate and Rhythm Respiratory: Yes: Regular, CTA Bilaterally, Diminished Gastrointestinal: Yes: Normal Bowel Sounds, Soft ...Rectal Exam: Yes: Deferred Genitourinary: Yes: WNL Breast(s): Yes: WNL Musculoskeletal: Yes: Muscle Weakness Extremities: Yes: Other (left Charcot foot) Edema: Yes Edema: LLE: 2+, RLE: 2+ Peripheral Pulses WNL: Yes Integumentary: Yes: Pressure Ulcer (right buttock, left plantar foot) Neurological: Yes: Alert, Oriented, Loss of Sensation, Numbness, Paresthesia, Unsteady Gait, Weakness ...Motor Strength: LUE (generalized muscle weakness of all extremties) Psychiatric: Yes: Alert, Oriented Labs: CBC, BMP 06/25/20 04:55 06/25/20 04:55 INR, PTT INR 1.23 (0.83-1.09) H 06/21/20 15:07 - ....Imaging Other: Report Reviewed (lab data reviewed) Problem List - Problems (1) CHF (congestive heart failure) Code(s): I50.9 - HEART FAILURE, UNSPECIFIED Qualifiers: Heart failure type: unspecified Heart failure chronicity: acute on chronic Qualified Code(s): I50.9 - Heart failure, unspecified (2) Anemia Code(s): D64.9 - ANEMIA, UNSPECIFIED Qualifiers: Anemia type: unspecified type Qualified Code(s): D64.9 - Anemia, unspecified (3) CAD (coronary artery disease) Code(s): I25.10 - ATHSCL HEART DISEASE OF [place] CORONARY ARTERY W/O ANG PCTRS (4) CKD (chronic kidney disease) Code(s): N18.9 - CHRONIC KIDNEY DISEASE, UNSPECIFIED (5) 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 Code(s): E11.610 - TYPE 2 DIABETES MELLITUS W DIABETIC NEUROPATHIC ARTHROPATHY (6) Diabetes Code(s): E11.9 - TYPE 2 DIABETES MELLITUS WITHOUT COMPLICATIONS (7) Diabetic foot ulcers Code(s): E11.621 - TYPE 2 DIABETES MELLITUS WITH FOOT ULCER; L97.509 - NON- PRESSURE CHRONIC ULCER OTH PRT UNSP FOOT W UNSP SEVERITY Qualifiers: Diabetic foot ulcer location: midfoot Diabetes mellitus type: type 2 Laterality: left Non-pressure ulcer stage: with fat layer exposed Qualified Code(s): E11.621 - Type 2 diabetes mellitus with foot ulcer; L97.422 - Non- pressure chronic ulcer of left heel and midfoot with fat layer exposed (8) HTN (hypertension) Code(s): I10 - ESSENTIAL (PRIMARY) HYPERTENSION (9) Pacemaker Code(s): Z95.0 - PRESENCE OF CARDIAC PACEMAKER (10) Moderate aortic stenosis Code(s): I35.0 - NONRHEUMATIC AORTIC (VALVE) STENOSIS (11) Moderate pulmonary arterial systolic hypertension Code(s): I27.21 - SECONDARY PULMONARY ARTERIAL HYPERTENSION (12) Systolic CHF Code(s): I50.20 - UNSPECIFIED SYSTOLIC (CONGESTIVE) HEART FAILURE (13) Moderate mitral regurgitation Code(s): I34.0 - NONRHEUMATIC MITRAL (VALVE) INSUFFICIENCY (14) Moderate tricuspid regurgitation Code(s): I07.1 - RHEUMATIC TRICUSPID INSUFFICIENCY (15) Left ventricular systolic dysfunction Code(s): I51.9 - HEART DISEASE, UNSPECIFIED (16) Mild aortic regurgitation Code(s): I35.1 - NONRHEUMATIC AORTIC (VALVE) INSUFFICIENCY Assessment/Plan Assessment/plan: acute shortness of breath, acute exacerbation of systolic CHF, acute myocardial infarction, iron deficiency anemia, rising BUN and creatinine, hyperphosphatemia, elevated troponin and creating kinase, IDDM, CAD with stent, s/p pacemaker, diabetic peripeheral neuropathy, left Charcot foot, hypokalemia, moderate pulmonary hypertension, moderate TR, moderate MR, moderate , mild AR, severe reduction in LV systolic function, EF 30-35%; a/c with IV Heparin, Amoxicillin as per ID for UTI, coreg, hydralazine, and isosorbide for CAD, IV furosemide for systolic CHF, sevelamer for hyperphosphatemia, crestor for HLD, temazepam for insomnia, potassium chloride for hypokalemia, DVT/GI prophylaxis, sliding scale regular insulin coverage, oxygen 3L/min via nasal cannula with spo2 96%, out of bed in chair as tolerated.
--- NOTE | 2020-06-25 08:41 | PN ---
Progress Note, Physician History of Present Illness: Father Junior is an 79 y/o white man with PMH of systolic CHF; pacemaker, DM, CAD with stenting, Charcot foot-->left foot surgery, CKD, anemia, obesity, ?sleep apnea, sedentary, chronic bilateral leg edema/induration, now presenting with shortness of breath x 2 days. SOB began at rest yesterday evening, a few hours after patient had eaten a salty meal. SOB occurs both at rest and with exe rtion, and is worse than his baseline. Pt endorses muscle soreness in left chest but no chest pain. He denies nausea, vomiting , diaphoresis, fevers, chills or recent sick contacts. Pt endorses 3lb weight gain since yesterday, and increased swelling in both legs. PMH Left foot ulcer debridement June 2019 Pacemaker implanted 2014 ([employer]) DDD Bilateral cataract removal 2015 Cardiac cath PCI placed before 2014 Sammi Ongoing medical problems CAD Systolic CHF > 10 years, last hospitalization with CHF exacerbation April 2019 Diabetes Mellitus Type 1 Charot foot (left foot) Hyperlipidemia Hypertension Chronic Renal Insufficiency. (baseline Creatine 2.5-3 mg/dL) ECHO today (10/03/19) showed anterio-apical, apical and apical septal severe hypokinease with EF of 40%. Possible aortic bicuspid valve. Lexiscan MIBI stress test 2018 was negative for inducible ischemia, old inferio apical mi was present, EF 35%. - Current Medication List Current Medications: Active Medications Amoxicillin (Amoxicillin -) 250 mg PO BID [facility] Last Admin: 06/24/20 21:45 Dose: 250 mg Documented by: Aspirin (Asa -) 81 mg PO DAILY [facility] Last Admin: 06/24/20 09:42 Dose: 81 mg Documented by: Carvedilol (Coreg -) 25 mg PO BID [facility] Last Admin: 06/24/20 21:46 Dose: 25 mg Documented by: Furosemide (Lasix Injection -) 80 mg IVPB BID@0600,1400 [facility] Last Admin: 06/25/20 06:23 Dose: 80 mg Documented by: Heparin Sodium (Porcine) (Heparin -) 5,000 unit IVPUSH PRN PRN PRN Reason: APTT (SECONDS) <40 Heparin Sodium (Porcine) (Heparin -) 1,000 unit IVPUSH PRN PRN PRN Reason: APTT (SECONDS) 40-49 Hydralazine HCl (Apresoline -) 10 mg PO BID [facility] Last Admin: 06/24/20 21:46 Dose: 10 mg Documented by: Heparin Sodium (Porcine) 25, (000 unit/ Sodium Chloride) 500 mls @ 20 mls/hr IV TITR [facility]; Protocol Last Titration: 06/25/20 05:30 Dose: 1,000 unit/hr, 20 mls/hr Documented by: Insulin Aspart (Novolog Mix 70/30 Vial) 10 units SQ BIDAC [facility] Last Admin: 06/25/20 06:24 Dose: 10 units Documented by: Insulin Aspart (Novolog Vial Sliding Scale -) 1 vial SQ TIDAC [facility]; Protocol Last Admin: 06/25/20 06:22 Dose: Not Given Documented by: Isosorbide Mononitrate (Imdur -) 60 mg PO DAILY [facility] Last Admin: 06/24/20 09:42 Dose: 60 mg Documented by: Pantoprazole Sodium (Protonix -) 40 mg PO DAILY [facility] Last Admin: 06/24/20 09:42 Dose: 40 mg Documented by: Potassium Chloride (K-Dur -) 20 meq PO DAILY [facility] Last Admin: 06/24/20 09:42 Dose: 20 meq Documented by: Rosuvastatin Calcium (Crestor -) 10 mg PO HS [facility] Last Admin: 06/24/20 21:45 Dose: 10 mg Documented by: Sevelamer Carbonate (Renvela -) 800 mg PO TIDCM [facility] Temazepam (Restoril -) 15 mg PO HS [facility] Last Admin: 06/24/20 21:59 Dose: 15 mg Documented by: - Objective Vital Signs: Vital Signs Temperature 97.5 F L 06/25/20 06:00 Pulse Rate 60 06/25/20 06:00 Respiratory Rate 20 06/25/20 06:00 Blood Pressure 113/63 06/25/20 06:00 O2 Sat by Pulse Oximetry (%) 95 06/25/20 02:00 Eyes: Yes: WNL, Conjunctiva Clear, EOM Intact HENT: Yes: WNL, Atraumatic, Normocephalic Neck: Yes: WNL, Supple, Trachea Midline Cardiovascular: Yes: WNL, Regular Rate and Rhythm Respiratory: Yes: WNL, Regular, CTA Bilaterally Gastrointestinal: Yes: WNL, Normal Bowel Sounds Genitourinary: Yes: WNL Musculoskeletal: Yes: WNL Extremities: Yes: WNL Edema: Yes Integumentary: Yes: WNL Neurological: Yes: WNL, Alert, Oriented ...Motor Strength: WNL Psychiatric: Yes: WNL Labs: CBC, BMP 06/25/20 04:55 06/25/20 04:55 INR, PTT INR 1.23 (0.83-1.09) H 06/21/20 15:07 Problem List - Problems (1) CHF (congestive heart failure) Code(s): I50.9 - HEART FAILURE, UNSPECIFIED Qualifiers: Heart failure type: unspecified Heart failure chronicity: acute on chronic Qualified Code(s): I50.9 - Heart failure, unspecified (2) Left ventricular systolic dysfunction Code(s): I51.9 - HEART DISEASE, UNSPECIFIED (3) Mild aortic regurgitation Code(s): I35.1 - NONRHEUMATIC AORTIC (VALVE) INSUFFICIENCY (4) Moderate aortic stenosis Code(s): I35.0 - NONRHEUMATIC AORTIC (VALVE) STENOSIS (5) Moderate mitral regurgitation Code(s): I34.0 - NONRHEUMATIC MITRAL (VALVE) INSUFFICIENCY (6) Moderate pulmonary arterial systolic hypertension Code(s): I27.21 - SECONDARY PULMONARY ARTERIAL HYPERTENSION (7) Moderate tricuspid regurgitation Code(s): I07.1 - RHEUMATIC TRICUSPID INSUFFICIENCY (8) Systolic CHF Code(s): I50.20 - UNSPECIFIED SYSTOLIC (CONGESTIVE) HEART FAILURE (9) Anemia Code(s): D64.9 - ANEMIA, UNSPECIFIED Qualifiers: Anemia type: unspecified type Qualified Code(s): D64.9 - Anemia, unspecified (10) CAD (coronary artery disease) Code(s): I25.10 - ATHSCL HEART DISEASE OF [place] CORONARY ARTERY W/O ANG PCTRS (11) CKD (chronic kidney disease) Code(s): N18.9 - CHRONIC KIDNEY DISEASE, UNSPECIFIED (12) 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 Code(s): E11.610 - TYPE 2 DIABETES MELLITUS W DIABETIC NEUROPATHIC ARTHROPATHY (13) Diabetes Code(s): E11.9 - TYPE 2 DIABETES MELLITUS WITHOUT COMPLICATIONS (14) Diabetic foot ulcers Code(s): E11.621 - TYPE 2 DIABETES MELLITUS WITH FOOT ULCER; L97.509 - NON- PRESSURE CHRONIC ULCER OTH PRT UNSP FOOT W UNSP SEVERITY Qualifiers: Diabetic foot ulcer location: midfoot Diabetes mellitus type: type 2 Laterality: left Non-pressure ulcer stage: with fat layer exposed Qualified Code(s): E11.621 - Type 2 diabetes mellitus with foot ulcer; L97.422 - Non- pressure chronic ulcer of left heel and midfoot with fat layer exposed (15) HTN (hypertension) Code(s): I10 - ESSENTIAL (PRIMARY) HYPERTENSION (16) Pacemaker Code(s): Z95.0 - PRESENCE OF CARDIAC PACEMAKER Assessment/Plan Acute/chronic CHF with fluid overload NSTEMI: TNI 23-->24-->17; elevated CK, with CKMB relative index > 6. severe anemia acute/chronic renal dysfunction CAD; s/p coronary stent 2014; negative stress MIBI 10/2019 s/p PPM ([employer]) obesity sedentary chronic bilateral LE edema; s/p left foot surgery (Charcot foot) HTN DM HLD Plan: On ASA and Plavix Transfused 1 U PRBC, and give as needed to increase HCT to 30% Started heparin IV - apical ME high risk for thrombus/CVA Continue carvedilol; start hydralazine (already on Imdur) if BP allows. F/u serial TNI, EKG. 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 BUN/Cr, electrolytes, Is and Os, daily weight. f/u lipid profile (was on Crestor 40; reduced now to 10 mg due to renal dysfunction). TSH WNL. HD today. Will consider c. cath next week Prognosis is guarded
[2020-06-25] MEDS: SEVELAMER CARBONATE 800 MG TAB (FP) PO SCH ×3 (09:02→19:02)
[2020-06-25] MEDS ORDERED: PT OWN MED DRAWER 7, Y5N ONE (09:39)
[2020-06-25] MEDS: PANTOPRAZOLE 40 MG TABLET PO SCH (10:03)
[2020-06-25] MEDS: AMOXICILLIN 250 MG CAPSULE PO SCH ×2 (10:03→23:10)
[2020-06-25] MEDS: POTASSIUM CHLORIDE TABS 20 MEQ TABLET.ER (FP) PO SCH (10:03)
[2020-06-25] MEDS: ISOSORBIDE MONONITRATE 60 MG TAB.SR.24H (FP) PO SCH (10:03)
[2020-06-25] MEDS: CARVEDILOL 25 MG TABLET (FP) PO SCH ×2 (10:03→22:42)
[2020-06-25] MEDS: ASPIRIN 81 MG CHEWABLE TABLETS PO SCH (10:03)
[2020-06-25] MEDS: hydrALAZINE HCL 10 MG TABLET PO SCH ×2 (10:04→22:42)
--- NOTE | 2020-06-25 15:27 | PN ---
Progress Note, Physician History of Present Illness: Pt seen and examined at bedside. He is still unable to lay flat and he easily gets shortness of breath. - Current Medication List Current Medications: Active Medications Albumin Human (Albumin Human 25%) 12.5 gm IVPB Q30M [facility] Amoxicillin (Amoxicillin -) 250 mg PO BID [facility] Last Admin: 06/25/20 10:03 Dose: 250 mg Documented by: Aspirin (Asa -) 81 mg PO DAILY [facility] Last Admin: 06/25/20 10:03 Dose: 81 mg Documented by: Carvedilol (Coreg -) 25 mg PO BID [facility] Last Admin: 06/25/20 10:03 Dose: 25 mg Documented by: Furosemide (Lasix Injection -) 80 mg IVPB BID@0600,1400 [facility] Last Admin: 06/25/20 06:23 Dose: 80 mg Documented by: Heparin Sodium (Porcine) (Heparin -) 5,000 unit IVPUSH PRN PRN PRN Reason: APTT (SECONDS) <40 Heparin Sodium (Porcine) (Heparin -) 1,000 unit IVPUSH PRN PRN PRN Reason: APTT (SECONDS) 40-49 Hydralazine HCl (Apresoline -) 10 mg PO BID [facility] Last Admin: 06/25/20 10:04 Dose: Not Given Documented by: Heparin Sodium (Porcine) 25, (000 unit/ Sodium Chloride) 500 mls @ 20 mls/hr IV TITR [facility]; Protocol Last Titration: 06/25/20 05:30 Dose: 1,000 unit/hr, 20 mls/hr Documented by: Sodium Chloride (Normal Saline -) 250 mls @ 3,000 mls/hr IV PRN PRN PRN Reason: Hypotension during Dialysis Stop: 06/26/20 10:09 Insulin Aspart (Novolog Mix 70/30 Vial) 10 units SQ BIDAC [facility] Last Admin: 06/25/20 06:24 Dose: 10 units Documented by: Insulin Aspart (Novolog Vial Sliding Scale -) 1 vial SQ TIDAC [facility]; Protocol Last Admin: 06/25/20 11:30 Dose: Not Given Documented by: Isosorbide Mononitrate (Imdur -) 60 mg PO DAILY [facility] Last Admin: 06/25/20 10:03 Dose: 60 mg Documented by: Pantoprazole Sodium (Protonix -) 40 mg PO DAILY [facility] Last Admin: 06/25/20 10:03 Dose: 40 mg Documented by: Potassium Chloride (K-Dur -) 20 meq PO DAILY [facility] Last Admin: 06/25/20 10:03 Dose: 20 meq Documented by: Rosuvastatin Calcium (Crestor -) 10 mg PO [facility] Last Admin: 06/24/20 21:45 Dose: 10 mg Documented by: Sevelamer Carbonate (Renvela -) 800 mg PO TIDCM [facility] Last Admin: 06/25/20 12:31 Dose: Not Given Documented by: Temazepam (Restoril -) 15 mg PO [facility] Last Admin: 06/24/20 21:59 Dose: 15 mg Documented by: - Objective Vital Signs: Vital Signs Temperature 98 F 06/25/20 09:00 Pulse Rate 72 06/25/20 09:00 Respiratory Rate 20 06/25/20 09:00 Blood Pressure 95/58 L 06/25/20 09:00 O2 Sat by Pulse Oximetry (%) 95 06/25/20 09:00 Constitutional: Yes: Calm Eyes: Yes: Conjunctiva Clear HENT: Yes: Atraumatic Neck: Yes: Supple Cardiovascular: Yes: S1, S2 Respiratory: Yes: On Nasal O2, Rhonchi Gastrointestinal: Yes: Soft Genitourinary: Yes: WNL Edema: Yes Edema: LLE: 3+, RLE: 3+ Integumentary: Yes: Venous Stasis Changes Neurological: Yes: Oriented Psychiatric: Yes: Oriented Labs: CBC, BMP 06/25/20 04:55 06/25/20 04:55 INR, PTT INR 1.23 (0.83-1.09) H 06/21/20 15:07 - ....Imaging Ultrasound: Report Reviewed Problem List - Problems (1) CHF (congestive heart failure) Code(s): I50.9 - HEART FAILURE, UNSPECIFIED Qualifiers: Heart failure type: unspecified Heart failure chronicity: acute on chronic Qualified Code(s): I50.9 - Heart failure, unspecified (2) CAD (coronary artery disease) Code(s): I25.10 - ATHSCL HEART DISEASE OF [place] CORONARY ARTERY W/O ANG PCTRS (3) CKD (chronic kidney disease) Code(s): N18.9 - CHRONIC KIDNEY DISEASE, UNSPECIFIED Assessment/Plan Current Medications Generic Name Dose Route Start Last Admin Trade Name Freq PRN Reason Stop Dose Admin Albumin Human 12.5 gm 06/25/20 10:15 Albumin Human 25% IVPB Q30M [facility] Amoxicillin 250 mg 06/24/20 22:00 06/25/20 10:03 Amoxicillin - PO 250 mg BID [facility] Administration Aspirin 81 mg 06/22/20 10:30 06/25/20 10:03 Asa - PO 81 mg DAILY [facility] Administration Carvedilol 25 mg 06/21/20 22:00 06/25/20 10:03 Coreg - PO 25 mg BID [facility] Administration Furosemide 80 mg 06/22/20 15:19 06/25/20 06:23 Lasix Injection - IVPB 80 mg BID@0600,1400 [facility] Administration Heparin Sodium (Porcine) 5,000 unit 06/24/20 21:30 Heparin - IVPUSH PRN PRN APTT (SECONDS) <40 Heparin Sodium (Porcine) 1,000 unit 06/24/20 21:30 Heparin - IVPUSH PRN PRN APTT (SECONDS) 40-49 Hydralazine HCl 10 mg 06/24/20 10:00 06/25/20 10:04 Apresoline - PO Not Given BID [facility] Heparin Sodium (Porcine) 25, 500 mls @ 20 mls/hr 06/24/20 21:30 06/25/20 05:30 000 unit/ Sodium Chloride IV 1,000 unit/hr TITR [facility] 20 mls/hr Titration Protocol 1,000 UNIT/HR Sodium Chloride 250 mls @ 3,000 mls/hr 06/25/20 10:09 Normal Saline - IV 06/26/20 10:09 PRN PRN Hypotension during Dialysis Insulin Aspart 10 units 06/22/20 07:00 06/25/20 06:24 Novolog Mix 70/30 Vial SQ 10 units BIDAC [facility] Administration Insulin Aspart 1 vial 06/21/20 19:45 06/25/20 11:30 Novolog Vial Sliding Scale - SQ Not Given TIDAC [facility] Protocol Isosorbide Mononitrate 60 mg 06/22/20 10:00 06/25/20 10:03 Imdur - PO 60 mg DAILY [facility] Administration Pantoprazole Sodium 40 mg 06/22/20 10:30 06/25/20 10:03 Protonix - PO 40 mg DAILY [facility] Administration Potassium Chloride 20 meq 06/23/20 10:00 06/25/20 10:03 K-Dur - PO 20 meq DAILY [facility] Administration Rosuvastatin Calcium 10 mg 06/22/20 22:00 06/24/20 21:45 Crestor - PO 10 mg HS [facility] Administration Sevelamer Carbonate 800 mg 06/25/20 08:00 06/25/20 12:31 Renvela - PO Not Given TIDCM [facility] Temazepam 15 mg 06/24/20 22:00 06/24/20 21:59 Restoril - PO 15 mg HS [facility] Administration Impression 1. CKD 2. YENI 3. CHF 4. DM 5. DFU 6. HTN 7. nstemi 8. hypokalemia 9. metabolic acidosis Plan - will arrange for HD today - renal function worsening - pt not responding to diuretics - evaluate for HD again tomorrow - cardio follow up - likely to be transferred for cath - renal ultrasound reviewed - monitor trop
--- NOTE | 2020-06-25 15:28 | PROC ---
Central Line Insertion - Procedure Note TIME OUT performed prior to this procedure with verbal confirmation of correct patient identity, correct side, agreement of the procedure, correct patient position, availability of necessary equipment. The consent form is complete and accurate. Risk of possible infection, bleeding and pneumothorax have been discussed with the patient. Safety precautions based on patient history or medication use has been addressed. INR 1.23 Indication: Other (dialysis) Consent on Chart: Yes Central Line: Dialysis Cath, Dual Lumen Position: Trendelenburg Area prepped with Chlorhexidine solution then draped using sterile barrier protection. Anesthesia: Lidocaine 1% Ultrasound Guided Assistance: Yes Site: Right Internal Jugular (Unable to attempt the femorals as he has a rash, ? fungal infection) Dark venous non-pulsatile flow noted from hub of needle. The catheter was introduced. Guide wire removed intact. Each port aspirated then flushed with sterile normal saline and capped. Line secured to skin with silk suture. Biopatch placed around base of line. Sterile occlusive dressing applied. No complications. Patient tolerated the procedure well. STAT chest xray ordered to confirm position and rule out pneumothorax CXR reviewed (wet read), no pneumothorax, please await official read prior to using josey.
[2020-06-25] MEDS: NYSTATIN POWDER 100,000 UNITS/GM - 15 GM TOPICAL POWDER TP SCH (16:44)
[2020-06-25] MEDS ORDERED: SODIUM CHLORIDE 250 ML IV PRN (17:47)
[2020-06-25] MEDS: ALBUMIN HUMAN 25% 12.5 GM/50 ML VIAL IVPB SCH ×2 (21:10→21:11)
[2020-06-25] MEDS: TEMAZEPAM 15 MG CAPSULE PO SCH (22:42)
[2020-06-25] MEDS: ROSUVASTATIN CA 10 MG TABLET (FP) PO SCH (22:42)
[2020-06-25] MEDS: HEPARIN - 25,000 UNIT in SODIUM CHLORIDE 495 ML IV SCH (23:10)
[2020-06-26] MEDS: INSULIN SLIDING SCALE (NOVOLOG) 1 VIAL SQ SCH ×3 (06:18→17:14)
--- NOTE | 2020-06-26 08:03 | PN ---
Progress Note, Physician Chief Complaint: Patient seen and examined at the bedside, no acute events from last night, no labored breathing, no chest pain. History of Present Illness: This 79 yr old w/m with PMH of CHF, IDDM, CAD with stent, s/p pacemaker, diabetic peripheral neuropathy, left Charcot foot admitted via ER with an acute shortness of breath, acute exacerbation of systolic CHF, iron deficiency anemia, elevated troponin and creatine kinase, moderate , mild AR, moderate pulmonary hypertension, severe reduction in LV systolic function, moderate MR, moderate TR. - Current Medication List Current Medications: Active Medications Amoxicillin (Amoxicillin -) 250 mg PO BID [facility] Last Admin: 06/25/20 23:10 Dose: 250 mg Documented by: Aspirin (Asa -) 81 mg PO DAILY [facility] Last Admin: 06/25/20 10:03 Dose: 81 mg Documented by: Carvedilol (Coreg -) 25 mg PO BID [facility] Last Admin: 06/25/20 22:42 Dose: 25 mg Documented by: Heparin Sodium (Porcine) (Heparin -) 5,000 unit IVPUSH PRN PRN PRN Reason: APTT (SECONDS) <40 Heparin Sodium (Porcine) (Heparin -) 1,000 unit IVPUSH PRN PRN PRN Reason: APTT (SECONDS) 40-49 Hydralazine HCl (Apresoline -) 10 mg PO BID [facility] Last Admin: 06/25/20 22:42 Dose: 10 mg Documented by: Heparin Sodium (Porcine) 25, (000 unit/ Sodium Chloride) 500 mls @ 20 mls/hr IV TITR [facility]; Protocol Last Admin: 06/25/20 23:10 Dose: 1,000 unit/hr, 20 mls/hr Documented by: Sodium Chloride (Normal Saline -) 250 mls @ 3,000 mls/hr IV PRN PRN PRN Reason: Hypotension during Dialysis Stop: 06/26/20 17:46 Insulin Aspart (Novolog Mix 70/30 Vial) 10 units SQ BIDAC [facility] Last Admin: 06/25/20 19:01 Dose: Not Given Documented by: Insulin Aspart (Novolog Vial Sliding Scale -) 1 vial SQ TIDAC [facility]; Protocol Last Admin: 06/26/20 06:18 Dose: Not Given Documented by: Isosorbide Mononitrate (Imdur -) 60 mg PO DAILY [facility] Last Admin: 06/25/20 10:03 Dose: 60 mg Documented by: Nystatin (Nystop Powder -) 1 applic TP DAILY [facility] Last Admin: 06/25/20 16:44 Dose: 1 applic Documented by: Pantoprazole Sodium (Protonix -) 40 mg PO DAILY [facility] Last Admin: 06/25/20 10:03 Dose: 40 mg Documented by: Potassium Chloride (K-Dur -) 20 meq PO DAILY [facility] Last Admin: 06/25/20 10:03 Dose: 20 meq Documented by: Rosuvastatin Calcium (Crestor -) 10 mg PO [facility] Last Admin: 06/25/20 22:42 Dose: 10 mg Documented by: Sevelamer Carbonate (Renvela -) 800 mg PO TIDCM [facility] Last Admin: 06/25/20 19:02 Dose: Not Given Documented by: Temazepam (Restoril -) 15 mg PO [facility] Last Admin: 06/25/20 22:42 Dose: 15 mg Documented by: - Objective Vital Signs: Vital Signs Temperature 97.4 F L 06/26/20 05:57 Pulse Rate 61 06/26/20 05:57 Respiratory Rate 20 06/26/20 05:57 Blood Pressure 109/58 L 06/26/20 05:57 O2 Sat by Pulse Oximetry (%) 96 06/25/20 22:00 Constitutional: Yes: Well Nourished, No Distress, Calm Eyes: Yes: Conjunctiva Clear, EOM Intact HENT: Yes: Atraumatic, Normocephalic Neck: Yes: Supple, Trachea Midline Cardiovascular: Yes: Regular Rate and Rhythm Respiratory: Yes: Regular, CTA Bilaterally, Diminished Gastrointestinal: Yes: Normal Bowel Sounds, Soft ...Rectal Exam: Yes: Deferred Genitourinary: Yes: WNL Breast(s): Yes: WNL Musculoskeletal: Yes: Muscle Weakness Extremities: Yes: Other (left Charcot foot) Edema: Yes Edema: LLE: 2+, RLE: 2+ Peripheral Pulses WNL: Yes Integumentary: Yes: Pressure Ulcer (right buttock) Neurological: Yes: Alert, Loss of Sensation, Numbness, Paresthesia, Unsteady Gait, Weakness ...Motor Strength: LUE (generalized muscle weakness of all extremities) Psychiatric: Yes: Alert, Oriented Labs: CBC, BMP 06/25/20 04:55 06/25/20 04:55 INR, PTT INR 1.23 (0.83-1.09) H 06/21/20 15:07 - ....Imaging Other: Report Reviewed (lab data reviewed) Problem List - Problems (1) CHF (congestive heart failure) Code(s): I50.9 - HEART FAILURE, UNSPECIFIED Qualifiers: Heart failure type: unspecified Heart failure chronicity: acute on chronic Qualified Code(s): I50.9 - Heart failure, unspecified (2) Anemia Code(s): D64.9 - ANEMIA, UNSPECIFIED Qualifiers: Anemia type: unspecified type Qualified Code(s): D64.9 - Anemia, unspe cified (3) CAD (coronary artery disease) Code(s): I25.10 - ATHSCL HEART DISEASE OF [place] CORONARY ARTERY W/O ANG PCTRS (4) CKD (chronic kidney disease) Code(s): N18.9 - CHRONIC KIDNEY DISEASE, UNSPECIFIED (5) 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 Code(s): E11.610 - TYPE 2 DIABETES MELLITUS W DIABETIC NEUROPATHIC ARTHROPATHY (6) Diabetes Code(s): E11.9 - TYPE 2 DIABETES MELLITUS WITHOUT COMPLICATIONS (7) Diabetic foot ulcers Code(s): E11.621 - TYPE 2 DIABETES MELLITUS WITH FOOT ULCER; L97.509 - NON- PRESSURE CHRONIC ULCER OTH PRT UNSP FOOT W UNSP SEVERITY Qualifiers: Diabetic foot ulcer location: midfoot Diabetes mellitus type: type 2 Laterality: left Non-pressure ulcer stage: with fat layer exposed Qualified Code(s): E11.621 - Type 2 diabetes mellitus with foot ulcer; L97.422 - Non- pressure chronic ulcer of left heel and midfoot with fat layer exposed (8) HTN (hypertension) Code(s): I10 - ESSENTIAL (PRIMARY) HYPERTENSION (9) Pacemaker Code(s): Z95.0 - PRESENCE OF CARDIAC PACEMAKER (10) Moderate aortic stenosis Code(s): I35.0 - NONRHEUMATIC AORTIC (VALVE) STENOSIS (11) Moderate pulmonary arterial systolic hypertension Code(s): I27.21 - SECONDARY PULMONARY ARTERIAL HYPERTENSION (12) Systolic CHF Code(s): I50.20 - UNSPECIFIED SYSTOLIC (CONGESTIVE) HEART FAILURE (13) Moderate mitral regurgitation Code(s): I34.0 - NONRHEUMATIC MITRAL (VALVE) INSUFFICIENCY (14) Moderate tricuspid regurgitation Code(s): I07.1 - RHEUMATIC TRICUSPID INSUFFICIENCY (15) Left ventricular systolic dysfunction Code(s): I51.9 - HEART DISEASE, UNSPECIFIED (16) Mild aortic regurgitation Code(s): I35.1 - NONRHEUMATIC AORTIC (VALVE) INSUFFICIENCY Assessment/Plan Assessment/plan: acute shortness of breath, acute exacerbation of systolic CHF, IDDM, CKD, s/p pacemaker, diabetic peripheral neuropathy, left Charcot foot, iron deficiency anemia, elevated troponin and creating kinase trending down, mild AR, moderate , moderate pulmonary hypertension, moderate MR, moderate TR, severe reduction in LV systolic function, acute myocardial infarction, apical akinesis, hyperphosphatemia, EF 30-35%; hemodialysis, a/c with IV Heparin, DVT/GI prophyalxis, oral Amoxicillin for UTI, coreg hydralazine and isosorbide for CAD, crestor for HLD, sliding scale regular insulin coverage, sevelamer phosphate binder, potssium chloride for hypokalemia, out of bed in chair as tolerated.
[2020-06-26 08:20] LABS: BASO % 0.2 % (0-2.0); EOS % 3.3 % (0-4.5); HEMATOCRIT 26.1 % (35.4-49); HEMOGLOBIN 8.8 GM/dL (11.7-16.9); LYMPH % 11.4 % (8-40); MCH 30.2 pg (25.7-33.7); MCHC 33.7 g/dl (32.0-35.9); MEAN CELL VOLUME 89.7 fl (80-96); MEAN PLT VOLUME 9.2 fl (7.5-11.1); MONO % 9.6 % (3.8-10.2); NEUT % 75.5 % (42.8-82.8); PLATELET COUNT 161 K/MM3 (134-434); RBC 2.91 M/mm3 (4.00-5.60); RDW 15.4 % (11.9-15.9); WHITE BLOOD COUNT 6.1 K/mm3 (4.0-10.0)
[2020-06-26] MEDS: INSULIN (NOVOLOG MIX 70/30) 100 UNITS/ML MDV SQ SCH ×2 (08:56→17:15)
[2020-06-26] MEDS: SEVELAMER CARBONATE 800 MG TAB (FP) PO SCH ×3 (08:56→17:15)
[2020-06-26 09:43] LABS: ALBUMIN 2.2 g/dl (3.4-5.0); BILIRUBIN,TOTAL 0.6 mg/dL (0.2-1); CALCIUM 7.5 mg/dL (8.5-10.1); CREATININE 4.1 mg/dL (0.55-1.3); MAGNESIUM 2.2 mg/dL (1.8-2.4); PHOSPHOROUS 5.6 mg/dL (2.5-4.9); POTASSIUM 3.1 mmol/L (3.5-5.1); TOT PROT 5.8 g/dl (6.4-8.2)
[2020-06-26] MEDS: CARVEDILOL 25 MG TABLET (FP) PO SCH ×2 (09:54→21:55)
[2020-06-26] MEDS: ISOSORBIDE MONONITRATE 60 MG TAB.SR.24H (FP) PO SCH (09:54)
[2020-06-26] MEDS: ASPIRIN 81 MG CHEWABLE TABLETS PO SCH (09:54)
[2020-06-26] MEDS: NYSTATIN POWDER 100,000 UNITS/GM - 15 GM TOPICAL POWDER TP SCH (09:54)
[2020-06-26] MEDS: PANTOPRAZOLE 40 MG TABLET PO SCH (09:54)
[2020-06-26] MEDS: AMOXICILLIN 250 MG CAPSULE PO SCH ×2 (09:54→22:00)
[2020-06-26] MEDS: POTASSIUM CHLORIDE TABS 20 MEQ TABLET.ER (FP) PO SCH (09:54)
[2020-06-26] MEDS: hydrALAZINE HCL 10 MG TABLET PO SCH ×2 (09:54→21:53)
[2020-06-26 10:03] LABS: BLOOD UREA NITROGEN 80.5 mg/dL (7-18)
[2020-06-26] MEDS ORDERED: SODIUM CHLORIDE 250 ML IV PRN (11:32)
--- NOTE | 2020-06-26 11:32 | PN ---
Progress Note (short form) - Note Progress Note: RENAL pt is awake and alert comfortable sitting up Last Vital Signs Temp Pulse Resp BP Pulse Ox 97.4 F L 61 20 109/58 L 96 06/26/20 05:57 06/26/20 05:57 06/26/20 05:57 06/26/20 05:57 06/25/20 22:00 lungs bilat crackles cvs s1s2 rr abd soft ext +edema bilat neuro a+ox3 CBC, BMP 06/26/20 07:10 06/26/20 07:10 Current Medications Generic Name Dose Route Start Last Admin Trade Name Freq PRN Reason Stop Dose Admin Amoxicillin 250 mg 06/24/20 22:00 06/26/20 09:54 Amoxicillin - PO 250 mg BID ELY Administration Aspirin 81 mg 06/22/20 10:30 06/26/20 09:54 Asa - PO 81 mg DAILY [facility]Y Administration Carvedilol 25 mg 06/21/20 22:00 06/26/20 09:54 Coreg - PO 25 mg BID [facility]Y Administration Heparin Sodium (Porcine) 5,000 unit 06/24/20 21:30 Heparin - IVPUSH PRN PRN APTT (SECONDS) <40 Heparin Sodium (Porcine) 1,000 unit 06/24/20 21:30 Heparin - IVPUSH PRN PRN APTT (SECONDS) 40-49 Hydralazine HCl 10 mg 06/24/20 10:00 06/26/20 09:54 Apresoline - PO 10 mg BID [facility]Y Administration Heparin Sodium (Porcine) 25, 500 mls @ 20 mls/hr 06/24/20 21:30 06/25/20 23:10 000 unit/ Sodium Chloride IV 1,000 unit/hr TITR ELY 20 mls/hr Administration Protocol 1,000 UNIT/HR Sodium Chloride 250 mls @ 3,000 mls/hr 06/25/20 17:47 Normal Saline - IV 06/26/20 17:46 PRN PRN Hypotension during Dialysis Insulin Aspart 10 units 06/22/20 07:00 06/26/20 08:56 Novolog Mix 70/30 Vial SQ 10 units BIDAC [facility] Administration Insulin Aspart 1 vial 06/21/20 19:45 06/26/20 06:18 Novolog Vial Sliding Scale - SQ Not Given TIDAC [facility] Protocol Isosorbide Mononitrate 60 mg 06/22/20 10:00 06/26/20 09:54 Imdur - PO 60 mg DAILY [facility] Administration Nystatin 1 applic 06/25/20 15:30 06/26/20 09:54 Nystop Powder - TP 1 applic DAILY [facility] Administration Pantoprazole Sodium 40 mg 06/22/20 10:30 06/26/20 09:54 Protonix - PO 40 mg DAILY [facility] Administration Potassium Chloride 20 meq 06/23/20 10:00 06/26/20 09:54 K-Dur - PO 20 meq DAILY [facility] Administration Rosuvastatin Calcium 10 mg 06/22/20 22:00 06/25/20 22:42 Crestor - PO 10 mg HS [facility]Y Administration Sevelamer Carbonate 800 mg 06/25/20 08:00 06/26/20 08:56 Renvela - PO 800 mg TIDCM [facility] Administration Temazepam 15 mg 06/24/20 22:00 06/25/20 22:42 Restoril - PO 15 mg HS [facility]Y Administration Impression 1. CKD 2. YENI 3. CHF 4. DM 5. DFU 6. HTN 7. nstemi 8. hypokalemia 9. metabolic acidosis Plan will dialyze again today particularly since he remains in heart failure and will need a cardiac cath. He agrees MV
--- NOTE | 2020-06-26 15:47 | PN ---
Progress Note, Physician History of Present Illness: Father Junior is an 79 y/o white man with PMH of systolic CHF; pacemaker, DM, CAD with stenting, Charcot foot-->left foot surgery, CKD, anemia, obesity, ?sleep apnea, sedentary, chronic bilateral leg edema/induration, now presenting with shortness of breath x 2 days. SOB began at rest yesterday evening, a few hours after patient had eaten a salty meal. SOB occurs both at rest and with exe rtion, and is worse than his baseline. Pt endorses muscle soreness in left chest but no chest pain. He denies nausea, vomiting , diaphoresis, fevers, chills or recent sick contacts. Pt endorses 3lb weight gain since yesterday, and increased swelling in both legs. PMH Left foot ulcer debridement June 2019 Pacemaker implanted 2014 ([employer]tr[employer]) DDD Bilateral cataract removal 2015 Cardiac cath PCI placed before 2014 [place] Ongoing medical problems CAD Systolic CHF > 10 years, last hospitalization with CHF exacerbation April 2019 Diabetes Mellitus Type 1 Charot foot (left foot) Hyperlipidemia Hypertension Chronic Renal Insufficiency. (baseline Creatine 2.5-3 mg/dL) ECHO today (10/03/19) showed anterio-apical, apical and apical septal severe hypokinease with EF of 40%. Possible aortic bicuspid valve. Lexiscan MIBI stress test 2018 was negative for inducible ischemia, old inferio apical mi was present, EF 35%. - Current Medication List Current Medications: Active Medications Amoxicillin (Amoxicillin -) 250 mg PO BID [facility] Last Admin: 06/26/20 09:54 Dose: 250 mg Documented by: Aspirin (Asa -) 81 mg PO DAILY [facility] Last Admin: 06/26/20 09:54 Dose: 81 mg Documented by: Carvedilol (Coreg -) 25 mg PO BID [facility] Last Admin: 06/26/20 09:54 Dose: 25 mg Documented by: Heparin Sodium (Porcine) (Heparin -) 5,000 unit IVPUSH PRN PRN PRN Reason: APTT (SECONDS) <40 Heparin Sodium (Porcine) (Heparin -) 1,000 unit IVPUSH PRN PRN PRN Reason: APTT (SECONDS) 40-49 Hydralazine HCl (Apresoline -) 10 mg PO BID [facility] Last Admin: 06/26/20 09:54 Dose: 10 mg Documented by: Heparin Sodium (Porcine) 25, (000 unit/ Sodium Chloride) 500 mls @ 20 mls/hr IV TITR [facility]; Protocol Last Admin: 06/25/20 23:10 Dose: 1,000 unit/hr, 20 mls/hr Documented by: Sodium Chloride (Normal Saline -) 250 mls @ 3,000 mls/hr IV PRN PRN PRN Reason: Hypotension during Dialysis Stop: 06/26/20 17:46 Sodium Chloride (Normal Saline -) 250 mls @ 3,000 mls/hr IV PRN PRN PRN Reason: Hypotension during Dialysis Stop: 06/27/20 11:32 Insulin Aspart (Novolog Mix 70/30 Vial) 10 units SQ BIDAC [facility] Last Admin: 06/26/20 08:56 Dose: 10 units Documented by: Insulin Aspart (Novolog Vial Sliding Scale -) 1 vial SQ TIDAC [facility]; Protocol Last Admin: 06/26/20 12:15 Dose: 2 units Documented by: Isosorbide Mononitrate (Imdur -) 60 mg PO DAILY [facility] Last Admin: 06/26/20 09:54 Dose: 60 mg Documented by: Nystatin (Nystop Powder -) 1 applic TP DAILY [facility] Last Admin: 06/26/20 09:54 Dose: 1 applic Documented by: Pantoprazole Sodium (Protonix -) 40 mg PO DAILY [facility] Last Admin: 06/26/20 09:54 Dose: 40 mg Documented by: Potassium Chloride (K-Dur -) 20 meq PO DAILY [facility] Last Admin: 06/26/20 09:54 Dose: 20 meq Documented by: Rosuvastatin Calcium (Crestor -) 10 mg PO [facility] Last Admin: 06/25/20 22:42 Dose: 10 mg Documented by: Sevelamer Carbonate (Renvela -) 800 mg PO TIDCM [facility] Last Admin: 06/26/20 12:15 Dose: 800 mg Documented by: Temazepam (Restoril -) 15 mg PO [facility] Last Admin: 06/25/20 22:42 Dose: 15 mg Documented by: - Objective Vital Signs: Vital Signs Temperature 98 F 06/26/20 14:10 Pulse Rate 65 06/26/20 14:10 Respiratory Rate 20 06/26/20 14:10 Blood Pressure 128/69 06/26/20 14:10 O2 Sat by Pulse Oximetry (%) 100 06/26/20 09:00 Eyes: Yes: WNL, Conjunctiva Clear, EOM Intact HENT: Yes: WNL, Atraumatic, Normocephalic Neck: Yes: WNL, Supple, Trachea Midline Cardiovascular: Yes: WNL, Regular Rate and Rhythm Respiratory: Yes: Diminished, Rales Gastrointestinal: Yes: WNL, Normal Bowel Sounds Genitourinary: Yes: WNL Musculoskeletal: Yes: WNL Extremities: Yes: WNL Edema: Yes Integumentary: Yes: WNL Neurological: Yes: WNL, Alert, Oriented ...Motor Strength: WNL Psychiatric: Yes: WNL Labs: CBC, BMP 06/26/20 07:10 06/26/20 07:10 INR, PTT INR 1.23 (0.83-1.09) H 06/21/20 15:07 Problem List - Problems (1) CHF (congestive heart failure) Code(s): I50.9 - HEART FAILURE, UNSPECIFIED Qualifiers: Heart failure type: unspecified Heart failure chronicity: acute on chronic Qualified Code(s): I50.9 - Heart failure, unspecified (2) Left ventricular systolic dysfunction Code(s): I51.9 - HEART DISEASE, UNSPECIFIED (3) Mild aortic regurgitation Code(s): I35.1 - NONRHEUMATIC AORTIC (VALVE) INSUFFICIENCY (4) Moderate aortic stenosis Code(s): I35.0 - NONRHEUMATIC AORTIC (VALVE) STENOSIS (5) Moderate mitral regurgitation Code(s): I34.0 - NONRHEUMATIC MITRAL (VALVE) INSUFFICIENCY (6) Moderate pulmonary arterial systolic hypertension Code(s): I27.21 - SECONDARY PULMONARY ARTERIAL HYPERTENSION (7) Moderate tricuspid regurgitation Code(s): I07.1 - RHEUMATIC TRICUSPID INSUFFICIENCY (8) Systolic CHF Code(s): I50.20 - UNSPECIFIED SYSTOLIC (CONGESTIVE) HEART FAILURE (9) Anemia Code(s): D64.9 - ANEMIA, UNSPECIFIED Qualifiers: Anemia type: unspecified type Qualified Code(s): D64.9 - Anemia, unspecified (10) CAD (coronary artery disease) Code(s): I25.10 - ATHSCL HEART DISEASE OF [place] CORONARY ARTERY W/O ANG PCTRS (11) CKD (chronic kidney disease) Code(s): N18.9 - CHRONIC KIDNEY DISEASE, UNSPECIFIED (12) 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 Code(s): E11.610 - TYPE 2 DIABETES MELLITUS W DIABETIC NEUROPATHIC ARTHROPATHY (13) Diabetes Code(s): E11.9 - TYPE 2 DIABETES MELLITUS WITHOUT COMPLICATIONS (14) Diabetic foot ulcers Code(s): E11.621 - TYPE 2 DIABETES MELLITUS WITH FOOT ULCER; L97.509 - NON- PRESSURE CHRONIC ULCER OTH PRT UNSP FOOT W UNSP SEVERITY Qualifiers: Diabetic foot ulcer location: midfoot Diabetes mellitus type: type 2 Lat erality: left Non-pressure ulcer stage: with fat layer exposed Qualified Code(s): E11.621 - Type 2 diabetes mellitus with foot ulcer; L97.422 - Non- pressure chronic ulcer of left heel and midfoot with fat layer exposed (15) HTN (hypertension) Code(s): I10 - ESSENTIAL (PRIMARY) HYPERTENSION (16) Pacemaker Code(s): Z95.0 - PRESENCE OF CARDIAC PACEMAKER Assessment/Plan Acute/chronic CHF with fluid overload NSTEMI: TNI 23-->24-->17; elevated CK, with CKMB relative index > 6. severe anemia acute/chronic renal dysfunction CAD; s/p coronary stent 2014; negative stress MIBI 10/2019 s/p PPM ([employer]tr[employer]) obesity sedentary chronic bilateral LE edema; s/p left foot surgery (Charcot foot) HTN DM HLD Plan: On ASA and Plavix Keep HCT around 30% On heparin IV - apical VT high risk for thrombus/CVA Continue carvedilol; start hydralazine (already on Imdur) if BP allows. F/u serial TNI, EKG. ECHO severely reduced EF apical akinesis - Acute VT cont HD f/u lipid profile (was on Crestor 40; reduced now to 10 mg due to renal dysfunction). TSH WNL. HD again today. c. cath Sunday at [facility] Prognosis is guarded
[2020-06-26] MEDS ORDERED: PT OWN MED DRAWER 7, Y5N ONE (20:54)
[2020-06-26] MEDS: TEMAZEPAM 15 MG CAPSULE PO SCH (21:53)
[2020-06-26] MEDS: ROSUVASTATIN CA 10 MG TABLET (FP) PO SCH (21:54)
[2020-06-27] MEDS: HEPARIN - 25,000 UNIT in SODIUM CHLORIDE 495 ML IV SCH ×2 (06:58→06:59)
[2020-06-27] MEDS: INSULIN (NOVOLOG MIX 70/30) 100 UNITS/ML MDV SQ SCH (06:59)
[2020-06-27] MEDS: INSULIN SLIDING SCALE (NOVOLOG) 1 VIAL SQ SCH (07:00)
[2020-06-27 07:49] LABS: BASO % 0.3 % (0-2.0); EOS % 3.3 % (0-4.5); HEMOGLOBIN 8.8 GM/dL (11.7-16.9); LYMPH % 12.6 % (8-40); MCH 29.3 pg (25.7-33.7); MCHC 32.6 g/dl (32.0-35.9); MEAN CELL VOLUME 89.7 fl (80-96); MEAN PLT VOLUME 8.9 fl (7.5-11.1); MONO % 9.3 % (3.8-10.2); NEUT % 74.5 % (42.8-82.8); PLATELET COUNT 140 K/MM3 (134-434); RBC 3.01 M/mm3 (4.00-5.60); RDW 15.4 % (11.9-15.9); WHITE BLOOD COUNT 6.2 K/mm3 (4.0-10.0)
[2020-06-27] MEDS: SEVELAMER CARBONATE 800 MG TAB (FP) PO SCH (08:28)
[2020-06-27 08:30] LABS: ALBUMIN 2.1 g/dl (3.4-5.0); BILIRUBIN,TOTAL 0.7 mg/dL (0.2-1); BLOOD UREA NITROGEN 60.4 mg/dL (7-18); CALCIUM 7.5 mg/dL (8.5-10.1); CREATININE 3.5 mg/dL (0.55-1.3); MAGNESIUM 2.2 mg/dL (1.8-2.4); PHOSPHOROUS 4.3 mg/dL (2.5-4.9); POTASSIUM 3.3 mmol/L (3.5-5.1); TOT PROT 5.9 g/dl (6.4-8.2)
--- NOTE | 2020-06-27 08:47 | PN ---
Progress Note, Physician Chief Complaint: Patient seen and examined at the bedside, no acute events from last night, feeling oozy this morning, no labored breathing, no chest pain. History of Present Illness: This 79 yr old w/m with PMH of CHF, IDDM, CAD with stent, s/p pacemaker, diabetic peripheral neuropathy, left Charcot foot, admitted via ER with an acute shortness of breath, acute systolic CHF, iron deficiency anemia, moderate , mild AR, moderate pulmonary hypertension, moderate TR, moderate MR, severe re duction in LV systolic function, elevated troponin and creatine kinase, acute myocardial infarction, EF 30-35%. - Current Medication List Current Medications: Active Medications Amoxicillin (Amoxicillin -) 250 mg PO BID [facility] Last Admin: 06/26/20 22:00 Dose: 250 mg Documented by: Aspirin (Asa -) 81 mg PO DAILY [facility] Last Admin: 06/26/20 09:54 Dose: 81 mg Documented by: Carvedilol (Coreg -) 25 mg PO BID [facility] Last Admin: 06/26/20 21:55 Dose: 25 mg Documented by: Heparin Sodium (Porcine) (Heparin -) 5,000 unit IVPUSH PRN PRN PRN Reason: APTT (SECONDS) <40 Heparin Sodium (Porcine) (Heparin -) 1,000 unit IVPUSH PRN PRN PRN Reason: APTT (SECONDS) 40-49 Hydralazine HCl (Apresoline -) 10 mg PO BID [facility] Last Admin: 06/26/20 21:53 Dose: 10 mg Documented by: Heparin Sodium (Porcine) 25, (000 unit/ Sodium Chloride) 500 mls @ 20 mls/hr IV TITR [facility]; Protocol Last Admin: 06/27/20 06:59 Dose: Not Given Documented by: Sodium Chloride (Normal Saline -) 250 mls @ 3,000 mls/hr IV PRN PRN PRN Reason: Hypotension during Dialysis Stop: 06/27/20 11:32 Insulin Aspart (Novolog Mix 70/30 Vial) 10 units SQ BIDAC [facility] Last Admin: 06/27/20 06:59 Dose: Not Given Documented by: Insulin Aspart (Novolog Vial Sliding Scale -) 1 vial SQ TIDAC [facility]; Protocol Last Admin: 06/27/20 07:00 Dose: Not Given Documented by: Isosorbide Mononitrate (Imdur -) 60 mg PO DAILY [facility] Last Admin: 06/26/20 09:54 Dose: 60 mg Documented by: Nystatin (Nystop Powder -) 1 applic TP DAILY [facility] Last Admin: 06/26/20 09:54 Dose: 1 applic Documented by: Pantoprazole Sodium (Protonix -) 40 mg PO DAILY [facility] Last Admin: 06/26/20 09:54 Dose: 40 mg Documented by: Potassium Chloride (K-Dur -) 20 meq PO DAILY [facility] Last Admin: 06/26/20 09:54 Dose: 20 meq Documented by: Rosuvastatin Calcium (Crestor -) 10 mg PO [facility] Last Admin: 06/26/20 21:54 Dose: 10 mg Documented by: Sevelamer Carbonate (Renvela -) 800 mg PO TIDCM [facility] Last Admin: 06/26/20 17:15 Dose: 800 mg Documented by: Temazepam (Restoril -) 15 mg PO [facility] Last Admin: 06/26/20 21:53 Dose: 15 mg Documented by: - Objective Vital Signs: Vital Signs Temperature 97.4 F L 06/26/20 21:00 Pulse Rate 62 06/27/20 05:00 Respiratory Rate 20 06/27/20 05:00 Blood Pressure 113/64 06/27/20 05:00 O2 Sat by Pulse Oximetry (%) 100 06/26/20 21:00 Constitutional: Yes: Well Nourished, Calm, Mild Distress (oozy) Eyes: Yes: Conjunctiva Clear, EOM Intact HENT: Yes: Atraumatic, Normocephalic Neck: Yes: Supple, Trachea Midline Cardiovascular: Yes: Regular Rate and Rhythm Respiratory: Yes: Regular, CTA Bilaterally, Diminished Gastrointestinal: Yes: Normal Bowel Sounds, Soft ...Rectal Exam: Yes: Deferred Genitourinary: Yes: WNL Breast(s): Yes: WNL Musculoskeletal: Yes: Muscle Weakness Extremities: Yes: Other (left Charcot foot) Edema: Yes Edema: LLE: 2+, RLE: 2+ Peripheral Pulses WNL: Yes Integumentary: Yes: Pressure Ulcer (right buttock) Neurological: Yes: Alert, Oriented, Unsteady Gait, Weakness ...Motor Strength: LUE (generalized muscle weakness of all extremities) Psychiatric: Yes: Alert, Oriented Labs: CBC, BMP 06/27/20 06:30 06/27/20 06:30 INR, PTT INR 1.23 (0.83-1.09) H 06/21/20 15:07 - ....Imaging Other: Report Reviewed (lab data reviewed) Problem List - Problems (1) CHF (congestive heart failure) Code(s): I50.9 - HEART FAILURE, UNSPECIFIED Qualifiers: Heart failure type: unspecified Heart failure chronicity: acute on chronic Qualified Code(s): I50.9 - Heart failure, unspecified (2) Anemia Code(s): D64.9 - ANEMIA, UNSPECIFIED Qualifiers: Anemia type: unspecified type Qualified Code(s): D64.9 - Anemia, unspecified (3) CAD (coronary artery disease) Code(s): I25.10 - ATHSCL HEART DISEASE OF [place] CORONARY ARTERY W/O ANG PCTRS (4) CKD (chronic kidney disease) Code(s): N18.9 - CHRONIC KIDNEY DISEASE, UNSPECIFIED (5) 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 Code(s): E11.610 - TYPE 2 DIABETES MELLITUS W DIABETIC NEUROPATHIC ARTHROPATHY (6) Diabetes Code(s): E11.9 - TYPE 2 DIABETES MELLITUS WITHOUT COMPLICATIONS (7) Diabetic foot ulcers Code(s): E11.621 - TYPE 2 DIABETES MELLITUS WITH FOOT ULCER; L97.509 - NON- PRESSURE CHRONIC ULCER OTH PRT UNSP FOOT W UNSP SEVERITY Qualifiers: Diabetic foot ulcer location: midfoot Diabetes mellitus type: type 2 Laterality: left Non-pressure ulcer stage: with fat layer exposed Qualified Code(s): E11.621 - Type 2 diabetes mellitus with foot ulcer; L97.422 - Non- pressure chronic ulcer of left heel and midfoot with fat layer exposed (8) HTN (hypertension) Code(s): I10 - ESSENTIAL (PRIMARY) HYPERTENSION (9) Pacemaker Code(s): Z95.0 - PRESENCE OF CARDIAC PACEMAKER (10) Moderate aortic stenosis Code(s): I35.0 - NONRHEUMATIC AORTIC (VALVE) STENOSIS (11) Moderate pulmonary arterial systolic hypertension Code(s): I27.21 - SECONDARY PULMONARY ARTERIAL HYPERTENSION (12) Systolic CHF Code(s): I50.20 - UNSPECIFIED SYSTOLIC (CONGESTIVE) HEART FAILURE (13) Moderate mitral regurgitation Code(s): I34.0 - NONRHEUMATIC MITRAL (VALVE) INSUFFICIENCY (14) Moderate tricuspid regurgitation Code(s): I07.1 - RHEUMATIC TRICUSPID INSUFFICIENCY (15) Left ventricular systolic dysfunction Code(s): I51.9 - HEART DISEASE, UNSPECIFIED (16) Mild aortic regurgitation Code(s): I35.1 - NONRHEUMATIC AORTIC (VALVE) INSUFFICIENCY Assessment/Plan Assessment/plan: acute shortness of breath, acute systolic CHF, IDDM, CKD, s/p pacemaker, CAD with stent, diabetic peripheral neuropathy, left Charcot foot, iron deficiency anemia, apical akinesis, acute myocardial infarction, elevated troponin and creatine kinase trending down, moderate , mild AR, moderate MR, moderate TR, severe reduction of LV systolic function, EF 30-35%; DVT/GI prophylaxis, a/c with IV Heparin, oral Amoxicillin for UTI, coreg hydralazine isosorbide for CAD, crestor for HLD, temazepam for insomnia, potassium chloride for hypokalemia, d/c sevelamer phosphate binder, sliding scale regular insulin coverage, out of bed in chair as tolerated.
[2020-06-27] MEDS: AMOXICILLIN 250 MG CAPSULE PO SCH (09:50)
[2020-06-27] MEDS: CARVEDILOL 25 MG TABLET (FP) PO SCH (09:50)
[2020-06-27] MEDS: hydrALAZINE HCL 10 MG TABLET PO SCH (09:50)
[2020-06-27] MEDS: PANTOPRAZOLE 40 MG TABLET PO SCH (09:50)
[2020-06-27] MEDS: NYSTATIN POWDER 100,000 UNITS/GM - 15 GM TOPICAL POWDER TP SCH (09:51)
[2020-06-27] MEDS: POTASSIUM CHLORIDE TABS 20 MEQ TABLET.ER (FP) PO SCH (09:51)
[2020-06-27] MEDS: ISOSORBIDE MONONITRATE 60 MG TAB.SR.24H (FP) PO SCH (09:51)
[2020-06-27] MEDS: ASPIRIN 81 MG CHEWABLE TABLETS PO SCH (09:51)
[2020-06-27 11:15] VITALS: BP 107/61; PULSE 68; TEMP 97.5
--- NOTE | 2020-06-27 12:26 | PN ---
Progress Note (short form) - Note Progress Note: RENAL pt is awake and alert comfortable sitting up says he felt better after hd yesterday. he had two liters removed Last Vital Signs Temp Pulse Resp BP Pulse Ox 97.5 F L 68 20 107/61 99 06/27/20 10:00 06/27/20 10:00 06/27/20 10:00 06/27/20 10:00 06/27/20 10:00 lungs bilat crackles- reduced cvs s1s2 rr abd soft ext +edema bilat- better neuro a+ox3 CBC, BMP 06/27/20 06:30 06/27/20 06:30 Current Medications Generic Name Dose Route Start Last Admin Trade Name Freq PRN Reason Stop Dose Admin Amoxicillin 250 mg 06/24/20 22:00 06/27/20 09:50 Amoxicillin - PO 250 mg BID ELY Administration Aspirin 81 mg 06/22/20 10:30 06/27/20 09:51 Asa - PO 81 mg DAILY ELY Administration Carvedilol 25 mg 06/21/20 22:00 06/27/20 09:50 Coreg - PO 25 mg BID ELY Administration Heparin Sodium (Porcine) 5,000 unit 06/24/20 21:30 Heparin - IVPUSH PRN PRN APTT (SECONDS) <40 Heparin Sodium (Porcine) 1,000 unit 06/24/20 21:30 Heparin - IVPUSH PRN PRN APTT (SECONDS) 40-49 Hydralazine HCl 10 mg 06/24/20 10:00 06/27/20 09:50 Apresoline - PO 10 mg BID ELY Administration Heparin Sodium (Porcine) 25, 500 mls @ 20 mls/hr 06/24/20 21:30 06/27/20 06:59 000 unit/ Sodium Chloride IV Not Given TITR [facility] Protocol 1,000 UNIT/HR Sodium Chloride 250 mls @ 3,000 mls/hr 06/26/20 11:32 Normal Saline - IV 06/27/20 11:32 PRN PRN Hypotension during Dialysis Insulin Aspart 10 units 06/22/20 07:00 06/27/20 06:59 Novolog Mix 70/30 Vial SQ Not Given BIDAC ELY Insulin Aspart 1 vial 06/21/20 19:45 06/27/20 07:00 Novolog Vial Sliding Scale - SQ Not Given TIDAC [facility] Protocol Isosorbide Mononitrate 60 mg 06/22/20 10:00 06/27/20 09:51 Imdur - PO 60 mg DAILY ELY Administration Nystatin 1 applic 06/25/20 15:30 06/27/20 09:51 Nystop Powder - TP 1 applic DAILY ELY Administration Pantoprazole Sodium 40 mg 06/22/20 10:30 06/27/20 09:50 Protonix - PO 40 mg DAILY ELY Administration Potassium Chloride 20 meq 06/23/20 10:00 06/27/20 09:51 K-Dur - PO 20 meq DAILY ELY Administration Rosuvastatin Calcium 10 mg 06/22/20 22:00 06/26/20 21:54 Crestor - PO 10 mg HS ELY Administration Temazepam 15 mg 06/24/20 22:00 06/26/20 21:53 Restoril - PO 15 mg HS ELY Administration Impression 1. CKD 2. YENI 3. CHF 4. DM 5. DFU 6. HTN 7. nstemi 8. hypokalemia 9. metabolic acidosis Plan will be transferred to tertiary care center for cath should be dialyzed after cardiac cath avoid hypotensive episodes continue diuresis MV
--- NOTE | 2020-06-27 15:02 | PN ---
Progress Note, Physician History of Present Illness: Father Junior is an 79 y/o white man with PMH of systolic CHF; pacemaker, DM, CAD with stenting, Charcot foot-->left foot surgery, CKD, anemia, obesity, ?sleep apnea, sedentary, chronic bilateral leg edema/induration, now presenting with shortness of breath x 2 days. SOB began at rest yesterday evening, a few hours after patient had eaten a salty meal. SOB occurs both at rest and with exe rtion, and is worse than his baseline. Pt endorses muscle soreness in left chest but no chest pain. He denies nausea, vomiting , diaphoresis, fevers, chills or recent sick contacts. Pt endorses 3lb weight gain since yesterday, and increased swelling in both legs. PMH Left foot ulcer debridement June 2019 Pacemaker implanted 2014 ([employer]) DDD Bilateral cataract removal 2015 Cardiac cath PCI placed before 2014 Sammi Ongoing medical problems CAD Systolic CHF > 10 years, last hospitalization with CHF exacerbation April 2019 Diabetes Mellitus Type 1 Charot foot (left foot) Hyperlipidemia Hypertension Chronic Renal Insufficiency. (baseline Creatine 2.5-3 mg/dL) ECHO today (10/03/19) showed anterio-apical, apical and apical septal severe hypokinease with EF of 40%. Possible aortic bicuspid valve. Lexiscan MIBI stress test 2018 was negative for inducible ischemia, old inferio apical mi was present, EF 35%. - Objective Vital Signs: Vital Signs Temperature 97.5 F L 06/27/20 10:00 Pulse Rate 68 06/27/20 10:00 Respiratory Rate 20 06/27/20 10:00 Blood Pressure 107/61 06/27/20 10:00 O2 Sat by Pulse Oximetry (%) 99 06/27/20 10:00 Eyes: Yes: WNL, Conjunctiva Clear, EOM Intact HENT: Yes: WNL, Atraumatic, Normocephalic Neck: Yes: WNL, Supple, Trachea Midline Cardiovascular: Yes: WNL, Regular Rate and Rhythm, S1, S2 Respiratory: Yes: WNL, Regular, CTA Bilaterally Gastrointestinal: Yes: WNL, Normal Bowel Sounds Genitourinary: Yes: WNL Musculoskeletal: Yes: WNL Extremities: Yes: WNL Edema: Yes Integumentary: Yes: WNL Neurological: Yes: WNL, Alert, Oriented ...Motor Strength: WNL Psychiatric: Yes: WNL Labs: CBC, BMP 06/27/20 06:30 06/27/20 06:30 INR, PTT INR 1.23 (0.83-1.09) H 06/21/20 15:07 Problem List - Problems (1) CHF (congestive heart failure) Code(s): I50.9 - HEART FAILURE, UNSPECIFIED Qualifiers: Heart failure type: unspecified Heart failure chronicity: acute on chronic Qualified Code(s): I50.9 - Heart failure, unspecified (2) Left ventricular systolic dysfunction Code(s): I51.9 - HEART DISEASE, UNSPECIFIED (3) Mild aortic regurgitation Code(s): I35.1 - NONRHEUMATIC AORTIC (VALVE) INSUFFICIENCY (4) Moderate aortic stenosis Code(s): I35.0 - NONRHEUMATIC AORTIC (VALVE) STENOSIS (5) Moderate mitral regurgitation Code(s): I34.0 - NONRHEUMATIC MITRAL (VALVE) INSUFFICIENCY (6) Moderate pulmonary arterial systolic hypertension Code(s): I27.21 - SECONDARY PULMONARY ARTERIAL HYPERTENSION (7) Moderate tricuspid regurgitation Code(s): I07.1 - RHEUMATIC TRICUSPID INSUFFICIENCY (8) Systolic CHF Code(s): I50.20 - UNSPECIFIED SYSTOLIC (CONGESTIVE) HEART FAILURE (9) Anemia Code(s): D64.9 - ANEMIA, UNSPECIFIED Qualifiers: Anemia type: unspecified type Qualified Code(s): D64.9 - Anemia, unspecified (10) CAD (coronary artery disease) Code(s): I25.10 - ATHSCL HEART DISEASE OF [place] CORONARY ARTERY W/O ANG PCTRS (11) CKD (chronic kidney disease) Code(s): N18.9 - CHRONIC KIDNEY DISEASE, UNSPECIFIED (12) 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 Code(s): E11.610 - TYPE 2 DIABETES MELLITUS W DIABETIC NEUROPATHIC ARTHROPATHY (13) Diabetes Code(s): E11.9 - TYPE 2 DIABETES MELLITUS WITHOUT COMPLICATIONS (14) Diabetic foot ulcers Code(s): E11.621 - TYPE 2 DIABETES MELLITUS WITH FOOT ULCER; L97.509 - NON- PRESSURE CHRONIC ULCER OTH PRT UNSP FOOT W UNSP SEVERITY Qualifiers: Diabetic foot ulcer location: midfoot Diabetes mellitus type: type 2 Laterality: left Non-pressure ulcer stage: with fat layer exposed Qualified Code(s): E11.621 - Type 2 diabetes mellitus with foot ulcer; L97.422 - Non- pressure chronic ulcer of left heel and midfoot with fat layer exposed (15) HTN (hypertension) Code(s): I10 - ESSENTIAL (PRIMARY) HYPERTENSION (16) Pacemaker Code(s): Z95.0 - PRESENCE OF CARDIAC PACEMAKER Assessment/Plan Acute/chronic CHF with fluid overload NSTEMI: TNI 23-->24-->17; elevated CK, with CKMB relative index > 6. severe anemia acute/chronic renal dysfunction CAD; s/p coronary stent 2014; negative stress MIBI 10/2019 s/p PPM ([employer]) obesity sedentary chronic bilateral LE edema; s/p left foot surgery (Charcot foot) HTN DM HLD Plan: On ASA and Plavix Keep HCT around 30% On heparin IV - apical NJ high risk for thrombus/CVA Continue carvedilol; start hydralazine (already on Imdur) if BP allows. F/u serial TNI, EKG. ECHO severely reduced EF apical akinesis - Acute NJ cont HD f/u lipid profile (was on Crestor 40; reduced now to 10 mg due to renal dysfunction). TSH WNL. HD again today. c. cath Sunday at [facility] Prognosis is guarded
--- NOTE | 2020-06-27 17:24 | DS ---
Physical Examination Vital Signs: Vital Signs Temperature 97.5 F L 06/27/20 10:00 Pulse Rate 68 06/27/20 10:00 Respiratory Rate 20 06/27/20 10:00 Blood Pressure 107/61 06/27/20 10:00 O2 Sat by Pulse Oximetry (%) 99 06/27/20 10:00 Constitutional: Yes: Well Nourished, No Distress Eyes: Yes: Conjunctiva Clear, EOM Intact HENT: Yes: Atraumatic, Normocephalic Neck: Yes: Supple, Trachea Midline Cardiovascular: Yes: Regular Rate and Rhythm Respiratory: Yes: Regular, CTA Bilaterally, Diminished Gastrointestinal: Yes: Normal Bowel Sounds, Soft ...Rectal Exam: Yes: Deferred Renal/: Yes: WNL Breast(s): Yes: WNL Extremities: Yes: Other (left Charcot foot) Edema: Yes Edema: LLE: 2+, RLE: 2+ Peripheral Pulses WNL: Yes Integumentary: Yes: Pressure Ulcer (right buttock) Neurological: Yes: Alert, Oriented, Unsteady Gait, Weakness ...Motor Strength: LUE (generalized muscle weakness of all extremities) Psychiatric: Yes: Alert, Oriented Labs: CBC, BMP 06/27/20 06:30 06/27/20 06:30 Discharge Summary Problems reviewed: Yes Reason For Visit: CHF ACUTE CORONARY SYNDROME - Instructions Diet, Activity, Other Instructions: Transfer to [facility] for cardiac cath. Continue present meds. Total time spent over 30 minutes. Referrals: Henok Jones [Primary Care Provider] - Disposition: TRANSFER ACUTE CARE/OTHER HOSP - Home Medications Comprehensive Discharge Medication List: Ambulatory Orders Aspirin 81 mg PO DAILY 06/21/20 Carvedilol 25 mg PO BID 06/21/20 Clopidogrel Bisulfate [Plavix] 75 mg PO DAILY 06/21/20 Isosorbide Mononitrate [Isosorbide Mononitrate ER] 60 mg PO DAILY 06/21/20 Lantus 25 units DAILY 06/21/20 Rosuvastatin Calcium [Crestor] 40 mg PO DAILY 06/21/20 Sodium Bicarbonate - 650 mg BID 06/21/20 Torsemide 60 mg PO DAILY 06/21/20
[2020-06-28 19:06] LABS: HEP B CORE AB, TOT Negative (Negative)
== END 2020-06-27 13:17 | disposition short-term general hospital (02) | DRG 280 ==
LOC: JER 13:44 → JERBED 18:02 → J4W 06-22 00:34
PROVIDERS: ADMIT Internal Medicine; ATTEND Internal Medicine
PROC: 05HM33Z Insertion of Infusion Device into Right Internal Jugular Vein, Percutaneous Approach (ICD-10-PCS; principal; 2020-06-25)
DX: I13.0 Hypertensive heart and chronic kidney disease with heart failure and stage 1 through stage 4 chronic kidney disease, or unspecified chronic kidney disease (principal); I21.4 Non-ST elevation (NSTEMI) myocardial infarction; I50.23 Acute on chronic systolic (congestive) heart failure; N39.0 Urinary tract infection, site not specified; J98.11 Atelectasis; L97.528 Non-pressure chronic ulcer of other part of left foot with other specified severity; N17.9 Acute kidney failure, unspecified; E87.2 Acidosis; I25.10 Atherosclerotic heart disease of native coronary artery without angina pectoris; E11.610 Type 2 diabetes mellitus with diabetic neuropathic arthropathy; Z95.0 Presence of cardiac pacemaker; E87.6 Hypokalemia; R74.0 Nonspecific elevation of levels of transaminase and lactic acid dehydrogenase [LDH]; D50.9 Iron deficiency anemia, unspecified; D69.6 Thrombocytopenia, unspecified; B95.2 Enterococcus as the cause of diseases classified elsewhere; E88.09 Other disorders of plasma-protein metabolism, not elsewhere classified; E83.51 Hypocalcemia; E11.40 Type 2 diabetes mellitus with diabetic neuropathy, unspecified; R26.81 Unsteadiness on feet; D64.9 Anemia, unspecified; G47.30 Sleep apnea, unspecified; E11.621 Type 2 diabetes mellitus with foot ulcer; E66.9 Obesity, unspecified; Z68.31 Body mass index [BMI] 31.0-31.9, adult; E11.22 Type 2 diabetes mellitus with diabetic chronic kidney disease; N18.9 Chronic kidney disease, unspecified; I27.20 Pulmonary hypertension, unspecified; E83.39 Other disorders of phosphorus metabolism; I08.3 Combined rheumatic disorders of mitral, aortic and tricuspid valves; L89.312 Pressure ulcer of right buttock, stage 2; Z95.5 Presence of coronary angioplasty implant and graft
CPT/HCPCS: 36415; 36430; 71045-TC-FY; 76775-TC; 76856-TC; 80053; 80061; 81003; 82272; 82550; 82553; 82728; 82962; 83540; 83550; 83721; 83735; 83880; 84100; 84443; 84484; 85025; 85610; 85730; 86704; 86706; 86707; 86708; 86709; 86803; 86850; 86900; 86901; 86922; 87086; 87186; 87340; 93005; 93010; 93306-TC; 99285-25; J1644; J1756; P9058; U0003

== ENCOUNTER 2020-10-18 04:10 | Day surgery (SDC) | payer OTHER ==
[2020-10-15 15:07] VITALS: BMI 25.2
[2020-10-18 12:08] LABS: POTASSIUM 3.7 mmol/L (3.5-5.1)
[2020-10-18 12:10] LABS: CALCIUM 7.9 mg/dL (8.5-10.1)
[2020-10-18 12:11] LABS: ALBUMIN 2.3 g/dl (3.4-5.0); BLOOD UREA NITROGEN 49.8 mg/dL (7-18)
[2020-10-18 12:14] LABS: CREATININE 4.5 mg/dL (0.55-1.3)
[2020-10-18 12:15] LABS: BILIRUBIN,TOTAL 0.6 mg/dL (0.2-1); TOT PROT 6.2 g/dl (6.4-8.2)
[2020-10-18] MEDS ORDERED: LIDOCAINE HCL 1%, 10 MG/ML (20ML VIAL) ONE (12:20)
[2020-10-18] MEDS ORDERED: HEPARIN NA (PORCINE) 5,000 UNITS/ML 1ML VIAL ONE ×2 (12:20→13:49)
[2020-10-18] MEDS ORDERED: PROPOFOL 20 ML ONE (13:15)
[2020-10-18] MEDS ORDERED: MIDAZOLAM HCL 2 MG/2 ML SINGLE DOSE VIAL ONE (13:15)
[2020-10-18] MEDS ORDERED: SODIUM CHLORIDE 0.9% P/F 10 ML VIAL IJ ONE (13:18)
[2020-10-18] MEDS ORDERED: ceFAZolin SODIUM 1 GM VIAL ONE (13:18)
[2020-10-18] MEDS ORDERED: ceFAZolin 2 GRAM PREMIX BAG IVPB ONE (13:37)
[2020-10-18] MEDS ORDERED: LIDOCAINE HCL 1%, 10 MG/ML (20ML VIAL) NR ONE (13:48)
[2020-10-18] MEDS ORDERED: HEPARIN NA (PORCINE) 5,000 UNITS/ML 1ML VIAL SQ ONE (13:48)
[2020-10-18 16:24] VITALS: BP 120/60; PULSE 66; TEMP 98
== END 2020-10-18 16:20 | disposition home or self-care (01) ==
LOC: JASU-SURG 04:10
PROVIDERS: ATTEND Surgery Vascular Surgery
PROC: 057B3ZZ Dilation of Right Basilic Vein, Percutaneous Approach (ICD-10-PCS; 2020-10-18)
PROC: 05WY3JZ Revision of Synthetic Substitute in Upper Vein, Percutaneous Approach (ICD-10-PCS; principal; 2020-10-18 13:00)
DX: T85.858A Stenosis due to other internal prosthetic devices, implants and grafts, initial encounter (principal); I12.0 Hypertensive chronic kidney disease with stage 5 chronic kidney disease or end stage renal disease; E11.22 Type 2 diabetes mellitus with diabetic chronic kidney disease; N18.6 End stage renal disease; Z99.2 Dependence on renal dialysis; Z79.4 Long term (current) use of insulin
CPT/HCPCS: 36415; 76000-TC-FY; 80053; 94760; J1644

== ENCOUNTER 2020-12-03 04:50 | Day surgery (SDC) | payer OTHER ==
[2020-12-03] MEDS ORDERED: LIDOCAINE HCL 1%, 10 MG/ML (20ML VIAL) ONE (07:16)
[2020-12-03] MEDS ORDERED: HEPARIN NA (PORCINE) 5,000 UNITS/ML 1ML VIAL ONE (07:16)
[2020-12-03 07:43] VITALS: BMI 25.7
[2020-12-03] MEDS ORDERED: MIDAZOLAM HCL 2 MG/2 ML SINGLE DOSE VIAL ONE (09:05)
[2020-12-03] MEDS ORDERED: ceFAZolin 2 GRAM PREMIX BAG IVPB ONE (09:15)
[2020-12-03] MEDS ORDERED: LIDOCAINE HCL 1%, 10 MG/ML (20ML VIAL) NR ONE ×2 (09:23)
[2020-12-03] MEDS ORDERED: HEPARIN NA (PORCINE) 5,000 UNITS/ML 1ML VIAL SQ ONE (09:30)
[2020-12-03 10:14] VITALS: TEMP 97.1
[2020-12-03 11:25] VITALS: BP 109/59; PULSE 70
[2020-12-03] MEDS ORDERED: ceFAZolin SODIUM 1 GM VIAL ONE (11:55)
[2020-12-03] MEDS ORDERED: ESMOLOL HCL 100,000 MCG/10 ML VIAL ONE (12:00)
[2020-12-03] MEDS ORDERED: oxyCODONE HCL 5 MG TABLET PO PRN (12:16)
[2020-12-03] MEDS ORDERED: ONDANSETRON 4 MG/2 ML VIAL IVPUSH PRN (12:16)
[2020-12-03] MEDS ORDERED: SODIUM CHLORIDE 1,000 ML IV SCH (12:30)
[2020-12-03] MEDS ORDERED: NEOSTIGMINE METHYLSULFATE 0.5 MG/ML - 10 ML MDV ONE (12:37)
[2020-12-03] MEDS ORDERED: GLYCOPYRROLATE 0.2 MG/1 ML VIAL ONE (12:43)
== END 2020-12-03 11:10 | disposition home or self-care (01) ==
LOC: JASU-SURG 04:50
PROVIDERS: ATTEND Surgery Vascular Surgery
PROC: 057Y3DZ Dilation of Upper Vein with Intraluminal Device, Percutaneous Approach (ICD-10-PCS; principal; 2020-12-03 09:00)
DX: T82.858A Stenosis of other vascular prosthetic devices, implants and grafts, initial encounter (principal); I12.0 Hypertensive chronic kidney disease with stage 5 chronic kidney disease or end stage renal disease; E11.22 Type 2 diabetes mellitus with diabetic chronic kidney disease; N18.6 End stage renal disease; Z99.2 Dependence on renal dialysis; Z79.4 Long term (current) use of insulin
CPT/HCPCS: 36415; 76000-TC-FY; 82962; 84132; J1644

== ENCOUNTER 2020-12-24 04:43 | Day surgery (SDC) | payer OTHER ==
[2020-12-22 16:02] VITALS: BMI 25.5
[2020-12-24 13:12] LABS: POTASSIUM 4.4 mmol/L (3.5-5.1)
[2020-12-24] MEDS ORDERED: HEPARIN NA (PORCINE) 5,000 UNITS/ML 1ML VIAL ONE (13:26)
[2020-12-24] MEDS ORDERED: PROPOFOL 20 ML ONE (13:27)
[2020-12-24] MEDS ORDERED: MIDAZOLAM HCL 2 MG/2 ML SINGLE DOSE VIAL ONE (13:27)
[2020-12-24] MEDS ORDERED: ceFAZolin SODIUM 1 GM VIAL ONE (15:16)
[2020-12-24] MEDS ORDERED: PROTAMINE SULFATE 50 MG/5 ML VIAL ONE (15:48)
[2020-12-24] MEDS ORDERED: LIDOCAINE HCL 1%, 10 MG/ML (50 mL VIAL) INF ONE (15:53)
[2020-12-24 17:01] VITALS: TEMP 96.9
[2020-12-24 17:31] VITALS: BP 101/62; PULSE 69
== END 2020-12-24 17:45 | disposition home or self-care (01) ==
LOC: JASU-SURG 04:43
PROVIDERS: ATTEND Surgery Vascular Surgery
PROC: 057D3ZZ Dilation of Right Cephalic Vein, Percutaneous Approach (ICD-10-PCS; principal; 2020-12-24 14:00)
DX: T82.858A Stenosis of other vascular prosthetic devices, implants and grafts, initial encounter (principal); I12.0 Hypertensive chronic kidney disease with stage 5 chronic kidney disease or end stage renal disease; E11.22 Type 2 diabetes mellitus with diabetic chronic kidney disease; N18.6 End stage renal disease; Z99.2 Dependence on renal dialysis; Z79.4 Long term (current) use of insulin
CPT/HCPCS: 36415; 76000-TC-FY; 82947; 84132; 94760; J1644

== ENCOUNTER 2021-02-21 04:40 | Day surgery (SDC) | payer OTHER ==
[2021-02-18 11:46] VITALS: BMI 25.5
[2021-02-21] MEDS ORDERED: MIDAZOLAM HCL 2 MG/2 ML SINGLE DOSE VIAL ONE (09:58)
[2021-02-21] MEDS ORDERED: LIDOCAINE HCL 1%, 10 MG/ML (20ML VIAL) ONE (10:13)
[2021-02-21] MEDS ORDERED: HEPARIN NA (PORCINE) 5,000 UNITS/ML 1ML VIAL ONE ×2 (10:13→11:06)
[2021-02-21] MEDS ORDERED: POVIDONE-IODINE OINTMENT 10% - 28.4 GM TUBE ONE (10:14)
[2021-02-21] MEDS ORDERED: PROPOFOL 20 ML ONE ×2 (10:39)
[2021-02-21] MEDS ORDERED: ceFAZolin SODIUM 1 GM VIAL IVPB ONE (10:49)
[2021-02-21] MEDS ORDERED: LIDOCAINE HCL 1%, 10 MG/ML (20ML VIAL) PNB ONE (11:15)
[2021-02-21] MEDS ORDERED: ONDANSETRON 4 MG/2 ML VIAL IVPUSH PRN (12:31)
[2021-02-21] MEDS ORDERED: SODIUM CHLORIDE 1,000 ML IV SCH (12:45)
[2021-02-21] MEDS ORDERED: ACETAMINOPHEN 325 MG TABLET (FP) PO ONE ×3 (13:26→13:30)
[2021-02-21 14:29] VITALS: BP 90/45; PULSE 77; TEMP 96.6
== END 2021-02-21 14:36 | disposition home or self-care (01) ==
LOC: JASU-SURG 04:40
PROVIDERS: ATTEND Surgery Vascular Surgery
PROC: 05793ZZ Dilation of Right Brachial Vein, Percutaneous Approach (ICD-10-PCS; 2021-02-21)
PROC: 057B3ZZ Dilation of Right Basilic Vein, Percutaneous Approach (ICD-10-PCS; principal; 2021-02-21 09:00)
DX: T82.858A Stenosis of other vascular prosthetic devices, implants and grafts, initial encounter (principal); N28.9 Disorder of kidney and ureter, unspecified; I12.0 Hypertensive chronic kidney disease with stage 5 chronic kidney disease or end stage renal disease; E11.22 Type 2 diabetes mellitus with diabetic chronic kidney disease; N18.6 End stage renal disease; Z99.2 Dependence on renal dialysis; Z95.0 Presence of cardiac pacemaker; Z79.4 Long term (current) use of insulin
CPT/HCPCS: 36415; 76000-TC-FY; 82962; 84132; 94760; J1644

== ENCOUNTER 2021-04-06 00:04 | Inpatient (IN) | payer OTHER ==
[2021-04-06 00:16] VITALS: BMI 24.5
[2021-04-06] MEDS ORDERED: ACETAMINOPHEN 1000 MG/100 ML VIAL (NON FORMULARY) IVPB ONE (00:42)
[2021-04-06] MEDS ORDERED: ACETAMINOPHEN INJECTION 100 ML IVPB ONE (00:50)
[2021-04-06 01:05] LABS: VENOUS BASE EXCESS -4.5 mmol/L (-2-2); VENOUS O2 SATURATION 53.9 % (70-80); VENOUS PCO2 45.2 mmHg (38-52); VENOUS PH 7.302 (7.310-7.410)
[2021-04-06 01:07] LABS: BASO % 0.5 % (0-2.0); EOS % 0.1 % (0-4.5); HEMATOCRIT 35.8 % (35.4-49); HEMOGLOBIN 11.6 GM/dL (11.7-16.9); LYMPH % 2.7 % (8-40); MCH 31.5 pg (25.7-33.7); MCHC 32.4 g/dl (32.0-35.9); MEAN PLT VOLUME 8.1 fl (7.5-11.1); MONO % 3.3 % (3.8-10.2); NEUT % 93.4 % (42.8-82.8); PLATELET COUNT 266 K/MM3 (134-434); RBC 3.69 M/mm3 (4.00-5.60); RDW 17.6 % (11.9-15.9); WHITE BLOOD COUNT 5.8 K/mm3 (4.0-10.0)
[2021-04-06 01:14] LABS: INR 1.3 (0.83-1.09); PROTHROMBIN TIME (PATIENT) 15.6 SEC (9.7-13.0)
[2021-04-06 01:16] LABS: ACTIVATED PTT 31.4 SECONDS (25.2-36.5)
[2021-04-06 01:21] LABS: ALBUMIN 2.1 g/dl (3.4-5.0); BLOOD UREA NITROGEN 37.4 mg/dL (7-18); CALCIUM 7.4 mg/dL (8.5-10.1); MAGNESIUM 1.8 mg/dL (1.8-2.4)
[2021-04-06 01:24] LABS: PHOSPHOROUS 4.4 mg/dL (2.5-4.9)
[2021-04-06 01:25] LABS: CREATININE 4.8 mg/dL (0.55-1.3)
[2021-04-06 01:26] LABS: BILIRUBIN,TOTAL 1.1 mg/dL (0.2-1); TOT PROT 5.4 g/dl (6.4-8.2)
[2021-04-06 01:45] LABS: LACTIC ACID 2.4 mmol/L (0.4-2.0)
[2021-04-06 02:25] LABS: N-TERMINAL BNP > 175000.0 pg/ml (5-450)
[2021-04-06] MEDS ORDERED: SODIUM CHLORIDE 0.45% 1,000 ML IV SCH (04:45)
[2021-04-06] MEDS ORDERED: ACETAMINOPHEN 500 MG TABLET (FP) PO PRN (04:59)
[2021-04-06 05:21] LABS: BF WBC & OTHER NUCLEATED CELLS 3820 /mm3
[2021-04-06 05:57] LABS: ANISOCYTOSIS 0; MACROCYTOSIS 2+; PLATELET ESTIMATE NORMAL
[2021-04-06] MEDS ORDERED: SEVELAMER CARBONATE 800 MG TAB (FP) PO SCH (08:00)
[2021-04-06] MEDS ORDERED: NOREPINEPHRINE D5W PREMIX 16,000 MCG/500 ML BAG IVPB SCH (08:45)
[2021-04-06] MEDS: INSULIN SLIDING SCALE (NOVOLOG) 1 VIAL SQ SCH ×3 (09:10→18:04)
[2021-04-06] MEDS ORDERED: NOREPINEPHRINE BITARTRATE 4 MG/4 ML ML IV ONE (09:18)
[2021-04-06 09:54] LABS: BODY FLUID MACROPHAGES 8 %; BODY FLUID MONOCYTE 5 %
[2021-04-06] MEDS ORDERED: PANTOPRAZOLE 40 MG TABLET PO SCH (10:00)
[2021-04-06] MEDS ORDERED: ASPIRIN 81 MG CHEWABLE TABLETS PO SCH (10:00)
[2021-04-06] MEDS ORDERED: MUPIROCIN 2% TOPICAL OINTMENT FOR DECOLONIZATION NS SCH (10:00)
[2021-04-06] MEDS ORDERED: CLOPIDOGREL BISULFATE 75 MG TABLET (FP) PO SCH (10:00)
[2021-04-06] MEDS ORDERED: CARVEDILOL 3.125 MG TABLET (FP) PO SCH (10:00)
[2021-04-06] MEDS ORDERED: morphine SULFATE 4 MG/ML VIAL ONE (11:26)
[2021-04-06] MEDS ORDERED: MORPHINE SULFATE/0.9% NACL/PF 100 MG/100 ML BAG ONE (11:26)
[2021-04-06] MEDS ORDERED: morphine CARPU-JECT 4 MG/1 ML DISP.SYRIN IVPUSH ONE (11:27)
[2021-04-06] MEDS ORDERED: LORazepam 2 MG/ML SDV VIAL IVPUSH PRN (11:28)
[2021-04-06] MEDS ORDERED: MORPHINE SULFATE/0.9% NACL/PF 100 MG/100 ML BAG IVPB SCH (11:30)
[2021-04-06] MEDS ORDERED: PIPERACILLIN/TAZOB 2.25 GM 2.25 GM/50 ML BAG IVPB ONE (11:59)
[2021-04-06] MEDS ORDERED: VANCOMYCIN 1 GRAM (PRE-DOCKED) 1,000 MG/250 ML BAG IVPB ONE (12:00)
[2021-04-06] MEDS: PIPERACILLIN/TAZOB 2.25 GM 2.25 GM in DEXTROSE 5%-WATER - 50 ML IVPB SCH ×2 (12:13→18:06)
[2021-04-06] MEDS ORDERED: AMMONIUM LACTATE 12% LOTION 225 GM BOTTLE TP PRN (12:44)
[2021-04-06] MEDS ORDERED: DEXTROSE 5%-NORMAL SALINE 1,000 ML IV SCH (17:15)
[2021-04-06] MEDS ORDERED: PIPERACILLIN/TAZOBACTAM 2.25 GM VIAL IVPB ONE (17:34)
[2021-04-06] MEDS ORDERED: DEXTROSE 5%-WATER - 50 ML IVPB ONE (17:34)
[2021-04-06 18:25] VITALS: BP 54/38; PULSE 78; TEMP 97.7
[2021-04-06] MEDS ORDERED: INSULIN (LEVEMIR) 100 UNITS/ML UNITS SQ SCH (22:00)
[2021-04-06] MEDS ORDERED: ROSUVASTATIN CA 20 MG TABLET (FP) PO SCH (22:00)
[2021-04-06] MEDS ORDERED: CHLORHEXIDINE GLUCONATE 4% CLEANSER FOR DECOLONIZATION TP SCH (22:00)
[2021-04-07] MEDS ORDERED: PCA PUMP NR ONE (02:25)
[2021-04-07 13:07] LABS: BODY FLUID ALBUMIN 1.3 g/dL (Not Estab.)
== END 2021-04-06 23:30 | disposition expired | DRG 291 ==
LOC: JER 00:04 → JERBED 02:58 → JICU 11:12 → J5S 13:10
PROVIDERS: ADMIT Internal Medicine; ATTEND Internal Medicine
PROC: 0W993ZX Drainage of Right Pleural Cavity, Percutaneous Approach, Diagnostic (ICD-10-PCS; principal; 2021-04-06)
DX: I13.2 Hypertensive heart and chronic kidney disease with heart failure and with stage 5 chronic kidney disease, or end stage renal disease (principal); N18.6 End stage renal disease; I50.23 Acute on chronic systolic (congestive) heart failure; J96.01 Acute respiratory failure with hypoxia; J90 Pleural effusion, not elsewhere classified; R64 Cachexia; E87.2 Acidosis; J98.11 Atelectasis; E11.621 Type 2 diabetes mellitus with foot ulcer; R57.0 Cardiogenic shock; Z68.24 Body mass index [BMI] 24.0-24.9, adult; I95.9 Hypotension, unspecified; I25.10 Atherosclerotic heart disease of native coronary artery without angina pectoris; Z95.5 Presence of coronary angioplasty implant and graft; I34.0 Nonrheumatic mitral (valve) insufficiency; I27.20 Pulmonary hypertension, unspecified; E11.22 Type 2 diabetes mellitus with diabetic chronic kidney disease; Z95.0 Presence of cardiac pacemaker; E78.5 Hyperlipidemia, unspecified; E83.39 Other disorders of phosphorus metabolism
CPT/HCPCS: 36415; 70450-TC; 71045-TC-FY; 71250-TC; 80053; 82042; 82150; 82550; 82803; 82945; 82962; 83605; 83615; 83735; 83880; 83986; 84100; 84478; 84484; 84560; 85025; 85610; 85730; 87070; 87075; 87186; 87205; 87804; 93005; 93010; 99291; C9803; J0131; U0003; U0005